=== PATIENT | male | born 1950 | race Caucasian/White ===

== ENCOUNTER 2016-11-25 06:58 | Day surgery (SDC) | payer MEDICARE, MEDICAID ==
[2016-05-21 09:50] VITALS: PULSE 68
[2016-11-21 12:17] VITALS: BMI 31.2
--- NOTE | 2016-11-23 07:16 | HP ---
REASON FOR ADMISSION: Left heart cath, possible angioplasty. BRIEF CLINICAL HISTORY: A 66-year-old male with past medical history significant for type 2 diabetes , coronary artery, status multiple PTCA, status multiple MIs. Last MA, the patient had plain balloon angioplasty in [facility] by Dr. Juan 05/19/2016 and then patient at [facility] 05/27/2016 a stent was done, recently complained of chest pain, so the patient underwent a stress test that shows positive apical inferior defect suggestive of ischemia, so the patient is sche duled for elective cardiac cath and possible angioplasty. PAST MEDICAL HISTORY: Significant for coronary artery disease, status post multiple PTCA, multiple M Is. Most recent code STEMI 05/19/2016, where an ostial circumflex PTCA was done. Diabetes, hypertensi on, hyperlipidemia. Recent cardiac workup as follows: Echo shows ejection fraction 35-40%, mild to moderate MR, mild TR, mild PI, trace aortic regurgitation. Recent stress test, stress thallium dated 10/30/2014 shows posi tive apical and inferior defect, ejection fraction 30%. SOCIAL HISTORY: Denies smoking. Denies any history of alcohol abuse. CURRENT MEDICATIONS: The patient is taking vitamin D, Tradjenta, Zocor, potassium, metoprolol succin ate 25 mg daily, insulin, glipizide 10 mg daily, furosemide 40 mg daily, fenofibrate 134, famotidine 40, enalapril, digoxin 0.125 mg, clopidogrel 75, Coreg 6.25, aspirin 81 mg daily. ALLERGIES: No known drug allergies. REVIEW OF SYSTEMS: As per HPI. PHYSICAL EXAMINATION: VITAL SIGNS: Temperature afebrile, height of the patient 5 feet 5 inches. Weight of the patient 188 pounds, body mass 31.3 kg/m2,. Temperature afebrile, heart rate 88, blood pressure 130/80. HEENT: PERRLA. Extraocular muscles intact. NECK: Supple. No carotid bruits. No thyromegaly. CHEST: Clear to auscultation. HEART: S1, S2 regular. ABDOMEN: Soft. EXTREMITIES: Clubbing and cyanosis negative. BLOOD WORKUP: Pending. IMPRESSION: Abnormal stress test, cardiomyopathy, ischemic; status post multiple stents, mild to mod erate mitral regurgitation, mild tricuspid regurgitation, mild aortic regurgitation, mild pulmonary i nsufficiency, diabetes, hypertension, hyperlipidemia, obesity, abnormal stress test. RECOMMENDATION: Cardiac catheterization. Further recommendation after cardiac catheterization. We will follow with you. Thank you, Dr. Giorgi Monzon, for providing us opportunity in taking care of the patient. We will fol low with you. Ciera Sheikh MD cc: [id number] TT: 11/23/2016 07:16:37 tn
[2016-11-25 07:21] LABS: ADD MANUAL DIFF? NO
[2016-11-25 07:25] LABS: EOS # 0.2 (0.0-0.7); EOS % 3.6 % (1.5-5.0); GRAN % 40.8 % (50.0-68.0); HEMATOCRIT 38.2 % (42.0-52.0); LYMPH # 1.9 (1.2-3.4); LYMPH % 43.2 % (22.0-35.0); MEAN CELL VOLUME 83.2 fL (80.0-105.0); MEAN CORPUSCULAR HEMOGLOBIN 27.9 pg (25.0-35.0); MEAN CORPUSCULAR HGB CONC 33.5 g/dl (31.0-37.0); MEAN PLATELET VOLUME 9.9 fl (7.0-11.0); MONO # 0.6 (0.1-0.6); MONO % 12.4 % (1.0-6.0); PLATELET COUNT 164 10^3/uL (120.0-450.0); WHITE BLOOD COUNT 4.4 10^3/ul (4.5-11.0)
[2016-11-25 07:34] LABS: INR 1.06 (0.93-1.08); PARTIAL THROMBOPLASTIN TIME 24.8 Seconds (23.7-30.8)
[2016-11-25 07:42] LABS: BLOOD UREA NITROGEN 18 mg/dL (7-21); CALCIUM 9.6 mg/dL (8.4-10.5); CARBON DIOXIDE 28 mmol/L (21-33); CHLORIDE 102 mmol/L (98-107); CHOLESTEROL 144 mg/dL (130-200); GFR AFRICAN-AMERICAN > 60; GLUCOSE,RANDOM 143 mg/dL (70-110); POTASSIUM 3.9 mmol/L (3.6-5.0); SODIUM 139 mmol/L (132-148)
[2016-11-25 07:43] VITALS: O2SAT 99
[2016-11-25] MEDS ORDERED: Lidocaine 2% Inj (20ml) ONE (08:26)
[2016-11-25] MEDS ORDERED: Midazolam 2 MG/2 ML VIAL ONE (08:26)
[2016-11-25] MEDS ORDERED: Iodixanol 320 MG/ML 200 ML BOTTLE IV ONE (08:27)
[2016-11-25] MEDS ORDERED: Nitroglycerin 50mg in D5W 250 ML IV ONE (08:27)
[2016-11-25] MEDS ORDERED: Eptifibatide 20 mg/10mL Inj IVP ONE (09:10)
[2016-11-25] MEDS ORDERED: Sodium Chloride 0.9% 1,000 ML IV SCH (10:30)
[2016-11-25 10:53] VITALS: TEMP 97.5
--- NOTE | 2016-11-25 13:41 | CARD ---
APPROVED REPORT EKG Measurement Heart [id number] <Conclusion> Sinus bradycardia with 1st degree AV block Right bundle branch block Left anterior fascicular block Trifascicular block STTW changes c/w ischemia
[2016-11-25 14:01] LABS: ADD MANUAL DIFF? NO
[2016-11-25 14:03] LABS: EOS # 0.1 (0.0-0.7); EOS % 3.8 % (1.5-5.0); GRAN # 1.45 (1.4-6.5); GRAN % 42.5 % (50.0-68.0); HEMATOCRIT 37.7 % (42.0-52.0); LYMPH # 1.5 (1.2-3.4); LYMPH % 43.4 % (22.0-35.0); MEAN CORPUSCULAR HEMOGLOBIN 27.8 pg (25.0-35.0); MEAN CORPUSCULAR HGB CONC 33.4 g/dl (31.0-37.0); MONO # 0.4 (0.1-0.6); MONO % 10.3 % (1.0-6.0); PLATELET COUNT 155 10^3/uL (120.0-450.0); RED CELL DISTRIBUTION WIDTH 13.9 % (11.5-14.5); WHITE BLOOD COUNT 3.4 10^3/ul (4.5-11.0)
[2016-11-25 14:15] LABS: BLOOD UREA NITROGEN 16 mg/dL (7-21); CALCIUM 9.6 mg/dL (8.4-10.5); CARBON DIOXIDE 28 mmol/L (21-33); CHLORIDE 100 mmol/L (98-107); GFR AFRICAN-AMERICAN > 60; GLUCOSE,RANDOM 177 mg/dL (70-110); POTASSIUM 3.8 mmol/L (3.6-5.0); SODIUM 140 mmol/L (132-148)
[2016-11-25] MEDS ORDERED: Bacitracin 500 Units/gm Oint Foilpak UD ONE (14:32)
[2016-11-25 15:57] VITALS: RESP 18
[2016-11-25 15:58] VITALS: BP 152/61; PULSE 73
--- NOTE | 2016-11-25 18:30 | CARD ---
APPROVED REPORT Procedure(s) performed: Left Heart Catheterization PTCA with Stenting of Proximal, Mid and Distal with MARIANNE PRU...261 ( Resistant to Plavix). HISTORY The patient is a 66 year-old male with a history of : diabetes mellitus with oral treatment , previous PCI (The PCI date was 05/27/2016), hypertension , dyslipidemia , Hx of Multiple PTCAs last in [facility] on 05/27/2016, c/o recuurrent chest pain and posuive stress test. INDICATION The indication(s) include : positive stress test, Apical and inferior defect. CASE TECHNIQUE The patient was brought electively to the Cardiac Catheterization Laboratory in a fasting state and was prepped and draped in a sterile manner. The left wrist was infiltrated with 2% Lidocaine subcutaneous anesthesia. A 6 Fr Glidesheath (Radial) sheath was inserted into the left radial artery without difficulty. Coronary angiography was performed using coronary diagnostic catheters. The left coronary system was accessed and visualized with a Diagnostic ,JL3.5,5Fr catheter. The right coronary system was accessed and visualized with a Diagnostic ,JR3.5,5FR catheter. The left ventricle was accessed and visualized with a Pigtal catheter. Left ventricular/Aortic Valve gradient assessed on pullback. Left ventriculogram was performed in ROSS projection. The patient tolerated the procedure well and there were no complications associated with the procedure. Vessel Analysis The patient's coronary anatomy is co-dominant. There is a 20% stenosis in the ostial segment. The left main bifurcates to the left anterior descending and circumflex. The left anterior descending artery is a medium size vessel with diffuse calcification noted throughout this vessel and without significant stenosis. There is a 40% stenosis in the mid segment. The first diagonal branch is a small size vessel with diffuse calcification noted throughout this vessel and without significant stenosis. The second diagonal branch is a small size vessel with diffuse calcification noted throughout this vessel and without significant stenosis. The third diagonal branch is a small size vessel with diffuse calcification noted throughout this vessel and without significant stenosis. The circumflex artery is a medium size vessel with diffuse calcification noted throughout this vessel and with significant stenosis. There is a 95% stenosis in the mid segment. proximal 70-80% and distal 80-90% The first obtuse marginal branch is a small size vessel with diffuse calcification noted throughout this vessel and without significant stenosis. The second obtuse marginal branch is a small size vessel with diffuse calcification noted throughout this vessel and without significant stenosis. The left posterior descending artery is a medium size vessel with diffuse calcification noted throughout this vessel and without significant stenosis. The right coronary artery is a large size vessel with diffuse calcification noted throughout this vessel and with significant stenosis. There is a 80-90% stenosis in the distal segment. proximal 40-50% and Mid 60-70% The right posterior descending artery is a medium size vessel with diffuse calcification noted throughout this vessel and without significant stenosis. Left Ventricle The left ventricle is enlarged in size with moderately decreased contractility. Ischemic cardiomyopathy. The left ventricular ejection fraction is estimated to be 35-40%. The left ventricular end diastolic pressure is 20 mmHg. There was no gradient across the aortic valve upon pullback. PCI Technique Lesion Anticoagulation was achieved with Heparin. Percutaneous coronary intervention was performed on the mid circumflex artery segment. The lesion stenosis prior to intervention was 95% with KAREN 2 flow. A 6 Fr XB 3 Guide Catheter was used to engage the ostium. BALLOON DILATION A Balloon catheter 2.5 x 15 mm Sprinter RX was inserted and inflated up to 8.00atm for 25seconds. STENT DEPLOYMENT A drug-eluting stent 2.75 x 22 mm Resolute MARIANNE was inserted and inflated up to 14.00atm for 30seconds. POST STENT DEPLOYMENT BALLOON DILATION A Balloon catheter 3.0 x 12 mm Sprinter NC was inserted and inflated up to 14.00atm for 30seconds. Final angiography reveals 0 % stenosis with KAREN 3 flow. PCI Technique Lesion 2 Percutaneous Coronary Intervention was performed on the proximal circumflex artery segment. The lesion stenosis prior to intervention was 70-80% with KAREN 2 flow. A 6 Fr XB 3 Guide Catheter was used to engage the ostium. BALLOON DILATION A Balloon catheter 2.5 x 15 mm Sprinter RX was inserted and inflated up to 12.00atm for 15seconds. STENT DEPLOYMENT A drug-eluting stent 2.75 x 26 mm Resolute MARIANNE was inserted and inflated up to 12.00atm for 15seconds. POST STENT DEPLOYMENT BALLOON DILATION A Balloon catheter 3.0 x 12 mm Sprinter NC was inserted and inflated up to 14.00atm for 15seconds. Final angiography reveals 0 % stenosis with KAREN 3 flow. PCI Technique Lesion 3 Percutaneous Coronary Intervention was performed on the distal circumflex artery segment. The lesion stenosis prior to intervention was 80-90% with KAREN 2 flow. A 6 Fr XB 3 Guide Catheter was used to engage the ostium. BALLOON DILATION A Balloon catheter 2.5 x 15 mm Sprinter RX was inserted and inflated up to susy for seconds. STENT DEPLOYMENT A drug-eluting stent 2.5 x 14 mm Resolute MARIANNE was inserted and inflated up to 15.00atm for 10seconds. Final angiography reveals 0 % stenosis with KAREN 3 flow. Conclusion Severe Two Vewssel CAD RCA/ CX Successful PTCA with MAIRANNE of Circumflex proxima, Mid and Distal LVEF-35-40%, EDP-20 PRU-261 ( Resistant to PLavix) Recommendations Cardiac Rehabilitation Referral Aggressive Medical TherapyCardiac Risk Reduction Program Weight Loss Reduction Program ASA and Effient for one year then Baby Asa alone. F/U staged PTCA in Four Weeks on 12/23/2016 at 7:[address] Jonas Monzon MD
== END 2016-11-25 17:09 | disposition home or self-care (01) ==
LOC: CATH 06:58 → 2RSO 10:36 → CATH 17:09
PROVIDERS: ATTEND Internal Medicine Cardiovascular Disease
DX: I25.10 Atherosclerotic heart disease of native coronary artery without angina pectoris (principal); I10 Essential (primary) hypertension; I25.5 Ischemic cardiomyopathy; E11.8 Type 2 diabetes mellitus with unspecified complications; I08.3 Combined rheumatic disorders of mitral, aortic and tricuspid valves; E78.5 Hyperlipidemia, unspecified; J98.4 Other disorders of lung; E66.9 Obesity, unspecified; Z68.31 Body mass index [BMI] 31.0-31.9, adult; I25.2 Old myocardial infarction; Z95.5 Presence of coronary angioplasty implant and graft; Z79.84 Long term (current) use of oral hypoglycemic drugs
CPT/HCPCS: 36415; 80048; 80061; 85025; 85175; 85576; 85610; 85730; 86850; 86900; 93005; 93458; 99152; 99153; C1725 ×3; C1769 ×2; C1874 ×3; C1887 ×2; C9600; J1327; J1644 ×2; J1940; J2250; J3010; J7040 ×2

== ENCOUNTER 2016-12-23 06:12 | Day surgery (SDC) | payer MEDICARE, MEDICAID ==
[2016-11-21 12:17] VITALS: BMI 31.2
--- NOTE | 2016-12-20 22:03 | HP ---
REASON FOR ADMISSION: Staged angioplasty of RCA, left heart catheterization. BRIEF CLINICAL HISTORY: This is a 66-year-old male with a past medical history of multiple PTCAs, co ronary artery disease, diabetes, hypertension, hyperlipidemia, on oral hypoglycemic agent, history of multiple PTCAs and MIs with last cardiac catheterization on 11/25/2016 after having abnormal stress test, apical defect, and chest pain. Cardiac catheterization revealed 2 vessels coronary artery dise ase, multiple stenoses in the circumflex and successfully the patient underwent PTCA with drug-elutin g stents in proximal, mid and distal circumflex. The patient this time is going to be admitted on for PTCA of right coronary artery. PAST MEDICAL HISTORY: Significant for diabetes, hypertension, hyperlipidemia, multiple MIs, multiple PTCAs, history of code STEMI 05/19/2016 with ostial circumflex. Had PTCA done by Dr. Juan and cheryle yun a week later the patient admitted to [facility] on 05/27/2016 and a stent was dep loyed. The patient had recently a stress test done that was positive, so patient underwent cardiac c atheterization. Stress test dated 10/30/2014 shows apical defect suggestive of ischemia, ejection fr action 35%. MOST RECENT CARDIAC WORKUP: The patient had echocardiography done that showed ejection fraction 35-4 0%, mild to moderate mitral regurgitation, mild tricuspid regurgitation, mild pulmonary insufficiency , trace aortic regurgitation; abnormal stress test dated 10/30/2014 because of chest pain. Repeat ca theterization most recently, as mentioned 11/25/2016, that revealed left ventricle ejection fraction 35-40%, EDP was in the range of 20, and cardiac catheterization revealed the left main ostial 20% gera nosis, bifurcate LAD and circumflex. LAD had 40% stenosis noted. Circumflex was a medium sized vess el, diffuse recalcification noted toward the vessel, a 95% stenosis in the midsegment, proximal 70-80 %, and distal ____% where the patient had 3 drug-eluting stents done. Right coronary artery revealed 70-80% stenosis in the distal segment, proximal 40-50, and mid 60-70%. RPDA has diffuse disease not ed. SOCIAL HISTORY: Denies smoking. Denies any history of alcohol abuse. CURRENT MEDICATIONS: The patient is taking Tradjenta, Zocor, potassium, metoprolol, insulin, glipizi de, furosemide, fenofibrate, famotidine, enalapril, digoxin. The patient was taking Plavix before, b ut on last catheterization PRU was done and found to be 261 so patient was to switch over to Effient. ALLERGIES: No known drug allergies. REVIEW OF SYSTEMS: As per HPI. PHYSICAL EXAMINATION: VITAL SIGNS: Temperature afebrile, heart rate 60, blood pressure 134/80. HEENT: PERRLA. Extraocular muscles intact. NECK: Supple. No carotid bruits. No thyromegaly. CHEST: Clear to auscultation. HEART: S1, S2 regular. ABDOMEN: Soft. EXTREMITIES: Clubbing and cyanosis negative. BLOOD WORKUP: Last blood workup in the system available is on 11/25/2016 that shows WBC 3.4, hemoglo bin 12, hematocrit 37.7, platelet count 155. Chemistry shows sodium 140, potassium 3.____, chloride 100, carbon dioxide 28, anion gap of 16, BUN 16, creatinine 1.1. IMPRESSION: History of coronary artery disease and multiple stents, multiple myocardial infarctions, ST-elevation myocardial infarction. Last ST-elevation myocardial infarction stent in 05/2016 where the patient had a plain balloon angioplasty of circumflex and the patient had a stent in [facility]. Recently, cardiac catheterization done because of abnormal stress test, 11/25/2016. Has had 3 drug-eluting stents in the circumflex. Now patient admitted for a staged percutaneous translum inal coronary angioplasty of right coronary artery. Decreased ventricular function, ejection fractio n 35%, mitral regurgitation, tricuspid regurgitation, diabetes, hypertension, hyperlipidemia. Furthe r recommendation after cardiac catheterization and stenting. Will follow with you. Thank you, Dr. Monzon, for providing us the opportunity in taking care of this patient. Will follow w ith you. Ciera Sheikh MD cc: [id number] TT: 12/20/2016 16:42:03 nicolás
[2016-12-23 06:41] LABS: ADD MANUAL DIFF? NO
[2016-12-23] MEDS ORDERED: Lidocaine 2% Inj (20ml) ONE (06:44)
[2016-12-23] MEDS ORDERED: Iohexol 350mgl/ml 50 ML ONE (06:45)
[2016-12-23] MEDS ORDERED: Iodixanol 320 MG/ML 100 ML BOTTLE IV ONE (06:45)
[2016-12-23] MEDS ORDERED: Iodixanol 320 MG/ML 200 ML BOTTLE IV ONE (06:45)
[2016-12-23] MEDS ORDERED: Phenylephrine 10 mg/ml Inj ONE (06:45)
[2016-12-23] MEDS ORDERED: Nitroglycerin 50mg in D5W 50 MG/250 ML BOTTLE IV ONE (06:45)
[2016-12-23 06:55] VITALS: RESP 18; O2SAT 97
[2016-12-23 07:08] LABS: BLOOD UREA NITROGEN 15 mg/dL (7-21); CALCIUM 9.7 mg/dL (8.4-10.5); CARBON DIOXIDE 26 mmol/L (21-33); CHLORIDE 100 mmol/L (98-107); CHOLESTEROL 163 mg/dL (130-200); GFR AFRICAN-AMERICAN > 60; GLUCOSE,RANDOM 111 mg/dL (70-110); POTASSIUM 3.9 mmol/L (3.6-5.0); SODIUM 138 mmol/L (132-148)
[2016-12-23] MEDS ORDERED: Midazolam 2 MG/2 ML VIAL ONE (07:08)
[2016-12-23 07:17] LABS: BASO # 0.01 K/mm3 (0.0-2.0); BASO % 0.2 % (0.0-3.0); EOS # 0.1 (0.0-0.7); EOS % 1.8 % (1.5-5.0); GRAN # 3.04 (1.4-6.5); GRAN % 55.7 % (50.0-68.0); HEMATOCRIT 35.7 % (42.0-52.0); LYMPH # 1.8 (1.2-3.4); LYMPH % 32.4 % (22.0-35.0); MEAN CELL VOLUME 82.1 fL (80.0-105.0); MEAN CORPUSCULAR HEMOGLOBIN 27.4 pg (25.0-35.0); MEAN CORPUSCULAR HGB CONC 33.3 g/dl (31.0-37.0); MONO # 0.5 (0.1-0.6); MONO % 9.9 % (1.0-6.0); PLATELET COUNT 182 10^3/uL (120.0-450.0); RED CELL DISTRIBUTION WIDTH 13.8 % (11.5-14.5); WHITE BLOOD COUNT 5.5 10^3/ul (4.5-11.0)
[2016-12-23] MEDS ORDERED: Eptifibatide 20 mg/10mL Inj IVP ONE (07:19)
[2016-12-23 07:28] LABS: INR 1.01 (0.93-1.08); PARTIAL THROMBOPLASTIN TIME 24.1 Seconds (23.7-30.8)
[2016-12-23] MEDS ORDERED: Sodium Chloride 0.9% 1,000 ML IV SCH (09:15)
[2016-12-23] MEDS ORDERED: Ergocalciferol 50,000 Intl Units Cap PO SCH (09:15)
[2016-12-23] MEDS ORDERED: Metoprolol Succinate 25 mg XL Tab PO SCH (09:15)
[2016-12-23] MEDS ORDERED: Digoxin 125 mcg (0.125 mg) Tab PO SCH (10:00)
[2016-12-23] MEDS ORDERED: Potassium Chloride 10 mEq ER Tab PO SCH (10:00)
[2016-12-23 11:17] VITALS: PULSE 67
[2016-12-23 12:28] LABS: ADD MANUAL DIFF? NO; EOS # 0.1 (0.0-0.7); EOS % 2.8 % (1.5-5.0); GRAN # 2.26 (1.4-6.5); GRAN % 51.9 % (50.0-68.0); HEMATOCRIT 35.2 % (42.0-52.0); LYMPH # 1.6 (1.2-3.4); LYMPH % 36.6 % (22.0-35.0); MEAN CELL VOLUME 82.4 fL (80.0-105.0); MEAN CORPUSCULAR HEMOGLOBIN 27.6 pg (25.0-35.0); MEAN CORPUSCULAR HGB CONC 33.5 g/dl (31.0-37.0); MEAN PLATELET VOLUME 9.7 fl (7.0-11.0); MONO # 0.4 (0.1-0.6); MONO % 8.7 % (1.0-6.0); PLATELET COUNT 152 10^3/uL (120.0-450.0); RED CELL DISTRIBUTION WIDTH 13.7 % (11.5-14.5); WHITE BLOOD COUNT 4.4 10^3/ul (4.5-11.0)
[2016-12-23 12:40] LABS: BLOOD UREA NITROGEN 14 mg/dL (7-21); CALCIUM 9.1 mg/dL (8.4-10.5); CARBON DIOXIDE 28 mmol/L (21-33); CHLORIDE 101 mmol/L (98-107); GFR AFRICAN-AMERICAN > 60; POTASSIUM 3.7 mmol/L (3.6-5.0); SODIUM 137 mmol/L (132-148)
[2016-12-23 12:57] LABS: GLUCOSE,RANDOM 169 mg/dL (70-110)
--- NOTE | 2016-12-23 13:43 | CARD ---
APPROVED REPORT EKG Measurement Heart [id number] <Conclusion> Normal sinus rhythm with 1st degree AVB Right bundle branch block Left anterior fascicular block Trifascicular block STTW changes c/w ischemia
[2016-12-23 13:58] VITALS: PULSE 67
[2016-12-23] MEDS ORDERED: Potassium Chloride 20 mEq ER Tab PO ONE (14:52)
[2016-12-23 14:58] VITALS: BP 125/62; TEMP 98
[2016-12-23] MEDS ORDERED: Insulin Lispro (humaLOG) MIX 75/25(10 ml) SC SCH (16:30)
--- NOTE | 2016-12-23 17:35 | CARD ---
APPROVED REPORT Procedure(s) performed: Selective Right and Left Coronary Angiography PTCA with Stenting of Proximal RCA with MARIANNE PTCA with scorring balloon of MID RCA for Instent restenosis PTCA with Balloon Angioplasty of Distal RCA. HISTORY The patient is a 66 year-old male with a history of : previous CT (> 7 days), most recent EF: 40%. (EF Method: LVG), peripheral vascular disease, diabetes mellitus with insulin treatment , previous diagnostic cath, tobacco history() : The patient is a former smoker , previous PCI (The PCI date was 11/25/2016), hypertension , dyslipidemia , Admitted for Staged PTCA of RCA. INDICATION The indication(s) include : positive stress test, For Staged PTCA of RCA. CASE TECHNIQUE The patient was brought electively to the Cardiac Catheterization Laboratory in a fasting state and was prepped and draped in a sterile manner. The left wrist was infiltrated with 2% Lidocaine subcutaneous anesthesia. A 6 Fr Glidesheath (Radial) sheath was inserted into the left radial artery without difficulty. Coronary angiography was performed using coronary diagnostic catheters. The left coronary system was accessed and visualized with a Diagnostic ,5 Fr JL 3.5 catheter. The right coronary system was accessed and visualized with a 6 Fr AR 1 Guide Catheter catheter. Closure device was deployed with a Fr TR Band (Regular) without any complications. NO LV gram obtained Vessel Analysis The patient's coronary anatomy is co-dominant. The left main coronary artery is a medium size vessel with diffuse calcification noted throughout this vessel and without significant stenosis. The left main bifurcates to the left anterior descending and circumflex. The left anterior descending artery is a medium size vessel with diffuse calcification noted throughout this vessel and without significant stenosis. The first diagonal branch is a small size vessel with diffuse calcification noted throughout this vessel and without significant stenosis. The second diagonal branch is a small size vessel with diffuse calcification noted throughout this vessel and without significant stenosis. The third diagonal branch is a small size vessel with diffuse calcification noted throughout this vessel and without significant stenosis. The circumflex artery is a medium size vessel with diffuse calcification noted throughout this vessel and without significant stenosis. Patent Previous PTCA Sites The first obtuse marginal branch is a small size vessel with diffuse calcification noted throughout this vessel and without significant stenosis. The second obtuse marginal branch is a small size vessel with diffuse calcification noted throughout this vessel and without significant stenosis. The left posterior descending artery is a medium size vessel with diffuse calcification noted throughout this vessel and without significant stenosis. The right coronary artery is a large size vessel with diffuse calcification noted throughout this vessel and with significant stenosis. proximally 70% stenosis with 60 mm drop in blood pressure and significant dampening of BP on deep engagment. There is a 80-90% stenosis in the mid segment. multiple stenoses, and Mid Instent restenosis 70-80% multiple The right posterolateral branch is a medium size vessel with diffuse calcification noted throughout this vessel and without significant stenosis. Left Ventricle LV gram not obtained. PCI Technique Lesion Anticoagulation was achieved with Heparin. Percutaneous coronary intervention was performed on the Distal right coronary artery. The lesion stenosis prior to intervention was 80-90% with KAREN 2 flow. A 6 Fr AR 1 Guide Catheter was used to engage the ostium. BALLOON DILATION A Balloon catheter 2.5 x 27 mm Sprinter NC was inserted and inflated up to 10.00atm for 60seconds. Multiple inflation for 10-12 atms for 60 secons each Final angiography reveals 0 % stenosis with KAREN 3 flow. PCI Technique Lesion 2 Percutaneous Coronary Intervention was performed on the mid right coronary artery. The lesion stenosis prior to intervention was 70-80% with KAREN 2 flow. A 6 Fr AR 1 Guide Catheter was used to engage the ostium. BALLOON DILATION A Balloon catheter 3.0 x 10 mm Scoring Balloon was inserted and inflated up to 12.00atm for 35seconds. POST STENT DEPLOYMENT BALLOON DILATION A Balloon catheter 3.5/15 was inserted and inflated up to 14atm for 20seconds. Final angiography reveals 20 % stenosis with KAREN 3 flow. PCI Technique Lesion 3 Percutaneous Coronary Intervention was performed on the proximal right coronary artery. The lesion stenosis prior to intervention was 70% with KAREN 2 flow. A 6 Fr AR 1 Guide Catheter was used to engage the ostium. BALLOON DILATION A Balloon catheter 2.5 x 27 mm Sprinter NC was inserted and inflated up to 14.00atm for 35seconds. STENT DEPLOYMENT A drug-eluting stent 3.5 x 12 mm Resolute MARIANNE was inserted and inflated up to 14.00atm for 25seconds. Final angiography reveals 0 % stenosis with KAREN 3 flow. Conclusion Patent Previous PTCA sites in Circumflex Successful PTCA (POBA) of Distal RCA. Successful PTCA with Scorring Balloon of MId RCA for Instent restenosi. Successful PTCA with MARIANNE of Proximal RCA. Recommendations Cardiac Rehabilitation Referral Aggressive Medical TherapyCardiac Risk Reduction Program Weight Loss Reduction Program Continue ASA and Effient for one year( Pt is resistant to plavix, PRU...261 on last cath on Plavix so changed to EFFIENT). CC; Dr. Jonas Monzon MD
== END 2016-12-23 15:43 | disposition home or self-care (01) ==
LOC: CATH 06:12 → 2RSO 09:11 → CATH 15:43
PROVIDERS: ATTEND Internal Medicine Cardiovascular Disease
DX: I25.10 Atherosclerotic heart disease of native coronary artery without angina pectoris (principal); T82.858A Stenosis of other vascular prosthetic devices, implants and grafts, initial encounter; E11.9 Type 2 diabetes mellitus without complications; I10 Essential (primary) hypertension; E78.5 Hyperlipidemia, unspecified; I25.2 Old myocardial infarction; I44.0 Atrioventricular block, first degree; I45.10 Unspecified right bundle-branch block; I73.9 Peripheral vascular disease, unspecified; R07.9 Chest pain, unspecified; R94.39 Abnormal result of other cardiovascular function study; Z79.4 Long term (current) use of insulin; Z87.891 Personal history of nicotine dependence; Z95.5 Presence of coronary angioplasty implant and graft; Z98.61 Coronary angioplasty status; I08.3 Combined rheumatic disorders of mitral, aortic and tricuspid valves; I09.89 Other specified rheumatic heart diseases
CPT/HCPCS: 36415; 80048; 80061; 85025; 85175; 85610; 85730; 86850; 86900; 93005; 93454; 99152; 99153; C1725 ×2; C1769 ×2; C1874 ×2; C1887 ×2; C9600; J1327; J1644 ×2; J2250; J3010; J7040 ×2; Q9967

== ENCOUNTER 2017-04-29 09:30 | Inpatient (IN) | payer MEDICARE, MEDICAID ==
[2017-04-29 10:10] LABS: BASO # 0.01 K/mm3 (0.0-2.0); BASO % 0.2 % (0.0-3.0); EOS # 0.1 (0.0-0.7); EOS % 2.7 % (1.5-5.0); GRAN # 2.41 (1.4-6.5); GRAN % 53.7 % (50.0-68.0); HEMATOCRIT 36.3 % (42.0-52.0); LYMPH # 1.4 (1.2-3.4); LYMPH % 31.4 % (22.0-35.0); MEAN CELL VOLUME 81.8 fl (80.0-105.0); MEAN CORPUSCULAR HEMOGLOBIN 26.1 pg (25.0-35.0); MEAN PLATELET VOLUME 10.9 fl (7.0-11.0); MONO # 0.5 (0.1-0.6); RED CELL DISTRIBUTION WIDTH 14.8 % (11.5-14.5); WHITE BLOOD COUNT 4.5 10^3/ul (4.5-11.0)
--- NOTE | 2017-04-29 10:12 | RAD ---
HISTORY: sob r/o chf COMPARISON: No prior. FINDINGS: LUNGS: 05/19/2016 patchy opacity at right lung base. Nonspecific. . PLEURA: Minimal blunting of left costophrenic angle may reflect small pleural effusion. CARDIOVASCULAR: Congestive change. Permanent pacemaker. Normal heart size. OSSEOUS STRUCTURES: No significant abnormalities. VISUALIZED UPPER ABDOMEN: Normal. OTHER FINDINGS: None. IMPRESSION: Congestive change. Patchy opacity at right base. Possible small left pleural effusion. Findings may reflect congestive heart failure with early pulmonary edema. Follow-up advised.
[2017-04-29 10:13] LABS: ALB/GLOB RATIO 1.4 (1.1-1.8); ALKALINE PHOSPHATASE 44 U/L (38-126); ALT/SGPT 38 U/L (7-56); AST/SGOT 31 U/L (17-59); BILIRUBIN,TOTAL 0.8 mg/dL (0.2-1.3); BLOOD UREA NITROGEN 16 mg/dL (7-21); CALCIUM 9.9 mg/dL (8.4-10.5); CARBON DIOXIDE 28 mmol/L (21-33); CHLORIDE 102 mmol/L (98-107); GFR AFRICAN-AMERICAN > 60; GLUCOSE,RANDOM 171 mg/dL (70-110); MAGNESIUM 1.8 mg/dL (1.7-2.2); POTASSIUM 4.3 mmol/L (3.6-5.0); SODIUM 141 mmol/L (132-148); TOTAL PROTEIN 7.3 g/dL (5.8-8.3)
[2017-04-29 10:14] LABS: INR 1.16 (0.93-1.08); PARTIAL THROMBOPLASTIN TIME 25.7 Seconds (23.7-30.8)
[2017-04-29 10:25] LABS: TROPONIN I 0.03 ng/mL
[2017-04-29] MEDS ORDERED: cefTRIAXone 1 gm 1 GM/100 ML BAG IVPB STA (10:27)
[2017-04-29 10:33] LABS: URINE BILIRUBIN NEGATIVE (NEGATIVE); URINE BLOOD NEGATIVE (NEGATIVE); URINE GLUCOSE (UA) NEGATIVE (NEGATIVE); URINE KETONE NEGATIVE (NEGATIVE); URINE LEUKOCYTE ESTERASE NEGATIVE Leu/uL (NEGATIVE); URINE PROTEIN NEGATIVE mg/dL (<30 mg/dL); URINE UROBILINOGEN 0.2 E.U./dL (<1 E.U./dL)
[2017-04-29 10:38] LABS: URINE APPEARANCE CLEAR (CLEAR); URINE COLOR YELLOW (YELLOW)
--- NOTE | 2017-04-29 10:39 | ED PDOC ---
Arrival/HPI - General Chief Complaint: Respiratory Distress Time Seen by Provider: 04/29/17 09:33 Historian: Patient - History of Present Illness Narrative History of Present Illness (Text): 04/29/17 09:36 A 66 year old male, whose past medical history includes CAD with multiple stents , prior STEMI and nonSTEMI, presents to the emergency department complaining of shortness of breath for 1 week. Patient reports experiencing central chest pain but is unable to describe pain. Patient denies of any other complaints. 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) - Renal Hx Renal Disorder: No - Endocrine/Metabolic Hx Diabetes Mellitus Type 2: Yes - Hematological/Oncological Hx Blood Transfusions: No - Integumentary Hx Dermatological Disorder: No Other/Comment: multiple brown skin discolorations ble - Musculoskeletal/Rheumatological Hx Musculoskeletal Disorders: No - Gastrointestinal Hx Gastrointestinal Disorders: Yes Hx Gastroesophageal Reflux: Yes - Genitourinary/Gynecological Hx Genitourinary Disorders: No - Psychiatric Hx Emotional Abuse: No Hx Physical Abuse: No Hx Substance Use: No - Surgical History Hx Coronary Stent: Yes - Anesthesia Hx Anesthesia Reactions: No Hx Malignant Hyperthermia: No - Suicidal Assessment Feels Threatened In Home Enviroment: No Family/Social History - Physician Review Nursing Documentation Reviewed: Yes Family/Social History: No Known Family HX Smoking Status: Former Smoker Hx Alcohol Use: No Hx Substance Use: No Hx Substance Use Treatment: No Allergies/Home Meds Allergies/Adverse Reactions: Allergies No Known Allergies Allergy (Verified 04/29/17 14:53) Home Medications: Home Meds Medication Instructions Recorded Confirmed Digoxin [Digitek] 125 mcg PO DAILY 09/27/15 04/29/17 Glipizide 10 mg PO BID 09/27/15 04/29/17 Enalapril Maleate [Vasotec] 10 mg PO BID 03/18/16 04/29/17 Fenofibrate [Fenoglide] 134 mg PO DAILY 03/18/16 04/29/17 Insulin Aspart Prot/Insuln Asp 0 units SC ACBD 03/18/16 12/23/16 [Novolog Mix 70-30 Vial] Aspirin [Ecotrin] 81 mg PO DAILY 05/21/16 04/29/17 Famotidine [Pepcid] 40 mg PO DAILY 05/21/16 04/29/17 Atorvastatin [Lipitor] 40 mg PO DAILY 11/25/16 04/29/17 Gabapentin [Neurontin] 300 mg PO DAILY 11/25/16 04/29/17 Metoprolol Succinate XL [Toprol XL] 25 mg PO BRK 11/25/16 04/29/17 Cholecalciferol (Vitamin D3) 50,000 unit PO Q7D 12/20/16 04/29/17 [Vitamin D3] Insulin Glargine,Hum.rec.anlog 35 unit SQ ACB 12/20/16 12/23/16 [Toujeo Solostar] Hctz 25 Mg 25 mg PO DAILY 04/29/17 04/29/17 Sitagliptin Phos/Metformin HCl 1 each PO BID 04/29/17 04/29/17 [Janumet 50-1,000 mg Tablet] Review of Systems - Physician Review All systems were reviewed & negative as marked: Yes - Review of Systems Constitutional: absent: Fevers, Night Sweats Respiratory: SOB Cardiovascular: Chest Pain (unable to describe pain) Gastrointestinal: absent: Abdominal Pain, Diarrhea, Nausea, Vomiting Physical Exam Vital Signs Reviewed: Yes Vital Signs Temp Pulse Resp BP Pulse Ox 04/29/17 15:35 55 L 18 132/55 L 99 04/29/17 14:00 67 18 99 04/29/17 12:31 89 18 128/63 97 04/29/17 10:39 141/60 04/29/17 09:42 97.6 F 72 18 150/84 98 04/29/17 09:41 20 98 Temperature: Afebrile Blood Pressure: Normal Pulse: Regular Respiratory Rate: Normal Appearance: Positive for: Well-Appearing Pain Distress: None Mental Status: Positive for: Alert and Oriented X 3 Finger Stick Blood Glucose: 182 - Systems Exam Head: Present: Atraumatic, Normocephalic Pupils: Present: PERRL Extroacular Muscles: Present: EOMI Conjunctiva: Present: Normal Mouth: Present: Moist Mucous Membranes Neck: Present: Normal Range of Motion Respiratory/Chest: Present: Other (crackle sounds bilaterally in lower carrero) Cardiovascular: Present: Regular Rate and Rhythm, Normal S1, S2. No: Murmurs Abdomen: Present: Normal Bowel Sounds. No: Tenderness, Distention, Peritoneal Signs Back: Present: Normal Inspection Upper Extremity: Present: Normal Inspection. No: Cyanosis, Edema Lower Extremity: No: Edema Neurological: Present: GCS=15, CN II-XII Intact, Speech Normal Skin: Present: Warm, Dry, Normal Color. No: Rashes Psychiatric: Present: Alert, Oriented x 3, Normal Insight, Normal Concentration Medical Decision Making ED Course and Treatment: 04/29/17 09:42 Impression: 66 year old male with shortness of breath. Physical exam shows crackle sounds bilaterally in lower carrero and no lower extremity edema. Differential Diagnosis included but are not limited to: Pneumonia vs CHF exacerbation Plan: -- EKG -- Chest X-ray -- Labs -- Urinalysis -- Aspirin -- Zithromax -- Lasix -- Rocephin -- Blood Culture -- Reassess and disposition Prior Visits: Notes and results from previous visits were reviewed. Patient was last seen in the emergency department on 05/19/2016 for chest tightness and shortness of breath. Patient was admitted. Progress Notes: EKG: Ordered, reviewed, and independently interpreted the EKG. Rate : 70 BPM Rhythm : Paced rhythm Interpretation : No ST-segment elevations or depressions, no T-wave inversions, normal intervals. Comparison : No previous EKG for comparison. 04/29/2017 10:11 Chest X-ray IMPRESSION: Congestive change. Patchy opacity at right base. Possible small left pleural effusion. Findings may reflect congestive heart failure with early pulmonary edema. Follow-up advised. Dictator : Olvin Cheek MD 04/29/17 10:[address] Tsai who admitted this patient on the last admission. Patient was happy with this provider. His provider does not come here. Patient improved with treatment but was still having symptoms so needed admission - Lab Interpretations Lab Results: 04/29/17 09:45 04/29/17 09:45 Lab Results 04/29/17 10:15: PT 12.5 H, INR 1.16 H, APTT 25.7 04/29/17 09:45: Digoxin 1.0 04/29/17 09:45: Sodium 141, Potassium 4.3, Chloride 102, Carbon Dioxide 28, Anion Gap 15, BUN 16, Creatinine 1.1, Est GFR ( Amer) > 60, Est GFR (Non- Af Amer) > 60, Random Glucose 171 H, Calcium 9.9, Magnesium 1.8, Total Bilirubin 0.8, AST 31, ALT 38, Alkaline Phosphatase 44, Lactate Dehydrogenase 447, Total Creatine Kinase 81, Troponin I 0.03 D, NT-Pro-B Natriuret Pep 2390 H , Total Protein 7.3, Albumin 4.2, Globulin 3.1, Albumin/Globulin Ratio 1.4 04/29/17 09:45: WBC 4.5, RBC 4.44, Hgb 11.6 L, Hct 36.3 L, MCV 81.8, MCH 26.1, MCHC 32.0, RDW 14.8 H, Plt Count 228, MPV 10.9, Gran % 53.7, Lymph % (Auto) 31.4 , [place] % (Auto) 12.0 H, Eos % (Auto) 2.7, Baso % (Auto) 0.2, Gran # 2.41, Lymph # 1.4, [place] # 0.5, Eos # 0.1, Baso # 0.01 04/29/17 09:42: Urine Color Yellow, Urine Appearance Clear, Urine pH 7.0, Ur Specific [place] 1.010, Urine Protein Negative, Urine Glucose (UA) Negative, Urine Ketones Negative, Urine Blood Negative, Urine Nitrate Negative, Urine Bilirubin Negative, Urine Urobilinogen 0.2, Ur Leukocyte Esterase Negative 04/29/17 09:41: POC Glucose (mg/dL) 182 H I have reviewed the lab results: Yes - RAD Interpretation Radiology Orders: 04/29/17 09:42 CHEST PORTABLE [RAD] Stat - Medication Orders Current Medication Orders: Acetaminophen (Tylenol 325mg Tab) 650 mg PO Q6H PRN PRN Reason: Fever >100.4 F Albuterol/Ipratropium (Duoneb 3 Mg/0.5 Mg (3 Ml) Ud) 3 ml IH Q2H PRN PRN Reason: Shortness of Breath Albuterol/Ipratropium (Duoneb 3 Mg/0.5 Mg (3 Ml) Ud) 3 ml IH [id number] [facility] Aspirin (Ecotrin) 81 mg PO DAILY [facility] Last Admin: 04/29/17 11:30 Dose: Atorvastatin Calcium (Lipitor) 40 mg PO DAILY [facility] Digoxin (Lanoxin) 0.125 mg PO DAILY [facility] Last Admin: 04/29/17 12:06 Dose: Famotidine (Pepcid) 40 mg PO BID [facility] Last Admin: 04/29/17 12:05 Dose: 40 mg Fenofibrate (Tricor) 145 mg PO DAILY [facility] Furosemide (Lasix) 40 mg IVP DAILY [facility] Gabapentin (Neurontin) 300 mg PO HS [facility] PRN Reason: Protocol Glipizide (Glucotrol) 10 mg PO BID [facility] Ceftriaxone Sodium (Rocephin 1 Gram Ivpb) 1 gm in 100 mls @ 100 mls/hr IVPB DAILY [facility] PRN Reason: Protocol Azithromycin (Zithromax 500mg In Ns) 500 mg in 250 mls @ 167 mls/hr IVPB DAILY [facility] PRN Reason: Protocol Insulin Human Regular (Humulin R High) 0 units SC ACHS [facility] PRN Reason: Protocol Lisinopril (Zestril) 20 mg PO DAILY [facility] Last Admin: 04/29/17 12:56 Dose: Metformin HCl (Glucophage) 1,000 mg PO BID [facility] Metoprolol Succinate (Toprol Xl) 25 mg PO BRK [facility] Last Admin: 04/29/17 12:54 Dose: Sitagliptin Phosphate (Januvia) 50 mg PO BID [facility] Discontinued Medications Aspirin (Aspirin) 325 mg PO STAT STA Stop: 04/29/17 09:42 Last Admin: 04/29/17 09:53 Dose: 325 mg Azithromycin (Zithromax) 500 mg PO STAT [facility] PRN Reason: Protocol Stop: 04/29/17 10:29 Last Admin: 04/29/17 10:42 Dose: 500 mg Furosemide (Lasix) 20 mg IVP STAT STA Stop: 04/29/17 10:29 Last Admin: 04/29/17 10:39 Dose: 20 mg Ceftriaxone Sodium (Rocephin 1 Gram Ivpb) 1 gm in 100 mls @ 200 mls/hr IVPB STAT STA PRN Reason: Protocol Stop: 04/29/17 10:56 Last Admin: 04/29/17 10:41 Dose: 200 mls/hr - Scribe Statement The provider has reviewed the documentation as recorded by the Laina Ortiz Provider Laina Attestation: All medical record entries made by the Laina were at my direction and personally dictated by me. I have reviewed the chart and agree that the record accurately reflects my personal performance of the history, physical exam, medical decision making, and the department course for this patient. I have also personally directed, reviewed, and agree with the discharge instructions and disposition. Disposition/Present on Arrival - Present on Arrival Any Indicators Present on Arrival: No History of DVT/PE: No History of Uncontrolled Diabetes: No Urinary Catheter: No History of Decub. Ulcer: No History Surgical Site Infection Following: None - Disposition Have Diagnosis and Disposition been Completed?: Yes Diagnosis: Pneumonia, Congestive heart failure Disposition: HOSPITALIZED Disposition Time: 10:43 Patient Plan: Admission Condition: FAIR
[2017-04-29] MEDS ORDERED: Albuterol-Ipratrop 3 mg / 0.5 (3 ml) UD IH PRN (11:02)
--- NOTE | 2017-04-29 12:01 | CT ---
PROCEDURE: CT Chest without contrast HISTORY: sob COMPARISON: None. TECHNIQUE: Contiguous axial images were obtained through the chest without intravenous contrast enhancement. Sagittal and coronal reconstructions were performed. Radiation dose (DLP): 472.10 mGy-cm. This CT exam was performed using one or more of the following dose reduction techniques: Automated exposure control, adjustment of the mA and/or kV according to patient size, and/or use of iterative reconstruction technique. FINDINGS: LUNGS: Small airways disease, nonspecific, in the right lower lobe. There is patchy small airways disease seen in the anterior segment right upper lobe. There are small ill-defined nodular opacities throughout both upper lobes. These may be infectious or inflammatory. There is a 1.4 cm mass with irregular contour surrounded by ground-glass opacity. This may represent a rounded pneumonia or neoplasm. MEDIASTINUM: Unremarkable thoracic aorta. No aneurysm. Normal heart size. Coronary stents are noted. Permanent pacemaker noted. No pericardial effusion. Main pulmonary artery unremarkable. No vascular congestion. Shotty subcentimeter mediastinal nodes are present. There is a mildly enlarged right peritracheal lymph node measuring 1.1 cm in short axis. There is no hilar lymphadenopathy. PLEURA: Small bilateral pleural effusion. BONES: No fracture. No destructive lesion. UPPER ABDOMEN: Cholelithiasis with thickened gallbladder wall. Nonspecific. OTHER FINDINGS: None. IMPRESSION: Small bilateral pleural effusion. 1.4 cm mass in right apex with surrounding ground-glass opacity. The possibility of a neoplastic process must be considered though this may also be a rounded pneumonia. There is bilateral upper lobe small airways disease as well as its small ill-defined nodular opacities throughout both upper lobes. Likely inflammatory or infectious. Neoplastic process considered less likely. Additional nonacute findings as above.
[2017-04-29] MEDS: Metoprolol Succinate 25 mg XL Tab PO SCH ×2 (12:06→12:54)
[2017-04-29] MEDS: Digoxin 125 mcg (0.125 mg) Tab PO SCH (12:06)
--- NOTE | 2017-04-29 12:54 | CARD ---
APPROVED REPORT EKG Measurement Heart [id number] <Conclusion> Demand pacemaker, interpretation is based on intrinsic rhythm Wide QRS rhythm with premature ventricular complexes or fusion complexes Left axis deviation Right bundle branch block Left ventricular hypertrophy with repolarization abnormality Cannot rule out Septal infarct, age undetermined Abnormal ECG
[2017-04-29] MEDS: Albuterol-Ipratrop 3 mg / 0.5 (3 ml) UD IH SCH ×2 (16:16→19:44)
[2017-04-29] MEDS: Insulin Reg-HIGH-Coverage SC SCH ×2 (17:26→22:00)
[2017-04-29 17:53] VITALS: BMI 30.6
[2017-04-29] MEDS ORDERED: Pneumococcal 23-Valent Vaccine IM ONE (17:53)
[2017-04-29] MEDS ORDERED: Non Formulary Medication (Sitagliptin Phos/Metformin Hcl [Janumet 50-1,000 Mg Tablet] 1 EA PO SCH (18:00)
[2017-04-30] MEDS: Albuterol-Ipratrop 3 mg / 0.5 (3 ml) UD IH SCH ×4 (01:34→20:50)
--- NOTE | 2017-04-30 01:37 | HP ---
HISTORY OF PRESENT ILLNESS: The patient is a 66 years old [place] male, known to me from previous admission, brought in by family because of his increasing shortness of breath going on for last 2 weeks. According to the patient's who is by the bedside that he was having shortness of breath that started 2 weeks ago. Denies any fever or chills. Increasing shortness of breath with minimal exertion, occasional chest pain. Denies any nausea or vomiting. No history of diarrhea, no rectal bleeding, no hemoptysis, no hematemesis. PAST MEDICAL HISTORY: Significant for: 1. Multiple angioplasty. 2. Kpi-ybtdnqs-ldpfyxbph diabetes. 3. Hypertension. 4. Hyperlipidemia. 5. Status post cardiac cath in November of 2016 after he had abnormal stress test. At that point, he had drug-eluted stent in proximal, mid and distal circumflex. ALLERGIES: NOT ALLERGIC TO ANY MEDICATION. SOCIAL HISTORY: He is , lives with his life. Denies smoking, drinking or alcohol use. MEDICATIONS: At home, he is on Janumet twice a day, metoprolol 25 mg daily, glipizide 10 mg twice a day, gabapentin 300 mg at bedtime, Pepcid 40 mg daily, enalapril 10 mg twice a day, digoxin 0.125 mcg daily, Lipitor 40 mg daily, aspirin 81 daily and he is on NovoLog mix. REVIEW OF SYSTEM: GENERAL: Consistent with no weakness, no dizziness, no headache, no blurry vision. CARDIOVASCULAR: Occasional chest pain, but shortness of breath. PULMONARY: Occasional cough, but no hemoptysis or hematemesis. GASTROINTESTINAL: No abdominal pain. No nausea, vomiting or diarrhea. No rectal bleeding. Does complain of bilateral leg burning and numbness secondary to diabetic neuropathy. PHYSICAL EXAMINATION GENERAL: He is awake and alert, able to communicate, looks pale. VITAL SIGNS: He is afebrile. Pulse 89, respiration 18, blood pressure 128/63. LUNGS: Bilateral fair airflow, soft crackle at bases. HEART: S1, S2 audible. ABDOMEN: Soft, obese, nontender. No rebound. No guarding. NEUROLOGIC: He is awake and alert, able to communicate. LABORATORY EXAM: WBC 4.5, hemoglobin 11.6, hematocrit 36, platelet 228. PT 12.5, INR 1.16. Chemistry: Sodium 141, potassium 4.3, chloride 102, CO2 of 28, BUN 16, creatinine 1.1, blood sugar of 171. BMP is 2390. LFTs are within normal limit. Urinalysis is negative. Dig level is 1.0. He had CT scan of the chest done that shows small bilateral pleural effusion, 1.4-cm mass in the right apex with surrounding ground-glass opacity. Neoplastic procedure has to be ruled out versus pneumonia. ASSESSMENT AND PLAN: 1. Right upper lobe pneumonia. 2. Mild congestive heart failure. 3. Coronary artery disease, status post multiple angioplasty. 4. Hypertension. 5. Jze-hmpcmqc-eekcxbdby diabetes. PLAN: We will start the patient on IV antibiotic. Cardiology and ID consult has been requested. We will continue on nebulizer treatment, monitor blood sugar and followup the patient interim. Carlos Tsai MD
--- NOTE | 2017-04-30 02:07 | CON ---
DATE: 04/29/2017 REASON FOR CONSULTATION: Cardiac evaluation, admitted with shortness of breath, possible pneumonia, history of coronary artery disease, history of STEMI, non-STEMI, history of multiple PTCAs. BRIEF CLINICAL HISTORY: This is a 66-year-old male with past medical history of diabetes, hypertension, hyperlipidemia, coronary artery disease, status post multiple STEMI and non-STEMI, history of multiple PTCAs, history of permanent pacemaker, who was admitted with complaint of shortness of breath progressively worsening over one week and reported experiencing some chest pain, unable to describe, vague, with a cough. Denies any fever or chills. PAST MEDICAL HISTORY: Significant for diabetes, hypertension, hyperlipidemia, multiple MIs, multiple PTCAs, has history of code STEMI on 05/29/2016 with ostial circumflex, had a PTCA done by Dr. Juan and then a week later, the patient was admitted to [facility] on 05/27/2015, the stent was deployed. The patient recently had a stress test that was abnormal, so patient underwent cardiac catheterization and stress test dated 10/31/2015 that suggested apical ischemia, ejection fraction 35%. Most recent cardiac workup as follows: The patient's echocardiograph showed ejection fraction 35-40%, [id number] mitral regurgitation, mild tricuspid regurgitation, mild pulmonary insufficiency, trace aortic regurgitation, abnormal stress test dated 10/30/2014 because of the chest pain. Repeat catheterization most recently as mentioned 11/25 that revealed a left ventricular ejection fraction 35-40%, EDP within the range of 20, and cardiac catheterization revealed left main ostial 20% stenosis bifurcating LAD and circumflex. LAD has a 40% stenosis, circumflex medium-sized vessel, diffuse calcification noted throughout the vessel stenosis noted and distal high-grade stenosis. Three drug eluting stents were deployed on 11/25/2014 and then the patient had staged PTCA of right coronary artery and RPDA on 12/23/2016. History of permanent pacemaker and the patient was admitted with sick sinus syndrome. SOCIAL HISTORY: Denies any history of alcohol abuse. CURRENT MEDICATIONS: The patient is taking Tradjenta, Zocor, potassium chloride, metoprolol, insulin, glipizide, furosemide, fenofibrate, famotidine, enalapril, and digoxin. The patient was taking Plavix before, but later on catheterization revealed PRU was 266 that is Plavix resistant. The patient was switched to Effient since 11/25/2016. ALLERGIES: NO KNOWN DRUG ALLERGIES. REVIEW OF SYSTEMS: As per HPI. PHYSICAL EXAMINATION: VITAL SIGNS: Temperature afebrile, heart rate 72, and blood pressure 141/60. HEENT: PERRLA. Extraocular muscles intact. NECK: Supple. No carotid bruits or thyromegaly. CHEST: Clear to auscultation. HEART: S1 and S2 regular. ABDOMEN: Soft. EXTREMITIES: Clubbing and cyanosis negative. LABORATORY DATA: Blood workup as follows: WBC 4.5, hemoglobin 11.3, hematocrit 36.3, and platelet count 228. Chemistry showed sodium 141, potassium 4.0, chloride 102, carbon dioxide 28, anion gap of 15, BUN 16, and creatinine 1.1. BNP 2390, and troponin 0.03. EKG showed V paced rhythm, underlying normal sinus. No acute ST-T wave changes noted. Chest x-ray done that showed decompensated congestive heart failure, possible right lower lobe pneumonia cannot be excluded. IMPRESSION: A 66-year-old male with a past medical history significant for coronary artery disease, status post multiple myocardia infarctions, multiple [id number] myocardial infarction, multiple ST-elevation myocardial infarctions, status post a recent cardiac catheterization on 12/23/2016. The patient had percutaneous transluminal coronary angioplasty of right coronary artery and RPDA was done with a drug eluting stent in proximal right coronary artery, mid right coronary artery, and distal right coronary artery, plain balloon angioplasty was done. Prior to this, the patient had percutaneous transluminal coronary angioplasty and catheterization done on 11/25/2016 with a percutaneous transluminal coronary angioplasty of the circumflex done. Ejection fraction at that time reported to be 35-40%. PRU was 261 related to Plavix and changed to Effient, recently admitted with shortness of breath, cough, decompensated congestive heart failure cannot rule out pneumonia, history of pacemaker. RECOMMENDATIONS: Panculture, broad-spectrum antibiotics, diuretics, monitor CPK and troponin, doubt it is myocardial infarction. We will follow. Further recommendations during hospital course. Continue DVT prophylaxis. I will get the MUGA scan to assess the LV function. We will follow with you. Thank you Dr. Aguayo for providing us the opportunity in taking care of patient, Karl Rueda. We will get lipid profile, TSH, and hemoglobin A1c. Ciera Sheikh MD
--- NOTE | 2017-04-30 03:05 | CON ---
DATE: 04/29/2017 The patient was seen in the emergency room this morning. CHIEF COMPLAINT: Shortness of breath and weakness for several days. HISTORY OF PRESENT ILLNESS: This is a 66-year-old [place] male with a history of coronary artery disease, cardiomyopathy, congestive heart failure, myocardial infarction, hypertension, history of sensitive Klebsiella urinary tract infection and hyperlipidemia, who was admitted and found to have shortness of breath and complaining of lower ankle edema. No chest pain. No abdominal pain. He has cough, nonproductive. He has low-grade fever. No chills. No dysuria. PAST MEDICAL HISTORY: Significant for coronary artery disease, cardiomyopathy, diabetes mellitus, congestive heart failure, myocardial infarction, hypertension, hyperlipidemia, sensitive Klebsiella urinary tract infection. PAST SURGICAL HISTORY: Significant for a pacemaker, coronary artery bypass graft, angioplasty with stent placement in 2011. ALLERGIES: THE PATIENT HAS NO KNOWN ALLERGIES. MEDICATIONS: At home includes the patient to be on insulin, statin, metformin, Neurontin, Vasotec, Digoxin, and vitamin D. PHYSICAL EXAMINATION: GENERAL: He was seen comfortable, mild shortness of breath. VITAL SIGNS: Temperature of 97, heart rate of 80, respiratory rate of 20, blood pressure is 130/80. HEENT: Unremarkable. NECK: Supple. LUNGS: Decreased breath sounds. HEART: Normal S1 and S2. ABDOMEN: Soft and nontender. No organomegaly. No rebound. EXTREMITIES: Examination of lower extremities have bilateral edema. LABORATORY DATA: Reveals a white count is 4.5, hemoglobin 11, and platelets of 228. Chemistries reveal the BUN of 16 and creatinine of 1.1. The BNP is 2390. Urinalysis is noted unremarkable. The patient's digoxin level is 1.0 and the patient had a CAT scan and results are reviewed. The patient also had a chest x-ray, which showed an infiltrate and EKG shows QTc of 455. ASSESSMENT AND PLAN: This is a 66-year-old [place]er man with cardiomyopathy, coronary artery disease, congestive heart failure, myocardial infarction, pacemaker, hypertension, diabetes, history of sensitive Klebsiella urinary tract infection, hyperlipidemia, now presenting with acute systolic congestive heart failure on top of chronic congestive heart failure with a right lower lobe community-acquired pneumonia. We will treat the patient with ceftriaxone and azithromycin. Pending blood culture, sputum culture, procalcitonin, clinical response. Diuresis as per cardiology and primary. I will make further recommendations upon availability of initial results. We will follow closely with you. Bashir Gresham MD
[2017-04-30] MEDS: Insulin Reg-HIGH-Coverage SC SCH ×4 (07:42→21:55)
[2017-04-30 07:51] LABS: ALB/GLOB RATIO 1.3 (1.1-1.8); ALKALINE PHOSPHATASE 41 U/L (38-126); ALT/SGPT 31 U/L (7-56); AST/SGOT 23 U/L (17-59); BILIRUBIN,TOTAL 0.6 mg/dL (0.2-1.3); BLOOD UREA NITROGEN 16 mg/dL (7-21); CALCIUM 9.6 mg/dL (8.4-10.5); CARBON DIOXIDE 28 mmol/L (21-33); CHLORIDE 104 mmol/L (98-107); CHOLESTEROL 125 mg/dL (130-200); GFR AFRICAN-AMERICAN > 60; GLUCOSE,RANDOM 106 mg/dL (70-110); MAGNESIUM 1.8 mg/dL (1.7-2.2); PHOSPHOROUS 3.9 mg/dL (2.5-4.5); POTASSIUM 4.2 mmol/L (3.6-5.0); SODIUM 141 mmol/L (132-148); TOTAL PROTEIN 6.8 g/dL (5.8-8.3)
[2017-04-30] MEDS: Metoprolol Succinate 25 mg XL Tab PO SCH (08:00)
[2017-04-30] MEDS: Digoxin 125 mcg (0.125 mg) Tab PO SCH (09:29)
[2017-04-30] MEDS: cefTRIAXone 1 gm 1 GM/100 ML BAG IVPB SCH (09:30)
--- NOTE | 2017-04-30 12:51 | RAD ---
HISTORY: F/U pneumonia and compare COMPARISON: 04/29/2017 TECHNIQUE: Chest PA and lateral FINDINGS: LUNGS: No active pulmonary disease. Improved vascular congestion PLEURA: No significant pleural effusion identified. No pneumothorax apparent. CARDIOVASCULAR: Normal. OSSEOUS STRUCTURES: No significant abnormalities. VISUALIZED UPPER ABDOMEN: Normal. OTHER FINDINGS: Single lead pacemaker IMPRESSION: No active disease.
[2017-04-30] MEDS: Azithromycin 500MG/NS 250ml 500 MG/250 ML BAG IVPB SCH (13:05)
--- NOTE | 2017-04-30 13:44 | PN ---
DATE: 04/30/2017 REASON FOR THE CONSULTATION: Followup cardiac evaluation, admitted with shortness of breath, possible pneumonia, history of coronary artery disease, multiple stents. SUBJECTIVE: The patient feels a little better than yesterday, still feels some chest pain on taking deep breath. PHYSICAL EXAMINATION: GENERAL: Lying flat in the bed, not in acute distress. VITAL SIGNS: Temperature afebrile, heart rate 53, and blood pressure 123/51. HEENT: PERRLA. Extraocular muscles intact. NECK: Supple. No carotid bruits or thyromegaly. CHEST: Clear to auscultation. HEART: S1 and S2 regular. ABDOMEN: Soft. EXTREMITIES: Clubbing and cyanosis negative. LABORATORY DATA: Blood workup as follows: WBC 4.5, hemoglobin 11.3, hematocrit 36.3, and platelet count 228. Chemistry shows sodium 141, potassium 4.2, chloride 104, carbon dioxide 28, anion gap of 13, BUN 16 and creatinine 1.2. Total protein 6.8, albumin 2.9, albumin-globin ratio 1.3. TSH 1.45. Cholesterol 125, LDL 83, and HDL 25. IMPRESSION: A 66-year-old male with past medical history significant for coronary artery disease, status post multiple myocardial infarction, multiple non-ST elevation myocardial infarction, history of multiple stents in the past, status post pacemaker, last ejection fraction 35% to 40%. Recently, the patient had drug-eluting stent, it was placed in right coronary artery on 12/23/2016, admitted with pneumonia, mild congestive heart failure, elevated BNP, clinically not in failure, congestive heart failure seemed to be acute on chronic secondary to systolic dysfunction, though BNP was elevated, but clinically does not appear in failure. RECOMMENDATIONS: Broad-spectrum antibiotic. Continue digoxin. Continue metformin. Continue aspirin. Continue Lasix. Continue Effient because last time PRU was checked while on Plavix found to be subtherapeutic. On looking the medications, the patient is not on Effient in the hospital, so we will start Effient. We will get chest x-ray today. We will get MUGA scan and further recommendations during the hospital course. We will follow with you. If remain stable, discontinue telemetry and so far no evidence of acute VA. Thank you Dr. Tsai for providing opportunity in taking care of Mr. Karl Rueda. Ciera Sheikh MD [facility] # [id number]
--- NOTE | 2017-04-30 15:27 | PN ---
DATE: SUBJECTIVE: The patient is a 66-year-old, seen and examined, came in with increasing shortness of breath, has bilateral pulmonary infiltrate, seems to be doing little better. No chest pain. PHYSICAL EXAMINATION: VITAL SIGNS: He is afebrile, pulse 75, respirations 18 and blood pressure 123/51. HEART: S1 and S2 audible. LUNGS: Bilateral soft crackle, diffuse. ABDOMEN: Soft, obese and nontender. No rebound. No guarding. NEUROLOGIC: He is awake and alert. Able to communicate. LABORATORY DATA: Sodium 141, potassium 4.2, chloride 104, CO2 28, BUN 16, creatinine 1.2, blood sugar 106. Procalcitonin is 0.05. Urinalysis is unremarkable. His blood cultures are negative. CT scan of the chest that was done yesterday shows small bilateral pleural effusion, 1.4-cm mass in the right apex with surrounding ground-glass opacity. ASSESSMENT: 1. Questionable neoplastic process with some infiltrate. 2. Coronary artery disease, status post angioplasty. 3. Status post pacemaker placement. 4. Non-insulin dependent diabetes. 5. Mild congestive heart failure. 6. Deconditioning and difficulty walking. PLAN: Currently, the patient is on IV diuretics. He is getting Rocephin and Zithromax. He is getting MUGA scan today. We will follow up. Out of bed to chair. Physical therapy evaluation and evaluation and treatment. We will reevaluate the patient. Carlos Tsai MD
--- NOTE | 2017-04-30 15:51 | CARD ---
APPROVED REPORT PROCEDURE The above named patient recieved 25.2 millicuries of Tc99m tagged red blood cells intravenously. After achieving equilibrium, gated imaging of 16/frame/cycle was performed utillizing Gamma camera interfaced with a digital computer and gated device. Gated imaging was then performed in the left anterior oblique, anterior, and the left lateral projections. Findings Left Ventricle: The quality of the study is good. The left ventricle is mildly enlarged. The right ventricle is normal in size. Wall motion study shows diffuse hypokinesis of the left ventricle. RV wall motion is normal. The right atrium is dynamic. The remainder of the study is unremarkable. Impressions Mild LV dysfunction with diffuse hypokinesis. LVEF = 41 %. Normal RV wall motion.
--- NOTE | 2017-04-30 16:59 | CP.PCM.PN ---
Subjective - Date & Time of Evaluation Date of Evaluation: 04/30/17 Time of Evaluation: 16:10 - Subjective Subjective: Comfortable in bed, not in distress, afebrile. Denies cough, no hemoptysis. Still has shortness of breath on exertion. Denies having cough despite shortness of breath. Denies fever or chills, no weight loss. Objective - Vital Signs/Intake and Output Vital Signs (last 24 hours): Temp Pulse Resp BP Pulse Ox 98.1 F 57 L 20 126/61 97 04/30/17 05:39 04/30/17 05:39 04/30/17 05:39 04/30/17 05:39 04/30/17 05:39 Intake and Output: 04/30/17 04/30/17 06:59 18:59 Intake Total 120 Output Total 200 Balance -80 - Medications Medications: Current Medications Acetaminophen (Tylenol 325mg Tab) 650 mg PO Q6H PRN PRN Reason: Fever >100.4 F Albuterol/Ipratropium (Duoneb 3 Mg/0.5 Mg (3 Ml) Ud) 3 ml IH Q2H PRN PRN Reason: Shortness of Breath Albuterol/Ipratropium (Duoneb 3 Mg/0.5 Mg (3 Ml) Ud) 3 ml IH [id number] [facility] Last Admin: 04/30/17 01:34 Dose: 3 ml Aspirin (Ecotrin) 81 mg PO DAILY [facility] Last Admin: 04/29/17 11:30 Dose: Not Given Atorvastatin Calcium (Lipitor) 40 mg PO DAILY [facility] Digoxin (Lanoxin) 0.125 mg PO DAILY [facility] Last Admin: 04/29/17 12:06 Dose: Not Given Famotidine (Pepcid) 40 mg PO BID [facility] Last Admin: 04/29/17 17:26 Dose: 40 mg Fenofibrate (Tricor) 145 mg PO DAILY [facility] Furosemide (Lasix) 40 mg IVP DAILY [facility] Gabapentin (Neurontin) 300 mg PO HS [facility] PRN Reason: Protocol Last Admin: 04/29/17 21:37 Dose: 300 mg Glipizide (Glucotrol) 10 mg PO BID [facility] Last Admin: 04/29/17 17:26 Dose: 10 mg Ceftriaxone Sodium (Rocephin 1 Gram Ivpb) 1 gm in 100 mls @ 100 mls/hr IVPB DAILY [facility] PRN Reason: Protocol Azithromycin (Zithromax 500mg In Ns) 500 mg in 250 mls @ 167 mls/hr IVPB DAILY [facility] PRN Reason: Protocol Insulin Human Regular (Humulin R High) 0 units SC ACHS [facility] PRN Reason: Protocol Last Admin: 04/29/17 22:00 Dose: Not Given Lisinopril (Zestril) 20 mg PO DAILY [facility] Last Admin: 04/29/17 12:56 Dose: Not Given Metformin HCl (Glucophage) 1,000 mg PO BID [facility] Last Admin: 04/29/17 17:26 Dose: 1,000 mg Metoprolol Succinate (Toprol Xl) 25 mg PO BRK [facility] Last Admin: 04/29/17 12:54 Dose: Not Given Sitagliptin Phosphate (Januvia) 50 mg PO BID [facility] Last Admin: 04/29/17 17:26 Dose: 50 mg - Labs Labs: PT 12.5 Seconds (9.9-11.8) H 04/29/17 10:15 INR 1.16 (0.93-1.08) H 04/29/17 10:15 APTT 25.7 Seconds (23.7-30.8) 04/29/17 10:15 - Constitutional Appears: Non-toxic, No Acute Distress - Head Exam Head Exam: NORMAL INSPECTION - ENT Exam ENT Exam: Mucous Membranes Moist - Neck Exam Neck Exam: absent: Lymphadenopathy, Meningismus - Respiratory Exam Respiratory Exam: Decreased Breath Sounds - Cardiovascular Exam Cardiovascular Exam: +S1, +S2 - GI/Abdominal Exam GI & Abdominal Exam: Soft. absent: Tenderness Assessment and Plan - Assessment and Plan (Free Text) Plan: Assessment Right lower lobe community-acquired pneumonia; patient also with right upper lobe mass with surrounding ground glass opacities R/O neoplasm, less likely TB since there is no hemoptysis, lesion is non-cavitary acute on top of chronic congestive heart failure CAD HTN DM S/P pacemaker placement dyslipidemia history of Klebsiella UTI Plan Continue Rocephin and Zithromax day 2; PCT is <0.05; awaiting results of blood cx, urine Legionella Ag, sputum cx patient does not have cough, no hemoptysis making TB less likely would recommend Pulmonary consult for the right upper lobe mass - should get tissue biopsy Cardiology taking of CHF will monitor clinically
[2017-05-01] MEDS: Albuterol-Ipratrop 3 mg / 0.5 (3 ml) UD IH SCH ×4 (02:51→20:17)
[2017-05-01 07:25] LABS: EOS # 0.2 (0.0-0.7); EOS % 4.6 % (1.5-5.0); GRAN # 2.29 (1.4-6.5); GRAN % 55.3 % (50.0-68.0); HEMATOCRIT 34.4 % (42.0-52.0); LYMPH # 1.2 (1.2-3.4); LYMPH % 29.5 % (22.0-35.0); MEAN CELL VOLUME 80.8 fl (80.0-105.0); MEAN CORPUSCULAR HEMOGLOBIN 25.6 pg (25.0-35.0); MEAN CORPUSCULAR HGB CONC 31.7 g/dl (31.0-37.0); MEAN PLATELET VOLUME 10.2 fl (7.0-11.0); MONO # 0.4 (0.1-0.6); MONO % 10.6 % (1.0-6.0); RED CELL DISTRIBUTION WIDTH 14.5 % (11.5-14.5); WHITE BLOOD COUNT 4.1 10^3/ul (4.5-11.0)
[2017-05-01 07:46] LABS: ALB/GLOB RATIO 1.3 (1.1-1.8); ALKALINE PHOSPHATASE 40 U/L (38-126); ALT/SGPT 28 U/L (7-56); AST/SGOT 20 U/L (17-59); BILIRUBIN,TOTAL 0.4 mg/dL (0.2-1.3); BLOOD UREA NITROGEN 18 mg/dL (7-21); CALCIUM 9.6 mg/dL (8.4-10.5); CARBON DIOXIDE 28 mmol/L (21-33); CHLORIDE 104 mmol/L (98-107); GFR AFRICAN-AMERICAN > 60; GLUCOSE,RANDOM 127 mg/dL (70-110); MAGNESIUM 1.8 mg/dL (1.7-2.2); PHOSPHOROUS 4.1 mg/dL (2.5-4.5); POTASSIUM 3.8 mmol/L (3.6-5.0); SODIUM 142 mmol/L (132-148); TOTAL PROTEIN 6.8 g/dL (5.8-8.3)
[2017-05-01] MEDS: Metoprolol Succinate 25 mg XL Tab PO SCH (07:46)
[2017-05-01] MEDS: Insulin Reg-HIGH-Coverage SC SCH ×4 (07:47→21:54)
[2017-05-01] MEDS: Digoxin 125 mcg (0.125 mg) Tab PO SCH (09:17)
[2017-05-01] MEDS: Azithromycin 500MG/NS 250ml 500 MG/250 ML BAG IVPB SCH (09:18)
[2017-05-01] MEDS: cefTRIAXone 1 gm 1 GM/100 ML BAG IVPB SCH (09:18)
[2017-05-01] MEDS ORDERED: Potassium Chloride 20 mEq ER Tab PO ONE ×2 (10:39→16:00)
--- NOTE | 2017-05-01 13:08 | PN ---
DATE: 05/01/2017 SUBJECTIVE: The patient is in bed, in no acute distress, nontoxic. PHYSICAL EXAMINATION VITAL SIGNS: Temperature is 98, blood pressure is 130/60, respiratory rate of 18. HEENT: Unremarkable. NECK: Supple. LUNGS: Decreased breath sounds. HEART: Normal S1 and S2. ABDOMEN: Soft. LABORATORY DATA: Reveals a white count of 4.1, hemoglobin of 10, platelets of 214. Chemistries reveal a BUN of 18, creatinine of 1.2. Urinalysis is noted. Serology is negative. Microbiology reveals the blood cultures are negative. MEDICATIONS: Review of orders reveals the patient to be on IV Zithromax and ceftriaxone. ASSESSMENT AND PLAN: He is a 66-year-old male with right lower lobe community-acquired pneumonia, right upper lobe mass with surrounding ground-glass opacity, rule out neoplasm, less likely tuberculosis, no hemoptysis, non-cavitary lesion, acute on top of chronic congestive heart failure and coronary artery disease, hypertension, diabetes, status post pacemaker placement, dyslipidemia, history of urinary tract infection with Klebsiella, day #3 of Zithromax and Rocephin. We will change the Zithromax to p.o. with negative blood cultures, negative urine Legionella antigen, negative procalcitonin. We will discontinue the Rocephin and complete a short course of p.o. Zithromax. Bashir Gresham MD
--- NOTE | 2017-05-01 13:08 | PN ---
DATE: REASON FOR CONSULTATION: Followup, cardiac evaluation, admitted with shortness of breath, possible pneumonia, history of coronary artery disease and history of multiple stent. SUBJECTIVE: Denies any chest pain, shortness of breath, or any palpitations. Feels better. No chest pain on taking a deep breath. OBJECTIVE: GENERAL: Lying flat in the bed, not in apparent distress. VITAL SIGNS: Temperature afebrile, heart rate 62, blood pressure 130/60. HEENT: PERRLA. Extraocular muscles intact. NECK: Supple. No carotid bruit. No thyromegaly. CHEST: Clear to auscultation. HEART: S1 and S2 regular. ABDOMEN: Soft. EXTREMITIES: Clubbing and cyanosis negative. LABORATORY DATA: Blood workup as follows: WBC 4.1, hemoglobin 10.9, hematocrit 34.4, platelet count 214. Chemistry shows sodium 140, potassium 3.0, chloride 104, carbon dioxide 28, anion gap of 14, BUN 18, creatinine 1.2. IMPRESSION: A 66-year-old male with past medical history of diabetes, hypertension, hyperlipidemia, sick sinus syndrome, status post permanent pacemaker, history of coronary intervention recently in November of circumflex and then on 12/23/2016 drug-eluting placed in right coronary artery, admitted with pneumonia, mild congestive heart failure, on antibiotics feels better. Yesterday, the patient underwent a MUGA scan that shows ejection fraction 41%, normal RV function. CAT scan suspicious of pneumonia. The patient being treated with IV antibiotic. RECOMMENDATIONS: Continue IV antibiotic, continue aspirin, continue Effient because the patient is resistant to Plavix. We will discontinue telemetry. No further cardiac workup is planned at this time. The patient is okay to be discharged when stable from pulmonary point of view. No further cardiac work is planned. Monitor electrolytes. Upon discharge, the patient will be seen in office. As outpatient, we will supplement potassium. Thank you Dr. Aguayo for providing opportunity and taking care of patient Marybeth. We will follow with you. Ciera Sheikh MD
--- NOTE | 2017-05-01 13:29 | PN ---
DATE: SUBJECTIVE: The patient is 66 years old, seen and examined, she currently feels a lot better. No cough. No congestion. Shortness of breath has improved. Eating and tolerating. PHYSICAL EXAMINATION: VITAL SIGNS: He is afebrile, pulse 62, respirations 20, and blood pressure 130/60. LUNGS: Bilateral fair air flow. HEART: S1 and S2, audible. ABDOMEN: Soft, nontender. No rebound. No guarding. NEUROLOGIC: He is awake, alert, able to communicate. LABORATORY DATA: WBC is 4.1, hemoglobin 10.9, hematocrit 34.4, platelet of 214. Chemistry: Sodium 142, potassium 3.8, chloride 104, carbon dioxide 28, BUN 18, creatinine 1.2. Blood sugar of 131. ASSESSMENT: 1. Right upper lung mass questionable malignancy with mild congestive heart failure. 2. Community acquired pneumonia. 3. Non-insulin dependent diabetes. 4. Status post pacemaker placement. 5. Hyperlipidemia. PLAN: The patient's procalcitonin is unremarkable. He does have strong history of smoking. I will request Dr. Olvin Li to evaluate the patient is a candidate of biopsy to rule out underlying malignancy. Discussed with the patient through research technologist and he seems agreed for that. We will discontinue telemetry and he can be transferred to TCU to complete his course of antibiotic. Continue to monitor his blood sugar. Encouraged physical therapy will see the patient in the a.m. Carlos Tsai MD
[2017-05-02] MEDS: Albuterol-Ipratrop 3 mg / 0.5 (3 ml) UD IH SCH ×4 (03:28→20:08)
[2017-05-02] MEDS: Insulin Reg-HIGH-Coverage SC SCH ×4 (08:23→22:32)
[2017-05-02] MEDS: Metoprolol Succinate 25 mg XL Tab PO SCH (08:23)
--- NOTE | 2017-05-02 09:24 | PN ---
DATE: 05/02/2017 SUBJECTIVE: The patient is in bed, in no acute distress. PHYSICAL EXAMINATION: VITAL SIGNS: Temperature is 98, blood pressure is 130/60, respiratory rate of 16. HEENT: Unremarkable. NECK: Supple. LUNGS: Decreased breath sounds. HEART: Normal S1 and S2. ABDOMEN: Soft. LABORATORY EXAMINATION: Reveals a white count of 4.1, hemoglobin of 10 and the chemistries are noted. Urinalysis is noted. Serology is negative. Microbiology, no negative. Review of orders reveals the patient is on ceftriaxone and azithromycin. ASSESSMENT AND PLAN: He is a 66-year-old male with right lower lobe community-acquired pneumonia, right upper lobe mass with surrounding ground-glass appearance and rule out neoplasm, less likely tuberculosis, no hemoptysis, non-cavitary lesion, on top of chronic congestive heart failure, coronary artery disease, hypertension, diabetes, status post pacemaker placement, dyslipidemia, history of urinary tract infection and Klebsiella, day #4 of Zithromax and Rocephin. We will discontinue the Rocephin after this morning's dose and complete with the p.o. Zithromax therapy with short course. Bashir Gresham MD
[2017-05-02] MEDS ORDERED: cefTRIAXone 1 gm 1 GM/100 ML BAG IVPB SCH (10:00)
[2017-05-02] MEDS: Digoxin 125 mcg (0.125 mg) Tab PO SCH (10:00)
--- NOTE | 2017-05-02 14:02 | PN ---
SUBJECTIVE: The patient is 66 years old, seen and examined, sitting in chair, complained of mild shortness of breath, much better than before. PHYSICAL EXAMINATION: VITAL SIGNS: He is afebrile, pulse 63, respirations 20, and blood pressure 123/68. LUNGS: Bilateral good air flow. No rhonchi or crackle. HEART: S1 and S2, audible. ABDOMEN: Soft, nontender. No rebound. No guarding. NEUROLOGIC: He is awake and alert, able to communicate, ambulatory. ASSESSMENT: 1. Right upper lung mass versus pneumonia. 2. Non-insulin dependent diabetes. 3. Hypertension. 4. Coronary artery disease. 5. Status post pacemaker placement. 6. Mild congestive heart failure, resolving. 7. Hyperlipidemia. PLAN: Currently, the patient is on Rocephin and Zithromax. Discussed with Dr. Olvin Li, who evaluated the patient's CT scan of the chest and does not feel that this need to be biopsied. We will continue his course of antibiotic and repeat CT scan of the chest after 6 weeks or so, if he is cleared up, it is clearly infectious process if not then he might need biopsy. Carlos Tsai MD
--- NOTE | 2017-05-02 16:01 | PN ---
DATE: 05/02/2017 LOCATION: The patient is in room 564, bed 2. REASON FOR CONSULTATION: Cardiac evaluation, admitted with shortness of breath, possible pneumonia, history of coronary artery disease and history of multiple stents. SUBJECTIVE: The patient is lying flat in bed without chest pain, shortness of breath, or palpitation. PHYSICAL EXAMINATION: VITAL SIGNS: Blood pressure 123/68, respiration 20, pulse 63, temperature 98. HEENT: Head is normocephalic. Eyes, pupils normal, conjunctivae slightly pale. NECK: JVP low. Carotids equal. THORAX: AP diameter normal. LUNGS: No significant rales. CARDIOVASCULAR: S1 and S2. ABDOMEN: Soft and nontender. No organomegaly. Bowel sounds are normal. EXTREMITIES: No clubbing. No cyanosis. LABORATORY DATA: WBC 4.1, hemoglobin 10.9, hematocrit 34.4, platelet 214. Random sugar 113. Sodium 142, potassium 3.8, BUN 18, creatinine 1.2. Calcium, phosphorus, and magnesium are all normal. Total protein and albumin normal. DIAGNOSIS: Coronary artery disease, November 2016 circumflex had angioplasty and stent insertion and then in 12/23/2016, the patient had a drug-eluting stent put in right coronary artery, permanent pacemaker insertion. The patient admitted with pneumonia and mild congestive heart failure, which are showing improvement. The patient's MUGA scan done on 04/30/2017 showed ejection fraction 41%. CAT scan suspicious of pulmonic infiltrate. Chest x-ray on 04/30/2017 showed improvement of congestive changes. PLAN: The patient is getting DuoNeb hand nebulizer therapy, aspirin 81 mg daily, Effient 10 mg p.o. daily, metformin 1000 mg b.i.d., glipizide 10 mg b.i.d., Januvia 50 mg b.i.d., digoxin 0.125 mg daily, furosemide 40 mg IV daily, atorvastatin 40 mg p.o. daily, Neurontin 300 mg p.o. at bedtime, Rocephin 1 g IV daily, Toprol-XL 25 mg p.o. daily, TriCor 145 mg daily, lisinopril 20 mg daily, azithromycin 250 mg p.o. daily. Clinically, CHF has improved. We will change IV Lasix to Lasix 40 mg p.o. daily. We will continue to follow closely with you. Ciera Hunt MD [facility] # [id number]
[2017-05-03] MEDS: Albuterol-Ipratrop 3 mg / 0.5 (3 ml) UD IH SCH ×3 (01:19→13:26)
[2017-05-03 07:56] VITALS: PULSE 62; RESP 18; TEMP 98.5; O2SAT 95
[2017-05-03] MEDS: Digoxin 125 mcg (0.125 mg) Tab PO SCH (11:14)
[2017-05-03] MEDS: Metoprolol Succinate 25 mg XL Tab PO SCH (11:14)
[2017-05-03 11:24] VITALS: BP 126/81; PULSE 75
--- NOTE | 2017-05-03 19:45 | PN ---
DATE: 05/03/2017 SUBJECTIVE: The patient is in bed, in no acute distress, nontoxic. PHYSICAL EXAMINATION: VITAL SIGNS: Temperature is 98, blood pressure is 120/60, respiratory rate of 16. HEENT: Unremarkable. NECK: Supple. LUNGS: Decreased breath sounds. HEART: Normal S1 and S2. ABDOMEN: Soft and nontender. LABORATORY EXAMINATION: Reveals a white count of 4.1, hemoglobin of 10, platelets of 214. BUN of 18, creatinine of 1.2, procalcitonin is 0.05. Urinalysis is noted. Urine for legionella antigen is negative. Blood cultures, no growth. Review of orders reveals the patient to be on ceftriaxone, p.o. Zithromax. Dr. Tsai's note is reviewed. ASSESSMENT AND PLAN: He is a 66-year-old male with right lower community-acquired pneumonia, right upper lobe mass, surrounding ground-glass appearance and rule out neoplasm, less likely to be tuberculosis, on top of chronic congestive heart failure, coronary artery disease, hypertension, diabetes, status post pacemaker, dyslipidemia, history of urinary tract infection with Klebsiella, day #5 of Zithromax and ceftriaxone. We will discontinue ceftriaxone and complete a short course of antibiotics. considering the patient's procalcitonin is undetectable. Bashir Gresham MD
--- NOTE | 2017-05-04 03:30 | PN ---
DATE: 05/03/2017 REASON FOR CONSULTATION: Followup cardiac evaluation, admitted with shortness of breath and possible pneumonia, history of coronary artery disease and multiple stents. SUBJECTIVE: The patient denies any chest pain, shortness of breath, or any palpitation. Feels a little cough and little chest pain on coughing. OBJECTIVE: GENERAL: Not in apparent distress, lying flat on the bed. VITAL SIGNS: Temperature is afebrile, heart rate is 62, and blood pressure is 126/81. HEENT: PERRLA. Extraocular muscles intact. NECK: Supple. No carotid bruit. No thyromegaly. CHEST: Clear to auscultation. HEART: S1 and S2 regular. ABDOMEN: Soft. EXTREMITIES: Clubbing and cyanosis negative. LABORATORY DATA: Blood workup as follows: WBC of 4.1, hemoglobin of 10.9, hematocrit of 34.4, and platelet count of 214. Chemistry shows sodium of 140, potassium of 3.8, chloride of 104, carbon dioxide of 28, and anion gap of 14 as of 05/01/2017. IMPRESSION: A 66-year-old male with a past medical history significant for coronary artery disease with multiple stents, cardiomyopathy. Recent MUGA scan done on 04/30/2017 showed an ejection fraction of 41%. Admitted with shortness of breath and found to be in mild congestive heart failure as well as pneumonia. The patient is being treated with IV antibiotics. Feels better. RECOMMENDATIONS: Continue broad-spectrum antibiotics. Continue Effient, continue aspirin, continue glipizide and atorvastatin. Previous studies are stable. Current Lasix was changed to p.o. Monitor electrolytes. Possible discharge in a day or two. Thank you Dr. Tsai for providing opportunity in taking care of the patient, Karl Rueda. We will follow with you. Ciera Sheikh MD
--- NOTE | 2017-05-04 03:55 | DS ---
HISTORY OF PRESENT ILLNESS: The patient is a 66-year-old male who is seen and examined, and seems to be comfortable. Complained of mild shortness of breath, much better than before. No nausea or vomiting. No diarrhea. No fever and no chills. No hemoptysis. PHYSICAL EXAMINATION: VITAL SIGNS: He is afebrile. Pulse 62, respirations 18, and blood pressure is 126/81. LUNGS: Bilateral fair air flow. No rhonchi or crackle. HEART: S1 and S2, audible. ABDOMEN: Soft. Nontender. No rebound. No guarding. NEUROLOGIC: He is awake and alert, communicative and ambulatory. Legionella titers are negative. ASSESSMENT: 1. Bilateral pleural effusion along with 1.4 cm mass in the right apex with surrounding ground glass opacity. 2. Non-insulin dependent diabetes. 3. Left ventricular dysfunction with ejection fraction of 41% by MUGA scan. 4. Hypertension. 5. Status post pacemaker placement. 6. Coronary artery disease, status post multiple angioplasty. PLAN: Discussed with the patient at length. Right upper lung most probably inflammatory infection. He is being discharged home on Zithromax 500 daily and Ceftin 500 twice a day for 5 more days, then we will repeat his CT scan in a month and see if all this disappears and if it persists then he might be a candidate for biopsy. He understands that and he promised to follow up with me in my office in almost one month, and we will repeat the CT scan of the chest. Carlos Tsai MD
== END 2017-05-03 14:52 | disposition home or self-care (01) | DRG 291 ==
LOC: ED 09:30 → ERH 10:43 → 2RSO 15:41 → 5RNO 05-01 14:34
PROVIDERS: ADMIT Internal Medicine; ATTEND Internal Medicine
DX: I11.0 Hypertensive heart disease with heart failure (principal); J18.9 Pneumonia, unspecified organism; I50.23 Acute on chronic systolic (congestive) heart failure; E11.40 Type 2 diabetes mellitus with diabetic neuropathy, unspecified; I42.9 Cardiomyopathy, unspecified; I08.3 Combined rheumatic disorders of mitral, aortic and tricuspid valves; C34.11 Malignant neoplasm of upper lobe, right bronchus or lung; I48.91 Unspecified atrial fibrillation; Z95.1 Presence of aortocoronary bypass graft; E78.5 Hyperlipidemia, unspecified; I25.10 Atherosclerotic heart disease of native coronary artery without angina pectoris; I25.2 Old myocardial infarction; K21.9 Gastro-esophageal reflux disease without esophagitis; Z79.82 Long term (current) use of aspirin; Z79.84 Long term (current) use of oral hypoglycemic drugs; Z79.899 Other long term (current) drug therapy; Z87.440 Personal history of urinary (tract) infections; Z95.0 Presence of cardiac pacemaker; Z95.5 Presence of coronary angioplasty implant and graft; R40.2412 Glasgow coma scale score 13-15, at arrival to emergency department; R53.81 Other malaise; R26.2 Difficulty in walking, not elsewhere classified

== ENCOUNTER 2017-07-23 14:15 | Inpatient (IN) | payer MEDICARE, MEDICAID ==
--- NOTE | 2017-07-23 14:43 | ED PDOC ---
Arrival/HPI - General Chief Complaint: Shortness Of Breath Time Seen by Provider: 07/23/17 14:23 Historian: Patient - History of Present Illness Narrative History of Present Illness (Text): 07/23/17 14:39 A 66 year old male brought into the emergency department by EMS for shortness of breath over the past few days. Patient reports his symptom worsened today developing midsternal chest pain. EMS reports patient was given Aspirin on route to emergency room. Patient denies any fever, chills, nausea, vomiting, abdominal pain or any other complaints. 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) Hx Cataracts: Yes (HAD SX) - Renal Hx Renal Disorder: No - Endocrine/Metabolic Hx Diabetes Mellitus Type 2: Yes - Hematological/Oncological Hx Blood Disorders: Yes (H/O HERPES ZOSTER) - Integumentary Hx Dermatological Disorder: Yes Other/Comment: multiple brown skin discolorations ble - Musculoskeletal/Rheumatological Hx Musculoskeletal Disorders: No - Gastrointestinal Hx Gastrointestinal Disorders: Yes Hx Gastroesophageal Reflux: Yes - Genitourinary/Gynecological Hx Genitourinary Disorders: No - Psychiatric Hx Substance Use: No - Surgical History Hx Cardiac Catheterization: Yes Hx Coronary Stent: Yes (X5) - Anesthesia Hx Anesthesia Reactions: No Hx Malignant Hyperthermia: No - Suicidal Assessment Feels Threatened In Home Enviroment: No Family/Social History - Physician Review Nursing Documentation Reviewed: Yes Family/Social History: No Known Family HX Smoking Status: Former Smoker Hx Alcohol Use: Yes (H/O QUIT) Hx Substance Use: No Hx Substance Use Treatment: No Allergies/Home Meds Allergies/Adverse Reactions: Allergies No Known Allergies Allergy (Verified 04/29/17 14:53) Home Medications: Home Meds Medication Instructions Recorded Confirmed Digoxin [Digitek] 125 mcg PO DAILY 09/27/15 07/23/17 Glipizide 10 mg PO BID 09/27/15 07/23/17 Enalapril Maleate [Vasotec] 10 mg PO BID 03/18/16 07/23/17 Fenofibrate [Fenoglide] 134 mg PO DAILY 03/18/16 07/23/17 Aspirin [Ecotrin] 81 mg PO DAILY 05/21/16 07/23/17 Famotidine [Pepcid] 40 mg PO DAILY 05/21/16 07/23/17 Atorvastatin [Lipitor] 40 mg PO DAILY 11/25/16 07/23/17 Metoprolol Succinate XL [Toprol XL] 25 mg PO BRK 11/25/16 07/23/17 Cholecalciferol (Vitamin D3) 50,000 unit PO Q7D 12/20/16 07/23/17 [Vitamin D3] Diclofenac Sodium [Diclozor] 1 each TP BID 07/23/17 07/23/17 Furosemide [Lasix] 40 mg PO DAILY 07/23/17 07/23/17 Gabapentin [Neurontin] 300 mg PO DAILY 07/23/17 07/23/17 K Liliana 10 meq PO DAILY 07/23/17 07/23/17 Prasugrel HCl 10 mg PO DAILY 07/23/17 07/23/17 Sitagliptin Phos/Metformin HCl 1 each PO BID 07/23/17 07/23/17 [Janumet 50-1,000 mg Tablet] Taujeo 35 units SC BID 07/23/17 07/23/17 Review of Systems - Physician Review All systems were reviewed & negative as marked: Yes - Review of Systems Constitutional: absent: Fevers, Night Sweats Respiratory: SOB Cardiovascular: Chest Pain Gastrointestinal: absent: Abdominal Pain, Nausea, Vomiting Physical Exam Vital Signs Reviewed: Yes Vital Signs Temp Pulse Resp BP Pulse Ox 07/23/17 16:50 77 141/76 07/23/17 16:19 70 28 H 144/62 100 07/23/17 15:36 83 28 H 110/90 100 07/23/17 15:28 77 28 H 135/90 100 07/23/17 14:24 97.9 F 119 H 24 172/115 H 85 L 07/23/17 14:16 32 H Temperature: Afebrile Blood Pressure: Hypertensive Pulse: Tachycardic Respiratory Rate: Tachypneic Appearance: Positive for: Ill-Appearing Pain Distress: Moderate Mental Status: Positive for: Alert and Oriented X 3 - Systems Exam Head: Present: Atraumatic, Normocephalic Pupils: Present: PERRL Extroacular Muscles: Present: EOMI Conjunctiva: Present: Normal Mouth: Present: Moist Mucous Membranes Neck: Present: Normal Range of Motion Respiratory/Chest: Present: Respiratory Distress, Rales (bilaterally). No: Accessory Muscle Use Cardiovascular: Present: Regular Rate and Rhythm, Normal S1, S2. No: Murmurs Abdomen: Present: Normal Bowel Sounds. No: Tenderness, Distention, Peritoneal Signs Back: Present: Normal Inspection Upper Extremity: Present: Normal Inspection, NORMAL PULSES. No: Cyanosis, Edema Lower Extremity: Present: Edema (trace edema bilaterally), NORMAL PULSES. No: CALF TENDERNESS Neurological: Present: GCS=15, CN II-XII Intact, Speech Normal Skin: Present: Warm, Normal Color, Diaphoretic. No: Rashes Psychiatric: Present: Alert, Oriented x 3, Normal Insight, Normal Concentration Medical Decision Making ED Course and Treatment: 07/23/17 14:19 EKG shows sinus tachycardia at 118 BPM with bifascicular block. Interpreted by me. 07/23/17 14:[address] Howard, states no code heart criteria at this time. Dr. Howard will come evaluate patient at bedside. 07/23/17 14:36 EKG shows sinus tachycardia at 109 BPM with RBBB, no STEMI. Interpreted by me. Report Date : 07/23/2017 15:31:35 Procedure: Chest xray Dictator : Vanita Phillips IMPRESSION: Similar left inferolateral pleural nodular with thickening. Small loculated fluid collection with contiguous pleural fluid and pleural thickening favored. Please note chest without contrast report 06/03/2017. This appearance on CT is believe it similar with the current chest x-ray. Cardiomegaly a pulmonary venous congestion -interstitial pulmonary edema -findings have increased since prior chest x-ray. Probable small right pleural effusion - Critical Care Critical Care Minutes: 60 minutes - Lab Interpretations Lab Results: 07/23/17 14:50 07/23/17 14:50 Lab Results 07/23/17 15:00: PT 15.9 H, INR 1.45 H, APTT 28.3 07/23/17 14:55: pCO2 35, pO2 213.0 H, HCO3 18.0 L, ABG pH 7.32 L, ABG Total CO2 19.1 L, ABG O2 Saturation 99.1 H, ABG O2 Content 18.0, ABG Base Excess -7.3 L, ABG Hemoglobin 13.0, ABG Carboxyhemoglobin 2.2 H, POC ABG HHb (Measured) 0.9, ABG Methemoglobin 0.9, ABG O2 Capacity 18.2, Hgb O2 Saturation 96.1, FiO2 50.0 07/23/17 14:50: Digoxin 0.6 L 07/23/17 14:50: WBC 8.6 D, RBC 5.10, Hgb 13.2 L D, Hct 42.2, MCV 82.7, MCH 25.9 , MCHC 31.3, RDW 19.5 H, Plt Count 283, MPV 10.5, Gran % 58.5, Lymph % (Auto) 30.6, [place] % (Auto) 9.1 H, Eos % (Auto) 1.7, Baso % (Auto) 0.1, Gran # 5.02, Lymph # 2.6, [place] # 0.8 H, Eos # 0.2, Baso # 0.01 07/23/17 14:50: Sodium 140, Chloride 104, Potassium 3.9, Carbon Dioxide 22, Anion Gap 18, BUN 20, Creatinine 1.3, Est GFR ( Amer) > 60, Est GFR (Non- Af Amer) 55, Random Glucose 212 H, Calcium 9.9, Total Bilirubin 1.0, AST 36, ALT 26, Alkaline Phosphatase 58, Troponin I 0.02 D, NT-Pro-B Natriuret Pep 4800 H, Total Protein 8.7 H, Albumin 4.7, Globulin 4.0, Albumin/Globulin Ratio 1.2 07/23/17 14:50: pO2 43, VBG pH 7.14 L*, VBG pCO2 68.0 H*, VBG HCO3 23.1, VBG Total CO2 25.2, VBG O2 Sat (Calc) 67.5 H, VBG Base Excess -7.1 L, VBG Potassium 5.3 H, Sodium 136.0, Chloride 102.0, Glucose 215 H, Lactate 2.3 H, FiO2 21.0, Venous Blood Potassium 5.3 H - RAD Interpretation Radiology Orders: 07/23/17 14:41 CHEST PORTABLE [RAD] Stat - Medication Orders Current Medication Orders: Acetaminophen (Tylenol 325mg Tab) 650 mg PO Q6H PRN PRN Reason: Pain, moderate (4-7) Last Admin: 07/24/17 13:45 Dose: 650 mg MAR Pain/Vitals Document 07/24/17 13:45 (Rec: 07/24/17 13:46 [id number] Presence of Pain Presence of Pain Yes Location Pain Location Body Site Back Description Constant Alleviating Factors Medication Re-Assess: MAR Pain/Vitals Document 07/24/17 14:45 (Rec: 07/24/17 15:13 [id number] Pain Reassessment Is This A Pain ReAssessment? Yes Sleep Is patient sleeping during reassessment? Yes Aspirin (Ecotrin) 81 mg PO DAILY [facility] Last Admin: 07/25/17 10:18 Dose: 81 mg Atorvastatin Calcium (Lipitor) 40 mg PO DAILY [facility] Last Admin: 07/25/17 10:16 Dose: 40 mg Digoxin (Lanoxin) 0.125 mg PO 1400 [facility] Last Admin: 07/25/17 13:38 Dose: 0.125 mg [facility] Apical Pulse Rate Document 07/25/17 13:38 (Rec: 07/25/17 13:38 [id number]) Apical Pulse Rate Apical Pulse Rate (60-90 beats/min) 97 Enoxaparin Sodium (Lovenox) 90 mg SC Q12H [facility] PRN Reason: Protocol Stop: 07/25/17 23:59 Last Admin: 07/25/17 08:20 Dose: 90 mg Subcutaneous Administrations Document 07/25/17 08:20 (Rec: 07/25/17 08:21 [id number]) Injection Site MAR Injection Site Left Abdomen Charges for Administration # of Subcutaneous Administrations 1 Enoxaparin Sodium (Lovenox) 40 mg SC DAILY [facility] PRN Reason: Protocol Furosemide (Lasix) 40 mg IV 0800,1400 [facility] Last Admin: 07/25/17 13:38 Dose: 40 mg eMAR Start Stop Document 07/25/17 13:38 (Rec: 07/25/17 13:38 [id number]) Intravenous Solution Start Date 07/25/17 Start Time 13:38 End Date 07/25/17 End time 13:38 Total Infusion Time 0 [facility] Blood Pressure Document 07/25/17 13:38 (Rec: 07/25/17 13:38 [id number]) Blood Pressure Blood Pressure (100/60-150/90) 142/65 Gabapentin (Neurontin) 300 mg PO DAILY MISSY PRN Reason: Protocol Last Admin: 07/25/17 10:16 Dose: 300 mg Behavioural Document 07/25/17 10:16 (Rec: 07/25/17 10:16 [id number]) Maintenance Maintenance Dose Yes Re-Assess: Reassess Psych Meds Document 07/25/17 11:16 (Rec: 07/25/17 11:38 [id number]) Reassess Psych Med Effective Glipizide (Glucotrol) 10 mg PO BID [facility] Last Admin: 07/25/17 18:05 Dose: 10 mg Milrinone Lactate/Dextrose (Primacor 20mg/100ml D5w) 100 mls @ 10.512 mls/hr IV .Q9H31M PRN; Protocol; 0.375 MCG/KG/MIN PRN Reason: do not titrate Last Admin: 07/25/17 15:04 Dose: 0.375 mcg/kg/min, 10.512 mls/hr eMAR Start Stop Document 07/25/17 15:04 (Rec: 07/25/17 15:05 [id number]) Intravenous Solution Start Date 07/25/17 Start Time 15:04 End Date 07/26/17 Titration Intervention Document 07/25/17 15:04 (Rec: 07/25/17 15:05 [id number]) Titration Intake Cumulative Intake (Rx) 500 Waste Amount 0 Container Volume 100 Titration Dosing Titration Dose 0.375 IV Rate 10.512 Intake/Decrease Started/Running Cumulative Dose 100 Insulin Human Lispro (Humalog Low) 0 units SC ACHS MISSY PRN Reason: Protocol Last Admin: 07/25/17 17:48 Dose: Not Given Non-Admin Reason: Blood Sugar Parameter MAR Blood Glucose Document 07/25/17 17:48 (Rec: 07/25/17 17:49 [id number]) Blood Glucose Finger Stick Blood Glucose (70-120) 86 Levalbuterol HCl (Xopenex) 1.25 mg IH [id number] MISSY Lidocaine (Lidoderm) 1 ea TD DAILY MISSY Last Admin: 07/25/17 10:18 Dose: 1 ea MAR Transdermal Patch Site Document 07/25/17 10:18 Rosaura (Rec: 07/25/17 10:18 [id number]) Transdermal Patch Site Transdermal Patch Site Left Lower Back Lisinopril (Zestril) 5 mg PO DAILY [facility] Last Admin: 07/25/17 10:18 Dose: 5 mg MAR Pulse and Blood Pressure Document 07/25/17 10:18 Rosaura (Rec: 07/25/17 10:19 [id number]) Pulse Pulse Rate (60-90) 102 Blood Pressure Blood Pressure (100/60-150/90) 137/74 Metformin HCl (Glucophage) 1,000 mg PO BID [facility] Last Admin: 07/25/17 18:05 Dose: 1,000 mg Prasugrel (Effient) 10 mg PO DAILY [facility] Last Admin: 07/25/17 10:16 Dose: 10 mg Sitagliptin Phosphate (Januvia) 50 mg PO BID [facility] Last Admin: 07/25/17 18:05 Dose: 50 mg Spironolactone (Aldactone) 25 mg PO BID [facility] Last Admin: 07/25/17 18:05 Dose: 25 mg Discontinued Medications Carvedilol (Coreg) 3.125 mg PO STAT STA Stop: 07/23/17 16:39 Last Admin: 07/23/17 16:50 Dose: 3.125 mg MAR Pulse and Blood Pressure Document 07/23/17 16:50 SRE (Rec: 07/23/17 16:51 [id number] [id number]) Pulse Pulse Rate (60-90) 77 Blood Pressure Blood Pressure (100/60-150/90) 141/76 Furosemide (Lasix) 40 mg IV ONCE ONE Stop: 07/23/17 18:01 Last Admin: 07/23/17 18:06 Dose: 40 mg eMAR Start Stop Document 07/23/17 18:06 (Rec: 07/23/17 18:06 [id number]) Intravenous Solution Start Date 07/23/17 Start Time 18:06 MAR Blood Pressure Document 07/23/17 18:06 MF (Rec: 07/23/17 18:06 [id number]) Blood Pressure Blood Pressure (100/60-150/90) 131/79 Heparin Sodium (Porcine) (Heparin) 4,000 units IV ONCE ONE PRN Reason: Protocol Stop: 07/23/17 14:39 Last Admin: 07/23/17 15:25 Dose: 4,000 units eMAR Start Stop Document 07/23/17 15:25 SRE (Rec: 07/23/17 15:26 SRE [id number]) Intravenous Solution Start Date 07/23/17 Start Time 15:20 End Date 07/23/17 End time 15:21 Total Infusion Time 1 Heparin Sodium/Sodium Chloride (Heparin 65020 Units/250ml 1/2 Normal Saline) 25 ,000 units in 250 mls @ 11.213 mls/hr IV .[id number] MISSY; 12 UNITS/KG/HR PRN Reason: Protocol Last Admin: 07/24/17 13:54 Dose: 11.98 units/kg/hr, 11.2 mls/hr eMAR Start Stop Document 07/24/17 13:54 (Rec: 07/24/17 13:55 [id number]) Intravenous Solution Start Date 07/24/17 Start Time 13:55 Titration Intervention Document 07/24/17 13:54 (Rec: 07/24/17 13:55 [id number]) Titration Intake Waste Amount 0 Container Volume 250 Titration Dosing Titration Dose 11.98 IV Rate 11.2 Intake/Decrease Started Magnesium Sulfate/Dextrose (Magnesium Sulfate 1 Gm/100 Ml D5w) 1 gm in 100 mls @ 100 mls/hr IVPB ONCE ONE Stop: 07/25/17 16:12 Last Admin: 07/25/17 16:42 Dose: 100 mls/hr eMAR Start Stop Document 07/25/17 16:42 JEFFERY (Rec: 07/25/17 16:42 JEFFERY [id number]) Intravenous Solution Start Date 07/25/17 Start Time 16:42 End Date 07/25/17 End time 17:40 Total Infusion Time 58 Insulin Human Regular (Humulin R Low) 0 units SC ACHS MISSY PRN Reason: Protocol Pneumococcal Polyvalent Vaccine (Pneumovax 23 Vaccine) 0.5 ml IM .ONCE ONE Stop: 07/23/17 20:27 Last Admin: 07/23/17 21:03 Dose: Immunization Registry Document 07/23/17 21:03 AP (Rec: 07/23/17 21:03 [id number]) Immunization Registry Consent Date 07/23/17 Potassium Chloride (K-Dur 20 Meq Er Tab) 40 meq PO ONCE ONE Stop: 07/24/17 11:12 Last Admin: 07/24/17 13:46 Dose: 40 meq - Scribe Statement The provider has reviewed the documentation as recorded by the Laina Kenney Provider Scribe Attestation: All medical record entries made by the Scribe were at my direction and personally dictated by me. I have reviewed the chart and agree that the record accurately reflects my personal performance of the history, physical exam, medical decision making, and the department course for this patient. I have also personally directed, reviewed, and agree with the discharge instructions and disposition. Disposition/Present on Arrival - Present on Arrival Any Indicators Present on Arrival: No History of DVT/PE: No History of Uncontrolled Diabetes: No Urinary Catheter: No History of Decub. Ulcer: No History Surgical Site Infection Following: None - Disposition Have Diagnosis and Disposition been Completed?: Yes Diagnosis: CHF exacerbation Disposition: HOSPITALIZED Disposition Time: 15:42 Condition: GUARDED
[2017-07-23] MEDS ORDERED: Heparin25000 units/250ml 1/2NS 25,000 UNITS/250 ML BAG IV SCH (14:45)
[2017-07-23 15:00] VITALS: BMI 34.2
[2017-07-23 15:05] LABS: BASO # 0.01 K/mm3 (0.0-2.0); BASO % 0.1 % (0.0-3.0); EOS # 0.2 (0.0-0.7); EOS % 1.7 % (1.5-5.0); GRAN # 5.02 (1.4-6.5); GRAN % 58.5 % (50.0-68.0); HEMATOCRIT 42.2 % (42.0-52.0); LYMPH # 2.6 (1.2-3.4); LYMPH % 30.6 % (22.0-35.0); MEAN CELL VOLUME 82.7 fl (80.0-105.0); MEAN CORPUSCULAR HEMOGLOBIN 25.9 pg (25.0-35.0); MEAN CORPUSCULAR HGB CONC 31.3 g/dl (31.0-37.0); MEAN PLATELET VOLUME 10.5 fl (7.0-11.0); MONO # 0.8 (0.1-0.6); MONO % 9.1 % (1.0-6.0); RED CELL DISTRIBUTION WIDTH 19.5 % (11.5-14.5); VENOUS BLOOD GAS BASE EXCESS -7.1 mmol/L (0.0-2.0); WHITE BLOOD COUNT 8.6 10^3/ul (4.5-11.0)
[2017-07-23 15:09] LABS: ARTERIAL BLOOD GAS O2 CAPACITY 18.2 mL/dl (16-24); ARTERIAL BLOOD GAS PH 7.32 (7.35-7.45); ARTERIAL BLOOD HGB O2 SAT 96.1 % (95.0-98.0); CARBOXYHEMOGLOBIN 2.2 % (0.5-1.5); HHB 0.9 % (0-5); METHEMOGLOBIN 0.9 % (0.0-3.0)
[2017-07-23 15:19] LABS: ALB/GLOB RATIO 1.2 (1.1-1.8); ALKALINE PHOSPHATASE 58 U/L (38-126); ALT/SGPT 26 U/L (7-56); AST/SGOT 36 U/L (17-59); BLOOD UREA NITROGEN 20 mg/dL (7-21); CALCIUM 9.9 mg/dL (8.4-10.5); CARBON DIOXIDE 22 mmol/L (21-33); CHLORIDE 104 mmol/L (98-107); GFR AFRICAN-AMERICAN > 60; GLUCOSE,RANDOM 212 mg/dL (70-110); POTASSIUM 3.9 mmol/L (3.6-5.0); SODIUM 140 mmol/L (132-148); TOTAL PROTEIN 8.7 g/dL (5.8-8.3); VENOUS BLOOD PH 7.14 (7.32-7.43)
[2017-07-23] MEDS: Heparin25000 units/250ml 1/2NS 25,000 UNITS/250 ML BAG IV SCH (15:24)
[2017-07-23 15:30] LABS: TROPONIN I 0.02 ng/mL
--- NOTE | 2017-07-23 15:33 | RAD ---
HISTORY: sob COMPARISON: 04/30/2017 chest x-ray and CT chest without contrast 06/03/2017 FINDINGS: LUNGS: The left inferolateral nodular pleural-based thickening pleural-based mass and/or loculated pleural fluid appearance is similar. Per prior CT findings at this left lung base at [place] units more compatible with loculated fluid Interstitial pulmonary edema and central pulmonary venous congestion - increased slightly since prior chest x-ray exam PLEURA: Probable small right pleural effusion. With or without pleural thickening. More conspicuous nodular pleural based thickening left lung base -loculated pleural fluid with contiguous pleural effusion and thickening favored. -. . No pneumothorax apparent. CARDIOVASCULAR: Cardiomegaly -similar. Single lead pacemaker expected / appropriate position. OSSEOUS STRUCTURES: Thoracic spondylosis. Bilateral shoulder arthrosis VISUALIZED UPPER ABDOMEN: Normal. OTHER FINDINGS: None. IMPRESSION: Similar left inferolateral pleural nodular with thickening. Small loculated fluid collection with contiguous pleural fluid and pleural thickening favored. Please note chest without contrast report 06/03/2017. This appearance on CT is believe it similar with the current chest x-ray. Cardiomegaly a pulmonary venous congestion -interstitial pulmonary edema -findings have increased since prior chest x-ray. Probable small right pleural effusion
[2017-07-23 15:42] LABS: INR 1.45 (0.93-1.08); PARTIAL THROMBOPLASTIN TIME 28.3 Seconds (25.1-36.5)
[2017-07-23 16:02] LABS: VENOUS BLOOD GAS BASE EXCESS -5.6 mmol/L (0.0-2.0); VENOUS BLOOD PH 7.28 (7.32-7.43)
[2017-07-23] MEDS: Milrinone 20mg/100ml D5W 100 ML IV PRN (18:05)
--- NOTE | 2017-07-23 19:39 | CARD ---
APPROVED REPORT EKG Measurement Heart [id number] [id number] <Conclusion> Sinus tachycardia Left axis deviation Right bundle branch block Septal infarct, age undetermined Possible Lateral infarct, age undetermined Abnormal ECG
--- NOTE | 2017-07-23 19:40 | CARD ---
APPROVED REPORT EKG Measurement Heart [id number] <Conclusion> Poor data quality, Sinus tach Right bundle branch block Left anterior fascicular block Bifascicular block Septal infarct, age undetermined Abnormal ECG
[2017-07-23] MEDS ORDERED: Influenza Vaccine 60 mcg/0.5 mL SYR (4YR UP) IM ONE (20:26)
[2017-07-23] MEDS ORDERED: Pneumococcal 23-Valent Vaccine IM ONE (20:26)
[2017-07-23] MEDS ORDERED: Insulin Reg-LOW-Coverage SC SCH (22:00)
--- NOTE | 2017-07-23 22:02 | HP ---
HISTORY OF PRESENT ILLNESS: The patient is a 66-year-old who came to emergency room because of increasing shortness of breath, getting tired upon minimal activity. It has been going on for the last few days, got worse today and he developed some chest discomfort, so his called ambulance and he was brought to emergency room. He was given aspirin on his way. No history of cough, congestion, fever, or chills. No history of hemoptysis. No hematemesis. PAST MEDICAL HISTORY: Significant for hypertension, non-insulin dependant diabetes, hyperlipidemia, coronary artery disease status post angioplasty, status post cardiac cath in 11/2016, after than he had abnormal stress test, status post a drug-eluted stent in proximal mid and distal circumflex. ALLERGIES: HE IS NOT ALLERGIC TO ANY MEDICATIONS. SOCIAL HISTORY: He is , lives with his . No history of smoking, drinking, or alcohol use. MEDICATIONS: He is on: 1. Diclofenac. 2. . 3. Fenofibrate. 4. Gabapentin. 5. Famotidine. 6. Lipitor. 7. Metoprolol, 8. Aspirin. 9. Lasix 40 mg daily. 10. Digoxin 125 mcg daily. 11. Enalapril. 12. Metformin. 13. Glipizide 10 mg twice a day. REVIEW OF SYSTEMS: Significant for shortness of breath and feeling tired and fatigue. PHYSICAL EXAMINATION: GENERAL: He is awake, alert, oriented, and communicative. VITAL SIGNS: He is afebrile, pulse 68, respirations 20, and blood pressure 131/79. LUNGS: Bilateral few expiratory rhonchi and soft crackles at bases. HEART: S1 and S2 audible. ABDOMEN: Soft, obese, and nontender. No rebound. No guarding. NEUROLOGICAL: He is awake, alert, oriented, and communicative. LABORATORY DATA: WBC is 8.6, hemoglobin 13, hematocrit 42, and platelet 283. Chemistries: Sodium 140, potassium 3.9, chloride 104, CO2 of 22, BUN 20, creatinine 1.3, and blood sugar 212. BNP 4800. Digoxin level is 0.6. X-ray chest show venous congestion. ASSESSMENT: 1. Congestive heart failure exacerbation. 2. Status post pacemaker placement. 3. Non-insulin dependant diabetes. 4. Hypertension. 5. Hyperlipidemia. 6. Coronary artery disease, status post angioplasty. PLAN: The patient will be started on spironolactone. He is on Coreg. We will start him on aspirin 81 daily. He is on . His GFR is more that 60. We will start him on metformin 1000 twice a day, glipizide 10 mg twice a day. He has been started on heparin. We will start him Januvia and digoxin. He is on Lasix 40 mg twice a day, gabapentin, and lisinopril. He has been started on milrinone drip by barrel burner. Echocardiogram has been ordered. We will monitor his blood sugar and follow up his CBC, CMP and electrolytes in a.m. Carlos Tsai MD
[2017-07-23] MEDS: Insulin Lispro (humaLOG) LOW Coverage SC SCH (22:10)
[2017-07-24] MEDS: Milrinone 20mg/100ml D5W 100 ML IV PRN ×3 (02:24→23:37)
--- NOTE | 2017-07-24 03:35 | CON ---
REASON FOR CONSULTATION: Shortness of breath, coronary artery disease, rule in acute coronary syndrome, code STEMI canceled. BRIEF CLINICAL HISTORY: This is a 66-year-old male with past medical history significant for multiple PTCA, history of STEMI, coronary artery disease, diabetes, hypertension, hyperlipidemia, oral hypoglycemic agent, history of multiple PTCAs and AK. Last catheterization 12/23/2016 with angioplasty of right coronary artery. We are going to do staged RCA. Prior to that, patient had a stent in the circumflex was done on 11/25/2016 in outpatient had a staged PTCA of RCA on 12/23/2016, came in with complaint of shortness of breath and some mild chest discomfort, on CPAP, now feeling better. Chest x-ray is consistent with mild CHF. PAST MEDICAL HISTORY: Significant for diabetes, hypertension, hyperlipidemia, multiple PTCA, multiple code STEMI, last code STEMI was 05/19/2016 ostial circumflex. Had a PTCA done by Dr. Juan and then plain balloon angioplasty. After that, patient at [facility], a stent was deployed. The patient recently had abnormal stress test as the patient underwent cardiac catheterization and stenting of the circumflex dated 10/30/2017, and then later the patient had staged angioplasty of right coronary artery on 12/23/2016. Ejection fraction 35%. The most recent cardiac workup as follows: The patient had a most recent cardiac catheterization on 12/23/2016, done that shows a patent stent in circumflex and the patient had successfully distal RCA. PTCA with Scoring balloon of mid RCA for in-stent restenosis, successfully PTCA with MARIANNE and proximal RCA was done. PRU was done at 261 seconds and patient found to be resistant to Plavix, so the patient was changed to Effient. Prior to that, patient had cardiac catheterization done 11/25/2016, that revealed ejection fraction of 35% to 40% EDP percentage of 20 and successful PTCA with a drug-eluting stent to circumflex was done mid to distal. Ejection fraction was 35% to 40%, PRU was 261 seconds, resistant to Plavix; so the patient had staged PTCA of circumflex on that day, 11/25/2016 and a staged PTCA of RCA 12/20/2016, and the patient was started on Effient. Patient's last stress test was prior to this stent in the circumflex that shows abnormal myocardial perfusion study. Ejection fraction 35%. LAD at the cath last done 40% stenosis noted. SOCIAL HISTORY: Denies any history of alcohol abuse. CURRENT MEDICATIONS: The patient is taking at home Tradjenta 35 units, metoprolol succinate, glipizide, gabapentin, Lasix, enalapril, digoxin, diclofenac, atorvastatin. REVIEW OF SYSTEMS: As per HPI. PHYSICAL EXAMINATION: As follows: VITAL SIGNS: Temperature afebrile, heart rate 70, blood pressure 144/60. HEENT: PERRLA. Extraocular muscles intact. NECK: Supple. No carotid bruit or thyromegaly. CHEST: Clear to auscultation. HEART: S1, S2 regular. ABDOMEN: Soft. EXTREMITIES: Clubbing and cyanosis negative. LABORATORY DATA: Blood workup as follows: WBC 8.6, hemoglobin 13.0, hematocrit 42.2, platelet count 283. Chemistry shows sodium 140, potassium 3.9, chloride 104, carbon dioxide 22, iron gap of 18, BUN 20, creatinine 1.3. BNP 4800. Albumin/globulin ratio 1.22, troponin 0.02. IMPRESSION: 1. Heart failure is consistent with congestive heart failure, fluid in right lobe or fissure consistent with pulmonary edema. EKG shows sinus tachycardia and right bundle-branch block. 2. Acute congestive heart failure and acute on chronic systolic dysfunction. 3. Cardiomyopathy, ischemic, multiple stents status post code STEMI. 4. Diabetes. 5. Hypertension. 6. Hyperlipidemia. RECOMMENDATIONS: Agree to start heparin, follow up CPK, serial troponin. Assume back diuretics, JARED inhibitor, beta-alessandro, we will add digoxin, we will add Primacor. Follow up serial CPK. If CPK remains negative, we will get a MUGA scan and optimize medical treatment and assess the need of AICD. Thank you, Dr. Tsai for the opportunity in taking care of Karl Rueda. We will follow with you. Ciera Sheikh MD
[2017-07-24 08:03] LABS: BASO # 0.01 K/mm3 (0.0-2.0); BASO % 0.2 % (0.0-3.0); EOS # 0.1 (0.0-0.7); EOS % 2.2 % (1.5-5.0); GRAN # 2.65 (1.4-6.5); GRAN % 63.9 % (50.0-68.0); HEMATOCRIT 36.4 % (42.0-52.0); LYMPH % 24.8 % (22.0-35.0); MEAN CELL VOLUME 81.8 fl (80.0-105.0); MEAN CORPUSCULAR HEMOGLOBIN 25.2 pg (25.0-35.0); MEAN CORPUSCULAR HGB CONC 30.8 g/dl (31.0-37.0); MEAN PLATELET VOLUME 10.5 fl (7.0-11.0); MONO # 0.4 (0.1-0.6); MONO % 8.9 % (1.0-6.0); RED CELL DISTRIBUTION WIDTH 19.1 % (11.5-14.5); WHITE BLOOD COUNT 4.2 10^3/ul (4.5-11.0)
[2017-07-24] MEDS: Insulin Lispro (humaLOG) LOW Coverage SC SCH ×4 (08:10→22:34)
[2017-07-24 09:15] LABS: ALB/GLOB RATIO 1.1 (1.1-1.8); ALKALINE PHOSPHATASE 38 U/L (38-126); ALT/SGPT 27 U/L (7-56); AST/SGOT 27 U/L (17-59); BILIRUBIN,TOTAL 0.9 mg/dL (0.2-1.3); BLOOD UREA NITROGEN 18 mg/dL (7-21); CALCIUM 9.5 mg/dL (8.4-10.5); CARBON DIOXIDE 22 mmol/L (21-33); CHLORIDE 107 mmol/L (98-107); CHOLESTEROL 100 mg/dL (130-200); GFR AFRICAN-AMERICAN > 60; GLUCOSE,RANDOM 114 mg/dL (70-110); MAGNESIUM 1.8 mg/dL (1.7-2.2); PHOSPHOROUS 3.9 mg/dL (2.5-4.5); POTASSIUM 3.5 mmol/L (3.6-5.0); SODIUM 142 mmol/L (132-148); TROPONIN I 0.28 ng/mL
[2017-07-24] MEDS ORDERED: Digoxin 250 mcg (0.25 mg) Tab PO SCH (10:00)
[2017-07-24] MEDS ORDERED: Potassium Chloride 20 mEq ER Tab PO ONE (11:11)
[2017-07-24] MEDS: Digoxin 125 mcg (0.125 mg) Tab PO SCH (13:45)
[2017-07-24] MEDS: Lidocaine 5% Patch TD SCH (13:46)
--- NOTE | 2017-07-24 13:48 | RAD ---
PROCEDURE: Radiographs of the Lumbar Spine. HISTORY: back pain COMPARISON: No prior. FINDINGS: BONES: Normal alignment. No listhesis. No fracture. DISC SPACES: There is a transitional L5 vertebral body which is partially sacralized. There is disc degeneration at L4-5 OTHER FINDINGS: None. IMPRESSION: There is a transitional L5 vertebral body which is partially sacralized. There is disc degeneration at L4-5
[2017-07-24] MEDS: Heparin25000 units/250ml 1/2NS 25,000 UNITS/250 ML BAG IV SCH (13:54)
--- NOTE | 2017-07-24 13:54 | RAD ---
HISTORY: back pain COMPARISON: No prior. FINDINGS: BONES: Alignment maintained. No fracture. DISC SPACES: Normal. SOFT TISSUES: Normal. OTHER FINDINGS: Anterior osteophytes are seen with ossification of the anterior longitudinal ligament IMPRESSION: No vertebral compression fractures
--- NOTE | 2017-07-24 14:42 | PN ---
DATE: REASON FOR CONSULTATION AND FOLLOWUP: Shortness of breath, coronary artery disease, rule out acute coronary artery syndrome. SUBJECTIVE: The patient denies any chest pain, shortness of breath or any palpitation. Feels a lot better. Currently on heparin and Pulmicort. PHYSICAL EXAMINATION: VITAL SIGNS: As follows: Temperature afebrile, heart rate 78, and blood pressure 120/61. HEENT: PERRLA. Extraocular muscles intact. NECK: Supple. No carotid bruit or thyromegaly. CHEST: Clear to auscultation. HEART: S1 and S2 regular. ABDOMEN: Soft. EXTREMITIES: Clubbing and cyanosis negative. LABORATORY DATA: Blood workup as follows: WBC 4.2, hemoglobin 11, hematocrit 36.4, and platelet count 185. Chemistry shows sodium 142, potassium 3.5, chloride 107, carbon dioxide 22, anion gap of 16, BUN of 18, and creatinine of 1.1. Troponin pending, first one was troponin 0.02. BNP 4800. IMPRESSION: Decompensated congestive heart failure secondary to cardiomyopathy, coronary artery disease, status post multiple stents, rule out acute coronary syndrome, rule out unstable angina, rule out zvd-VX-tgzncigzs myocardial infarction, diabetes, hypertension, hyperlipidemia, multiple stents in the past, last stent in right coronary artery on 12/23/2016. Prior to that the patient had stent in the circumflex. RECOMMENDATIONS: We will continue heparin, continue Pulmicort. Followup CPK, troponin. Troponin pending. If the troponin trends up, we will consider cardiac catheterization. If troponin is minimally elevated, we will treat medically. The patient is resistant to Plavix, on Effient, and continue Effient. Continue aspirin. Continue Plavix. Continue spironolactone. Continue Coreg. We will follow the trend of troponin, awaiting for the morning troponin and then we will add on afternoon and tomorrow depending upon the troponin. We will consider cardiac catheterization versus medical treatment. We will follow with you. Get echo to assess LV function. We will supplement potassium. The patient is already on spironolactone, and we will change to Lovenox at 6:[address] Tsai for providing us the opportunity in taking care of the patient, Marybeth Barajas. Ciera Sheikh MD
[2017-07-24 15:03] LABS: TROPONIN I 0.2 ng/mL
--- NOTE | 2017-07-24 18:16 | PN ---
DATE: SUBJECTIVE: The patient is a 66-year-old, seen and examined. He states he feels a lot better. Shortness of breath is better. No fever. No chills. No hemoptysis. No hematemesis. PHYSICAL EXAMINATION: VITAL SIGNS: He is afebrile, pulse , respirations 20, and blood pressure 120/61. LUNGS: Bilateral fair airflow. No rhonchi or crackle. HEART: S1 and S2, audible. ABDOMEN: Soft, obese, and nontender. No rebound. No guarding. BACK: Complaint of lower back pain. EXTREMITIES: No weakness or numbness in the legs. LABORATORY DATA: WBC is 4.2, hemoglobin is 11.2, hematocrit is 36.4, and platelet of 185. Chemistry: Sodium 142, potassium 3.5, chloride 107, CO2 of 22, BUN 18, creatinine 1.1, and blood sugar of 114. LFTs are within normal limits. Digoxin is 0.6. Lumbar spine x-ray, there is disk between L4-5. ASSESSMENT: 1. Congestive heart failure exacerbation, acute on chronic. 2. Asthmatic bronchitis. 3. Hypertension. 4. Coronary artery disease. 5. Wbn-jbvhwoe-nzzgagvrq diabetes. PLAN: We will get x-ray of lumbosacral and thoracic spine. We will monitor his blood sugar. Continue to diurese. Currently, he is on Primacor and heparin drip. We will follow up his CBC and CMP in a.m. Carlos Tsai MD
--- NOTE | 2017-07-24 20:22 | CARD ---
APPROVED REPORT EXAM: Two-dimensional and M-mode echocardiogram with Doppler and color Doppler. 2D DIMENSIONS Left Atrium (2D)4.4 (1.6-4.0cm)IVSd1.1 (0.7-1.1cm) LVDd5.6 (3.9-5.9cm)PWd0.9 (0.7-1.1cm) LVDs4.8 (2.5-4.0cm)FS (%) 14.5 % LVEF (%)35.0 (>50%) M-Mode DIMENSIONS Aortic Root2.90 (2.2-3.7cm)Aortic Cusp Exc.1.70 (1.5-2.0cm) Aortic Valve AoV Peak Cayqykzo572.0cm/Sincere Peak GR.6mmHg Mitral Valve MV E Rennnuqa59.1cm/sMV A Mvjjmsqp29.7cm/sE/A ratio2.1 TDI E/Lateral E'0.0E/Medial E'0.0 Tricuspid Valve TR Peak Nkexpclr138mz/sRAP XVUTZXVD24ixEsRS Peak Gr.34mmHg PGUY10jhLl LEFT VENTRICLE The Left Ventricle is borderline dilated. There is normal left ventricular wall thickness. The systolic function is moderately impaired.EF-35% There is global hypokinesis of the left ventricle. Transmitral Doppler flow pattern is Grade II-pseudonormal filling dynamics. No left ventricle thrombus noted on this study. There is no ventricular septal defect visualized. There is no left ventricular aneurysm. RIGHT VENTRICLE The right ventricle is mildly dilated. There is normal right ventricular wall thickness. Systolic function is mildly reduced. ATRIA The left atrium is mildly dilated. The right atrium size is normal. The interatrial septum is intact with no evidence for an atrial septal defect. AORTIC VALVE The aortic valve is thickened but opens well. No aortic regurgitation is present. There is no aortic valvular stenosis. There is no aortic valvular vegetation. MITRAL VALVE The mitral valve is thickened but opens well. Mitral regurgitation is mild to moderate. There is no mitral valve stenosis. There is no evidence of mitral valve prolapse. TRICUSPID VALVE The tricuspid valve leaflets are thickened , but open well. There is mild to moderate tricuspid regurgitation.RVSP-44 mmof hg. There is no tricuspid valve stenosis. There is no tricuspid valve prolapse or vegetation. PULMONIC VALVE The pulmonary valve is normal in structure. There is no pulmonic valvular regurgitation. There is no pulmonic valvular stenosis. GREAT VESSELS The aortic root is normal in size. The ascending aorta is normal in size. The pulmonary artery is normal. The IVC is normal in size and collapses >50% with inspiration. PERICARDIAL EFFUSION There is no pleural effusion. There is no pericardial effusion. <Conclusion> The Left Ventricle is borderline dilated. There is normal left ventricular wall thickness. The systolic function is moderately impaired.EF-35% Mitral regurgitation is mild to moderate. There is mild to moderate tricuspid regurgitation.RVSP-44 mmof hg. There is no pericardial effusion. The IVC is normal in size and collapses >50% with inspiration.
[2017-07-24] MEDS: Enoxaparin 100 mg Syringe SC SCH (20:43)
[2017-07-25] MEDS: Milrinone 20mg/100ml D5W 100 ML IV PRN ×2 (05:55→15:04)
[2017-07-25 07:26] LABS: ALB/GLOB RATIO 1.2 (1.1-1.8); ALKALINE PHOSPHATASE 44 U/L (38-126); ALT/SGPT 25 U/L (7-56); AST/SGOT 32 U/L (17-59); BILIRUBIN,TOTAL 0.7 mg/dL (0.2-1.3); BLOOD UREA NITROGEN 17 mg/dL (7-21); CALCIUM 9.4 mg/dL (8.4-10.5); CARBON DIOXIDE 26 mmol/L (21-33); CHLORIDE 106 mmol/L (98-107); GFR AFRICAN-AMERICAN > 60; GLUCOSE,RANDOM 62 mg/dL (70-110); MAGNESIUM 1.6 mg/dL (1.7-2.2); PHOSPHOROUS 3.6 mg/dL (2.5-4.5); POTASSIUM 3.8 mmol/L (3.6-5.0); SODIUM 141 mmol/L (132-148)
[2017-07-25 07:40] LABS: BASO # 0.01 K/mm3 (0.0-2.0); BASO % 0.3 % (0.0-3.0); EOS # 0.1 (0.0-0.7); EOS % 2.8 % (1.5-5.0); GRAN # 2.22 (1.4-6.5); GRAN % 62.4 % (50.0-68.0); HEMATOCRIT 36.8 % (42.0-52.0); LYMPH # 0.8 (1.2-3.4); LYMPH % 21.9 % (22.0-35.0); MEAN CELL VOLUME 81.2 fl (80.0-105.0); MEAN CORPUSCULAR HEMOGLOBIN 25.2 pg (25.0-35.0); MEAN PLATELET VOLUME 9.9 fl (7.0-11.0); MONO # 0.5 (0.1-0.6); MONO % 12.6 % (1.0-6.0); RED CELL DISTRIBUTION WIDTH 18.9 % (11.5-14.5); WHITE BLOOD COUNT 3.6 10^3/ul (4.5-11.0)
[2017-07-25 07:41] LABS: TROPONIN I 0.14 ng/mL
[2017-07-25] MEDS: Insulin Lispro (humaLOG) LOW Coverage SC SCH ×4 (08:01→21:21)
[2017-07-25] MEDS: Enoxaparin 100 mg Syringe SC SCH ×2 (08:20→21:23)
[2017-07-25] MEDS: Lidocaine 5% Patch TD SCH (10:18)
[2017-07-25] MEDS: Digoxin 125 mcg (0.125 mg) Tab PO SCH (13:38)
[2017-07-25] MEDS ORDERED: Magnesium Sulfate 1 gm in D5W 1 GM/100 ML BAG IVPB ONE (15:13)
--- NOTE | 2017-07-25 19:51 | PN ---
DATE: 07/25/2017 REASON FOR CONSULTATION AND FOLLOWUP: Shortness of breath, coronary artery disease, rule out acute coronary syndrome. SUBJECTIVE: The patient denies any chest pain, shortness of breath or any palpitation on IV Primacor. PHYSICAL EXAMINATION: VITAL SIGNS: As follows: Temperature afebrile, heart rate 54, and blood pressure 142/65. HEENT: PERRLA intact. NECK: Supple. No carotid bruit or thyromegaly. CHEST: Clear to auscultation. HEART: S1 and S2 regular. ABDOMEN: Soft. EXTREMITIES: Clubbing and cyanosis negative. LABORATORY DATA: WBC 6.6, hemoglobin 11.5, hematocrit 36.8, and platelet count 197. Chemistry shows sodium 141, potassium 3.8, chloride 106, carbon dioxide 26, anion gap of 13, BUN of 17, and creatinine of 1.1. Troponin 0.14. IMPRESSION: Borderline positive troponin, acute decompensated congestive heart failure, cardiomyopathy ischemic, status post multiple percutaneous transluminal coronary angioplasty, diabetes, hypertension, hyperlipidemia. Yesterday, the patient had an echocardiography done that shows ejection fraction of 35% mhkp-rz-mzhpixux mitral regurgitation, yccm-dt-eimdiesz tricuspid regurgitation. RECOMMENDATIONS: The patient is asymptomatic, borderline troponin positive. We will treat medically. Continue aspirin. Continue Effient. The patient is resistant to Plavix. We will continue Effient. Continue digoxin. Continue Lasix. We will change Lovenox to deep vein prophylaxis from tomorrow after today's dose. Continue lisinopril. Continue Primacor for next 24 hours if remains stable, possible discharge within a day or two. Discussed with the patient. Thank you Dr. Tsai for providing us the opportunity in taking care of the patient, Karl Rueda. Ciera Sheikh MD
--- NOTE | 2017-07-25 20:03 | PN ---
DATE: SUBJECTIVE: The patient is a 66-year-old, seen and examined. Sitting in chair, still complaint of shortness of breath. Denies any nausea. Leg swelling is better. Eating and tolerating. PHYSICAL EXAMINATION: VITAL SIGNS: He is afebrile, pulse 54, respirations 20, and blood pressure 142/65. LUNGS: Bilateral fair airflow. No rhonchi or crackle. HEART: S1 and S2, audible. ABDOMEN: Soft, obese, and nontender. No rebound. No guarding. NEUROLOGIC: The patient is awake, alert, oriented. Able to communicate. LABORATORY DATA: WBC 3.6, hemoglobin 11.4, hematocrit 36.8, and platelet of 197. PTT is 35. Chemistry: Sodium 141, potassium 3.8, chloride 106, CO2 of 26, BUN 17, creatinine 1.1, and blood sugar of 86. ASSESSMENT: 1. Congestive heart failure exacerbation. 2. Chronic obstructive pulmonary disease exacerbation. 3. Hypertension. 4. Coronary artery disease status post angioplasty. 5. Non-ST elevation myocardial infarction. PLAN: I will add Xopenex since he has a history of heavy smoking in the past and he is currently on milrinone drip. We will his electrolyte and blood sugar, out of bed to chair. He is currently on Lovenox and heparin has been stopped. Carlos Tsai MD
[2017-07-25] MEDS: Levalbuterol 1.25 MG/3 ML Inhal Soln UD IH SCH (20:20)
[2017-07-26] MEDS: Milrinone 20mg/100ml D5W 100 ML IV PRN ×3 (01:25→20:21)
[2017-07-26] MEDS: Levalbuterol 1.25 MG/3 ML Inhal Soln UD IH SCH ×4 (01:35→20:45)
[2017-07-26 08:04] LABS: HEMATOCRIT 37.8 % (42.0-52.0); MEAN CELL VOLUME 81.1 fl (80.0-105.0); MEAN CORPUSCULAR HEMOGLOBIN 25.1 pg (25.0-35.0); MEAN PLATELET VOLUME 9.2 fl (7.0-11.0); RED CELL DISTRIBUTION WIDTH 18.7 % (11.5-14.5); WHITE BLOOD COUNT 3.8 10^3/ul (4.5-11.0)
[2017-07-26 08:26] LABS: ALB/GLOB RATIO 1.1 (1.1-1.8); ALKALINE PHOSPHATASE 46 U/L (38-126); ALT/SGPT 23 U/L (7-56); AST/SGOT 43 U/L (17-59); BILIRUBIN,TOTAL 0.6 mg/dL (0.2-1.3); BLOOD UREA NITROGEN 16 mg/dL (7-21); CALCIUM 9.8 mg/dL (8.4-10.5); CARBON DIOXIDE 28 mmol/L (21-33); CHLORIDE 101 mmol/L (98-107); GFR AFRICAN-AMERICAN > 60; GLUCOSE,RANDOM 97 mg/dL (70-110); POTASSIUM 3.9 mmol/L (3.6-5.0); SODIUM 139 mmol/L (132-148); TOTAL PROTEIN 7.5 g/dL (5.8-8.3)
[2017-07-26] MEDS: Insulin Lispro (humaLOG) LOW Coverage SC SCH ×4 (08:36→22:25)
[2017-07-26 09:03] LABS: TROPONIN I 0.56 ng/mL
[2017-07-26] MEDS: Enoxaparin 40 mg Syringe SC SCH (09:38)
[2017-07-26] MEDS: Lidocaine 5% Patch TD SCH (09:39)
[2017-07-26] MEDS: Digoxin 125 mcg (0.125 mg) Tab PO SCH (13:26)
--- NOTE | 2017-07-26 15:23 | PN ---
DATE: REASON FOR CONSULTATION: Shortness of breath, coronary artery disease rule out coronary syndrome, congestive heart failure, and acute on chronic systolic dysfunction. SUBJECTIVE: The patient denies any chest pain,shortness of breath or any palpitation, on Primacor. PHYSICAL EXAMINATION: GENERAL: Not in apparent distress. VITAL SIGNS: As follows, temperature afebrile, heart rate 90, and blood pressure 120/70. HEENT: PERRLA. Extraocular muscles intact. NECK: Supple. No carotid bruits or thyromegaly. CHEST: Clear to auscultation. HEART: S1 and S2, regular. ABDOMEN: Soft. EXTREMITIES: Clubbing and cyanosis negative. LABORATORY DATA: Blood workup as follows: WBC 3.8, hemoglobin 11.7, hematocrit 37.8, and platelet count 184. Chemistry shows sodium 139, potassium 3.9, chloride 101, carbon dioxide 28, anion gap of 14, BUN 16, and creatinine 1.0. IMPRESSION: Possible nvl-ZN-bnfqzns myocardial infarction, coronary artery disease status post multiple stents, last coronary intervention circumflex and right coronary artery in November, and ischemic cardiomyopathy, admitted with decompensated congestive heart failure. Echocardiogram done yesterday, ejection fraction of 35%, kgcl-wp-uvmcikci mitral regurgitation and ujfm-oe-vszzkkac tricuspid regurgitation. Troponin initially 0.28 and 0.14, today is 0.56. RECOMMENDATIONS: Continue aspirin. Continue Effient. Continue Lasix. Lovenox change to DVT prophylaxis. Continue lisinopril. Continue Primacor. We will repeat troponin. If the troponin trends down, we will add the troponin this morning. If the troponin trend down, we will discharge by Friday. If the troponin trends up or stays, consider cardiac catheterization on Friday. We will follow with you. For now, leave Primacor for the next [address] Tsai for providing opportunity in taking care of the patient, Karl Rueda. In the interim, continue aspirin. Continue JARED as mentioned and continue IV Lasix. We will follow with you. We will repeat the troponin in the morning and we will add it for today sample and we will repeat in the morning as well. Discussed with the patient. History of sick sinus syndrome status post permanent pacemaker. Possible sih-VO-anrykpl myocardial infarction. Further recommendation will be made upon availability of the troponin today and tomorrow. Ciera Sheikh MD [facility] # [id number]
--- NOTE | 2017-07-26 16:02 | PN ---
DATE: SUBJECTIVE: The patient is a 66 years old, seen and examined, sitting in chair, seems to be doing better. Leg swelling has gone. Shortness of breath seems to be improving. No chest pain. PHYSICAL EXAMINATION: VITAL SIGNS: He is afebrile, pulse 99, respirations 18, blood pressure 146/57. LUNGS: Bilateral fair air flow. No rhonchi or crackle. HEART: S1, S2 audible. No murmur. ABDOMEN: Soft, nontender. No rebound, no guarding. NEUROLOGIC: Patient is awake, alert, oriented, communicative. LABORATORY DATA: WBC 3.8, hemoglobin 11.7, hematocrit 37.8, platelet of 184. Chemistry: Sodium 139, potassium 3.9, chloride 101, CO2 of 28, BUN 16, creatinine 1.0, blood sugar of 97. Troponin is 0.56. Digoxin is 0.6. ASSESSMENT: 1. Congestive heart failure exacerbation. 2. Rrk-bglqwqk-udjyiazav diabetes. 3. Tdhms-zs-qcdpwhb congestive heart failure. 4. Ischemic cardiomyopathy. 5. Coronary artery disease, status post multiple angioplasties. 6. Hypertension. 7. Hyperlipidemia. PLAN: Currently, patient is on diuretics, started him on nebulizer treatment, continue him on aspirin, Effient. He is on glipizide and metformin. Monitor his blood sugar. He is on DVT prophylaxis. He is on milrinone drip as recommended by Dr. Sheikh. We will follow up his electrolytes and CBC in a.m. Carlos Tsai MD
[2017-07-27] MEDS: Levalbuterol 1.25 MG/3 ML Inhal Soln UD IH SCH ×4 (01:30→20:52)
[2017-07-27] MEDS: Milrinone 20mg/100ml D5W 100 ML IV PRN (04:56)
[2017-07-27] MEDS: Insulin Lispro (humaLOG) LOW Coverage SC SCH ×4 (07:40→22:49)
[2017-07-27 08:15] LABS: EOS # 0.2 (0.0-0.7); EOS % 3.9 % (1.5-5.0); GRAN # 2.19 (1.4-6.5); GRAN % 50.6 % (50.0-68.0); HEMATOCRIT 38.3 % (42.0-52.0); LYMPH # 1.1 (1.2-3.4); LYMPH % 25.9 % (22.0-35.0); MEAN CELL VOLUME 81.8 fl (80.0-105.0); MEAN CORPUSCULAR HGB CONC 30.5 g/dl (31.0-37.0); MEAN PLATELET VOLUME 9.7 fl (7.0-11.0); MONO # 0.9 (0.1-0.6); MONO % 19.6 % (1.0-6.0); RED CELL DISTRIBUTION WIDTH 18.5 % (11.5-14.5); WHITE BLOOD COUNT 4.3 10^3/ul (4.5-11.0)
[2017-07-27 08:37] LABS: ALB/GLOB RATIO 1.2 (1.1-1.8); ALKALINE PHOSPHATASE 51 U/L (38-126); ALT/SGPT 35 U/L (7-56); AST/SGOT 49 U/L (17-59); BILIRUBIN,TOTAL 0.5 mg/dL (0.2-1.3); BLOOD UREA NITROGEN 16 mg/dL (7-21); CARBON DIOXIDE 27 mmol/L (21-33); CHLORIDE 102 mmol/L (98-107); GFR AFRICAN-AMERICAN > 60; GLUCOSE,RANDOM 79 mg/dL (70-110); MAGNESIUM 1.8 mg/dL (1.7-2.2); SODIUM 140 mmol/L (132-148); TOTAL PROTEIN 7.4 g/dL (5.8-8.3); TROPONIN I 0.29 ng/mL
[2017-07-27] MEDS: Lidocaine 5% Patch TD SCH (09:49)
[2017-07-27] MEDS: Enoxaparin 40 mg Syringe SC SCH (09:49)
--- NOTE | 2017-07-27 13:38 | PN ---
DATE: SUBJECTIVE: The patient is 66 years old, seen and examined, sitting in chair, seems to be comfortable, less shortness of breath, leg swelling has gone. He is able to ambulate without getting too short of breath. PHYSICAL EXAMINATION: VITAL SIGNS: He is afebrile, pulse 104, respirations 16, blood pressure 124/72. LUNGS: Bilateral occasional expiratory rhonchi. No crackle. HEART: S1 and S2 audible. ABDOMEN: Soft, obese, and nontender. No rebound. No guarding. NEUROLOGIC: The patient is awake, alert, oriented, and communicative. LABORATORY DATA: WBC is 4.3, hemoglobin 11.7, hematocrit 38, and platelets 191. Chemistries: Sodium 140, potassium 4.0, chloride 102, CO2 of 27, BUN 16, creatinine 1.0, and blood sugar of 79. LFTs are within normal limits. His troponin is 0.29. ASSESSMENT: 1. History of chronic obstructive pulmonary disease. 2. Non-ST elevation myocardial infarction. 3. History of coronary artery disease, status post multiple angioplasties. 4. Non-ischemic cardiomyopathy with ejection fraction of 35%. 5. Qft-apnznvg-cpfqgbufv diabetes. 6. Hyperlipidemia. 7. Bilateral leg edema, seems to be improving. PLAN: Currently, the patient is on spironolactone, carvedilol, aspirin. He is on Effient. He was on heparin, but that has been discontinued. Continue him on glipizide and Januvia. He is on Lasix 40 IV b.i.d. His kidney function seems to be holding, we will continue that. We will follow up this patient in a.m. Encourage ambulation. Follow up electrolytes. If he remains stable, he will be discharged. He is still on milrinone drip. Once that is discontinued, we will make discharge planning. Carlos Tsai MD
[2017-07-27] MEDS: Digoxin 125 mcg (0.125 mg) Tab PO SCH (13:50)
[2017-07-27 13:53] VITALS: PULSE 60
--- NOTE | 2017-07-27 16:14 | PN ---
DATE: REASON FOR CONSULTATION: Shortness of breath, coronary artery disease, xbz-JT-wcminvh myocardial infarction, congestive heart failure, and cdgma-mz-idzlnir systolic dysfunction. SUBJECTIVE: The patient denies any chest pain, shortness of breath or palpitation. OBJECTIVE: GENERAL: Not in apparent distress, sitting in the chair. VITAL SIGNS: As follows; temperature afebrile, heart rate 104, and blood pressure 124/72. HEENT: PERRLA. Extraocular muscles intact. NECK: Supple. No carotid bruits or thyromegaly. CHEST: Clear to auscultation. HEART: S1 and S2 regular. ABDOMEN: Soft. EXTREMITIES: Clubbing and cyanosis negative. LABORATORY DATA: Blood workup as follows. WBC 4.3, hemoglobin 11.7, hematocrit 38.3, and platelets of 191. Chemistry shows sodium 140, potassium 4, chloride 102, CO2 27, anion gap 15, BUN 16, and creatinine 1.0. Troponin 0.29. Troponin as follows: First troponin on admission was negative 0.02, then 0.28, then trended down to 0.2 and 0.14 yesterday. The patient had troponin of 0.5 and today is 0.29. IMPRESSION: Lxc-IL-iupzzua myocardial infarction though borderline elevated troponin, the troponin trending down, but yesterday went up. In view of above, going trending up and then trending down, we will do cardiac catheterization. History of coronary artery disease, history of multiple stents, history of most recent echo yesterday, ejection fraction was 35%, ffqp-vh-nozncddi mitral regurgitation, buux-kw-pwgrgiuk tricuspid regurgitation, right ventricular systolic pressure of 44. RECOMMENDATIONS: In view of up and down troponin, yesterday bumped up again and history of multiple stents, suggest cardiac catheterization. Initial plan was not to do cardiac catheterization and treat medically, but since the troponin bumped up yesterday, though the patient is asymptomatic, denies any chest pain, we will do the cardiac catheterization tomorrow. Continue for now Primacor to get the maximum benefit of heart failure. Continue aspirin. Continue Effient. The patient is resistant to Plavix because of elevated PRU on the last test. Continue Lasix. We will keep n.p.o. after 12 midnight for cardiac catheterization. Continue aspirin. Continue spironolactone. Continue digoxin. Continue enoxaparin. Continue lisinopril. We will put low dose of Coreg and keep n.p.o. after 12 midnight for cardiac catheterization, possible angioplasty in the morning. We will discontinue Lovenox after today's dose and keep n.p.o. for cardiac catheterization in the morning. Ciera Sheikh MD
[2017-07-28] MEDS: Milrinone 20mg/100ml D5W 100 ML IV PRN ×2 (00:49→21:49)
[2017-07-28] MEDS: Levalbuterol 1.25 MG/3 ML Inhal Soln UD IH SCH ×4 (01:01→21:01)
[2017-07-28] MEDS ORDERED: Lidocaine 2% Inj (20ml) ONE (06:42)
[2017-07-28] MEDS ORDERED: Phenylephrine 10 mg/ml Inj ONE (06:43)
[2017-07-28] MEDS ORDERED: Iodixanol 320 MG/ML 200 ML BOTTLE IV ONE (06:44)
[2017-07-28] MEDS ORDERED: Nitroglycerin 50mg in D5W 0 MG/0 ML BOTTLE IV ONE (06:44)
[2017-07-28] MEDS ORDERED: Iodixanol 320 MG/ML 100 ML BOTTLE IV ONE (06:44)
[2017-07-28] MEDS ORDERED: Iohexol 350mgl/ml 50 ML ONE (06:44)
[2017-07-28 07:01] LABS: EOS # 0.2 (0.0-0.7); EOS % 5.3 % (1.5-5.0); GRAN # 1.84 (1.4-6.5); GRAN % 46.1 % (50.0-68.0); HEMATOCRIT 37.6 % (42.0-52.0); LYMPH # 1.4 (1.2-3.4); LYMPH % 34.6 % (22.0-35.0); MEAN CELL VOLUME 81.2 fl (80.0-105.0); MEAN CORPUSCULAR HEMOGLOBIN 25.1 pg (25.0-35.0); MEAN CORPUSCULAR HGB CONC 30.9 g/dl (31.0-37.0); MEAN PLATELET VOLUME 9.5 fl (7.0-11.0); MONO # 0.6 (0.1-0.6); RED CELL DISTRIBUTION WIDTH 18.3 % (11.5-14.5)
[2017-07-28] MEDS ORDERED: Midazolam 2 MG/2 ML VIAL ONE (07:02)
[2017-07-28] MEDS: Insulin Lispro (humaLOG) LOW Coverage SC SCH ×4 (07:30→21:51)
[2017-07-28 07:52] LABS: BLOOD UREA NITROGEN 21 mg/dL (7-21); CALCIUM 9.9 mg/dL (8.4-10.5); CARBON DIOXIDE 26 mmol/L (21-33); CHLORIDE 99 mmol/L (98-107); GFR AFRICAN-AMERICAN > 60; GLUCOSE,RANDOM 113 mg/dL (70-110); SODIUM 134 mmol/L (132-148); TROPONIN I 0.29 ng/mL
[2017-07-28] MEDS ORDERED: Eptifibatide 20 mg/10mL Inj IVP ONE (08:04)
[2017-07-28] MEDS ORDERED: Sodium Chloride 0.9% 1,000 ML IV SCH (09:00)
[2017-07-28] MEDS: Lidocaine 5% Patch TD SCH (10:00)
[2017-07-28 13:04] LABS: BLOOD UREA NITROGEN 18 mg/dL (7-21); CALCIUM 9.7 mg/dL (8.4-10.5); CARBON DIOXIDE 27 mmol/L (21-33); CHLORIDE 100 mmol/L (98-107); GFR AFRICAN-AMERICAN > 60; GLUCOSE,RANDOM 198 mg/dL (70-110); POTASSIUM 4.4 mmol/L (3.6-5.0); SODIUM 134 mmol/L (132-148)
[2017-07-28 13:06] LABS: EOS # 0.2 (0.0-0.7); EOS % 4.5 % (1.5-5.0); GRAN # 1.67 (1.4-6.5); GRAN % 50.7 % (50.0-68.0); HEMATOCRIT 36.4 % (42.0-52.0); LYMPH # 1.1 (1.2-3.4); MEAN CELL VOLUME 81.4 fl (80.0-105.0); MEAN CORPUSCULAR HEMOGLOBIN 25.3 pg (25.0-35.0); MEAN PLATELET VOLUME 9.2 fl (7.0-11.0); MONO # 0.4 (0.1-0.6); MONO % 11.8 % (1.0-6.0); RED CELL DISTRIBUTION WIDTH 18.1 % (11.5-14.5); WHITE BLOOD COUNT 3.3 10^3/ul (4.5-11.0)
--- NOTE | 2017-07-28 13:08 | PN ---
DATE: 07/28/2017 REASON FOR CONSULTATION AND FOLLOWUP: Shortness of breath, acute coronary artery syndrome, vgl-IF-egucabg myocardial infarction, congestive heart failure, zgqla-bp-gdpcydm secondary to systolic dysfunction, status post PTCA of right coronary artery. SUBJECTIVE: The patient denies any chest pain, shortness of breath or any palpitation, status post cath and PTCA of RCA was done. PHYSICAL EXAMINATION: VITAL SIGNS: As follows; temperature afebrile, heart rate 55, and blood pressure 116/59. HEENT: PERRLA intact. NECK: Supple. No carotid bruit or thyromegaly. CHEST: Clear to auscultation. HEART: S1 and S2 regular. ABDOMEN: Soft. EXTREMITIES: Clubbing and cyanosis negative. LABORATORY DATA: Blood workup; WBC 4, hemoglobin 11.6, hematocrit 37.6, platelet count 186. Chemistry shows sodium 134, potassium 4, chloride 99, carbon dioxide 26, anion gap of 14, BUN of 21, and creatinine of 1.1. Troponin 0.29. IMPRESSION: Zyr-KO-skerrlz myocardial infarction, acute decompensated congestive heart failure, caphf-pa-ytpurwg secondary to systolic dysfunction, diabetes, hypertension, hyperlipidemia, multiple stents in the past, multiple percutaneous transluminal coronary angioplasties in the past, multiple code ST-elevation myocardial infarctions in the past, admitted with uhc-KS-pnzsvub myocardial infarction and acute decompensated congestive heart failure. The patient had repeat echocardiography done day before yesterday that shows ejection fraction moderately impaired 35%, hmli-so-xvjsrnhj mitral regurgitation, ticp-ln-dbpjbzvn tricuspid regurgitation. The patient this morning underwent cardiac catheterization that revealed left main essentially patent, patent stent in left anterior descending artery, circumflex totally occluded, multiple stents noted in right coronary artery, in-stent restenosis 80% in right coronary artery noted. Left ventriculogram shows ejection fraction 25% to 30%, apical hypokinesis as well as hypokinesis. EDP was in the range of 20 to 25. Successful percutaneous transluminal coronary angioplasty of in-stent restenosis of right coronary artery was done after using scoring balloon. Circumflex is totally occluded and multiple times done and multiple code ST-elevation myocardial infarctions here as well as [facility] [place], systolic was not attempted. PLAN: Continue aspirin, continue Plavix, continue aggressive control of cholesterol, aggressive control of diabetes, continue Coreg, continue lisinopril 5 mg. We will keep 24 hours milrinone, ambulate after 6 hours. Continue Effient as the patient is resistant to Plavix when last time it was checked that is PRU. If he remains stable, possibly discharge home tomorrow. MUGA scan in 3 months. If EF remains below 35%, consider upgrading pacemaker to defibrillator. Thank you Dr. Tsai for providing opportunity in taking care of the Karl Rueda. Ciera Sheikh MD cc: Carlos Tsai MD
[2017-07-28] MEDS: Digoxin 125 mcg (0.125 mg) Tab PO SCH (14:47)
--- NOTE | 2017-07-28 20:34 | PN ---
DATE: SUBJECTIVE: The patient is 66-year-old, seen and examined, lying in bed, seems to be comfortable. Had cardiac catheterization done and had angioplasty done. PHYSICAL EXAMINATION: GENERAL: He is awake, alert, oriented, and communicative. VITAL SIGNS: He is afebrile, pulse 60, respirations 16, and blood pressure 129/62. LUNGS: Bilateral good airflow. No rhonchi or crackle. HEART: S1 and S2, audible. ABDOMEN: Soft and nontender. No rebound. No guarding. NEUROLOGIC: The patient is awake, alert, oriented, and communicative. LABORATORY DATA: WBC 3.3, hemoglobin 11.3, hematocrit 36.4, and platelets 161. Chemistry; sodium 134, potassium 4.4, chloride 100, CO2 of 27, BUN 18, creatinine 0.9, and blood sugar of . ASSESSMENT AND PLAN: 1. Non-ST elevation myocardial infarction status post cardiac catheterization, had angioplasty done for right coronary artery. 2. Congestive heart failure, acute on chronic systolic. 3. Ksa-ndibxvg-bebawvlup diabetes. 4. Hyperlipidemia. 5. Pulmonary nodule. 6. Chronic back pain. PLAN: The patient is clinically stable. We will monitor electrolyte today and monitor blood pressure today. If the patient remains stable, he will be discharged. Carlos Tsai MD
[2017-07-28 21:54] VITALS: O2SAT 99
--- NOTE | 2017-07-29 00:19 | CARD ---
APPROVED REPORT EKG Measurement Heart [id number] <Conclusion> Sinus rhythm with 2:1 AV block Left axis deviation Right bundle branch block Minimal voltage criteria for LVH, may be normal variant Abnormal ECG
[2017-07-29] MEDS: Levalbuterol 1.25 MG/3 ML Inhal Soln UD IH SCH ×3 (03:40→13:37)
--- NOTE | 2017-07-29 05:36 | CARDCATH ---
PROCEDURE DATE: 07/28/2017 LEFT HEART CATHETERIZATION, POSSIBLE ANGIOPLASTY. PROCEDURES PERFORMED: 1. Left heart catheterization. 2. Percutaneous transluminal coronary angioplasty with a drug-eluting stent of right coronary artery, after prepared with scorring balloon for Instent Restenosis OPERATIVE DOCTOR: Ciera Sheikh MD MICROBIOLOGY LABORATORY MANAGER: Mike Wilkins, audiometric technician. SCHEDULING: Semi- Elective BRIEF CLINICAL HISTORY: This is a 66-year-old male with a past medical history of diabetes, hypertension, hyperlipidemia, aggressive coronary artery disease, multiple stent to right coronary artery, circumflex ,and LAD, multiple code STEMI, multiple non-STEMI, admitted again with non-STEMI at this time, and pulmonary edema. After being stabilized, patient brought to cardiac catheterization and because troponin is keep on increasing up and down. So, in view of above, it was decided to take him to the laboratory apparatus glass grinder. Initially decided that if the troponin is not significant, we will treat medically; but later on saw the patient's troponin continues to spilling, so decided to take to the laboratory apparatus glass grinder. PROCEDURE: The patient was taken to laboratory apparatus glass grinder, draped in a sterile standard fashion. Right groin punctured using Seldinger technique. Lots of scar tissue, so access was obtained easily, but very difficult to deploy the 6-Stateless sheath and gradually upsized and then 6-Stateless arterial sheath was placed. Then left and right Tootie catheter and pigtail catheter used for coronary angiography. FINDINGS: As follows: Left main essentially without significant disease, bifurcating LAD and circumflex LAD showed some luminal irregularities, patent stent, but no flow obstructive or stenosis noted. Circumflex was proximally occluded at the ostium, a stent noted with occluded 100%. Right coronary artery, multiple stent noted in the RCA and mid RCA has instent 80% to 90% stenosis. LV gram was done that showed ejection fraction 25%. Diffuse apical severe hypokinesis noted. Ejection fraction estimated by visual estimation 25%. End diastolic pressure was 20. Aortic pressure 120/80, LV pressure 120/20. In view of above, PTCA of RCA was contemplated. A 2500 heparin was given and two Integrilin bolus was given, and the Tootie right catheter was taken to engage the coronary and then the ostium, and then lesion crossed with the loose wire and then 3.0 x 10 Ziebach balloon was taken and dilated at the critical stenosed area. Then, a scoring balloon 3.0 x 10 was taken and 2 inflations were done at 10 atmosphere. After this, 3.5 x 12 drug-eluting stent Xience was taken and deployed at 14 atmosphere with reduction of stenosis from 80%-90% to 0. ACT postprocedure was checked and found to be 220 seconds. The puncture site was closed with Mynx. Prior to closure, final pictures were taken, 2 orthogonal view, lesion significantly decreased from 80%-90% to 0. In summary, following procedure was done: 1. Complete left heart catheterization. 2. Angioplasty of mid portion of right coronary artery with drug-eluting stent with reduction of the stenosis from 80%-90% preprocedure to 0, preprocedure KAREN-2 flow, postprocedure KAREN-3 blood flow, ejection fraction 25%. RECOMMENDATION: We will continue Primacor for next 24 hours. Continue hydration and treat aggressively for heart failure including digoxin, diuretic, JARED, Coreg, and reassess left ventricular function in 3 to 6 months. If left ventricular function remains below 35, we will upgrade pacemaker to defibrillator. Discussed with the patient, discussed with his . We will discuss with Dr. Tsai. Thank you Dr. Tsai for providing us the opportunity in taking care of the patient, Karl Rueda. Ciera Sheikh MD MTDStephanie
[2017-07-29] MEDS: Milrinone 20mg/100ml D5W 100 ML IV PRN (06:37)
[2017-07-29 06:51] LABS: BASO # 0.01 K/mm3 (0.0-2.0); BASO % 0.2 % (0.0-3.0); EOS # 0.2 (0.0-0.7); EOS % 3.2 % (1.5-5.0); GRAN # 2.85 (1.4-6.5); GRAN % 61.5 % (50.0-68.0); HEMATOCRIT 34.4 % (42.0-52.0); LYMPH # 1.1 (1.2-3.4); LYMPH % 22.6 % (22.0-35.0); MEAN CELL VOLUME 80.9 fl (80.0-105.0); MEAN CORPUSCULAR HEMOGLOBIN 25.2 pg (25.0-35.0); MEAN CORPUSCULAR HGB CONC 31.1 g/dl (31.0-37.0); MEAN PLATELET VOLUME 9.6 fl (7.0-11.0); MONO # 0.6 (0.1-0.6); MONO % 12.5 % (1.0-6.0); RED CELL DISTRIBUTION WIDTH 18.3 % (11.5-14.5); WHITE BLOOD COUNT 4.6 10^3/ul (4.5-11.0)
[2017-07-29 07:06] LABS: ALB/GLOB RATIO 1.1 (1.1-1.8); ALKALINE PHOSPHATASE 48 U/L (38-126); ALT/SGPT 30 U/L (7-56); AST/SGOT 43 U/L (17-59); BILIRUBIN,TOTAL 0.5 mg/dL (0.2-1.3); BLOOD UREA NITROGEN 21 mg/dL (7-21); CALCIUM 9.7 mg/dL (8.4-10.5); CARBON DIOXIDE 26 mmol/L (21-33); CHLORIDE 102 mmol/L (98-107); GFR AFRICAN-AMERICAN > 60; GLUCOSE,RANDOM 98 mg/dL (70-110); MAGNESIUM 1.7 mg/dL (1.7-2.2); PHOSPHOROUS 3.8 mg/dL (2.5-4.5); POTASSIUM 3.9 mmol/L (3.6-5.0); SODIUM 137 mmol/L (132-148)
[2017-07-29] MEDS: Insulin Lispro (humaLOG) LOW Coverage SC SCH ×3 (07:58→17:02)
[2017-07-29] MEDS ORDERED: Bacitracin Ointment 30 GM TUBE TOP SCH (10:00)
[2017-07-29] MEDS: Lidocaine 5% Patch TD SCH (10:36)
[2017-07-29 13:04] VITALS: RESP 19; TEMP 98.5
--- NOTE | 2017-07-29 13:18 | PN ---
DATE: REASON FOR CONSULTATION AND FOLLOWUP: Shortness of breath, acute coronary artery syndrome, brb-PC-owadsoq myocardial infarction, status post PTCA of RCA. SUBJECTIVE: The patient denies any chest pain, shortness of breath or any palpitation. Feels okay. PHYSICAL EXAMINATION: VITAL SIGNS: As follows, temperature afebrile, heart rate 59, and blood pressure 121/56. HEENT: PERRLA. Extraocular muscles intact. NECK: Supple. No carotid bruits or thyromegaly. CHEST: Clear to auscultation. HEART: S1 and S2 regular. ABDOMEN: Soft. EXTREMITIES: Clubbing and cyanosis negative. LABORATORY DATA: Blood workup as follows; WBC 4.6, hemoglobin 10.7, hematocrit 34.4, and platelet count 182. Chemistry shows sodium 137, potassium 3.9, chloride 102, carbon dioxide 26, anion gap of 13, BUN of 21, and creatinine of 1.1. IMPRESSION: Bpk-PF-geiufgh myocardial infarction, coronary artery disease status post multiple stents in the past, decreased left ventricular function, ischemic cardiomyopathy, and totally occluded circumflex. Yesterday, angioplasty of right coronary artery was done with a drug-eluting stent after cutting the scoring balloon. Echo shows 35% ejection fraction, by cath ejection fraction was 25-30%. EDP was in the range of 20-30. RECOMMENDATIONS: Continue aspirin. Continue Effient. The patient is resistant to Plavix. PRU level was elevated on last admission. Continue Coreg. Continue Lasix twice. Continue lisinopril. Reassess left ventricular function in 3-6 months. If EF remains below 35%, consider AICD. We will discontinue telemetry and okay to discharge from Cardiology point of view. Thank you Dr. Tsai for providing opportunity in taking care of the patient, Karl Rueda. We will discuss with you. Discharged on current medications. He will resume back metformin from today. Ciera Sheikh MD
[2017-07-29] MEDS: Digoxin 125 mcg (0.125 mg) Tab PO SCH (14:43)
[2017-07-29 17:17] VITALS: BP 137/59; PULSE 62
--- NOTE | 2017-07-29 17:35 | CARD ---
APPROVED REPORT EKG Measurement Heart [id number] <Conclusion> Demand pacemaker, interpretation is based on intrinsic rhythm Sinus tachycardia with 2nd degree AV block (Mobitz I) Left axis deviation Right bundle branch block Left ventricular hypertrophy with repolarization abnormality Cannot rule out Septal infarct, age undetermined Abnormal ECG
--- NOTE | 2017-07-30 02:01 | DS ---
HISTORY OF PRESENT ILLNESS: The patient is 66-year-old, who came in with chest pain. Has positive troponin. He was on heparin, underwent cardiac cath yesterday, had RCA stent placed, and doing well. PHYSICAL EXAMINATION: GENERAL: On examination today, he is awake, alert, oriented, and communicative. Complain of intermittent chest pain here and there. VITAL SIGNS: The patient is afebrile, pulse 62, respirations 19, and blood pressure 137/59. LUNGS: Bilateral good airflow. No rhonchi or crackle. HEART: S1, S2 audible. ABDOMEN: Soft, obese, and nontender. No rebound. No guarding. NEUROLOGIC: The patient is awake, alert, oriented, and communicative. LABORATORY DATA: WBC is 4.6, hemoglobin 10.7, hematocrit 34, and platelets 182. Chemistry: Sodium 137, potassium 3.9, chloride 102, CO2 of 26, BUN 21, creatinine 1.1, and blood sugar of 188. ASSESSMENT: 1. Coronary artery disease, status post right coronary artery angioplasty. 2. Chronic obstructive pulmonary disease. 3. History of active smoking in the remote past for more than 30 years. 4. Non-insulin dependant diabetes. 5. Hyperlipidemia. PLAN: The patient is being discharged home today on Pepcid 20 mg daily. He will resume all his medications and that include Janumet, metoprolol 25 daily, glipizide 10 mg twice a day, Neurontin 300 daily, Lasix 40 daily, fenofibrate 134 mg, enalapril 10 mg twice a day, digoxin 125 mcg daily, atorvastatin 40 mg daily, aspirin 81 mg daily. He will follow up in the office on Friday. Carlos Tsai MD
--- NOTE | 2017-07-30 11:11 | IP.NPCORE ---
Heart Failure Core Measure - Heart Failure Ejection Fraction: Less Than 40 % Left Ventricular Function to be assessed after discharge: Yes JARED Inhibitor Prescribed: Yes Beta-Alura Prescribed: Carvedilol Angiotensin II Receptor Laura Prescribed: Yes AnticoagulationTherapy for Atrial Fibrillation/Atrialflutter: No Contraindication/Reason for not providing: n/a Aldosterone Antagonist Prescribed: Yes Hydralazine Nitrate Prescribed: No Contraindication/Reason for not providing: bradycardia Implantable Cardioverter Defibrillator Therapy: No Contraindication/Reason for not providing: follow up recommended - Ef 35% Cardiac Resynchronization Therapy Prescribed: Yes - Follow up Will be discharged to: Home Follow Up Date (must be within 7 days from discharge): 08/05/17 Follow Up Time: 09:00
== END 2017-07-29 18:14 | disposition home or self-care (01) | DRG 246 ==
LOC: ED 14:15 → ERH 15:42 → 3RSO 17:28 → 2RSO 07-28 08:47
PROVIDERS: ADMIT Internal Medicine; ATTEND Internal Medicine
PROC: 027034Z Dilation of Coronary Artery, One Artery with Drug-eluting Intraluminal Device, Percutaneous Approach (ICD-10-PCS; principal; 2017-07-28)
PROC: 4A023N7 Measurement of Cardiac Sampling and Pressure, Left Heart, Percutaneous Approach (ICD-10-PCS; 2017-07-28)
PROC: B2151ZZ Fluoroscopy of Left Heart using Low Osmolar Contrast (ICD-10-PCS; 2017-07-28)
PROC: B2111ZZ Fluoroscopy of Multiple Coronary Arteries using Low Osmolar Contrast (ICD-10-PCS; 2017-07-28)
PROC: 3E033PZ Introduction of Platelet Inhibitor into Peripheral Vein, Percutaneous Approach (ICD-10-PCS; 2017-07-28)
DX: I21.4 Non-ST elevation (NSTEMI) myocardial infarction (principal); T82.855A Stenosis of coronary artery stent, initial encounter; I50.23 Acute on chronic systolic (congestive) heart failure; J44.1 Chronic obstructive pulmonary disease with (acute) exacerbation; I25.110 Atherosclerotic heart disease of native coronary artery with unstable angina pectoris; I08.1 Rheumatic disorders of both mitral and tricuspid valves; I49.5 Sick sinus syndrome; I11.0 Hypertensive heart disease with heart failure; E78.5 Hyperlipidemia, unspecified; E11.9 Type 2 diabetes mellitus without complications; I25.5 Ischemic cardiomyopathy; I45.10 Unspecified right bundle-branch block; R91.1 Solitary pulmonary nodule; M54.9 Dorsalgia, unspecified; Y83.1 Surgical operation with implant of artificial internal device as the cause of abnormal reaction of the patient, or of later complication, without mention of misadventure at the time of the procedure; G89.29 Other chronic pain; Z79.82 Long term (current) use of aspirin; Z95.0 Presence of cardiac pacemaker; Z79.84 Long term (current) use of oral hypoglycemic drugs

== ENCOUNTER 2017-11-21 04:51 | Inpatient (IN) | payer MEDICARE, MEDICAID ==
[2017-11-21] MEDS ORDERED: Sodium Chloride 0.9% 500 ML IV STA (05:01)
--- NOTE | 2017-11-21 05:01 | ED PDOC ---
Arrival/HPI - General Time Seen by Provider: 11/21/17 04:52 Historian: Patient - History of Present Illness Narrative History of Present Illness (Text): 11/21/17 04:57 A 67 year old male, whose past medical history includes CAD with multiple stents , prior STEMI and nonSTEMI, presents to the emergency department complaining of 2 hour duration vomiting and diarrhea. The patient notes that he has been feeling dizzy and experiencing some abdominal discomfort. The patient notes that his stools and vomitus have been dark in color for the past few hours. The patient denies fevers, chills, headache, dizziness, chest pain, shortness of breath, dyspnea on exertion, cough, nausea, back pain, neck pain, urinary/bowel changes, or any other complaint. PMD: Dr. Monzon Despatch Clerk: Dr. 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) Hx Cataracts: Yes (HAD SX) - Renal Hx Renal Disorder: No - Endocrine/Metabolic Hx Diabetes Mellitus Type 2: Yes - Hematological/Oncological Hx Blood Transfusions: No Hx Blood Transfusion Reaction: No - Integumentary Hx Dermatological Disorder: Yes Other/Comment: multiple brown skin discolorations ble - Musculoskeletal/Rheumatological Hx Musculoskeletal Disorders: No - Gastrointestinal Hx Gastrointestinal Disorders: Yes Hx Gastroesophageal Reflux: Yes - Genitourinary/Gynecological Hx Genitourinary Disorders: No - Psychiatric Hx Substance Use: No - Surgical History Hx Cardiac Catheterization: Yes Hx Coronary Stent: Yes (X5) - Anesthesia Hx Anesthesia Reactions: No Hx Malignant Hyperthermia: No - Suicidal Assessment Feels Threatened In Home Enviroment: No Family/Social History - Physician Review Nursing Documentation Reviewed: Yes Family/Social History: No Known Family HX Smoking Status: Former Smoker Hx Alcohol Use: Yes (H/O QUIT) Hx Substance Use: No Hx Substance Use Treatment: No Allergies/Home Meds Allergies/Adverse Reactions: Allergies No Known Allergies Allergy (Verified 11/21/17 04:54) Home Medications: Home Meds Medication Instructions Recorded Confirmed Digoxin [Digitek] 125 mcg PO DAILY 09/27/15 11/21/17 Glipizide 10 mg PO BID 09/27/15 11/21/17 Enalapril Maleate [Vasotec] 10 mg PO BID 03/18/16 11/21/17 Fenofibrate [Fenoglide] 134 mg PO DAILY 03/18/16 11/21/17 Aspirin [Ecotrin] 81 mg PO DAILY 05/21/16 11/21/17 Famotidine [Pepcid] 40 mg PO DAILY 05/21/16 11/21/17 Atorvastatin [Lipitor] 40 mg PO DAILY 11/25/16 11/21/17 Metoprolol Succinate XL [Toprol XL] 25 mg PO BRK 11/25/16 11/21/17 Cholecalciferol (Vitamin D3) 50,000 unit PO Q7D 12/20/16 11/21/17 [Vitamin D3] Diclofenac Sodium [Diclozor] 1 each TP BID 07/23/17 11/21/17 Furosemide [Lasix] 40 mg PO DAILY 07/23/17 11/21/17 Gabapentin [Neurontin] 300 mg PO DAILY 07/23/17 11/21/17 K Liliana 10 meq PO DAILY 07/23/17 11/21/17 Prasugrel HCl 10 mg PO DAILY 07/23/17 11/21/17 Sitagliptin Phos/Metformin HCl 1 each PO BID 07/23/17 11/21/17 [Janumet 50-1,000 mg Tablet] Taujeo 35 units SC BID 07/23/17 11/21/17 Review of Systems - Physician Review All systems were reviewed & negative as marked: Yes - Review of Systems Constitutional: absent: Fevers, Night Sweats Respiratory: absent: SOB, Cough Cardiovascular: absent: Chest Pain Gastrointestinal: Abdominal Pain, Diarrhea, Vomiting Musculoskeletal: absent: Back Pain, Neck Pain Neurological: Dizziness. absent: Headache Physical Exam Vital Signs Reviewed: Yes Vital Signs Temp Pulse Resp BP Pulse Ox 11/21/17 08:13 98.4 F 74 18 101/44 L 99 11/21/17 07:28 98 F 79 18 108/49 L 11/21/17 07:13 98.2 F 63 18 102/46 L 11/21/17 07:10 98.2 F 63 18 102/46 L 100 11/21/17 05:39 58 L 19 126/45 L 100 11/21/17 05:04 97.8 F 61 18 119/58 L 100 Temperature: Afebrile Blood Pressure: Normal Pulse: Regular Respiratory Rate: Normal Appearance: Positive for: Well-Appearing, Non-Toxic, Comfortable Pain Distress: None Mental Status: Positive for: Alert and Oriented X 3 - Systems Exam Head: Present: Atraumatic, Normocephalic Pupils: Present: PERRL Extroacular Muscles: Present: EOMI Conjunctiva: Present: Normal Mouth: Present: Moist Mucous Membranes Neck: Present: Normal Range of Motion Respiratory/Chest: Present: Clear to Auscultation, Good Air Exchange. No: Respiratory Distress, Accessory Muscle Use Cardiovascular: Present: Regular Rate and Rhythm, Normal S1, S2. No: Murmurs Abdomen: Present: Tenderness (non-focal abdominal tenderness ). No: Distention , Peritoneal Signs Rectal: Present: Other (Guaiac test- dark stool, guaiac positive.) Back: Present: Normal Inspection Upper Extremity: Present: Normal Inspection. No: Cyanosis, Edema Lower Extremity: Present: Normal Inspection. No: Edema Neurological: Present: GCS=15, CN II-XII Intact, Speech Normal Skin: Present: Warm, Dry, Normal Color. No: Rashes Psychiatric: Present: Alert, Oriented x 3, Normal Insight, Normal Concentration Medical Decision Making ED Course and Treatment: 11/21/17 04:59 Impression: A 67 year old male presents to the emergency department complaining of dark stools and vomiting for the past few hours. luly melena in er. prisca positve. suspect upper gi bleed. Plan: -- EKG -- Chest X-ray -- Urinalysis -- Labs -- Protonix and IV Fluids -- Reassess and disposition Progress Notes: EKG: Ordered, reviewed, and independently interpreted the EKG. Rate : 51 BPM Rhythm : Paced Rhythm. 11/21/17 05:48: Case discussed with Dr. Tsai, accepts patient to her service. Requests Dr. Corrales on consult. 11/21/17 06:[address] corrales. agrees with presents managment. hemoglobin 10.1. baseline mid 11's. will transfuse 1 unit. noted inr 1.5. will give 1 unit ffp 11/21/17 06:29 11/21/17 19:[address] findings. case discussed with gi. reocmmend ng tube to suction stomach contents than d/c ng tube to suction. 11/22/17 02:29 - Lab Interpretations Lab Results: 11/21/17 04:50 11/21/17 04:50 Lab Results 11/21/17 05:40: Urine Color Yellow, Urine Appearance Clear, Urine pH 5.5, Ur Specific Sharon 1.025, Urine Protein Negative, Urine Glucose (UA) Negative, Urine Ketones Trace H, Urine Blood Negative, Urine Nitrate Negative, Urine Bilirubin Negative, Urine Urobilinogen 0.2, Ur Leukocyte Esterase Negative 11/21/17 04:55: Blood Type B POSITIVE, Antibody Screen Negative, Crossmatch See Detail, BBK History Checked Patient has bt 11/21/17 04:50: Sodium 137, Potassium 4.3, Chloride 98, Carbon Dioxide 27, Anion Gap 16, BUN 56 H, Creatinine 1.6 H, Est GFR ( Amer) 52, Est GFR ( Non-Af Amer) 43, Random Glucose 207 H, Calcium 10.2, Magnesium 1.8, Total Bilirubin 0.7, AST 40, ALT 26, Alkaline Phosphatase 50, Lactate Dehydrogenase 381, Total Creatine Kinase 67, Troponin I 0.04 D, Total Protein 7.2, Albumin 3.8, Globulin 3.4, Albumin/Globulin Ratio 1.1, Lipase 182 11/21/17 04:50: PT 16.9 H, INR 1.46 H, APTT 29.2 11/21/17 04:50: WBC 7.2 D, RBC 4.47, Hgb 10.1 L, Hct 32.4 L, MCV 72.5 L D, MCH 22.6 L, MCHC 31.2, RDW 17.2 H, Plt Count 459 H, MPV 9.4, Gran % 76.3 H, Lymph % (Auto) 12.2 L, [place] % (Auto) 10.0 H, Eos % (Auto) 1.4 L, Baso % (Auto) 0.1, Gran # 5.49, Lymph # (Auto) 0.9 L, [place] # (Auto) 0.7 H, Eos # (Auto) 0.1, Baso # (Auto) 0.01 11/21/17 04:50: Digoxin 0.9 I have reviewed the lab results: Yes - RAD Interpretation Radiology Orders: 11/21/17 05:00 CHEST PORTABLE [RAD] Stat 11/21/17 05:32 ABD & PELVIS W/O PO OR IV CONT [CT] Stat - EKG Interpretation Interpreted by ED Physician: Yes Type: 12 lead EKG - Medication Orders Current Medication Orders: Digoxin (Digoxin) 0.125 mg PO 1400 MISSY Last Admin: 11/21/17 13:12 Dose: Not Given Non-Admin Reason: NPO MAR Apical Pulse Rate Document 11/21/17 13:12 BINDU (Rec: 11/21/17 13:13 BINDU [id number]) Apical Pulse Rate Apical Pulse Rate (60-90 beats/min) 81 Hydromorphone HCl (Dilaudid) 1 mg IVP Q4 PRN PRN Reason: Pain, severe (8-10) Last Admin: 11/21/17 21:57 Dose: 1 mg LAINA Pain Assessment Document 11/21/17 21:57 ID (Rec: 11/21/17 21:58 ID [facility] [place]-UNDERWRIT[facility] SERVICE REPRESENTATIVE) Pain Reassessment Is this a pain reassessment? Yes Sleep Is patient sleeping during reassessment? No Presence of Pain Presence of Pain Yes Pain Scale Used Pain Scale Used Numeric Location Left, Right or Bilateral Right Pain Location Body Site Abdomen Description Description Constant Intensity of Pain at present 10 Pain Behavior Irritability Alleviating Factors/Management Medication Techniques Alleviating Factors Medication IVP Administration Document 11/21/17 21:57 ID (Rec: 11/21/17 21:58 ID [facility]-UN[employer]WRITING SERVICE REPRESENTATIVE) Charges for Administration # of IVP Administrations 2 Re-Assess: MAR Pain Assessment Document 11/21/17 22:57 ID (Rec: 11/21/17 23:50 ID [facility] [place] [place] [address]) Pain Reassessment Is this a pain reassessment? Yes Sleep Is patient sleeping during reassessment? Yes Pantoprazole Sodium (Protonix 40mg Ivpb) 40 mg in 100 mls @ 20 mls/hr IVPB .Q5H MISSY Last Admin: 11/21/17 22:43 Dose: 20 mls/hr eMAR Start Stop Document 11/21/17 22:43 ID (Rec: 11/21/17 22:44 ID [facility] [place]-[facility] SERVICE REPRESENTATIVE) Intravenous Solution Start Date 11/21/17 Start Time 22:44 End Date 11/21/17 Dextrose/Sodium Chloride (Dextrose 5%/0.45% Ns 1000 Ml) 1,000 mls @ 75 mls/hr IV .[id number] [facility] Last Admin: 11/21/17 20:44 Dose: 75 mls/hr eMAR Start Stop Document 11/21/17 20:44 ID (Rec: 11/21/17 20:45 ID [facility] [place] SERVICE REPRESENTATIVE) Intravenous Solution Start Date 11/21/17 Start Time 20:45 End Date 11/21/17 Cefazolin Sodium (Ancef 1gm In Ns) 1 gm in 100 mls @ 100 mls/hr IVPB Q8 MISSY PRN Reason: Protocol Last Admin: 11/21/17 23:05 Dose: 100 mls/hr eMAR Start Stop Document 11/21/17 23:05 ID (Rec: 11/21/17 23:06 ID [facility] [place] SERVICE REPRESENTATIVE) Intravenous Solution Start Date 11/21/17 Start Time 22:30 End Date 11/21/17 Insulin Human Lispro (Humalog Med) 0 units SC ACHS MISSY PRN Reason: Protocol Last Admin: 11/21/17 22:43 Dose: MAR Blood Glucose Document 11/21/17 22:43 ID (Rec: 11/21/17 22:43 ID [facility] [place]-[facility] SERVICE REPRESENTATIVE) Blood Glucose Finger Stick Blood Glucose (70-120) 236 Metoprolol Succinate (Toprol Xl) 25 mg PO BRK [facility] Last Admin: 11/21/17 11:45 Dose: Not Given Non-Admin Reason: NPO Metoprolol Tartrate (Lopressor) 5 mg IV Q6H [facility] Last Admin: 11/21/17 23:51 Dose: Not Given Non-Admin Reason: BP Parameters Not Met [facility] Pulse and Blood Pressure Document 11/21/17 23:51 ID (Rec: 11/21/17 23:51 ID [facility] [place] [place] [address]) Pulse Pulse Rate (60-90) 53 Blood Pressure Blood Pressure (100/60-150/90) 95/51 Discontinued Medications Digoxin (Lanoxin) 0.125 mg PO DAILY [facility] Sodium Chloride (Sodium Chloride 0.9%) 500 mls @ 999 mls/hr IV .Q31M STA Stop: 11/21/17 05:31 Last Admin: 11/21/17 05:00 Dose: 999 mls/hr eMAR Start Stop Document 11/21/17 05:00 RD (Rec: 11/21/17 05:14 RD [id number]) Intravenous Solution Start Date 11/21/17 Start Time 05:00 End Date 11/21/17 End time 06:00 Total Infusion Time 60 Ondansetron HCl (Zofran Inj) 4 mg IVP STAT STA Stop: 11/21/17 05:56 Last Admin: 11/21/17 05:57 Dose: Pantoprazole Sodium (Protonix Inj) 40 mg IVP STAT STA Stop: 11/21/17 05:02 Last Admin: 11/21/17 05:08 Dose: 40 mg IVP Administration Document 11/21/17 05:08 RD (Rec: 11/21/17 05:15 RD [id number]) Charges for Administration # of IVP Administrations 1 Pneumococcal Polyvalent Vaccine (Pneumovax 23 Vaccine) 0.5 ml IM .ONCE ONE Stop: 11/21/17 13:08 Last Admin: 11/21/17 13:14 Dose: Immunization Registry Document 11/21/17 13:14 JZA (Rec: 11/21/17 13:14 JZA [id number]) Immunization Registry Consent Date 10/13/17 - Scribe Statement The provider has reviewed the documentation as recorded by the Onuribe Teressa Rain Provider Scribe Attestation: All medical record entries made by the Scribe were at my direction and personally dictated by me. I have reviewed the chart and agree that the record accurately reflects my personal performance of the history, physical exam, medical decision making, and the department course for this patient. I have also personally directed, reviewed, and agree with the discharge instructions and disposition. Disposition/Present on Arrival - Present on Arrival Any Indicators Present on Arrival: No History of DVT/PE: No History of Uncontrolled Diabetes: No Urinary Catheter: No History Surgical Site Infection Following: None - Disposition Have Diagnosis and Disposition been Completed?: Yes Diagnosis: GI bleed Disposition: HOSPITALIZED Disposition Time: 07:00 Patient Problems: Current Active Problems Problem Status Onset GI bleed Acute Condition: FAIR
[2017-11-21] MEDS: Pantoprazole 40mg/100mL NS 40 MG/100 ML BAG IVPB SCH ×5 (05:14→22:43)
[2017-11-21 05:19] LABS: BASO # 0.01 K/mm3 (0.0-2.0); BASO % 0.1 % (0.0-3.0); EOS # 0.1 (0.0-0.7); EOS % 1.4 % (1.5-5.0); GRAN # 5.49 (1.4-6.5); GRAN % 76.3 % (50.0-68.0); HEMOGLOBIN 10.1 g/dL (14.0-18.0); LYMPH # 0.9 (1.2-3.4); LYMPH % 12.2 % (22.0-35.0); MEAN CORPUSCULAR HEMOGLOBIN 22.6 pg (25.0-35.0); MEAN CORPUSCULAR HGB CONC 31.2 g/dl (31.0-37.0); MEAN PLATELET VOLUME 9.4 fl (7.0-11.0); MONO # 0.7 (0.1-0.6); RBC 4.47 10^6/uL (3.5-6.1); RED CELL DISTRIBUTION WIDTH 17.2 % (11.5-14.5); WHITE BLOOD COUNT 7.2 10^3/ul (4.5-11.0)
[2017-11-21 05:29] LABS: ALB/GLOB RATIO 1.1 (1.1-1.8); ALBUMIN 3.8 g/dL (3.0-4.8); CALCIUM 10.2 mg/dL (8.4-10.5)
[2017-11-21 05:36] LABS: INR 1.46 (0.93-1.08); PARTIAL THROMBOPLASTIN TIME 29.2 Seconds (25.1-36.5); PROTHROMBIN TIME 16.9 SECONDS (9.4-12.5)
[2017-11-21 05:37] LABS: MEAN CELL VOLUME 72.5 fl (80.0-105.0)
[2017-11-21 05:39] LABS: TROPONIN I 0.04 ng/mL
[2017-11-21 06:00] LABS: PH,URINE 5.5 (4.7-8.0); URINE BILIRUBIN NEGATIVE (NEGATIVE); URINE BLOOD NEGATIVE (NEGATIVE); URINE GLUCOSE (UA) NEGATIVE (NEGATIVE); URINE LEUKOCYTE ESTERASE NEGATIVE Leu/uL (NEGATIVE); URINE PROTEIN NEGATIVE mg/dL (<30 mg/dL); URINE UROBILINOGEN 0.2 E.U./dL (<1 E.U./dL)
[2017-11-21 06:05] LABS: URINE APPEARANCE CLEAR (CLEAR); URINE COLOR YELLOW (YELLOW)
--- NOTE | 2017-11-21 06:54 | CT ---
EXAM: CT Abdomen and Pelvis Without Intravenous Contrast EXAM DATE/TIME: 11/21/2017 5:32 AM CLINICAL HISTORY: 67 years old, male; Pain and signs and symptoms; Vomiting and other: Diarrhea; Abdominal pain; Generalized; Additional info: Abd pain, gi bleed TECHNIQUE: Axial computed tomography images of the abdomen and pelvis without intravenous contrast. All CT scans at this facility use one or more dose reduction techniques, viz.: automated exposure control; ma/kV adjustment per patient size (including targeted exams where dose is matched to indication; i.e. head); or iterative reconstruction technique. Coronal and sagittal reformatted images were created and reviewed. COMPARISON: [place] - PELVIS ULTRASOUND 2011-12-20 12:34 FINDINGS: Gallbladder is filled with numerous gallstones. No pericholecystic inflammation. The liver, spleen, and pancreas appear grossly normal on this non-contrast study. Trace bilateral perinephric stranding. There is an 8 mm hypoattenuating left renal lesion probable cyst. Motion through the distended urinary bladder produces indistinctness of the wall. The stomach is markedly dilated with a large amount of fluid and ingested material. Decompression with feeding tube may be helpful. There is no obstructing lesion or inflammation identified at the gastroduodenal junction. A normal appendix is identified coronal images 51 through 62 axial image 121. There are degenerative changes in the osseous structures. Disc narrowing L4-5 with vacuum phenomena. An osteophyte at the symphysis pubis abuts the urinary bladder. IMPRESSION: Massive gastric dilation without obstructing lesion or inflammation identified. Extensive cholelithiasis without evidence of cholecystitis.
--- NOTE | 2017-11-21 09:34 | RAD ---
HISTORY: abd pain/gi bleed COMPARISON: 07/23/2017 FINDINGS: LUNGS: No active pulmonary disease. PLEURA: No significant pleural effusion identified, no pneumothorax apparent. CARDIOVASCULAR: Normal. OSSEOUS STRUCTURES: No significant abnormalities. VISUALIZED UPPER ABDOMEN: Normal. OTHER FINDINGS: Single lead pacemaker IMPRESSION: No active disease.
--- NOTE | 2017-11-21 09:35 | RAD ---
PROCEDURE: Portable chest HISTORY: NG TUBE COMPARISON: TECHNIQUE: FINDINGS: The nasogastric tube is in satisfactory position. The lungs remain clear. IMPRESSION: Nasogastric tube in satisfactory position
[2017-11-21] MEDS ORDERED: Digoxin 250 mcg (0.25 mg) Tab PO SCH (11:00)
[2017-11-21] MEDS: Metoprolol Succinate 25 mg XL Tab PO SCH (11:45)
[2017-11-21] MEDS: Insulin Lispro (humaLOG) MEDIUM Coverage SC SCH ×2 (11:45→22:43)
[2017-11-21 13:06] VITALS: BMI 31.1
[2017-11-21] MEDS ORDERED: Pneumococcal 23-Valent Vaccine IM ONE (13:07)
[2017-11-21] MEDS: Digoxin 125 mcg (0.125 mg) Tab PO SCH (13:12)
--- NOTE | 2017-11-21 14:08 | CARD ---
APPROVED REPORT EKG Measurement Heart [id number] <Conclusion> Electronic ventricular pacemaker
[2017-11-21] MEDS ORDERED: Etomidate 20 mg/10ml Inj IV ONE (15:18)
[2017-11-21] MEDS ORDERED: Lidocaine 1% Inj (20ml) ONE (15:18)
[2017-11-21] MEDS ORDERED: ePHEDrine 50 mg/ml Inj ONE ×3 (15:35→18:43)
[2017-11-21] MEDS ORDERED: Succinylcholine 200 mg/10 ml Inj IV ONE (15:43)
--- NOTE | 2017-11-21 16:38 | CP.PCM.CON ---
<Sasha Simon - Last Filed: 11/21/17 16:37> History of Present Illness - History of Present Illness History of Present Illness: Seen and examined at the bedside earlier today, chart reviewed. Request for GI consult is for GI bleed. HPI: This is a 67-year-old male with a past medical history of coronary artery disease with multiple stents, most recent stent was in July 2017,came to the emergency room with complaint of vomiting and diarrhea which was dark in color for more than an hour. He is on Effient, last dose was yesterday per patient. He was also experiencing increasing shortness of breath with fatigue and developed chest discomfort he was brought to the emergency room by ambulance. He denies any current shortness of breath or chest pain. On admission he had a CT scan of abdomen and pelvis which reported multiple gallstones and massive gastric dilatation without obstructing lesion or inflammation. He currently has NG tube in place connected to low intermitten suction with dark bloody secretions. In the emergency room he was found to be guaiac positive. He does complain of upper abdominal pain. No acute distress. Past medical history: His coronary artery disease with multiple stents,recent stent was 07/2017. Hypertension, skd-evsgmee-wnpazexuv diabetes, hyperlipidemia , Past surgical history: cardiac catheterization with angioplasty Allergies: No known drug allergies Medications: Reviewed as per MAR Family history: Noncontributory this time Social history: No history of smoking, EtOH or illicit drug use ROS: Systems reviewed positive findings see HPI Past Patient History - Infectious Disease Hx of Infectious Diseases: None - Tetanus Immunizations Tetanus Immunization: Unknown - Past Social History Smoking Status: Former Smoker - CARDIAC Hx Cardiac Disorders: Yes (CARDIOMYOPATHY) Hx Hypertension: Yes - PULMONARY Hx Respiratory Disorders: Yes (SMOKED CIGARETTES 4 PPD X 37 YRS.) - NEUROLOGICAL Hx Neurological Disorder: No - HEENT Hx HEENT Problems: Yes (decreased hearing to l ear) Hx Cataracts: Yes (HAD SX) - RENAL Hx Chronic Kidney Disease: No - ENDOCRINE/METABOLIC Hx Diabetes Mellitus Type 2: Yes - HEMATOLOGICAL/ONCOLOGICAL Hx Blood Transfusions: No Hx Blood Transfusion Reaction: No - INTEGUMENTARY Hx Dermatological Problems: Yes Other/Comment: multiple brown skin discolorations ble - MUSCULOSKELETAL/RHEUMATOLOGICAL Hx Musculoskeletal Disorders: No - GASTROINTESTINAL Hx Gastrointestinal Disorders: Yes Hx Gastroesophageal Reflux: Yes - GENITOURINARY/GYNECOLOGICAL Hx Genitourinary Disorders: No - PSYCHIATRIC Hx Substance Use: No - SURGICAL HISTORY Hx Cardiac Catheterization: Yes Hx Coronary Stent: Yes (X5) - ANESTHESIA Hx Anesthesia Reactions: No Hx Malignant Hyperthermia: No Meds Allergies/Adverse Reactions: Allergies Allergy/AdvReac Type Severity Reaction Status Date / Time No Known Allergies Allergy Verified 11/21/17 04:54 - Medications Medications: Current Medications Digoxin (Digoxin) 0.125 mg PO 1400 [facility] Pantoprazole Sodium (Protonix 40mg Ivpb) 40 mg in 100 mls @ 20 mls/hr IVPB .Q5H [facility] Last Admin: 11/21/17 09:41 Dose: 20 mls/hr Insulin Human Lispro (Humalog Med) 0 units SC ACHS [facility] PRN Reason: Protocol Last Admin: 11/21/17 11:45 Dose: Not Given Metoprolol Succinate (Toprol Xl) 25 mg PO BRK [facility] Last Admin: 11/21/17 11:45 Dose: Not Given Physical Exam - Constitutional Appears: No Acute Distress - Head Exam Head Exam: NORMOCEPHALIC - Eye Exam Eye Exam: Normal appearance. absent: Scleral icterus - ENT Exam ENT Exam: Mucous Membranes Moist Additional comments: left neck NG tube with dark secretion, very small amount. - Neck Exam Neck exam: Positive for: Normal Inspection - Respiratory Exam Respiratory Exam: NORMAL BREATHING PATTERN. absent: Respiratory Distress - Cardiovascular Exam Cardiovascular Exam: +S1, +S2 - GI/Abdominal Exam GI & Abdominal Exam: Normal Bowel Sounds, Soft, Tenderness (epigastric). absent : Distended, Guarding, Rebound Additional comments: patient has noticed to have mild ecchymotic area and lower abdominal area near right groin, patient states it's from previous procedure, area is soft and nontender - Extremities Exam Extremities exam: Negative for: calf tenderness, pedal edema - Neurological Exam Neurological exam: Alert, Oriented x3 - Skin Skin Exam: Dry, Warm Results - Vital Signs Recent Vital Signs: Last Vital Signs Temp 97.5 F L 11/21/17 11:56 Pulse 67 11/21/17 11:56 Resp 16 11/21/17 11:56 BP 111/45 L 11/21/17 11:56 Pulse Ox 99 11/21/17 08:13 - Labs Result Diagrams: 11/21/17 04:50 11/21/17 04:50 Labs: Laboratory Results - last 24 hr 11/21/17 11:36 POC Glucose (mg/dL) 174 H Assessment & Plan - Assessment and Plan (Free Text) Assessment: Assessment: GI bleed rule out peptic ulcer disease, angiodysplasia Coronary artery disease status post cardiac stent, most recent July 2017 on Effient Renal insufficiency History of hypertension Instrument yhh-jlavjat-tdkibotoj diabetes Plan: Monitor H&H On protonix drip NG tube to low intermittent suction for decompression for a few hours then can clamp NGT Nothing by mouth, continue IV fluids for hydration Patient is to get one unit of packed RBC and 1 unit of FFP Currently off Effient Will plan for upper endoscopy today Thank you for this consult and for allowing us to participate in your patient's care, further recommendations based upon clinical course. Seen and discussed with Dr. Mercedes. <Katie Corrales V - Last Filed: 11/21/17 23:43> Meds - Medications Medications: Current Medications Digoxin (Digoxin) 0.125 mg PO 1400 [facility] Last Admin: 11/21/17 13:12 Dose: Not Given Hydromorphone HCl (Dilaudid) 1 mg IVP Q4 PRN PRN Reason: Pain, severe (8-10) Last Admin: 11/21/17 21:57 Dose: 1 mg Pantoprazole Sodium (Protonix 40mg Ivpb) 40 mg in 100 mls @ 20 mls/hr IVPB .Q5H [facility] Last Admin: 11/21/17 22:43 Dose: 20 mls/hr Dextrose/Sodium Chloride (Dextrose 5%/0.45% Ns 1000 Ml) 1,000 mls @ 75 mls/hr IV .[id number] [facility] Last Admin: 11/21/17 20:44 Dose: 75 mls/hr Cefazolin Sodium (Ancef 1gm In Ns) 1 gm in 100 mls @ 100 mls/hr IVPB Q8 [facility] PRN Reason: Protocol Last Admin: 11/21/17 23:05 Dose: 100 mls/hr Insulin Human Lispro (Humalog Med) 0 units SC ACHS [facility] PRN Reason: Protocol Last Admin: 11/21/17 22:43 Dose: Not Given Metoprolol Succinate (Toprol Xl) 25 mg PO BRK [facility] Last Admin: 11/21/17 11:45 Dose: Not Given Metoprolol Tartrate (Lopressor) 5 mg IV Q6H [facility] Results - Vital Signs Recent Vital Signs: Last Vital Signs Temp 97.6 F 11/21/17 20:00 Pulse 54 L 11/21/17 21:11 Resp 14 11/21/17 20:32 BP 109/37 L 11/21/17 20:26 Pulse Ox 100 11/21/17 21:00 - Labs Result Diagrams: 11/21/17 22:10 11/21/17 22:10 Labs: Laboratory Results - last 24 hr 11/21/17 11/21/17 11/21/17 11:36 22:10 22:10 WBC 23.0 H D RBC 3.00 L Hgb 7.6 L D Hct 22.9 L MCV 76.3 L D MCH 25.3 MCHC 33.2 RDW 17.4 H Plt Count 335 MPV 9.3 Gran % 86.1 H Lymph % (Auto) 6.1 L Smyth % (Auto) 7.8 H Eos % (Auto) 0.0 L Baso % (Auto) 0.0 Gran # 19.74 H Lymph # (Auto) 1.4 Smyth # (Auto) 1.8 H Eos # (Auto) 0.0 Baso # (Auto) 0.01 Sodium 139 Potassium 4.2 Chloride 110 H Carbon Dioxide 21 Anion Gap 12 BUN 69 H Creatinine 1.4 Est GFR ( Amer) > 60 Est GFR (Non-Af Amer) 50 POC Glucose (mg/dL) 174 H Random Glucose 193 H Calcium 8.3 L Attending/Attestation - Attestation I have personally seen and examined this patient.: Yes I have fully participated in the care of the patient.: Yes I have reviewed all pertinent clinical information: Yes Notes (Text): This is an addendum to GI progress report dictated by Sasha Simon APN.The patient was seen and examined earlier. Medical records, lab studies, imagings were reviewed. Last 24 hours events reviewed. Agreed with the above treatment plan as outlined in Sasha Simon APN's notes with the addition of the following 11/21/17 23:43
[2017-11-21] MEDS ORDERED: Iohexol 240 (50 ml) ONE (16:51)
[2017-11-21] MEDS ORDERED: Bupivacaine 0.5% Inj(30mL) ONE (17:30)
[2017-11-21] MEDS ORDERED: Liquid Adhesive TOP ONE (17:30)
--- NOTE | 2017-11-21 17:30 | CP.PCM.CON ---
History of Present Illness - History of Present Illness History of Present Illness: MICU Consult Note HPI Patient is 67yo male with PMHx of CAD with stents on Effient, HTN, former smoker presented earlier today with nausea vomiting and dark stools. CT A/P done which showed gastric dilatation without obstruction. NGT placed which dark bloody secretions. Patient was taken to endoscopy, where he was found to have esophageal tear, given epinehprine, intubated for airway protection, transferred to MICU. Cardiothoracic surgery Dr Emerson consulted. Patient given FFP and 1u PRBC thus far. 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) Hx Cataracts: Yes (HAD SX) - RENAL Hx Chronic Kidney Disease: No - ENDOCRINE/METABOLIC Hx Diabetes Mellitus Type 2: Yes - HEMATOLOGICAL/ONCOLOGICAL Hx Blood Transfusions: No Hx Blood Transfusion Reaction: No - INTEGUMENTARY Hx Dermatological Problems: Yes Other/Comment: multiple brown skin discolorations ble - MUSCULOSKELETAL/RHEUMATOLOGICAL Hx Musculoskeletal Disorders: No - GASTROINTESTINAL Hx Gastrointestinal Disorders: Yes Hx Gastroesophageal Reflux: Yes - GENITOURINARY/GYNECOLOGICAL Hx Genitourinary Disorders: No - PSYCHIATRIC Hx Substance Use: No - SURGICAL HISTORY Hx Cardiac Catheterization: Yes Hx Coronary Stent: Yes (X5) - ANESTHESIA Hx Anesthesia Reactions: No Hx Malignant Hyperthermia: No Meds Allergies/Adverse Reactions: Allergies Allergy/AdvReac Type Severity Reaction Status Date / Time No Known Allergies Allergy Verified 11/21/17 04:54 - Medications Medications: Current Medications Digoxin (Digoxin) 0.125 mg PO 1400 [facility] Last Admin: 11/21/17 13:12 Dose: Not Given Pantoprazole Sodium (Protonix 40mg Ivpb) 40 mg in 100 mls @ 20 mls/hr IVPB .Q5H [facility] Last Admin: 11/21/17 14:49 Dose: 20 mls/hr Dextrose/Sodium Chloride (Dextrose 5%/0.45% Ns 1000 Ml) 1,000 mls @ 75 mls/hr IV .[id number] [facility] Insulin Human Lispro (Humalog Med) 0 units SC ACHS [facility] PRN Reason: Protocol Last Admin: 11/21/17 11:45 Dose: Not Given Metoprolol Succinate (Toprol Xl) 25 mg PO BRK [facility] Last Admin: 11/21/17 11:45 Dose: Not Given Physical Exam - Constitutional Appears: Non-toxic, No Acute Distress - Eye Exam Eye Exam: Normal appearance - Respiratory Exam Respiratory Exam: Clear to Auscultation Bilateral, NORMAL BREATHING PATTERN - Cardiovascular Exam Cardiovascular Exam: REGULAR RHYTHM, +S1, +S2 - GI/Abdominal Exam GI & Abdominal Exam: Normal Bowel Sounds, Soft - Extremities Exam Extremities exam: Positive for: normal inspection - Neurological Exam Neurological exam: Alert - Skin Skin Exam: Normal Color, Warm Results - Vital Signs Recent Vital Signs: Last Vital Signs Temp 97.8 F 11/21/17 15:13 Pulse 73 11/21/17 16:18 Resp 19 11/21/17 16:18 BP 179/72 H 11/21/17 16:18 Pulse Ox 99 11/21/17 16:18 - Labs Result Diagrams: 11/21/17 04:50 11/21/17 04:50 Labs: Laboratory Results - last 24 hr 11/21/17 11:36 POC Glucose (mg/dL) 174 H Assessment & Plan - Assessment and Plan (Free Text) Assessment: 67yo male a/w esophageal tear Esophageal tear CAD with stents Resp failure Recommend: - cont with ventilatory support, low tidal vol ventilation, obtain ABG, CXR - pressley culture, BCx, UCx, Procal - Hold BP meds - Hold antiplatelet agents - would given 1u platelets - caridology consult - maintain 2 large bore PIVs - FFP - ECHO - CT surgery evaluation, mgmt as per surgery, going to OR today - GI ppx, PPI - DVT ppx, SCDs - MOnitor in MICU Critical care time 45 minutes
[2017-11-21] MEDS ORDERED: Propofol 10 mg/ml Inj (20 ML) ONE (18:00)
[2017-11-21] MEDS ORDERED: Midazolam 2 MG/2 ML VIAL ONE (18:00)
[2017-11-21] MEDS ORDERED: Rocuronium 10 mg/ml (5 ml) ONE (18:04)
--- NOTE | 2017-11-21 19:51 | PCM.SURG1 ---
Surgeon's Initial Post Op Note - Surgeon's Notes Surgeon: Dr Emerson Cash Applications Representative: Dr Bhardwaj PGY3, Dr Puentes PGY2, Dr Gilbert Type of Anesthesia: General Endo Pre-Operative Diagnosis: perforated esophagus Operative Findings: see report Post-Operative Diagnosis: as above Operation Performed: left thoracotomy. exploration of the esophagus. insertion of thoracostomy tube Specimen/Specimens Removed: none Estimated Blood Loss: EBL {In ML}: 100 Blood Products Given: N/A Drains Used: Chest Tubes Post-Op Condition: Good Date of Surgery/Procedure: 11/21/17 Time of Surgery/Procedure: 19:51
--- NOTE | 2017-11-21 20:03 | CP.PCM.CON ---
History of Present Illness - History of Present Illness History of Present Illness: Ct Surgery: Dr Emerson Pt is a 67M with PMH of htn, cad, and DM. Pt presented to the ED for persistent abdominal pain accompanied by N/V. During initial admission pt began wretching in the ED and then began to have bloody emesis. Pt had NGT placed and was decompressed but continued to bleed. Was transfused 1 unit PLT, 1 pRBC and 1 FFP and taken for upper endoscopy. During endoscopy it was noted there was a distal tear in the esophagus which was the source of bleeding so a surgery consult was placed. The tear was reportedly @ the 30cm patti on the left side, potentially full thickness. An attempt was made to send pt for esophogram but there was no radiologist available. 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) Hx Cataracts: Yes (HAD SX) - RENAL Hx Chronic Kidney Disease: No - ENDOCRINE/METABOLIC Hx Diabetes Mellitus Type 2: Yes - HEMATOLOGICAL/ONCOLOGICAL Hx Blood Transfusions: No Hx Blood Transfusion Reaction: No - INTEGUMENTARY Hx Dermatological Problems: Yes Other/Comment: multiple brown skin discolorations ble - MUSCULOSKELETAL/RHEUMATOLOGICAL Hx Musculoskeletal Disorders: No - GASTROINTESTINAL Hx Gastrointestinal Disorders: Yes Hx Gastroesophageal Reflux: Yes - GENITOURINARY/GYNECOLOGICAL Hx Genitourinary Disorders: No - PSYCHIATRIC Hx Substance Use: No - SURGICAL HISTORY Hx Cardiac Catheterization: Yes Hx Coronary Stent: Yes (X5) - ANESTHESIA Hx Anesthesia Reactions: No Hx Malignant Hyperthermia: No Meds Allergies/Adverse Reactions: Allergies Allergy/AdvReac Type Severity Reaction Status Date / Time No Known Allergies Allergy Verified 11/21/17 04:54 - Medications Medications: Current Medications Digoxin (Digoxin) 0.125 mg PO 1400 [facility] Last Admin: 11/21/17 13:12 Dose: Not Given Pantoprazole Sodium (Protonix 40mg Ivpb) 40 mg in 100 mls @ 20 mls/hr IVPB .Q5H [facility] Last Admin: 11/21/17 14:49 Dose: 20 mls/hr Dextrose/Sodium Chloride (Dextrose 5%/0.45% Ns 1000 Ml) 1,000 mls @ 75 mls/hr IV .[id number] [facility] Cefazolin Sodium (Ancef 1gm In Ns) 1 gm in 100 mls @ 100 mls/hr IVPB Q8 [facility] PRN Reason: Protocol Insulin Human Lispro (Humalog Med) 0 units SC ACHS [facility] PRN Reason: Protocol Last Admin: 11/21/17 11:45 Dose: Not Given Metoprolol Succinate (Toprol Xl) 25 mg PO BRK [facility] Last Admin: 11/21/17 11:45 Dose: Not Given Metoprolol Tartrate (Lopressor) 5 mg IV Q6H [facility] Physical Exam - Constitutional Appears: Non-toxic - Eye Exam Eye Exam: Normal appearance - ENT Exam ENT Exam: Mucous Membranes Dry - Respiratory Exam Respiratory Exam: absent: Respiratory Distress Additional comments: intubated - Cardiovascular Exam Cardiovascular Exam: Tachycardia, REGULAR RHYTHM - GI/Abdominal Exam GI & Abdominal Exam: Soft. absent: Tenderness - Extremities Exam Extremities exam: Negative for: pedal edema Results - Vital Signs Recent Vital Signs: Last Vital Signs Temp 97.7 F 11/21/17 18:57 Pulse 73 11/21/17 16:18 Resp 19 11/21/17 16:18 BP 179/72 H 11/21/17 16:18 Pulse Ox 99 11/21/17 16:18 - Labs Result Diagrams: 11/21/17 04:50 11/21/17 04:50 Labs: Laboratory Results - last 24 hr 11/21/17 11:36 POC Glucose (mg/dL) 174 H Assessment & Plan - Assessment and Plan (Free Text) Assessment: 67M with UGI bleed, questionable esophageal perforation Plan: pt taken to OR for left thoracotomy and esophageal exploration multiple adhesions in the left thorax identified no immediate esophageal perf found however there is potential for right sided perf or the perf was contained within the adhesions will tx to ICU, remain intubated, keep CT to suction will obtain repeat CT of the chest tomorrow to eval for right sided extravasation d/w Dr Denny Bhardwaj, PGY3
[2017-11-21] MEDS ORDERED: HYDROmorphone 1 mg/ml ISec IVP PRN (20:22)
[2017-11-21] MEDS: Dextrose 5%/0.45% NS 1,000 ML IV SCH (20:44)
[2017-11-21] MEDS: HYDROmorphone 0.5 mg/0.5 ml ISec IVP PRN (21:57)
[2017-11-21 22:31] LABS: BASO # 0.01 K/mm3 (0.0-2.0); GRAN # 19.74 (1.4-6.5); GRAN % 86.1 % (50.0-68.0); HEMOGLOBIN 7.6 g/dL (14.0-18.0); LYMPH # 1.4 (1.2-3.4); LYMPH % 6.1 % (22.0-35.0); MEAN CELL VOLUME 76.3 fl (80.0-105.0); MEAN CORPUSCULAR HEMOGLOBIN 25.3 pg (25.0-35.0); MEAN CORPUSCULAR HGB CONC 33.2 g/dl (31.0-37.0); MEAN PLATELET VOLUME 9.3 fl (7.0-11.0); MONO # 1.8 (0.1-0.6); MONO % 7.8 % (1.0-6.0); RED CELL DISTRIBUTION WIDTH 17.4 % (11.5-14.5)
[2017-11-21 22:44] LABS: BLOOD UREA NITROGEN 69 mg/dL (7-21); CALCIUM 8.3 mg/dL (8.4-10.5); GFR AFRICAN-AMERICAN > 60; GFR NON-AFRICAN AMERICAN 50
[2017-11-21] MEDS: ceFAZolin 1 gm in NS 1 GM/100 ML BAG IVPB SCH (23:05)
[2017-11-21] MEDS: Metoprolol 1 mg/ml Inj IV SCH (23:51)
--- NOTE | 2017-11-22 00:06 | HP ---
HISTORY OF PRESENT ILLNESS: The patient is 67 years old, stated last night, he was okay, but in the middle of night, he started to have some epigastric discomfort and started vomiting black material and felt very weak and dizzy, who came to Emergency Room for further evaluation. Denies any fever or chills. No history of fever or chills. No rectal bleeding. Complain of feeling weak and dizzy. No chest pain, no shortness of breath. PAST MEDICAL HISTORY: Significant for: 1. Coronary artery disease. 2. History of COPD. 3. Hyperlipidemia. 4. Mrx-dwdhawo-zswqiotrr diabetes. 5. Coronary artery disease, status post angioplasty. 6. Status post cardiac cath in 07/2017. 7. Status post pacemaker placement. 8. Cardiac catheterization done in 07/2017 and had angioplasty of mid portion of right coronary artery with drug-eluted stent. 9. Active smoker. ALLERGIES: HE IS NOT ALLERGIC TO ANY MEDICATIONS. SOCIAL HISTORY: He is , lives with his . diagnosed with breast cancer, getting chemotherapy. He does have history of active smoking, still smokes. Does not drink. MEDICATIONS AT HOME: He is on: 1. Diclofenac. 2. Fenofibrate. 3. Gabapentin. 4. Famotidine. 5. Lipitor. 6. Metoprolol. 7. Lasix 40 mg daily. 8. Digoxin 125 mcg daily. 9. Enalapril. 10. Metformin. 11. Glipizide. PHYSICAL EXAMINATION: GENERAL: He is awake and alert, able to communicate. VITAL SIGNS: He is afebrile, pulse 67, respirations 18, blood pressure 111/45. LUNGS: Bilateral good airflow. No rhonchi or crackles. HEART: S1, S2 audible. ABDOMEN: Has nasogastric tube that is draining tarry black gastric aspirate. Soft, nontender. No rebound, no guarding. NEUROLOGIC: He is awake, alert, oriented, communicative. LABORATORY DATA: WBC 7.2, hemoglobin 10, hematocrit 32.4, platelets 459. Chemistry: Sodium 137, potassium 4.3, chloride 98, CO2 of 27, BUN 56, creatinine 1.6, blood sugar 174, PT 16.9, INR 1.46. Urinalysis has ketones and digoxin is 0.9. CT scan of the abdomen and pelvis was done that shows massive gastric dilatation without obstructing lesion or inflammation, extensive cholelithiasis without evidence of cholecystitis. ASSESSMENT: 1. Upper gastrointestinal bleeding. 2. Active smoker. 3. Woh-tyslceu-dslgxrtec diabetes. 4. Coronary artery disease. 5. Hypertension. 6. Hyperlipidemia. PLAN: The patient is currently on Protonix drip. We will keep him n.p.o. We will give him IV fluid. We will monitor H and H. Patient is scheduled to have endoscopy done today at 01:00. We will monitor his CBC and CMP and consult sales administrator for close monitoring of cardiac status. Patient received one blood transfusion and is being given FFP now. Carlos Tsai MD
--- NOTE | 2017-11-22 02:51 | CON ---
DATE: 11/21/2017 REASON FOR CONSULTATION: Coronary artery disease, status post multiple stents, multiple PTCA; multiple STEMI, non-STEMI, status post pacemaker who was admitted with GI bleed. BRIEF CLINICAL HISTORY: This is a 67-year-old male with past medical history significant for coronary artery disease, previous STEMI and non-STEMI, came to the emergency room with complaint of 2-hour duration of vomiting and diarrhea, feels dizzy and vomiting blood as well as with dark colored stool. Patient was taken to endoscopy and found to be possibly esophageal tear and intubated now, moved to ICU, currently being intubated. PAST MEDICAL HISTORY: Significant for diabetes, hypertension, hyperlipidemia, history of multiple code STEMI, history of non-STEMI, status post pacemaker. Most recent cardiac workup as follows; the patient had the last cardiac catheterization on 07/28/2017. Left heart catheterization done at that time, percutaneous angioplasty of drug eluting stent to the right coronary artery, after prepared with scoring balloon for in-stent restenosis. Finding at that time revealed left without significant disease, bifurcating LAD and circumflex LAD showed luminal irregularities, patent stent, but no flow obstructive or stenosis noted. Circumflex was proximally occluded at the ostium and the stent noted to be occluded 100%. Right coronary artery, mid RCA 80% to 90% stenosis. LV gram showed ejection fraction 25%. EDP was in the range of 20. At that time, successful PTCA of right coronary artery with drug eluting stent with the scoring balloon done. History of pacemaker for symptomatic bradycardia. Last echo on 07/24/2017 revealed ejection fraction 35%, mild to moderate mitral regurgitation, udsc-aa-bibnrmus tricuspid regurgitation. There is no pericardial effusion. CURRENT MEDICATIONS: Patient is taking Tradjenta, PhosLo, gabapentin, furosemide, enalapril, digoxin, diclofenac, atorvastatin, aspirin, and Effient. REVIEW OF SYSTEMS: As per HPI. ALLERGIES: NO KNOWN DRUG ALLERGIES. PHYSICAL EXAMINATION: VITAL SIGNS: Temperature afebrile, heart rate 73, blood pressure 139/72. HEENT: PERRLA. Extraocular muscles intact. NECK: Supple. No carotid bruit or thyromegaly. CHEST: Clear to auscultation. HEART: S1 and S2 regular. ABDOMEN: Soft. EXTREMITIES: Clubbing and cyanosis negative. LABORATORY DATA: Blood workup as follows: WBC 7.2, hemoglobin 10.2, hematocrit 32.4, platelet count 459. Chemistry shows sodium 130, potassium 4, chloride 98, carbon dioxide 27, anion gap of 16, BUN 15, creatinine 1.6. IMPRESSION: Gastrointestinal bleed, status post endoscopy, status post esophageal tear, renal insufficiency, diabetes, hypertension, hyperlipidemia, coronary artery disease,status post multiple ST-elevation myocardial infarction, status post asv-OE-hwpfppzwp myocardial infarction, status post multiple stents. Last stent in right coronary artery in 07/2017 when the patient admitted with congestive heart failure exacerbation, was on Effient with decreased left ventricular function, baseline renal insufficiency. Last done was on 07/28/2017. Gastrointestinal bleed, diabetes, hypertension, hyperlipidemia, status post endoscopy and then patient was intubated for technical reasons and found to be esophageal tear. RECOMMENDATION: Patient was moved to the ICU. Monitored closely off Effient. We will get echo to assess LV function. Possible to OR for esophageal tear or if patient is critical. patient's high risk surgery, otherwise patient can from mediastinitis though this could be very high risk surgery. Thank you, Dr. Tsai, for providing us the opportunity in taking care of Karl Rueda, though surgery will be very high risk because of underling comorbidity. Ciera Sheikh MD cc: Carlos Tsai MD
[2017-11-22] MEDS: Pantoprazole 40mg/100mL NS 40 MG/100 ML BAG IVPB SCH ×4 (04:33→16:23)
[2017-11-22 06:56] LABS: BASO # 0.02 K/mm3 (0.0-2.0); BASO % 0.1 % (0.0-3.0); EOS % 0.1 % (1.5-5.0); GRAN # 17.51 (1.4-6.5); GRAN % 87.9 % (50.0-68.0); LYMPH # 0.6 (1.2-3.4); LYMPH % 2.8 % (22.0-35.0); MEAN CELL VOLUME 76.2 fl (80.0-105.0); MEAN CORPUSCULAR HEMOGLOBIN 24.9 pg (25.0-35.0); MEAN CORPUSCULAR HGB CONC 32.7 g/dl (31.0-37.0); MEAN PLATELET VOLUME 9.7 fl (7.0-11.0); MONO # 1.8 (0.1-0.6); MONO % 9.1 % (1.0-6.0); PLATELET COUNT 366 10^3/uL (120.0-450.0); RBC 2.77 10^6/uL (3.5-6.1); RED CELL DISTRIBUTION WIDTH 17.5 % (11.5-14.5); WHITE BLOOD COUNT 19.9 10^3/ul (4.5-11.0)
[2017-11-22] MEDS: ceFAZolin 1 gm in NS 1 GM/100 ML BAG IVPB SCH ×3 (07:02→21:56)
[2017-11-22] MEDS: Metoprolol 1 mg/ml Inj IV SCH ×5 (07:02→23:30)
[2017-11-22 07:04] LABS: HEMOGLOBIN 6.9 g/dL (14.0-18.0)
[2017-11-22 07:07] LABS: INR 1.37 (0.93-1.08); PARTIAL THROMBOPLASTIN TIME 19.9 Seconds (25.1-36.5); PROTHROMBIN TIME 15.9 SECONDS (9.4-12.5)
[2017-11-22 07:20] LABS: ALBUMIN 2.7 g/dL (3.0-4.8); ALT/SGPT 20 U/L (7-56); AST/SGOT 48 U/L (17-59); BLOOD UREA NITROGEN 70 mg/dL (7-21); CALCIUM 8.1 mg/dL (8.4-10.5); GFR AFRICAN-AMERICAN 56; GFR NON-AFRICAN AMERICAN 47; HDL CHOLESTEROL 22 mg/dL (29-60); LDL CHOLESTEROL < 30 mg/dL (0-129)
[2017-11-22] MEDS: Insulin Lispro (humaLOG) MEDIUM Coverage SC SCH ×5 (07:26→21:57)
[2017-11-22 07:47] LABS: BAND 2 % (0-2); LYMPHOCYTE 1 % (22.0-35.0); MONOCYTE 8 % (1.0-6.0); NEUTROPHIL 89 % (50.0-70.0); PLATELET ESTIMATE NORMAL (NORMAL)
[2017-11-22] MEDS: Dextrose 5%/0.45% NS 1,000 ML IV SCH ×3 (07:56→16:23)
--- NOTE | 2017-11-22 08:18 | RAD ---
HISTORY: esophageal tear COMPARISON: 11/21/2017 FINDINGS: LUNGS: No active pulmonary disease. The endotracheal tube is in satisfactory position PLEURA: No significant pleural effusion identified, no pneumothorax apparent. CARDIOVASCULAR: Mild cardiomegaly OSSEOUS STRUCTURES: No significant abnormalities. VISUALIZED UPPER ABDOMEN: Normal. OTHER FINDINGS: None. IMPRESSION: Endotracheal tube in satisfactory position
--- NOTE | 2017-11-22 09:02 | CP.PCM.PN ---
Subjective - Date & Time of Evaluation Date of Evaluation: 11/22/17 Time of Evaluation: 07:00 - Subjective Subjective: Thoracic Surgery- Dr. Emerson Patient seen and examined at bedside this AM. On PRVC, Chest tube to suction 160cc serosang fluid overnight. NGT with minimal serosang output. Overnight had One large dark melanotic BM. Hemodynamically stable. ROS unobtainable Objective - Vital Signs/Intake and Output Vital Signs (last 24 hours): Temp Pulse Resp BP Pulse Ox 97.6 F 54 L 14 114/40 L 100 11/21/17 20:00 11/22/17 08:10 11/21/17 20:32 11/22/17 08:01 11/22/17 05:20 Intake and Output: 11/22/17 11/22/17 06:59 18:59 Intake Total 1100 Output Total 780 Balance 320 - Medications Medications: Current Medications Digoxin (Digoxin) 0.125 mg PO 1400 [facility] Last Admin: 11/21/17 13:12 Dose: Not Given Hydromorphone HCl (Dilaudid) 1 mg IVP Q4 PRN PRN Reason: Pain, severe (8-10) Last Admin: 11/21/17 21:57 Dose: 1 mg Pantoprazole Sodium (Protonix 40mg Ivpb) 40 mg in 100 mls @ 20 mls/hr IVPB .Q5H [facility] Last Admin: 11/22/17 07:57 Dose: 20 mls/hr Dextrose/Sodium Chloride (Dextrose 5%/0.45% Ns 1000 Ml) 1,000 mls @ 75 mls/hr IV .[id number] [facility] Last Admin: 11/22/17 07:56 Dose: 75 mls/hr Cefazolin Sodium (Ancef 1gm In Ns) 1 gm in 100 mls @ 100 mls/hr IVPB Q8 [facility] PRN Reason: Protocol Last Admin: 11/22/17 07:02 Dose: Not Given Insulin Human Lispro (Humalog Med) 0 units SC ACHS [facility] PRN Reason: Protocol Last Admin: 11/22/17 07:56 Dose: Not Given Metoprolol Succinate (Toprol Xl) 25 mg PO BRK [facility] Last Admin: 11/21/17 11:45 Dose: Not Given Metoprolol Tartrate (Lopressor) 5 mg IV Q6H [facility] Last Admin: 11/22/17 07:26 Dose: Not Given - Labs Labs: 11/22/17 06:35 11/22/17 06:35 PT 15.9 SECONDS (9.4-12.5) H 11/22/17 06:42 INR 1.37 (0.93-1.08) H 11/22/17 06:42 APTT 19.9 Seconds (25.1-36.5) L 11/22/17 06:42 - Constitutional Appears: Non-toxic, No Acute Distress - ENT Exam ENT Exam: Mucous Membranes Moist - Respiratory Exam Respiratory Exam: absent: Accessory Muscle Use, Respiratory Distress Additional comments: Intubated on PRVC + breath sounds bilateral - Cardiovascular Exam Cardiovascular Exam: +S1, +S2. absent: Bradycardia, Tachycardia - GI/Abdominal Exam GI & Abdominal Exam: Distended, Soft. absent: Firm, Tenderness Additional comments: ecchymosis around panus - Extremities Exam Extremities Exam: Pedal Edema. absent: Calf Tenderness - Neurological Exam Neurological Exam: Awake (responds to verbal stimuli) - Skin Skin Exam: Intact, Warm Assessment and Plan - Assessment and Plan (Free Text) Assessment: 67M s/p Left thoracotomy w/ chest tube insertion POD#1 Plan: No evidence of esophageal tear during surgery continue Chest tube to suction CXR CT of chest & abdomen f/u H/H Transfuse PRN d/w Dr. Emerson Surgical attending PGY1
[2017-11-22] MEDS ORDERED: Magnesium Sulfate 1 gm in D5W 1 GM/100 ML BAG IVPB ONE (10:49)
[2017-11-22] MEDS: HYDROmorphone 0.5 mg/0.5 ml ISec IVP PRN ×2 (10:54→16:29)
[2017-11-22] MEDS: Metoprolol Succinate 25 mg XL Tab PO SCH (11:04)
[2017-11-22] MEDS ORDERED: Iohexol 240 (50 ml) ONE (11:23)
[2017-11-22] MEDS: Digoxin 125 mcg (0.125 mg) Tab PO SCH (13:02)
--- NOTE | 2017-11-22 13:12 | RAD ---
HISTORY: post op thoracotomy COMPARISON: 11/21/2017 FINDINGS: LUNGS: There is a new chest tube at the left lung base. There is no pneumothorax or pleural effusion. The remaining tubes and lines are unchanged PLEURA: No significant pleural effusion identified, no pneumothorax apparent. CARDIOVASCULAR: Mild cardiomegaly OSSEOUS STRUCTURES: No significant abnormalities. VISUALIZED UPPER ABDOMEN: Normal. OTHER FINDINGS: None. IMPRESSION: No active disease.
--- NOTE | 2017-11-22 13:58 | PN ---
DATE: 11/22/2017 NETWORK MANAGEMENT SPECIALIST NOTE LOCATION: [facility]. SUBJECTIVE: The patient is sedated on the ventilator with FIO2 of 40%. The patient has chest tube on the left that is being draining IVAC. Hemodynamically stable at this time. The patient is getting packed red blood cells. He had a large bloody bowel movement this morning. PHYSICAL EXAMINATION: VITAL SIGNS: As far as physical exam, note that his temperature is 97.7, pulse is 54, respirations are 23 and BP is 114/40, O2 saturation is 100% on 40% FIO2. HEENT: Head is atraumatic, normocephalic. Eyes reactive to light. Ear, nose and throat seemed to be within normal limits. NECK: Supple. No JVD. No thyroid enlargement. No lymph nodes. HEART: Has a regular rate and rhythm. Normal S1 and S2. LUNGS: Reveal mild rhonchi bilaterally with slight decreased breath sounds at the left base. ABDOMEN: Soft. Decreased bowel sounds this morning. GENITALIA AND RECTAL: Deferred. MUSCULOSKELETAL: No joint deformities. EXTREMITIES: Reveal trace lower extremity edema. NEUROLOGICAL: The patient is sedated on the ventilator. LABORATORY DATA: As far as his laboratories are concerned, his white count is 19.9, hemoglobin is 6.9, hematocrit 21.1 with platelets of 366,000. His PT is 15.9, INR is 1.37 and PTT is 19.9. Sodium is 139, potassium 4.4, chloride 109, CO2 of 20 with a BUN of 70, creatinine of 1.5 and a glucose of 245. As far as chest x-ray, it is pending. IMPRESSION: My impression is that this patient is status post left thoracotomy for possible esophageal tear. The patient has severe anemia with gastrointestinal bleed, has respiratory failure requiring ventilator support and has a left-sided chest tube to drainage. The patient has a history of left-sided heart failure with congestive heart failure and coronary artery disease. The patient has a history of coronary artery disease with stent, hypertension, diabetes, gastroesophageal reflux disease and chronic obstructive pulmonary disease. PLAN: As far as our plan, we will continue with ventilator support and wean as possible. We will also continue with aggressive pulmonary toilet. The patient has a left-sided chest tube to drainage. He is getting packed red blood cells and hemoglobin will be followed closely. We will continue with Ancef, his antibiotics. The patient is getting digoxin as well as Dilaudid for pain. He is on Protonix. We will continue with D5 and a half as far as IV fluids. I will continue to treat aggressively along with the other consultants and the primary care doctor. Chema Hodges MD
--- NOTE | 2017-11-22 15:15 | RAD ---
PROCEDURE: Portable chest HISTORY: TO CHECK NG TUBE POSITION COMPARISON: Earlier same day TECHNIQUE: FINDINGS: The nasogastric tube terminates at the level of the diaphragm. The tube should be advanced into the stomach. The remaining tubes and lines are unchanged IMPRESSION: Nasogastric tube terminates at the level of the GE junction and should be advanced into the stomach
[2017-11-22 17:26] LABS: HEMOGLOBIN 8.3 g/dL (14.0-18.0); MEAN CELL VOLUME 77.9 fl (80.0-105.0); MEAN CORPUSCULAR HEMOGLOBIN 25.1 pg (25.0-35.0); MEAN CORPUSCULAR HGB CONC 32.2 g/dl (31.0-37.0); MEAN PLATELET VOLUME 9.7 fl (7.0-11.0); RBC 3.31 10^6/uL (3.5-6.1); RED CELL DISTRIBUTION WIDTH 16.9 % (11.5-14.5); WHITE BLOOD COUNT 14.7 10^3/ul (4.5-11.0)
--- NOTE | 2017-11-22 20:45 | PN ---
DATE: 11/22/2017 This patient's yesterday's progress report is not in the computer; it was dictated. The addendum report dictated on 11/21/2017 was not in the system yet. SUBJECTIVE: This patient was seen earlier today, discussed with the surgical coder and ICU staff and also with Dr. Hodges, strategy execution consultant. This 67-year-old patient admitted with upper GI bleeding, history of coronary artery disease, status post PCI and drug-eluting stent placed in July, on Effient and aspirin, admitted with active GI bleeding, vomiting. Patient had NG tube placed in the ER for grossly distended stomach. Patient underwent an endoscopy yesterday, was found to have an esophageal mucosal tear, muscle layer was exposed. Active bleeding was noticed at the time of endoscopy. Patient had hemostasis achieved by injection of epinephrine. There was index of suspicion about esophageal perforation. Patient had contrast imaging studies done. Subsequently, decision was made by the thoracic surgeon for thoracotomy, had a thoracotomy done. There was no perforation noticed. Patient has a chest tube. Patient had another two episodes of large melanotic stool. Hemoglobin dropped to 6.9 this morning, had received one unit of transfusion. I did speak with the surgical coder. The plan is to do as per the surgery to have an oral contrast study via the NG tube and also with CT of the chest, abdomen, and pelvis to further evaluate. PHYSICAL EXAMINATION: VITAL SIGNS: Patient is afebrile, pulse 56 per minute, blood pressure is 119/45, patient is on vent. HEENT: Atraumatic, anicteric. Patient has NG tube and ET tube. NECK: Supple. HEART: S1, S2 heard. LUNGS: Bilateral air entry present. ABDOMEN: Soft. EXTREMITIES: No cyanosis, no clubbing. LABORATORY DATA: Hemoglobin 6.9, hematocrit 21.1, WBC 19.9, platelets 366. Chemistry showed BUN 70, creatinine 1.5, magnesium 1.6. IMPRESSION: This 67-year-old patient had status post epinephrine injection for hemostasis of the esophageal mucosal tear, had a thoracotomy. No complete esophageal tear noticed. Patient continues to have the gastroesophageal bleeding with drop in blood count. Patient was on Effient and aspirin for percutaneous coronary intervention in July. RECOMMENDATIONS: 1. We will discuss with the pest technician regarding transfusion of platelets in this patient. There is a risk of drug-eluting stent with platelet transfusion versus bleeding risk has to be weighed carefully. We will make the decision after further discussion with the pest technician. I did discuss with the strategy execution consultant also. I will also discuss with Dr. Tsai. 2. Give two more units of packed RBCs and to follow up closely hemoglobin and hematocrit. 3. Continue the IV Protonix. 4. We will repeat a chest x-ray to evaluate the NG tube position before the patient goes for a CAT scan as the previous x-ray was not clear. 5. We will discuss with the surgical team regarding the need for IV contrast as the patient has acute kidney injury setting, creatinine was 1.5. 6. Patient has leukocytosis. The patiet is on Ancef every 8 hourly. We will continue that. Thank you very much for allowing us to participate in the care of the patient. Katie Corrales MD PAM
--- NOTE | 2017-11-22 20:59 | CT ---
EXAM: CT Abdomen and Pelvis Without Intravenous Contrast CLINICAL HISTORY: 67 years old, male; Pain; Other: Esophageal perf, will administer contrast ngt; Additional info: Esophageal perf, will administer contrast ngt. Oral contrast contrast administrated through ng tube at the time of scan/( with ng tube adjustment) TECHNIQUE: Axial computed tomography images of the abdomen and pelvis without intravenous contrast. All CT scans at this facility use one or more dose reduction techniques, viz.: automated exposure control; ma/kV adjustment per patient size (including targeted exams where dose is matched to indication; i.e. head); or iterative reconstruction technique. Coronal and sagittal reformatted images were created and reviewed. COMPARISON: No relevant prior studies available. FINDINGS: ABDOMEN: Liver: No acute abnormality as visualized. Gallbladder and bile ducts: Cholelithiasis. Pancreas: No acute abnormality as visualized. Spleen: No splenomegaly. Adrenals: No acute abnormality as visualized. Kidneys and ureters: Nonspecific bilateral perinephric stranding. Punctate nonobstructing lower pole right intrarenal calculus. Subcentimeter hypoattenuating lesion left kidney, likely cyst. No hydronephrosis. Stomach and bowel: Enteric contrast visualized in the distal esophagus, stomach and small amount in the colon. Intermittent opacification limits evaluation. No evidence of bowel obstruction. No definitive focus of bowel inflammation. PELVIS: Bladder: Bladder collapsed around Gallardo catheter. Bladder wall appears slightly prominent. Air within bladder may be iatrogenic. Reproductive: No acute abnormality as visualized. ABDOMEN and PELVIS: Intraperitoneal space: No free air. No significant fluid collection. Bones/joints: Degenerative changes. Soft tissues: Small fat-containing left inguinal hernia. Vasculature: Atherosclerosis. No abdominal aortic aneurysm. Lymph nodes: No acute abnormality as visualized. IMPRESSION: Cholelithiasis. Bladder collapsed around Gallardo catheter. Bladder wall appears slightly prominent. Air within bladder may be iatrogenic. Correlate clinically to exclude cystitis. Please see additional details/findings as above. EXAM: CT Chest Without Intravenous Contrast CLINICAL HISTORY: 67 years old, male; Pain; Other: Esophageal perf, will administer contrast ngt; Additional info: Esophageal perf, will administer contrast ngt. Oral contrast contrast administrated through ng tube at the time of scan/( with ng tube adjustment) TECHNIQUE: Axial computed tomography images of the chest without intravenous contrast. All CT scans at this facility use one or more dose reduction techniques, viz.: automated exposure control; ma/kV adjustment per patient size (including targeted exams where dose is matched to indication; i.e. head); or iterative reconstruction technique. Coronal and sagittal reformatted images were created and reviewed. COMPARISON: CT - ABD PELVIS W/O PO OR IV CONT 2017-11-21 05:47 FINDINGS: Lungs/pleura: Small left pneumothorax visualized at the left lung base. Small left effusion. Minimal right pleural effusion. Consolidation at the left lung base. Heart: No cardiomegaly. No significant pericardial effusion. Bones/joints: No acute fracture. Soft tissues: Skin paola left thorax. Vasculature: Atherosclerosis. No thoracic aortic aneurysm. Lymph nodes: No acute abnormality as visualized. Irregular appearance of the esophagus at the level of the lyly. Limited evaluation in the esophagus. Chest tube enters adjacent to the spleen and extends superiorly with tip appearing to exit the lung field extending into the posterior chest wall between the posterior sixth and seventh left ribs. Endotracheal tube noted and nasogastric tube tip in the midesophagus. Left subclavian access single lead pacer hearing and cardiac stents noted. IMPRESSION: Small left pneumothorax visualized at the left lung base. Small left effusion. Minimal right pleural effusion. Consolidation at the left lung base. Irregular appearance of the esophagus at the level of the lyly. Limited evaluation in the esophagus. Chest tube enters adjacent to the spleen and extends superiorly with tip appearing to exit the lung field extending into the posterior chest wall between the posterior sixth and seventh left ribs.
--- NOTE | 2017-11-22 22:03 | CP.PCM.PN ---
Subjective - Date & Time of Evaluation Date of Evaluation: 11/22/17 Time of Evaluation: 21:56 - Subjective Subjective: Patient seen post CT chest/abd with NGT contrast. Discussed findings with Radiologist. No definite evidence of perforation. esophagus appears collapsed at tip of NGT giving strange appearance at this level; however no extravasation of contrast. There is a small left sided pneumothorax as well as the chest tube exiting the chest posteriorly into the soft tissues recommending adjustment. Patient turned to right lateral decubitus. Posterior lateral chest palpated and bulge felt. Chest tube originally at 12cm at the chest wall and retracted to 10cm at chest wall until bulge in chest wall posteriorly resolved. Chest tube to remain on suction. Monitor output. Maintain NPO. Further recs per Dr. Idania Choi PGY3 Objective - Vital Signs/Intake and Output Vital Signs (last 24 hours): Temp Pulse Resp BP Pulse Ox 98.8 F 55 L 23 114/40 L 100 11/22/17 08:00 11/22/17 16:33 11/22/17 09:05 11/22/17 08:01 11/22/17 09:05 Intake and Output: 11/22/17 11/23/17 18:59 06:59 Intake Total 1875 Output Total 815 Balance 1060 - Medications Medications: Current Medications Digoxin (Digoxin) 0.125 mg PO 1400 [facility] Last Admin: 11/22/17 13:02 Dose: Not Given Hydromorphone HCl (Dilaudid) 1 mg IVP Q4 PRN PRN Reason: Pain, severe (8-10) Last Admin: 11/22/17 16:29 Dose: 1 mg Pantoprazole Sodium (Protonix 40mg Ivpb) 40 mg in 100 mls @ 20 mls/hr IVPB .Q5H [facility] Last Admin: 11/22/17 16:23 Dose: 20 mls/hr Dextrose/Sodium Chloride (Dextrose 5%/0.45% Ns 1000 Ml) 1,000 mls @ 75 mls/hr IV .[id number] [facility] Last Admin: 11/22/17 16:23 Dose: 75 mls/hr Cefazolin Sodium (Ancef 1gm In Ns) 1 gm in 100 mls @ 100 mls/hr IVPB Q8 [facility] PRN Reason: Protocol Last Admin: 11/22/17 13:09 Dose: 100 mls/hr Insulin Human Lispro (Humalog Med) 0 units SC ACHS [facility] PRN Reason: Protocol Last Admin: 11/22/17 16:20 Dose: Not Given Metoprolol Succinate (Toprol Xl) 25 mg PO BRK [facility] Last Admin: 11/22/17 11:04 Dose: Not Given Metoprolol Tartrate (Lopressor) 5 mg IV Q6H [facility] Last Admin: 11/22/17 16:33 Dose: Not Given - Labs Labs: 11/22/17 16:30 11/22/17 06:35 PT 15.9 SECONDS (9.4-12.5) H 11/22/17 06:42 INR 1.37 (0.93-1.08) H 11/22/17 06:42 APTT 19.9 Seconds (25.1-36.5) L 11/22/17 06:42
[2017-11-23] MEDS: Pantoprazole 40mg/100mL NS 40 MG/100 ML BAG IVPB SCH ×6 (01:15→22:09)
[2017-11-23 05:53] LABS: ARTERIAL BLOOD GAS HCO3 21.5 mmol/L (21-28); ARTERIAL BLOOD GAS HEMOGLOBIN 7.2 g/dL (11.7-17.4); ARTERIAL BLOOD GAS O2 CAPACITY 10.4 mL/dl (16-24); ARTERIAL BLOOD GAS O2 CONTENT 10.3 ML/dl (15-23); ARTERIAL BLOOD GAS O2 SAT 99.1 % (95-98); ARTERIAL BLOOD GAS PCO2 31 mm/Hg (35-45); ARTERIAL BLOOD GAS PH 7.45 (7.35-7.45); ARTERIAL BLOOD GAS TCO2 22.5 mmol.L (22-28)
[2017-11-23] MEDS: Metoprolol 1 mg/ml Inj IV SCH ×4 (06:00→17:05)
[2017-11-23 06:27] LABS: BASO # 0.01 K/mm3 (0.0-2.0); BASO % 0.1 % (0.0-3.0); GRAN # 12.04 (1.4-6.5); GRAN % 79.4 % (50.0-68.0); HEMOGLOBIN 7.3 g/dL (14.0-18.0); LYMPH # 1.3 (1.2-3.4); LYMPH % 8.4 % (22.0-35.0); MEAN CELL VOLUME 77.7 fl (80.0-105.0); MEAN CORPUSCULAR HEMOGLOBIN 25.4 pg (25.0-35.0); MEAN CORPUSCULAR HGB CONC 32.7 g/dl (31.0-37.0); MEAN PLATELET VOLUME 9.3 fl (7.0-11.0); MONO # 1.8 (0.1-0.6); MONO % 12.1 % (1.0-6.0); RBC 2.87 10^6/uL (3.5-6.1); RED CELL DISTRIBUTION WIDTH 17.2 % (11.5-14.5); WHITE BLOOD COUNT 15.2 10^3/ul (4.5-11.0)
[2017-11-23 06:43] LABS: ALBUMIN 2.8 g/dL (3.0-4.8); ALT/SGPT 28 U/L (7-56); AST/SGOT 35 U/L (17-59); BLOOD UREA NITROGEN 48 mg/dL (7-21); GFR AFRICAN-AMERICAN > 60; GFR NON-AFRICAN AMERICAN > 60
[2017-11-23] MEDS: Dextrose 5%/0.45% NS 1,000 ML IV SCH ×2 (06:54→17:06)
[2017-11-23] MEDS: ceFAZolin 1 gm in NS 1 GM/100 ML BAG IVPB SCH ×3 (06:54→22:09)
--- NOTE | 2017-11-23 07:53 | CP.PCM.PN ---
Subjective - Date & Time of Evaluation Date of Evaluation: 11/23/17 Time of Evaluation: 07:49 - Subjective Subjective: CT Surgery: Dr Emerson Pt S&E. NAEO. Remains intubated but is awake and responsive. Admits to pain on the left side. Minimal output from chest tube. No air leak. CXR with no ptx. HgB down to 7.3 from 8.3 will order another unit pRBC. Objective - Vital Signs/Intake and Output Vital Signs (last 24 hours): Temp Pulse Resp BP Pulse Ox 98.6 F 54 L 18 137/52 L 100 11/23/17 07:27 11/23/17 07:30 11/22/17 19:29 11/23/17 07:01 11/23/17 07:30 Intake and Output: 11/23/17 11/23/17 06:59 18:59 Intake Total 400 Output Total 1060 Balance -660 - Medications Medications: Current Medications Digoxin (Digoxin) 0.125 mg PO 1400 [facility] Last Admin: 11/22/17 13:02 Dose: Not Given Hydromorphone HCl (Dilaudid) 1 mg IVP Q4 PRN PRN Reason: Pain, severe (8-10) Last Admin: 11/22/17 16:29 Dose: 1 mg Pantoprazole Sodium (Protonix 40mg Ivpb) 40 mg in 100 mls @ 20 mls/hr IVPB .Q5H [facility] Last Admin: 11/23/17 06:54 Dose: 20 mls/hr Dextrose/Sodium Chloride (Dextrose 5%/0.45% Ns 1000 Ml) 1,000 mls @ 75 mls/hr IV .[id number] [facility] Last Admin: 11/23/17 06:54 Dose: 75 mls/hr Cefazolin Sodium (Ancef 1gm In Ns) 1 gm in 100 mls @ 100 mls/hr IVPB Q8 [facility] PRN Reason: Protocol Last Admin: 11/23/17 06:54 Dose: 100 mls/hr Acetaminophen (Ofirmev) 1,000 mg in 100 mls @ 400 mls/hr IVPB Q6H [facility] Stop: 11/23/17 16:29 Last Admin: 11/23/17 04:46 Dose: 400 mls/hr Insulin Human Lispro (Humalog Med) 0 units SC ACHS [facility] PRN Reason: Protocol Last Admin: 11/22/17 21:57 Dose: Not Given Metoprolol Succinate (Toprol Xl) 25 mg PO BRK [facility] Last Admin: 11/22/17 11:04 Dose: Not Given Metoprolol Tartrate (Lopressor) 5 mg IV Q6H [facility] Last Admin: 11/23/17 06:00 Dose: Not Given - Labs Labs: 11/23/17 05:00 11/23/17 05:30 PT 15.9 SECONDS (9.4-12.5) H 11/22/17 06:42 INR 1.37 (0.93-1.08) H 11/22/17 06:42 APTT 19.9 Seconds (25.1-36.5) L 11/22/17 06:42 - Constitutional Appears: Non-toxic, No Acute Distress - Head Exam Head Exam: NORMAL INSPECTION - Eye Exam Eye Exam: Normal appearance - ENT Exam ENT Exam: Mucous Membranes Moist - Respiratory Exam Respiratory Exam: absent: Accessory Muscle Use, Respiratory Distress Additional comments: 60cc serosanguinous from chest tube no air leak noted dressing c/d/i - Cardiovascular Exam Cardiovascular Exam: REGULAR RHYTHM. absent: Tachycardia - GI/Abdominal Exam GI & Abdominal Exam: Soft. absent: Distended, Firm, Tenderness - Extremities Exam Extremities Exam: absent: Pedal Edema - Neurological Exam Neurological Exam: Alert, Awake - Skin Skin Exam: Dry, Intact, Normal Color, Warm Assessment and Plan - Assessment and Plan (Free Text) Assessment: 67M POD#2 s/p left thoracotomy; Allison-Pierce tear Plan: per ICU trial of CPAP today with possible extubation continue CT to wall suction transfuse 1 unit pRBC will d/w attending Lashae, PGY3
[2017-11-23] MEDS: Insulin Lispro (humaLOG) MEDIUM Coverage SC SCH ×4 (08:13→22:48)
[2017-11-23] MEDS: HYDROmorphone 0.5 mg/0.5 ml ISec IVP PRN ×3 (09:07→17:09)
[2017-11-23] MEDS: Metoprolol Succinate 25 mg XL Tab PO SCH (09:15)
[2017-11-23] MEDS: Digoxin 125 mcg (0.125 mg) Tab PO SCH (13:31)
--- NOTE | 2017-11-23 13:53 | PN ---
DATE: 11/23/2017 BELT DRESSER NOTE SUBJECTIVE: The patient is awake on the vent with FiO2 of 40%. He is getting vent weaning trial with CPAP pressure support and the patient is comfortable right now. No respiratory distress. The patient has had no bloody bowel movement. Surgery has evaluated the patient this morning. He continues to have the chest tube on the left to the drainage . PHYSICAL EXAMINATION: VITAL SIGNS: Note that his temperature is 98.6, his pulse is 54. The patient O2 saturation is 100%. His blood pressure is 137/52 and his respiratory rate is 25. HEENT: Head is atraumatic, normocephalic. Eyes reactive to light. Ear, nose and throat seemed to be within normal limits. NECK: Supple. No JVD. No thyroid enlargement or lymph nodes. HEART: Irregular rate and rhythm. Normal S1, S2. LUNGS: Reveal slight decreased breath sounds at the at the left base with occasional rhonchi bilaterally. ABDOMEN: Soft. Decreased bowel sounds. GENITALIA: Deferred. RECTAL: Deferred. MUSCULOSKELETAL: No joint deformities. EXTREMITIES: Reveal trace lower extremity edema. NEUROLOGIC: It seems to be grossly intact. DATA: As far as his laboratories are concerned, his white count is 15.2, hemoglobin is 7.3 with a hematocrit of 22.3 and platelets of 299,000. Arterial blood gas reveals a pH of 7.45, pCO2 of 31, pO2 of 184. His sodium is 148, potassium 3.9, chloride 114, CO2 is 24 with BUN of 48, creatinine of 1.2 and a glucose of 239. As far as the patient's chest x-ray, chest x-ray reveals left-sided chest tube with some infiltrative processes at the left base. This is an unofficial reading. IMPRESSION: This patient is status post left thoracotomy for possible esophageal tear. The patient has severe anemia with gastrointestinal bleed; respiratory failure, on a ventilator support and left-sided chest tube is in place with drainage. The patient has a history of left-sided heart failure with congestive heart failure and coronary artery disease and had cardiac arrhythmia. Has history of cardiac stents being placed and hypertension, diabetes, gastroesophageal reflux as well as COPD. PLAN: As far as our plan, we will continue with ventilator support and vent weaning trials. We will also continue to be aggressive with our pulmonary toilet. The patient has a left-sided chest tube to drainage and we will monitor the hemoglobin. He is on Ancef digoxin, Dilaudid, Protonix and IV fluids. The patient is being followed by Cardiology, GI as well as Surgery and we will continue to treat aggressively along with the other consultants and the primary care doctor. Chema Hodges MD
[2017-11-23 14:05] LABS: MEAN CELL VOLUME 80.7 fl (80.0-105.0); MEAN CORPUSCULAR HEMOGLOBIN 26.6 pg (25.0-35.0); MEAN PLATELET VOLUME 9.2 fl (7.0-11.0); RBC 3.68 10^6/uL (3.5-6.1); RED CELL DISTRIBUTION WIDTH 16.9 % (11.5-14.5); WHITE BLOOD COUNT 14.3 10^3/ul (4.5-11.0)
[2017-11-23 14:16] LABS: HEMOGLOBIN 9.8 g/dL (14.0-18.0)
--- NOTE | 2017-11-23 22:57 | PN ---
DATE: 11/23/2017 SUBJECTIVE: This patient was seen and evaluated earlier today, discussed with the ICU staff and also with the registered nurse surgical services. PHYSICAL EXAMINATION: GENERAL: Patient still remains intubated. VITAL SIGNS: Temperature is 97.2, pulse 69, blood pressure is 136/72, respirations 18. HEENT: Atraumatic, anicteric. NECK: Supple. HEART: S1, S2 heard. LUNGS: Bilateral air entry present. Chest tube present. ABDOMEN: Soft. EXTREMITIES: No cyanosis, no clubbing. LABORATORY DATA: This morning, hemoglobin is 7.3, WBC 15.2, platelets 299. Chemistries BUN 48, creatinine 1.2, INR 1.37. The CT scan of the abdomen and pelvis, chest done yesterday was reviewed, small left pneumothorax noticed. There is limited evaluation of the esophagus. IMPRESSION: This 67-year-old patient with coronary artery disease, status post percutaneous coronary intervention, on Effient and aspirin admitted with upper gastrointestinal bleeding. Endoscopy showed esophageal mucosal tear with an active bleeding, exposure of muscle layer, status post injection therapy with epinephrine, has hemostasis obtained. Subsequently, the patient had studies done to evaluate for esophageal perforation, had thoracotomy done, no esophageal perforation noticed. The patient has further drop in blood count and two episodes of melena. Again today, ordered 3 units of packed RBC, received already 2 at the time of evaluation. RECOMMENDATIONS: We would recommend to repeat the blood count and also give transfuse 1 unit of packed RBC. The patient did receive a unit of platelets yesterday. I did discuss with Dr. Sheikh, order desk caller yesterday. The patient is presently on Protonix drip. Other comorbidities include diabetes mellitus,_ leukocytosis, on antibiotics. We would recommend repeat endoscopy prior to extubation of the patient. The patient is presently on vent. We will continue to closely follow up his care and suggest further management based on the clinical course. Katie Corrales MD PAM
[2017-11-24] MEDS: HYDROmorphone 0.5 mg/0.5 ml ISec IVP PRN ×3 (02:06→21:29)
[2017-11-24] MEDS: Pantoprazole 40mg/100mL NS 40 MG/100 ML BAG IVPB SCH ×4 (03:36→20:15)
[2017-11-24 05:46] LABS: ARTERIAL BLOOD GAS HCO3 24.2 mmol/L (21-28); ARTERIAL BLOOD GAS HEMOGLOBIN 10.5 g/dL (11.7-17.4); ARTERIAL BLOOD GAS O2 CAPACITY 14.8 mL/dl (16-24); ARTERIAL BLOOD GAS O2 CONTENT 14.6 ML/dl (15-23); ARTERIAL BLOOD GAS O2 SAT 98.7 % (95-98); ARTERIAL BLOOD GAS PCO2 40 mm/Hg (35-45); ARTERIAL BLOOD GAS PH 7.39 (7.35-7.45); ARTERIAL BLOOD GAS TCO2 25.4 mmol.L (22-28)
[2017-11-24] MEDS: ceFAZolin 1 gm in NS 1 GM/100 ML BAG IVPB SCH ×3 (06:04→21:28)
[2017-11-24] MEDS: Metoprolol 1 mg/ml Inj IV SCH ×5 (06:09→23:30)
[2017-11-24 06:43] LABS: EOS % 0.1 % (1.5-5.0); GRAN # 10.31 (1.4-6.5); GRAN % 84.9 % (50.0-68.0); HEMOGLOBIN 10.2 g/dL (14.0-18.0); LYMPH % 7.8 % (22.0-35.0); MEAN CELL VOLUME 81.6 fl (80.0-105.0); MEAN CORPUSCULAR HGB CONC 31.9 g/dl (31.0-37.0); MEAN PLATELET VOLUME 10.1 fl (7.0-11.0); MONO # 0.9 (0.1-0.6); MONO % 7.2 % (1.0-6.0); RBC 3.92 10^6/uL (3.5-6.1); RED CELL DISTRIBUTION WIDTH 17.6 % (11.5-14.5); WHITE BLOOD COUNT 12.1 10^3/ul (4.5-11.0)
[2017-11-24] MEDS: Dextrose 5%/0.45% NS 1,000 ML IV SCH (07:30)
[2017-11-24 07:34] LABS: ALT/SGPT 27 U/L (7-56); AST/SGOT 30 U/L (17-59); BLOOD UREA NITROGEN 36 mg/dL (7-21); CALCIUM 9.3 mg/dL (8.4-10.5); GFR AFRICAN-AMERICAN > 60; GFR NON-AFRICAN AMERICAN > 60
[2017-11-24] MEDS: Insulin Lispro (humaLOG) MEDIUM Coverage SC SCH ×4 (08:00→22:22)
--- NOTE | 2017-11-24 08:49 | CP.PCM.PN ---
Subjective - Date & Time of Evaluation Date of Evaluation: 11/24/17 Time of Evaluation: 08:46 - Subjective Subjective: Surgery Patient seen and examined. Pt is intubated. Follows verbal commands. Chest tube dressing changed. Objective - Vital Signs/Intake and Output Vital Signs (last 24 hours): Temp Pulse Resp BP Pulse Ox 98.4 F 71 18 154/87 H 100 11/24/17 04:00 11/24/17 06:09 11/23/17 16:28 11/24/17 06:09 11/23/17 20:40 Intake and Output: 11/24/17 11/24/17 06:59 18:59 Intake Total 1340 Output Total 550 Balance 790 - Medications Medications: Current Medications Digoxin (Digoxin) 0.125 mg PO 1400 [facility] Last Admin: 11/23/17 13:31 Dose: Not Given Hydromorphone HCl (Dilaudid) 1 mg IVP Q4 PRN PRN Reason: Pain, severe (8-10) Last Admin: 11/24/17 02:06 Dose: 1 mg Pantoprazole Sodium (Protonix 40mg Ivpb) 40 mg in 100 mls @ 20 mls/hr IVPB .Q5H [facility] Last Admin: 11/24/17 03:36 Dose: 20 mls/hr Dextrose/Sodium Chloride (Dextrose 5%/0.45% Ns 1000 Ml) 1,000 mls @ 75 mls/hr IV .[id number] [facility] Last Admin: 11/23/17 17:06 Dose: 75 mls/hr Cefazolin Sodium (Ancef 1gm In Ns) 1 gm in 100 mls @ 100 mls/hr IVPB Q8 MISSY PRN Reason: Protocol Last Admin: 11/24/17 06:04 Dose: 100 mls/hr Insulin Human Lispro (Humalog Med) 0 units SC ACHS MISSY PRN Reason: Protocol Last Admin: 11/23/17 22:48 Dose: Not Given Metoprolol Succinate (Toprol Xl) 25 mg PO BRK [facility] Last Admin: 11/23/17 09:15 Dose: Not Given Metoprolol Tartrate (Lopressor) 5 mg IV Q6H [facility] Last Admin: 11/24/17 06:09 Dose: 5 mg - Labs Labs: 11/24/17 05:20 11/24/17 05:20 PT 15.9 SECONDS (9.4-12.5) H 11/22/17 06:42 INR 1.37 (0.93-1.08) H 11/22/17 06:42 APTT 19.9 Seconds (25.1-36.5) L 11/22/17 06:42 - Constitutional Appears: Non-toxic - Head Exam Head Exam: ATRAUMATIC, NORMAL INSPECTION, NORMOCEPHALIC - Eye Exam Eye Exam: EOMI, Normal appearance, PERRL Pupil Exam: NORMAL ACCOMODATION, PERRL - ENT Exam ENT Exam: Mucous Membranes Moist, Normal Exam - Neck Exam Neck Exam: Full ROM, Normal Inspection. absent: Lymphadenopathy - Respiratory Exam Respiratory Exam: Clear to Ausculation Bilateral. absent: NORMAL BREATHING PATTERN Additional comments: Intubated. CHest tube in place on L side. No leak. 100cc ss /24hrs - Cardiovascular Exam Cardiovascular Exam: REGULAR RHYTHM, +S1, +S2. absent: Murmur - GI/Abdominal Exam GI & Abdominal Exam: Soft, Normal Bowel Sounds. absent: Distended, Tenderness - Extremities Exam Extremities Exam: Full ROM, Normal Capillary Refill, Normal Inspection. absent : Joint Swelling, Pedal Edema - Back Exam Back Exam: NORMAL INSPECTION - Neurological Exam Neurological Exam: Alert, Awake, CN II-XII Intact, Oriented x3 - Psychiatric Exam Psychiatric exam: Normal Affect, Normal Mood - Skin Skin Exam: Dry, Intact, Normal Color, Warm Assessment and Plan - Assessment and Plan (Free Text) Assessment: 67M POD#3 s/p left thoracotomy; Allison-Pierce tear Plan: possible extubation continue CT to wall suction GI on board. PPI will d/w attending
--- NOTE | 2017-11-24 09:21 | RAD ---
HISTORY: comparison COMPARISON: 11/23/2017 FINDINGS: LUNGS: No active pulmonary disease. Left chest tube unchanged. No pneumothorax. Endotracheal tube unchanged PLEURA: No significant pleural effusion identified, no pneumothorax apparent. CARDIOVASCULAR: Mild cardiomegaly. OSSEOUS STRUCTURES: No significant abnormalities. VISUALIZED UPPER ABDOMEN: Normal. OTHER FINDINGS: None. IMPRESSION: No active disease.
--- NOTE | 2017-11-24 09:33 | OP ---
PROCEDURE DATE: 11/21/2017 PREOPERATIVE DIAGNOSIS: Esophageal perforation. PROCEDURE: Left thoracotomy, exploration of the esophagus. INDICATIONS FOR SURGERY: This is a 67-year-old who came in with a history of vomiting profusely, started to vomit blood. Had an emergency upper endoscopy and it was noted that he had [id number] perforation, appeared to be into the left side the chest. The GI doctor initially felt that he was bleeding. He was hypotensive. He had a history of cardiac disease. We were called emergently. We attempted to do a CT scan to determine location, but that was not available. We tried a hand-held injection also, but that was unclear at that point. He had a chest x-ray which showed no major effusions, although he did have some air below the diaphragm. So, based on these findings and the urgency of potential perforated esophagus, based on the GI finding and his history, we opted to take him to the operating room emergently. This was after consent from the and brother. FINDINGS IN THE SURGERY: He had marked adhesions throughout the left chest. After taking down the lung, we were able to identify the esophagus at the GE junction. It appeared to be of normal caliber, normal in color. No hematoma. No free air. No blood in the entire left chest. We dissected up to about the 30 cm patti, which was the area where they thought they saw some perforations. At that point, the esophagus appeared normal. Also we felt the NG tube in the esophagus, and at that point, our exploration was complete. We felt that there was no [id number] perforation going into the left side. DESCRIPTION OF PROCEDURE: After general double lumen endotracheal anesthesia, left side up, all pressure points were cushioned, left posterolateral thoracotomy, we took down the adhesions of the left lung from the diaphragm up to the apex that freed the lung up to the aorta. We were able to identify the esophagus at the GE junction. Placed a [place] around it and used that as elevation to dissect superiorly. Again, as I mentioned in the findings, we did not find the perforation. There was no hematoma, no spillage, and no bleeding. At that point, we completed our exploration. Chest tube was placed. The ribs were approximated with heavy PDS. The wound was closed in 3 layers. Patient tolerated the procedure well and was sent to the ICU stable. We are going to do a CT esophagogram in the morning just to see if there was any . Juancho Emerson MD PAM
--- NOTE | 2017-11-24 09:37 | PN ---
DATE: 11/22/2017 REASON FOR CONSULTATION AND FOLLOWUP: Coronary artery disease, status post multiple stents, status post PTCA, status post multiple non-STEMI, status post pacemaker admitted with GI bleed, perforation of esophagus, status post exploration for perforated esophagus. SUBJECTIVE: The patient remains on vent, sedated, appears to have responded to verbal stimuli, not in apparent distress, on vent, getting blood and Protonix IV. PHYSICAL EXAMINATION VITAL SIGNS: Temperature afebrile, heart rate 52, blood pressure 114/40. HEENT: PERRLA, intact. NECK: Supple. No carotid bruit or thyromegaly. CHEST: Clear to auscultation. HEART: S1 and S2 regular. ABDOMEN: Soft. EXTREMITIES: Clubbing and cyanosis negative. LABORATORY DATA: WBC 19.9, RBC 2.7, hemoglobin 6.9, hematocrit 21.1, platelet count 366. Chemistry shows sodium 139, potassium 4.4, chloride 109, carbon dioxide 20, anion gap of 14, BUN 17, creatinine 1.5. IMPRESSION: Status post gastrointestinal bleed, status post perforation of the esophagus, status post exploration, left thoracotomy, history of coronary artery disease, history of multiple stents, history of pacemaker, last stent the patient was in July 2017, anemia, ongoing gastrointestinal bleed. RECOMMENDATIONS: Effient on hold. Monitor H and H. Monitor postop vent. Try to wean off the vent as tolerated, started on IV Lopressor with holding parameters. We will follow with you. Overall, the patient's long-term prognosis is guarded. Thank you Dr. Tsai for providing us the opportunity in taking care of the patient, Karl Rueda. Ciera Sheikh MD
--- NOTE | 2017-11-24 10:09 | PN ---
DATE: 11/23/2017 REASON FOR THE CONSULTATION: Coronary artery disease status post multiple stents, multiple PTCA, admitted with vomiting bright red blood and vomiting esophageal tear status post intubated, status post thoracotomy on vent. The patient is awake and alert, but is still being intubated. PHYSICAL EXAMINATION: As follows: VITAL SIGNS: Temperature afebrile, heart rate 72, blood pressure 129/55. HEENT: PERRLA. Extraocular muscles intact. NECK: Supple. No carotid bruit or thyromegaly. CHEST: Clear to auscultation. HEART: S1 and S2 regular. ABDOMEN: Soft. EXTREMITIES: Clubbing and cyanosis negative. LABORATORY DATA: Blood workup as follows: WBC 15.2, hemoglobin hematocrit 22.3, platelet count 299. Chemistry shows sodium 148, potassium 3.8, chloride 114, carbon dioxide 24, anion gap of 14, BUN 48, creatinine 1.2, total protein 5.6, albumin 2.8, albumin/globulin ratio 1.0. IMPRESSION: Status post gastrointestinal bleed, status post esophageal tear, syndrome status post intubated, status post thoracotomy, but did not require esophageal repair, intubated coronary artery status post multiple stents, multiple ruq-VM-aatcoeomya infarction. RECOMMENDATION: Continue GI followup. The patient remained intubated, electively and is going to be probably endoscoped tomorrow to see the progression of healing of the esophageal tear. Interim, continue metoprolol IV every 6 hours, hold for holding parameters, continue digoxin 0.125 go back in to significant arrhythmia. Digoxin level 0.9. We will repeat the digoxin level tomorrow, also we will hold metoprolol as p.o. meds is held. Continue IV Lopressor and digoxin. We will get the digoxin level tomorrow explained to the patient. The patient is intubated, but awake and alert and understand and communicate with sign languages. Overall, the patient's condition is critical. Prognosis fair. I believe that he will pull through this. We will get the digoxin level in the morning as well. Thank you Dr. Tsai, for providing me the opportunity in taking care of the patient, Karl Rueda. Ciera Sheikh MD
--- NOTE | 2017-11-24 10:09 | PN ---
DATE: 11/22/2017 SUBJECTIVE: Patient is 67 years old, who came in with coffee-ground vomiting yesterday, underwent endoscopy by Dr. Corrales, was found to have esophageal tear. Patient had profuse bleeding. Surgical team was involved. Patient was intubated and was admitted in ICU. Yesterday's events are also noted and patient underwent chest tube insertion. PHYSICAL EXAMINATION: GENERAL: On examination today, he seems to be sedated on ventilator. VITAL SIGNS: He is afebrile, pulse 55, respirations 18, FiO2 of 40, blood pressure 119/45. LUNGS: Bilateral fair airflow. No rhonchi or crackles. HEART: S1, S2 audible. ABDOMEN: Soft, bowel sounds are sluggish. NEUROLOGIC: He is sedated. EXTREMITIES: Bilateral legs, no edema. LABORATORY DATA: WBC 14.7, hemoglobin 8.3, hematocrit 25.8, platelets 258; PT 15.9, INR 1.37. Chemistry: Sodium 139, potassium 4.4, chloride 109, CO2 of 20, BUN 70, creatinine 1.5, blood sugar of 247, digoxin 0.9. ASSESSMENT: 1. Upper gastrointestinal bleed secondary to esophageal ulcer that was spurting blood. 2. Respiratory failure. 3. Anemia, status post blood transfusion. 4. History of coronary artery disease. 5. Non-insulin dependent diabetes. 6. Renal insufficiency. 7. Status post angioplasty and had right coronary artery stent placed. PLAN: He is off of anticoagulants. Blood sugar is being monitored. H and H and electrolytes are being monitored. Currently, he is on Ancef, IV fluids. He is being given digoxin through nasogastric tube. Blood sugar is being monitored. We will reevaluate patient in a.m. Carlos Tsai MD
--- NOTE | 2017-11-24 11:08 | CP.PCM.PN ---
Subjective - Date & Time of Evaluation Date of Evaluation: 11/24/17 Time of Evaluation: 05:45 - Subjective Subjective: Patient seen and examined at bedside in no acute distress. Patient remains to be intubated and as a result review of systems is limited however is able to follow commands, and request with use of his hands. Objective - Vital Signs/Intake and Output Vital Signs (last 24 hours): Temp Pulse Resp BP Pulse Ox 98.4 F 71 18 154/87 H 100 11/24/17 04:00 11/24/17 10:00 11/23/17 16:28 11/24/17 06:09 11/23/17 20:40 Intake and Output: 11/24/17 11/24/17 06:59 18:59 Intake Total 1340 Output Total 550 Balance 790 - Medications Medications: Current Medications Digoxin (Digoxin) 0.125 mg PO 1400 [facility] Last Admin: 11/23/17 13:31 Dose: Not Given Hydromorphone HCl (Dilaudid) 1 mg IVP Q4 PRN PRN Reason: Pain, severe (8-10) Last Admin: 11/24/17 02:06 Dose: 1 mg Pantoprazole Sodium (Protonix 40mg Ivpb) 40 mg in 100 mls @ 20 mls/hr IVPB .Q5H [facility] Last Admin: 11/24/17 09:19 Dose: 20 mls/hr Dextrose/Sodium Chloride (Dextrose 5%/0.45% Ns 1000 Ml) 1,000 mls @ 75 mls/hr IV .[id number] [facility] Last Admin: 11/24/17 07:30 Dose: 75 mls/hr Cefazolin Sodium (Ancef 1gm In Ns) 1 gm in 100 mls @ 100 mls/hr IVPB Q8 MISSY PRN Reason: Protocol Last Admin: 11/24/17 06:04 Dose: 100 mls/hr Insulin Human Lispro (Humalog Med) 0 units SC ACHS MISSY PRN Reason: Protocol Last Admin: 11/24/17 08:00 Dose: Not Given Metoprolol Succinate (Toprol Xl) 25 mg PO BRK [facility]ISSY Last Admin: 11/23/17 09:15 Dose: Not Given Metoprolol Tartrate (Lopressor) 5 mg IV Q6H [facility] Last Admin: 11/24/17 06:09 Dose: 5 mg - Labs Labs: 11/24/17 05:20 11/24/17 05:20 PT 15.9 SECONDS (9.4-12.5) H 11/22/17 06:42 INR 1.37 (0.93-1.08) H 11/22/17 06:42 APTT 19.9 Seconds (25.1-36.5) L 11/22/17 06:42 - Constitutional Appears: Non-toxic, No Acute Distress - Head Exam Head Exam: ATRAUMATIC, NORMAL INSPECTION, NORMOCEPHALIC - Eye Exam Eye Exam: EOMI, Normal appearance - ENT Exam ENT Exam: Mucous Membranes Dry Additional comments: Patient is intubated. - Respiratory Exam Respiratory Exam: Rhonchi. absent: Rales, Wheezes, Stridor - Cardiovascular Exam Cardiovascular Exam: REGULAR RHYTHM, +S1, +S2 - GI/Abdominal Exam GI & Abdominal Exam: Soft, Hypoactive Bowel Sounds. absent: Mass - Extremities Exam Extremities Exam: Normal Inspection. absent: Pedal Edema - Neurological Exam Neurological Exam: Alert, Awake, Oriented x3 - Psychiatric Exam Psychiatric exam: Normal Mood - Skin Skin Exam: Intact, Normal Color, Warm Assessment and Plan - Assessment and Plan (Free Text) Assessment: 67 M h/o CAD with multiple stents on prasugrel and aspirin, STEMI, NSTEMI, COPD , NIDDM, hyperlipidemia presenting with complaints of 2 hour duration vomiting and diarrhea that had been dark in color. Patients hemoglobin was 10, baseline 11. GI recommended transfusion of [address] abdomen was done which revealed massive gastric dilation without obstruction. GI then recommended NG tube to suction stomach contents. Patient had undergone prior studies to evaluate for esophageal perforation, thoracotomy was performed which revealed no perforation. Endoscopy however showed esophageal mucosal tear with an active bleed which was treated with epinephrine; hemostasis was obtained. Despite intervention by GI, patient's H&H continues to remain unstable. Patient will undergo another endoscopy for evaluation of possible re-bleed of tear prior to extubation. Plan: Neurologic -Alert, awake, and oriented x 3. Patient is not currently sedated despite intubation due to patient's compliance. Cardiovascular -Continue lopressor 5 mg IV q4h for control of hypertension -Continue to hold off on prasugrel and aspirin and monitor closely -Awaiting official echocardiogram read -Continue with digoxin Respiratory -Patient is currently on vent with FiO2 40%, PEEP 5, PS 5 -Chest tube in place; currently has bloody drainage. Surgery consulted and on board -Repeat CXR reveals no significant pleural effusion, nor pneumothorax with no change in left chest tube or endotracheal tube Renal/Fluids -Currently on Dextrose 5%/1/2 NS @ 7m mls/hr -Urine Input 5126 and [id number] Gastrointestinal/Nutrition Endocrine Hematologic Infectious Disease -Continue with Ancef 1gm q8h Skin & Musculoskeletal Central lines
--- NOTE | 2017-11-24 11:17 | CP.CCUPN ---
<Remy Resendez - Last Filed: 11/24/17 15:01> CCU Subjective - Physician Review Events Since Last Encounter (Free Text): 11/24/17 11:19 Patient received 3 units of PRBCs. Hemoglobin improved to 10.2 from 7.3. Subjective (Free Text): 11/24/17 11:18 Patient seen and examined at bedside in no acute distress. Patient remains to be intubated and as a result review of systems is limited however is able to follow commands, and request with use of his hands. Critical Care Time Spent (in minutes): 40 CCU Objective - Vital Signs / Intake & Output Vital Signs (Last 4 hours): Vital Signs Pulse 11/24/17 10:00 71 Intake and Output (Last 8hrs): Intake & Output 11/23/17 11/24/17 11/24/17 22:59 06:59 14:59 Intake Total 2536 1340 Output Total 1000 550 Balance 1536 790 Intake: IV 1225 900 LEFT ARM 1225 900 Blood Product 1211 Apheresis Rbc Cp2d As3 Lr 281 2nd Unit [id number] Other 100 440 Apheresis Rbc Cp2d As3 Lr 100 2nd Unit [id number] Output: Chest Tube Drainage 50 Left Mid-Axillary Chest 50 Urine 950 550 Urethral (Gallardo) 950 550 Other: Voiding Method Indwelling Catheter # Bowel Movements 1 1 - Physical Exam Head: Positive for: Atraumatic, Normocephalic Pupils: Positive for: PERRL Extroacular Muscles: Positive for: EOMI Conjunctiva: Positive for: Normal Mouth: Positive for: Moist Mucous Membranes Neck: Positive for: Normal Range of Motion Respiratory/Chest: Positive for: Clear to Auscultation, Good Air Exchange. Negative for: Respiratory Distress, Accessory Muscle Use Cardiovascular: Positive for: Regular Rate and Rhythm, Normal S1, S2. Negative for: Murmurs Abdomen: Positive for: Tenderness (non-focal abdominal tenderness ). Negative for: Distention, Peritoneal Signs Rectal: Positive for: Other (Guaiac test- dark stool, guaiac positive.) Back: Positive for: Normal Inspection Upper Extremity: Positive for: Normal Inspection. Negative for: Cyanosis, Edema Lower Extremity: Positive for: Normal Inspection. Negative for: Edema Neurological: Positive for: GCS=15, CN II-XII Intact, Speech Normal Skin: Positive for: Warm, Dry, Normal Color. Negative for: Rashes Psychiatric: Positive for: Alert, Oriented x 3, Normal Insight, Normal Concentration - Medications Active Medications: Active Medications Generic Name Dose Route Start Last Admin Trade Name Freq PRN Reason Stop Dose Admin Digoxin 0.125 mg 11/21/17 14:00 11/23/17 13:31 Digoxin PO Not Given 1400 MISSY Hydromorphone HCl 1 mg 11/21/17 20:30 11/24/17 02:06 Dilaudid IVP 1 mg Q4 PRN Administration Pain, severe (8-10) Pantoprazole Sodium 40 mg in 100 mls @ 20 mls/hr 11/21/17 05:15 11/24/17 09: 19 Protonix 40mg Ivpb IVPB 20 mls/hr .Q5H MISSY Administration Dextrose/Sodium Chloride 1,000 mls @ 75 mls/hr 11/21/17 12:45 11/24/17 07:30 Dextrose 5%/0.45% Ns 1000 Ml IV 75 mls/hr .[id number] MISSY Administration Cefazolin Sodium 1 gm in 100 mls @ 100 mls/hr 11/21/17 22:00 11/24/17 06:04 Ancef 1gm In Ns IVPB 100 mls/hr Q8 MISSY Administration Protocol Insulin Human Lispro 0 units 11/21/17 11:30 11/24/17 08:00 Humalog Med SC Not Given A[facility]S [facility] Protocol Metoprolol Succinate 25 mg 11/21/17 11:00 11/23/17 09:15 Toprol Xl PO Not Given BRK [facility] Metoprolol Tartrate 5 mg 11/21/17 17:30 11/24/17 06:09 Lopressor IV 5 mg Q6H MISSY Administration - Patient Studies Lab Studies: Microbiology Studies 11/21/17 19:00 MRSA Culture (Admit) - Final Naris MRSA NOT DETECTED Lab Studies 11/24/17 11/24/17 11/24/17 Range/Units 05:28 05:20 05:20 WBC (4.5-11.0) 10^3/ul RBC (3.5-6.1) 10^6/uL Hgb (14.0-18.0) g/dL Hct (42.0-52.0) % MCV (80.0-105.0) fl MCH (25.0-35.0) pg MCHC (31.0-37.0) g/dl RDW (11.5-14.5) % Plt Count (120.0-450.0) 10^3/uL MPV (7.0-11.0) fl Gran % (50.0-68.0) % Lymph % (Auto) (22.0-35.0) % Dickinson % (Auto) (1.0-6.0) % Eos % (Auto) (1.5-5.0) % Baso % (Auto) (0.0-3.0) % Gran # (1.4-6.5) Lymph # (Auto) (1.2-3.4) Dickinson # (Auto) (0.1-0.6) Eos # (Auto) (0.0-0.7) Baso # (Auto) (0.0-2.0) K/mm3 pCO2 40 (35-45) mm/Hg pO2 194.0 H (80-100) mm/Hg HCO3 24.2 (21-28) mmol/L ABG pH 7.39 (7.35-7.45) ABG Total CO2 25.4 (22-28) mmol.L ABG O2 Saturation 98.7 H (95-98) % ABG O2 Content 14.6 L (15-23) ML/dl ABG Base Excess -0.7 (-2.0-3.0) mmol/L ABG Hemoglobin 10.5 L (11.7-17.4) g/dL ABG Carboxyhemoglobin 1.4 (0.5-1.5) % POC ABG HHb (Measured) 1.3 (0-5) % ABG Methemoglobin 1.0 (0.0-3.0) % ABG O2 Capacity 14.8 L (16-24) mL/dl Hgb O2 Saturation 96.2 (95.0-98.0) % FiO2 40.0 % Sodium 149 H (132-148) mmol/L Potassium 4.1 (3.6-5.0) mmol/L Chloride 116 H (98-107) mmol/L Carbon Dioxide 25 (21-33) mmol/L Anion Gap 12 (10-20) BUN 36 H (7-21) mg/dL Creatinine 1.0 (0.8-1.5) mg/dl Est GFR ( Amer) > 60 Est GFR (Non-Af Amer) > 60 POC Glucose (mg/dL) (65-110) mg/dL Random Glucose 245 H (70-110) mg/dL Calcium 9.3 (8.4-10.5) mg/dL Phosphorus 2.0 L (2.5-4.5) mg/dL Magnesium 2.5 H (1.7-2.2) mg/dL Total Bilirubin 0.7 (0.2-1.3) mg/dL AST 30 (17-59) U/L ALT 27 (7-56) U/L Alkaline Phosphatase 45 (38-126) U/L Total Protein 6.1 (5.8-8.3) g/dL Albumin 3.0 (3.0-4.8) g/dL Globulin 3.1 gm/dL Albumin/Globulin Ratio 1.0 L (1.1-1.8) Digoxin < 0.4 L (0.8-2.0) ng/mL 11/24/17 11/23/17 11/23/17 Range/Units 05:20 21:51 16:12 WBC 12.1 H (4.5-11.0) 10^3/ul RBC 3.92 (3.5-6.1) 10^6/uL Hgb 10.2 L (14.0-18.0) g/dL Hct 32.0 L (42.0-52.0) % MCV 81.6 (80.0-105.0) fl MCH 26.0 (25.0-35.0) pg MCHC 31.9 (31.0-37.0) g/dl RDW 17.6 H (11.5-14.5) % Plt Count 238 (120.0-450.0) 10^3/uL MPV 10.1 (7.0-11.0) fl Gran % 84.9 H (50.0-68.0) % Lymph % (Auto) 7.8 L (22.0-35.0) % Dickinson % (Auto) 7.2 H (1.0-6.0) % Eos % (Auto) 0.1 L (1.5-5.0) % Baso % (Auto) 0.0 (0.0-3.0) % Gran # 10.31 H (1.4-6.5) Lymph # (Auto) 1.0 L (1.2-3.4) Dickinson # (Auto) 0.9 H (0.1-0.6) Eos # (Auto) 0.0 (0.0-0.7) Baso # (Auto) 0.00 (0.0-2.0) K/mm3 pCO2 (35-45) mm/Hg pO2 (80-100) mm/Hg HCO3 (21-28) mmol/L ABG pH (7.35-7.45) ABG Total CO2 (22-28) mmol.L ABG O2 Saturation (95-98) % ABG O2 Content (15-23) ML/dl ABG Base Excess (-2.0-3.0) mmol/L ABG Hemoglobin (11.7-17.4) g/dL ABG Carboxyhemoglobin (0.5-1.5) % POC ABG HHb (Measured) (0-5) % ABG Methemoglobin (0.0-3.0) % ABG O2 Capacity (16-24) mL/dl Hgb O2 Saturation (95.0-98.0) % FiO2 % Sodium (132-148) mmol/L Potassium (3.6-5.0) mmol/L Chloride (98-107) mmol/L Carbon Dioxide (21-33) mmol/L Anion Gap (10-20) BUN (7-21) mg/dL Creatinine (0.8-1.5) mg/dl Est GFR ( Amer) Est GFR (Non-Af Amer) POC Glucose (mg/dL) 214 H 203 H (65-110) mg/dL Random Glucose (70-110) mg/dL Calcium (8.4-10.5) mg/dL Phosphorus (2.5-4.5) mg/dL Magnesium (1.7-2.2) mg/dL Total Bilirubin (0.2-1.3) mg/dL AST (17-59) U/L ALT (7-56) U/L Alkaline Phosphatase (38-126) U/L Total Protein (5.8-8.3) g/dL Albumin (3.0-4.8) g/dL Globulin gm/dL Albumin/Globulin Ratio (1.1-1.8) Digoxin (0.8-2.0) ng/mL 11/23/17 11/23/17 Range/Units 14:00 10:55 WBC 14.3 H (4.5-11.0) 10^3/ul RBC 3.68 (3.5-6.1) 10^6/uL Hgb 9.8 L D (14.0-18.0) g/dL Hct 29.7 L (42.0-52.0) % MCV 80.7 D (80.0-105.0) fl MCH 26.6 (25.0-35.0) pg MCHC 33.0 (31.0-37.0) g/dl RDW 16.9 H (11.5-14.5) % Plt Count 232 (120.0-450.0) 10^3/uL MPV 9.2 (7.0-11.0) fl Gran % (50.0-68.0) % Lymph % (Auto) (22.0-35.0) % Dickinson % (Auto) (1.0-6.0) % Eos % (Auto) (1.5-5.0) % Baso % (Auto) (0.0-3.0) % Gran # (1.4-6.5) Lymph # (Auto) (1.2-3.4) Dickinson # (Auto) (0.1-0.6) Eos # (Auto) (0.0-0.7) Baso # (Auto) (0.0-2.0) K/mm3 pCO2 (35-45) mm/Hg pO2 (80-100) mm/Hg HCO3 (21-28) mmol/L ABG pH (7.35-7.45) ABG Total CO2 (22-28) mmol.L ABG O2 Saturation (95-98) % ABG O2 Content (15-23) ML/dl ABG Base Excess (-2.0-3.0) mmol/L ABG Hemoglobin (11.7-17.4) g/dL ABG Carboxyhemoglobin (0.5-1.5) % POC ABG HHb (Measured) (0-5) % ABG Methemoglobin (0.0-3.0) % ABG O2 Capacity (16-24) mL/dl Hgb O2 Saturation (95.0-98.0) % FiO2 % Sodium (132-148) mmol/L Potassium (3.6-5.0) mmol/L Chloride (98-107) mmol/L Carbon Dioxide (21-33) mmol/L Anion Gap (10-20) BUN (7-21) mg/dL Creatinine (0.8-1.5) mg/dl Est GFR ( Amer) Est GFR (Non-Af Amer) POC Glucose (mg/dL) 225 H (65-110) mg/dL Random Glucose (70-110) mg/dL Calcium (8.4-10.5) mg/dL Phosphorus (2.5-4.5) mg/dL Magnesium (1.7-2.2) mg/dL Total Bilirubin (0.2-1.3) mg/dL AST (17-59) U/L ALT (7-56) U/L Alkaline Phosphatase (38-126) U/L Total Protein (5.8-8.3) g/dL Albumin (3.0-4.8) g/dL Globulin gm/dL Albumin/Globulin Ratio (1.1-1.8) Digoxin (0.8-2.0) ng/mL Laboratory Results - last 24 hr 11/23/17 11/23/17 11/23/17 10:55 14:00 16:12 WBC 14.3 H RBC 3.68 Hgb 9.8 L D Hct 29.7 L MCV 80.7 D MCH 26.6 MCHC 33.0 RDW 16.9 H Plt Count 232 MPV 9.2 Gran % Lymph % (Auto) Dickinson % (Auto) Eos % (Auto) Baso % (Auto) Gran # Lymph # (Auto) Dickinson # (Auto) Eos # (Auto) Baso # (Auto) pCO2 pO2 HCO3 ABG pH ABG Total CO2 ABG O2 Saturation ABG O2 Content ABG Base Excess ABG Hemoglobin ABG Carboxyhemoglobin POC ABG HHb (Measured) ABG Methemoglobin ABG O2 Capacity Hgb O2 Saturation FiO2 Sodium Potassium Chloride Carbon Dioxide Anion Gap BUN Creatinine Est GFR ( Amer) Est GFR (Non-Af Amer) POC Glucose (mg/dL) 225 H 203 H Random Glucose Calcium Phosphorus Magnesium Total Bilirubin AST ALT Alkaline Phosphatase Total Protein Albumin Globulin Albumin/Globulin Ratio Digoxin 11/23/17 11/24/17 11/24/17 21:51 05:20 05:20 WBC 12.1 H RBC 3.92 Hgb 10.2 L Hct 32.0 L MCV 81.6 MCH 26.0 MCHC 31.9 RDW 17.6 H Plt Count 238 MPV 10.1 Gran % 84.9 H Lymph % (Auto) 7.8 L Dickinson % (Auto) 7.2 H Eos % (Auto) 0.1 L Baso % (Auto) 0.0 Gran # 10.31 H Lymph # (Auto) 1.0 L Dickinson # (Auto) 0.9 H Eos # (Auto) 0.0 Baso # (Auto) 0.00 pCO2 pO2 HCO3 ABG pH ABG Total CO2 ABG O2 Saturation ABG O2 Content ABG Base Excess ABG Hemoglobin ABG Carboxyhemoglobin POC ABG HHb (Measured) ABG Methemoglobin ABG O2 Capacity Hgb O2 Saturation FiO2 Sodium 149 H Potassium 4.1 Chloride 116 H Carbon Dioxide 25 Anion Gap 12 BUN 36 H Creatinine 1.0 Est GFR ( Amer) > 60 Est GFR (Non-Af Amer) > 60 POC Glucose (mg/dL) 214 H Random Glucose 245 H Calcium 9.3 Phosphorus 2.0 L Magnesium 2.5 H Total Bilirubin 0.7 AST 30 ALT 27 Alkaline Phosphatase 45 Total Protein 6.1 Albumin 3.0 Globulin 3.1 Albumin/Globulin Ratio 1.0 L Digoxin 11/24/17 11/24/17 05:20 05:28 WBC RBC Hgb Hct MCV MCH MCHC RDW Plt Count MPV Gran % Lymph % (Auto) Dickinson % (Auto) Eos % (Auto) Baso % (Auto) Gran # Lymph # (Auto) Dickinson # (Auto) Eos # (Auto) Baso # (Auto) pCO2 40 pO2 194.0 H HCO3 24.2 ABG pH 7.39 ABG Total CO2 25.4 ABG O2 Saturation 98.7 H ABG O2 Content 14.6 L ABG Base Excess -0.7 ABG Hemoglobin 10.5 L ABG Carboxyhemoglobin 1.4 POC ABG HHb (Measured) 1.3 ABG Methemoglobin 1.0 ABG O2 Capacity 14.8 L Hgb O2 Saturation 96.2 FiO2 40.0 Sodium Potassium Chloride Carbon Dioxide Anion Gap BUN Creatinine Est GFR ( Amer) Est GFR (Non-Af Amer) POC Glucose (mg/dL) Random Glucose Calcium Phosphorus Magnesium Total Bilirubin AST ALT Alkaline Phosphatase Total Protein Albumin Globulin Albumin/Globulin Ratio Digoxin < 0.4 L Fingerstick Blood Sugar Results: 214 Review of Systems - Review of Systems Systems not reviewed;Unavailable: Intubated Critical Care Progress Note - Nutrition Nutrition: Nutrition Category Date Time Status NPO Diet [DIET] Diets 11/21/17 Breakfast Ordered Assessment/Plan - Assessment and Plan (Free Text) Assessment: 67 M h/o CAD with multiple stents on prasugrel and aspirin, STEMI, NSTEMI, COPD , NIDDM, hyperlipidemia presenting with complaints of 2 hour duration vomiting and diarrhea that had been dark in color. Patients hemoglobin was 10, baseline 11. GI recommended transfusion of [address] abdomen was done which revealed massive gastric dilation without obstruction. GI then recommended NG tube to suction stomach contents. Patient had undergone prior studies to evaluate for esophageal perforation, thoracotomy was performed which revealed no perforation. Endoscopy however showed esophageal mucosal tear with an active bleed which was treated with epinephrine; hemostasis was obtained. Despite intervention by GI, patient's H&H continues to remain unstable. Patient will undergo another endoscopy for evaluation of possible re-bleed of tear prior to extubation. Plan: Neurologic -Alert, awake, and oriented x 3. Patient is not currently sedated despite intubation due to patient's compliance. -Dilaudid for pain control Cardiovascular -Continue lopressor 5 mg IV q4h for control of hypertension -Continue to hold off on prasugrel and aspirin due to GI bleed and continue to monitor closely -Awaiting official echocardiogram read -Continue with digoxin Respiratory -Patient is currently on vent with FiO2 40%, PEEP 5, PS 5 -Chest tube in place; currently has bloody drainage. Surgery consulted and on board -Repeat CXR reveals no significant pleural effusion, nor pneumothorax with no change in left chest tube or endotracheal tube -Extubation pending repeat endoscopy Renal/Fluids -Currently on Dextrose 5%/1/2 NS @ 7m mls/hr -Urine Input 5126 and output 2610 Gastrointestinal/Nutrition -Continue with NPO -Endoscopy will be performed 11/25/17 -Continue to monitor BMs. Patient has 1 dark BM this a.m. Endocrine -Glucose 214, Sodium 149, Potassium 4.1, Chloride 116, bicarbonate 25, Calcium 9.3, Phosphorous 2.0, Magnesium 2.5, AST 30, ALT 27, Alk Phos 45, TSH 2.33 -ISS-med -Maintain euglycemia Hematologic -H&H 10.2 & 32 s/p transfusion of 3 PRBCs from initial 7.3 & 22.3 -Platelet count 238 -WBC 12.1 -Due to continuous downtrend in patient's H&H, patient will have a repeat endoscopy done to make sure there isn't still a bleed present Infectious Disease -Leukocytosis continues to downtrend now 12.1 from 23 -Continue with Ancef 1gm q8h day #4 Central lines <Michelet Meadows - Last Filed: 11/24/17 15:38> CCU Objective - Vital Signs / Intake & Output Vital Signs (Last 4 hours): Vital Signs Pulse BP 11/24/17 14:00 70 11/24/17 11:52 72 151/54 H Intake and Output (Last 8hrs): Intake & Output 11/24/17 11/24/17 11/24/17 06:59 14:59 22:59 Intake Total 1340 Output Total 550 Balance 790 Weight 170 lb 3.2 oz Intake: IV 900 LEFT ARM 900 Other 440 Output: Urine 550 Urethral (Gallardo) 550 Other: # Bowel Movements 1 - Medications Active Medications: Active Medications Generic Name Dose Route Start Last Admin Trade Name Freq PRN Reason Stop Dose Admin Digoxin 0.125 mg 11/21/17 14:00 11/24/17 14:37 Digoxin PO Not Given 1400 MISSY Hydromorphone HCl 1 mg 11/21/17 20:30 11/24/17 14:54 Dilaudid IVP 1 mg Q4 PRN Administration Pain, severe (8-10) Pantoprazole Sodium 40 mg in 100 mls @ 20 mls/hr 11/21/17 05:15 11/24/17 14: 38 Protonix 40mg Ivpb IVPB 20 mls/hr .Q5H MISSY Administration Dextrose/Sodium Chloride 1,000 mls @ 75 mls/hr 11/21/17 12:45 11/24/17 07:30 Dextrose 5%/0.45% Ns 1000 Ml IV 75 mls/hr .[id number] MISSY Administration Cefazolin Sodium 1 gm in 100 mls @ 100 mls/hr 11/21/17 22:00 11/24/17 14:37 Ancef 1gm In Ns IVPB 100 mls/hr Q8 [facility] Administration Protocol Insulin Human Lispro 0 units 11/21/17 11:30 11/24/17 11:40 Humalog Med SC Not Given A[facility]S [facility] Protocol Metoprolol Succinate 25 mg 11/21/17 11:00 11/23/17 09:15 Toprol Xl PO Not Given [facility] Metoprolol Tartrate 5 mg 11/21/17 17:30 11/24/17 11:52 Lopressor IV 5 mg Q6H MISSY Administration - Patient Studies Lab Studies: Microbiology Studies 11/21/17 19:00 MRSA Culture (Admit) - Final Naris MRSA NOT DETECTED Lab Studies 11/24/17 11/24/17 11/24/17 Range/Units 05:28 05:20 05:20 WBC (4.5-11.0) 10^3/ul RBC (3.5-6.1) 10^6/uL Hgb (14.0-18.0) g/dL Hct (42.0-52.0) % MCV (80.0-105.0) fl MCH (25.0-35.0) pg MCHC (31.0-37.0) g/dl RDW (11.5-14.5) % Plt Count (120.0-450.0) 10^3/uL MPV (7.0-11.0) fl Gran % (50.0-68.0) % Lymph % (Auto) (22.0-35.0) % Dickinson % (Auto) (1.0-6.0) % Eos % (Auto) (1.5-5.0) % Baso % (Auto) (0.0-3.0) % Gran # (1.4-6.5) Lymph # (Auto) (1.2-3.4) Dickinson # (Auto) (0.1-0.6) Eos # (Auto) (0.0-0.7) Baso # (Auto) (0.0-2.0) K/mm3 pCO2 40 (35-45) mm/Hg pO2 194.0 H (80-100) mm/Hg HCO3 24.2 (21-28) mmol/L ABG pH 7.39 (7.35-7.45) ABG Total CO2 25.4 (22-28) mmol.L ABG O2 Saturation 98.7 H (95-98) % ABG O2 Content 14.6 L (15-23) ML/dl ABG Base Excess -0.7 (-2.0-3.0) mmol/L ABG Hemoglobin 10.5 L (11.7-17.4) g/dL ABG Carboxyhemoglobin 1.4 (0.5-1.5) % POC ABG HHb (Measured) 1.3 (0-5) % ABG Methemoglobin 1.0 (0.0-3.0) % ABG O2 Capacity 14.8 L (16-24) mL/dl Hgb O2 Saturation 96.2 (95.0-98.0) % FiO2 40.0 % Sodium 149 H (132-148) mmol/L Potassium 4.1 (3.6-5.0) mmol/L Chloride 116 H (98-107) mmol/L Carbon Dioxide 25 (21-33) mmol/L Anion Gap 12 (10-20) BUN 36 H (7-21) mg/dL Creatinine 1.0 (0.8-1.5) mg/dl Est GFR ( Amer) > 60 Est GFR (Non-Af Amer) > 60 POC Glucose (mg/dL) (65-110) mg/dL Random Glucose 245 H (70-110) mg/dL Calcium 9.3 (8.4-10.5) mg/dL Phosphorus 2.0 L (2.5-4.5) mg/dL Magnesium 2.5 H (1.7-2.2) mg/dL Total Bilirubin 0.7 (0.2-1.3) mg/dL AST 30 (17-59) U/L ALT 27 (7-56) U/L Alkaline Phosphatase 45 (38-126) U/L Total Protein 6.1 (5.8-8.3) g/dL Albumin 3.0 (3.0-4.8) g/dL Globulin 3.1 gm/dL Albumin/Globulin Ratio 1.0 L (1.1-1.8) Digoxin < 0.4 L (0.8-2.0) ng/mL 11/24/17 11/23/17 11/23/17 Range/Units 05:20 21:51 16:12 WBC 12.1 H (4.5-11.0) 10^3/ul RBC 3.92 (3.5-6.1) 10^6/uL Hgb 10.2 L (14.0-18.0) g/dL Hct 32.0 L (42.0-52.0) % MCV 81.6 (80.0-105.0) fl MCH 26.0 (25.0-35.0) pg MCHC 31.9 (31.0-37.0) g/dl RDW 17.6 H (11.5-14.5) % Plt Count 238 (120.0-450.0) 10^3/uL MPV 10.1 (7.0-11.0) fl Gran % 84.9 H (50.0-68.0) % Lymph % (Auto) 7.8 L (22.0-35.0) % Dickinson % (Auto) 7.2 H (1.0-6.0) % Eos % (Auto) 0.1 L (1.5-5.0) % Baso % (Auto) 0.0 (0.0-3.0) % Gran # 10.31 H (1.4-6.5) Lymph # (Auto) 1.0 L (1.2-3.4) Dickinson # (Auto) 0.9 H (0.1-0.6) Eos # (Auto) 0.0 (0.0-0.7) Baso # (Auto) 0.00 (0.0-2.0) K/mm3 pCO2 (35-45) mm/Hg pO2 (80-100) mm/Hg HCO3 (21-28) mmol/L ABG pH (7.35-7.45) ABG Total CO2 (22-28) mmol.L ABG O2 Saturation (95-98) % ABG O2 Content (15-23) ML/dl ABG Base Excess (-2.0-3.0) mmol/L ABG Hemoglobin (11.7-17.4) g/dL ABG Carboxyhemoglobin (0.5-1.5) % POC ABG HHb (Measured) (0-5) % ABG Methemoglobin (0.0-3.0) % ABG O2 Capacity (16-24) mL/dl Hgb O2 Saturation (95.0-98.0) % FiO2 % Sodium (132-148) mmol/L Potassium (3.6-5.0) mmol/L Chloride (98-107) mmol/L Carbon Dioxide (21-33) mmol/L Anion Gap (10-20) BUN (7-21) mg/dL Creatinine (0.8-1.5) mg/dl Est GFR ( Amer) Est GFR (Non-Af Amer) POC Glucose (mg/dL) 214 H 203 H (65-110) mg/dL Random Glucose (70-110) mg/dL Calcium (8.4-10.5) mg/dL Phosphorus (2.5-4.5) mg/dL Magnesium (1.7-2.2) mg/dL Total Bilirubin (0.2-1.3) mg/dL AST (17-59) U/L ALT (7-56) U/L Alkaline Phosphatase (38-126) U/L Total Protein (5.8-8.3) g/dL Albumin (3.0-4.8) g/dL Globulin gm/dL Albumin/Globulin Ratio (1.1-1.8) Digoxin (0.8-2.0) ng/mL 11/23/17 Range/Units 10:55 WBC (4.5-11.0) 10^3/ul RBC (3.5-6.1) 10^6/uL Hgb (14.0-18.0) g/dL Hct (42.0-52.0) % MCV (80.0-105.0) fl MCH (25.0-35.0) pg MCHC (31.0-37.0) g/dl RDW (11.5-14.5) % Plt Count (120.0-450.0) 10^3/uL MPV (7.0-11.0) fl Gran % (50.0-68.0) % Lymph % (Auto) (22.0-35.0) % Dickinson % (Auto) (1.0-6.0) % Eos % (Auto) (1.5-5.0) % Baso % (Auto) (0.0-3.0) % Gran # (1.4-6.5) Lymph # (Auto) (1.2-3.4) Dickinson # (Auto) (0.1-0.6) Eos # (Auto) (0.0-0.7) Baso # (Auto) (0.0-2.0) K/mm3 pCO2 (35-45) mm/Hg pO2 (80-100) mm/Hg HCO3 (21-28) mmol/L ABG pH (7.35-7.45) ABG Total CO2 (22-28) mmol.L ABG O2 Saturation (95-98) % ABG O2 Content (15-23) ML/dl ABG Base Excess (-2.0-3.0) mmol/L ABG Hemoglobin (11.7-17.4) g/dL ABG Carboxyhemoglobin (0.5-1.5) % POC ABG HHb (Measured) (0-5) % ABG Methemoglobin (0.0-3.0) % ABG O2 Capacity (16-24) mL/dl Hgb O2 Saturation (95.0-98.0) % FiO2 % Sodium (132-148) mmol/L Potassium (3.6-5.0) mmol/L Chloride (98-107) mmol/L Carbon Dioxide (21-33) mmol/L Anion Gap (10-20) BUN (7-21) mg/dL Creatinine (0.8-1.5) mg/dl Est GFR ( Amer) Est GFR (Non-Af Amer) POC Glucose (mg/dL) 225 H (65-110) mg/dL Random Glucose (70-110) mg/dL Calcium (8.4-10.5) mg/dL Phosphorus (2.5-4.5) mg/dL Magnesium (1.7-2.2) mg/dL Total Bilirubin (0.2-1.3) mg/dL AST (17-59) U/L ALT (7-56) U/L Alkaline Phosphatase (38-126) U/L Total Protein (5.8-8.3) g/dL Albumin (3.0-4.8) g/dL Globulin gm/dL Albumin/Globulin Ratio (1.1-1.8) Digoxin (0.8-2.0) ng/mL Laboratory Results - last 24 hr 11/23/17 11/23/17 11/23/17 10:55 16:12 21:51 WBC RBC Hgb Hct MCV MCH MCHC RDW Plt Count MPV Gran % Lymph % (Auto) Dickinson % (Auto) Eos % (Auto) Baso % (Auto) Gran # Lymph # (Auto) Dickinson # (Auto) Eos # (Auto) Baso # (Auto) pCO2 pO2 HCO3 ABG pH ABG Total CO2 ABG O2 Saturation ABG O2 Content ABG Base Excess ABG Hemoglobin ABG Carboxyhemoglobin POC ABG HHb (Measured) ABG Methemoglobin ABG O2 Capacity Hgb O2 Saturation FiO2 Sodium Potassium Chloride Carbon Dioxide Anion Gap BUN Creatinine Est GFR ( Amer) Est GFR (Non-Af Amer) POC Glucose (mg/dL) 225 H 203 H 214 H Random Glucose Calcium Phosphorus Magnesium Total Bilirubin AST ALT Alkaline Phosphatase Total Protein Albumin Globulin Albumin/Globulin Ratio Digoxin 11/24/17 11/24/17 11/24/17 05:20 05:20 05:20 WBC 12.1 H RBC 3.92 Hgb 10.2 L Hct 32.0 L MCV 81.6 MCH 26.0 MCHC 31.9 RDW 17.6 H Plt Count 238 MPV 10.1 Gran % 84.9 H Lymph % (Auto) 7.8 L Dickinson % (Auto) 7.2 H Eos % (Auto) 0.1 L Baso % (Auto) 0.0 Gran # 10.31 H Lymph # (Auto) 1.0 L Dickinson # (Auto) 0.9 H Eos # (Auto) 0.0 Baso # (Auto) 0.00 pCO2 pO2 HCO3 ABG pH ABG Total CO2 ABG O2 Saturation ABG O2 Content ABG Base Excess ABG Hemoglobin ABG Carboxyhemoglobin POC ABG HHb (Measured) ABG Methemoglobin ABG O2 Capacity Hgb O2 Saturation FiO2 Sodium 149 H Potassium 4.1 Chloride 116 H Carbon Dioxide 25 Anion Gap 12 BUN 36 H Creatinine 1.0 Est GFR ( Amer) > 60 Est GFR (Non-Af Amer) > 60 POC Glucose (mg/dL) Random Glucose 245 H Calcium 9.3 Phosphorus 2.0 L Magnesium 2.5 H Total Bilirubin 0.7 AST 30 ALT 27 Alkaline Phosphatase 45 Total Protein 6.1 Albumin 3.0 Globulin 3.1 Albumin/Globulin Ratio 1.0 L Digoxin < 0.4 L 11/24/17 05:28 WBC RBC Hgb Hct MCV MCH MCHC RDW Plt Count MPV Gran % Lymph % (Auto) Dickinson % (Auto) Eos % (Auto) Baso % (Auto) Gran # Lymph # (Auto) Dickinson # (Auto) Eos # (Auto) Baso # (Auto) pCO2 40 pO2 194.0 H HCO3 24.2 ABG pH 7.39 ABG Total CO2 25.4 ABG O2 Saturation 98.7 H ABG O2 Content 14.6 L ABG Base Excess -0.7 ABG Hemoglobin 10.5 L ABG Carboxyhemoglobin 1.4 POC ABG HHb (Measured) 1.3 ABG Methemoglobin 1.0 ABG O2 Capacity 14.8 L Hgb O2 Saturation 96.2 FiO2 40.0 Sodium Potassium Chloride Carbon Dioxide Anion Gap BUN Creatinine Est GFR ( Amer) Est GFR (Non-Af Amer) POC Glucose (mg/dL) Random Glucose Calcium Phosphorus Magnesium Total Bilirubin AST ALT Alkaline Phosphatase Total Protein Albumin Globulin Albumin/Globulin Ratio Digoxin Critical Care Progress Note - Nutrition Nutrition: Nutrition Category Date Time Status NPO Diet [DIET] Diets 11/21/17 Breakfast Ordered Attending/Attestation - Attestation I have personally seen and examined this patient.: Yes I have fully participated in the care of the patient.: Yes I have reviewed all pertinent clinical information: Yes Notes (Text): 11/24/17 15:[address] Meadows's note
--- NOTE | 2017-11-24 13:29 | PN ---
DATE: SUBJECTIVE: The patient is 67 years old, remain intubated. Has chest tube in, draining hemorrhagic fluids. He seems to be awake and alert, open eyes on verbal command. PHYSICAL EXAMINATION: VITAL SIGNS: He is afebrile, pulse 72, respirations 18, blood pressure 151/64. LUNGS: Bilateral fair airflow, decreased at bases. HEART: S1 and S2 audible. ABDOMEN: Soft. Nontender. No rebound. No guarding. NEUROLOGIC: He is awake and alert. He has endotracheal tube in. LABORATORY EXAM: WBC is 12.1, hemoglobin 10.4, hematocrit 32, platelet Of 238. Chemistry: Sodium 149, potassium 4.1, chloride 116, CO2 of 25, BUN 36, creatinine 1.0, blood sugar 245. ASSESSMENT: 1. Status post gastrointestinal bleed, status post endoscopy and was found to have esophageal mucosal tear, reaching up to the depth of muscle. Status post sclerotherapy and hemostasis was secured. 2. Status post thoracotomy and chest tube insertion. 3. Anemia, status post multiple blood transfusions. 4. Coronary artery disease, status post angioplasty. 5. Hypertension. 6. Mwn-bpdzsbd-halwijjak diabetes. PLAN: Currently, the patient is intubated. He is on vent support. Plan is to do endoscopy in the a.m. by Dr. Corrales. We will continue him on Protonix drip. We will monitor his CBC and CMP in the a.m. Carlos Tsai MD
--- NOTE | 2017-11-24 13:48 | RAD ---
HISTORY: chest tube on waterseal , post 4hrs. COMPARISON: Earlier same day FINDINGS: LUNGS: Left-sided chest tube remains in place. No evidence of pneumothorax PLEURA: No significant pleural effusion identified, no pneumothorax apparent. CARDIOVASCULAR: Normal. OSSEOUS STRUCTURES: No significant abnormalities. VISUALIZED UPPER ABDOMEN: Normal. OTHER FINDINGS: None. IMPRESSION: No evidence of pneumothorax
--- NOTE | 2017-11-24 13:59 | PN ---
DATE: SUBJECTIVE: The patient is seen and examined at bedside. He is comfortable. He is not on any sedation. He is intubated; however, tolerates pressure support very well. He is on 5/5 with FiO2 of 40%. On that setting, his respiratory rate is 20 and he is pulling about 340 to 380 tidal volume. His rapid shallow breathing index is 50. On that setting, his vital signs are as follows: heart rate 69, oxygen saturation 100%, blood pressure 148/57. End-tidal CO2 on the monitor is 37 and oxygen saturation 100%. OBJECTIVE ENT: Head and neck atraumatic. LUNGS: Clear auscultation bilaterally. HEART: Regular rhythm and rate. S1, S2 normal. ABDOMEN: Soft, nontender, nondistended. MUSCULOSKELETAL: No C/C/E. NEUROLOGICAL: The patient moves all extremities spontaneously. SKIN: Moist. PSYCHIATRIC: The patient is alert, awake and nonverbally communicating. He has a chest tube in the left chest with small amount of serosanguineous pleural effusion with tidal variations. LABORATORY DATA: WBC 12.1, hemoglobin 10.2, platelet count 238. Sodium 149, potassium 4.1, chloride 160, carbon dioxide 25, BUN 36, creatinine 1 down from 1.2, glucose 245, AST 30, ALT 27. ABG today, 7.39/40/194 on 40% FiO2 (we will be going down on his FiO2 further.) MEDICATIONS: Cefazolin, D5 half-normal saline at 75 mL/hour, digoxin, Dilaudid p.r.n., Regular insulin sliding scale medium protocol, metoprolol 5 mg IV every 6 hours and 25 mg p.o. with breakfast, Protonix drip. ASSESSMENT AND PLAN: This is a 67-year-old gentleman who initially presented with upper GI bleed with subsequent concern for complete esophageal tear due to vomiting/retching/belching. Nevertheless, exploratory thoracotomy did not reveal any esophageo-pleural fistula. Chest tube was left and procedure completed. At present time, we are waiting for second-look endoscopy to confirm normal healing process and absence of bleeding anymore. Chest tube appears to be in pleural space. The patient is comfortable, hemodynamically and respiratory flores, relatively stable. Once endoscopy done by GI, attempt at extubation will be made. Meanwhile, we will continue to target euvolemia, euglycemia, normothermia and oxygen saturation more than 90%. We will continue with Protonix drip. We will continue with DVT and GI prophylaxis. Michelet Meadows MD PAM
[2017-11-24] MEDS: Digoxin 125 mcg (0.125 mg) Tab PO SCH (14:37)
--- NOTE | 2017-11-24 16:14 | PN ---
DATE: REASON FOR THE CONSULTATION AND FOLLOWUP: Cardiac evaluation and followup, history of coronary artery disease, multiple stents, history of pacemaker, admitted with esophageal tear, status post intubated, status post left thoracotomy, on vent. SUBJECTIVE: The patient is on vent, but awake and alert. Responds with verbal stimuli. Denies any chest pain. OBJECTIVE: GENERAL: Not in apparent distress, being intubated, wanted to get off the vent. I explained the patient that the patient needs vent until ulcer heals, probably next 24 hours. VITAL SIGNS: Temperature afebrile, heart rate 72, blood pressure 150/54. HEENT: PERRLA. Extraocular muscles intact. NECK: Supple. No carotid bruit. No thyromegaly. CHEST: Clear to auscultation. HEART: S1 and S2, regular. ABDOMEN: Soft. EXTREMITIES: Clubbing and cyanosis negative. Chest tube in the place. LABORATORY DATA: Blood workup as follows: WBC 12.8, hemoglobin 10.8, hematocrit 32, platelet count 238. Chemistry shows sodium 149, potassium 4.1, chloride 116, carbon dioxide 25, anion gap of 12. BUN 36, creatinine 1. IMPRESSION: Status post esophageal perforation, status post intubated, status post thoracotomy, medical treatment possibly, history of coronary artery disease, history of ypn-PC-rbqfipqgi myocardial infarction, history of ST-elevation myocardial infarction in the past, history of sick sinus syndrome, status post permanent pacemaker. RECOMMENDATION: Discussed with GI. The patient will remain on the vent until the ulcer heals, probably next 24 to 48 hours, possible re-endoscope today. Continue IV beta-alessandro. Monitor closely H and H. If it goes below, consider transfusion. We will follow with you. We will repeat the blood workup in the morning. Thank you, Dr. Tsai for providing us the opportunity in taking care of the patient, Karl Rueda. Ciera Sheikh MD
--- NOTE | 2017-11-24 17:58 | CARD ---
APPROVED REPORT EXAM: Two-dimensional and M-mode echocardiogram with Doppler and color Doppler. INDICATION LV Function: 2D DIMENSIONS Left Atrium (2D)4.6 (1.6-4.0cm)IVSd0.9 (0.7-1.1cm) Aortic Root (2D)2.9 (2.0-3.7cm)LVDd5.6 (3.9-5.9cm) PWd0.9 (0.7-1.1cm)LVDs4.6 (2.5-4.0cm) FS (%) 17.8 %LVEF (%)36.7 (>50%) M-Mode DIMENSIONS Aortic Cusp Exc.1.90 (1.5-2.0cm) Mitral Valve MV E Fufxvtdk05.4cm/sMV A Tuiyemsc45.5cm/sE/A ratio3.0 TDI Lateral E' Peak V6.92cm/sMedial E' Peak V10.50cm/sE/Lateral E'11.3 E/Medial E'7.5 Pulmonary Valve PV Peak Zzadmbpg884.0cm/sPV Peak Grad.8mmHg Tricuspid Valve TR Peak Rqptzwzx933mn/sRAP [id number] Peak Gr.36mmHg [id number] LEFT VENTRICLE The Left Ventricle is borderline dilated. There is mild concentric left ventricular hypertrophy. The systolic function is mildly to moderately impaired.EF-40-45% There is mild hypokinesis in the apical anterior wall. Transmitral Doppler flow pattern is Grade III-reversible restrictive diastolic dysfunction. No left ventricle thrombus noted on this study. There is no ventricular septal defect visualized. There is no left ventricular aneurysm. There is no mass noted in the left ventricle. RIGHT VENTRICLE The right ventricle is borderline dilated. There is normal right ventricular wall thickness. The right ventricular systolic function is normal. There is a pacemaker lead in the right ventricle. ATRIA The left atrium is mild to moderately dilated. The right atrium is mild to moderately There is a catheter/pacemaker lead seen in the right atrium. dilated. The interatrial septum is intact with no evidence for an atrial septal defect. AORTIC VALVE The aortic valve is thickened but opens well. No aortic regurgitation is present. There is no aortic valvular stenosis. There is no aortic valvular vegetation. MITRAL VALVE The mitral valve is thickened but opens well. Mitral regurgitation is mild. There is no mitral valve stenosis. There is no evidence of mitral valve prolapse. TRICUSPID VALVE The tricuspid valve leaflets are thickened , but open well. There is mild to moderate tricuspid regurgitation.RVSP-41 mmof hg. There is no tricuspid valve stenosis. There is no tricuspid valve prolapse or vegetation. PULMONIC VALVE The pulmonic valve is mildly thickened. There is trace pulmonic valvular regurgitation. There is no pulmonic valvular stenosis. GREAT VESSELS The aortic root is normal in size. The ascending aorta is normal in size. The pulmonary artery is normal. The IVC is normal in size and collapses >50% with inspiration. PERICARDIAL EFFUSION There is no pleural effusion. There is a trace pericardial effusion. <Conclusion> The Left Ventricle is borderline dilated. There is mild concentric left ventricular hypertrophy. The systolic function is mildly to moderately impaired.EF-40-45% The right ventricle is borderline dilated. The right ventricular systolic function is normal. There is a pacemaker lead in the right ventricle. Mitral regurgitation is mild. There is mild to moderate tricuspid regurgitation.RVSP-41 mmof hg. There is a trace pericardial effusion. No vegetation or thrombus noted.
--- NOTE | 2017-11-24 19:52 | RAD ---
HISTORY: chest tube COMPARISON: 11/22/2017 FINDINGS: LUNGS: Infiltrate and small effusion at the left lung base. Left-sided chest tube in place. Endotracheal tube in satisfactory position PLEURA: No significant pleural effusion identified, no pneumothorax apparent. CARDIOVASCULAR: Normal. OSSEOUS STRUCTURES: No significant abnormalities. VISUALIZED UPPER ABDOMEN: Normal. OTHER FINDINGS: None. IMPRESSION: Minimal infiltrate and small effusion at the left lung base. Left-sided chest tube in place
[2017-11-25] MEDS: Pantoprazole 40mg/100mL NS 40 MG/100 ML BAG IVPB SCH ×3 (01:53→10:01)
--- NOTE | 2017-11-25 03:40 | PN ---
DATE: 11/24/2017 SUBJECTIVE: This patient was seen and evaluated earlier today, discussed with the scientific software developer and also with Dr. Tsai. The patient remains on vent. Hemoglobin is stable. PHYSICAL EXAMINATION: VITAL SIGNS: Temperature is 98.4, blood pressure is 154/87, pulse 71. HEENT: Atraumatic, anicteric. NECK: Supple. HEART: S1, S2 heard. LUNGS: Bilateral air entry present. Chest tube present on the left side. ABDOMEN: Soft. EXTREMITIES: No cyanosis, no clubbing. LABORATORY DATA: Hemoglobin remains stable at 10.2, hematocrit 32, WBC 12.1, platelets 238. Chemistry shows BUN 36, creatinine 1. IMPRESSION: This 67-year-old patient admitted with massive gastrointestinal bleeding, had an endoscopy showed esophageal mucosal tear, extending from 30 to 35 cm level with active bleeding, status post injection, cryotherapy. Patient's hemoglobin remains stable. Now patient received totally 6 units transfusion and 1 unit of platelets. Patient has a history of percutaneous coronary intervention and stent placement in July. RECOMMENDATIONS: 1. Follow up of the hemoglobin, hematocrit. 2. Continue with high-dose PPI. 3. We will consider repeating the endoscopy in a.m. to evaluate the esophageal ulceration and also rule out any gastric or duodenal lesions. The endoscopy done earlier was limited due to large amount of blood in the stomach. Patient did come with gastric distension before. His other comorbidities include diabetes mellitus. Patient has leukocytosis, has been on IV antibiotics. Patient is status post thoracotomy since he has a chest tube present. Continue to closely follow up his care and suggest further management based on the clinical course. Thank you very much for allowing us to participate in the care of the patient. Katie Corrales MD
[2017-11-25 05:48] LABS: ARTERIAL BLOOD GAS HEMOGLOBIN 10.3 g/dL (11.7-17.4); ARTERIAL BLOOD GAS O2 CAPACITY 14.5 mL/dl (16-24); ARTERIAL BLOOD GAS O2 CONTENT 14.3 ML/dl (15-23); ARTERIAL BLOOD GAS O2 SAT 98.9 % (95-98); ARTERIAL BLOOD GAS PCO2 38 mm/Hg (35-45); ARTERIAL BLOOD GAS PH 7.39 (7.35-7.45); ARTERIAL BLOOD GAS TCO2 24.2 mmol.L (22-28)
[2017-11-25] MEDS: Metoprolol 1 mg/ml Inj IV SCH ×4 (06:20→22:59)
[2017-11-25 06:56] LABS: BASO # 0.01 K/mm3 (0.0-2.0); BASO % 0.1 % (0.0-3.0); GRAN # 10.45 (1.4-6.5); GRAN % 81.8 % (50.0-68.0); HEMOGLOBIN 10.7 g/dL (14.0-18.0); LYMPH # 1.1 (1.2-3.4); LYMPH % 8.3 % (22.0-35.0); MEAN CELL VOLUME 83.4 fl (80.0-105.0); MEAN CORPUSCULAR HEMOGLOBIN 26.2 pg (25.0-35.0); MEAN CORPUSCULAR HGB CONC 31.4 g/dl (31.0-37.0); MONO # 1.3 (0.1-0.6); MONO % 9.8 % (1.0-6.0); RBC 4.09 10^6/uL (3.5-6.1); RED CELL DISTRIBUTION WIDTH 18.4 % (11.5-14.5); WHITE BLOOD COUNT 12.8 10^3/ul (4.5-11.0)
--- NOTE | 2017-11-25 07:29 | CP.PCM.PN ---
Subjective - Date & Time of Evaluation Date of Evaluation: 11/25/17 Time of Evaluation: 07:24 - Subjective Subjective: CT Surgery: Dr Emerson Pt S&E. Remains intubated, no sedation. Nods appropriately. Pain on left side. Plan is for repeat EGD today w/ GI. No air leak. 120cc/24hours. Objective - Vital Signs/Intake and Output Vital Signs (last 24 hours): Temp Pulse Resp BP Pulse Ox 97.9 F 50 L 18 143/55 L 100 11/25/17 04:00 11/25/17 06:26 11/23/17 16:28 11/25/17 06:26 11/25/17 06:26 Intake and Output: 11/25/17 11/25/17 06:59 18:59 Intake Total 1200 Output Total 50 Balance 1150 - Medications Medications: Current Medications Digoxin (Digoxin) 0.125 mg PO 1400 [facility] Last Admin: 11/24/17 14:37 Dose: Not Given Hydromorphone HCl (Dilaudid) 1 mg IVP Q4 PRN PRN Reason: Pain, severe (8-10) Last Admin: 11/24/17 21:29 Dose: 1 mg Pantoprazole Sodium (Protonix 40mg Ivpb) 40 mg in 100 mls @ 20 mls/hr IVPB .Q5H [facility] Last Admin: 11/25/17 06:42 Dose: 20 mls/hr Dextrose/Sodium Chloride (Dextrose 5%/0.45% Ns 1000 Ml) 1,000 mls @ 75 mls/hr IV .[id number] [facility] Last Admin: 11/24/17 07:30 Dose: 75 mls/hr Insulin Human Lispro (Humalog Med) 0 units SC ACHS [facility] PRN Reason: Protocol Last Admin: 11/24/17 22:22 Dose: Not Given Metoprolol Succinate (Toprol Xl) 25 mg PO BRK [facility] Last Admin: 11/23/17 09:15 Dose: Not Given Metoprolol Tartrate (Lopressor) 5 mg IV Q6H [facility] Last Admin: 11/25/17 06:20 Dose: 5 mg - Labs Labs: 11/25/17 05:50 11/24/17 05:20 PT 15.9 SECONDS (9.4-12.5) H 11/22/17 06:42 INR 1.37 (0.93-1.08) H 11/22/17 06:42 APTT 19.9 Seconds (25.1-36.5) L 11/22/17 06:42 - Constitutional Appears: Non-toxic, No Acute Distress - Eye Exam Eye Exam: Normal appearance - ENT Exam ENT Exam: Mucous Membranes Moist - Respiratory Exam Respiratory Exam: absent: Accessory Muscle Use, Respiratory Distress - Cardiovascular Exam Cardiovascular Exam: REGULAR RHYTHM. absent: Tachycardia Additional comments: ct dressing c/d/i - GI/Abdominal Exam GI & Abdominal Exam: Soft. absent: Distended, Firm, Tenderness - Neurological Exam Neurological Exam: Alert, Awake - Psychiatric Exam Psychiatric exam: Normal Affect - Skin Skin Exam: Normal Color Assessment and Plan - Assessment and Plan (Free Text) Assessment: 67M with libia-byrd tear Plan: repeat EGD today if no stigmata of repeat bleeding, pt clear for extubation from CT surgery will cont to follow d/w Dr Idania Bhardwaj, PGY3
[2017-11-25 07:34] LABS: ALB/GLOB RATIO 0.9 (1.1-1.8); ALBUMIN 2.9 g/dL (3.0-4.8); ALT/SGPT 25 U/L (7-56); AST/SGOT 33 U/L (17-59); BLOOD UREA NITROGEN 35 mg/dL (7-21); CALCIUM 9.4 mg/dL (8.4-10.5); GFR AFRICAN-AMERICAN > 60; GFR NON-AFRICAN AMERICAN > 60
[2017-11-25] MEDS: Insulin Lispro (humaLOG) MEDIUM Coverage SC SCH ×4 (07:43→23:06)
--- NOTE | 2017-11-25 08:13 | CON ---
DATE: 11/21/2017 This is an addendum to the consultation report dictated by SASHA Becker. HISTORY OF PRESENT ILLNESS: This is a 67-year-old patient with past medical history of coronary artery disease, status post PCI, had a stent placement on 07/28/2017, on Effient and aspirin, was brought to the emergency room with episodes of vomiting coffee-ground material. The patient's hemoglobin was 10.1. The patient's INR was found to be 1.46 and PTT was 16.9. The patient had a CT scan of the abdomen and pelvis done, was found to have massively distended stomach. NG tube was placed for decompression in the ER. The patient felt better post, had a coffee-ground vomit, aspirate NG tube. The patient remained hemodynamically stable at that time and the patient was brought to the emergency room for endoscopy and evaluation. PHYSICAL EXAMINATION: HEART: S1 and S2 heard. LUNGS: Bilateral air entry present. ABDOMEN: Soft. LABORATORY DATA: Hemoglobin 10.1, hematocrit 32.4, WBC 7.2, platelets 459. Chemistry: BUN 16, creatinine 1.6. LFTs otherwise normal. IMPRESSION: Gastrointestinal bleeding, episodes of vomiting, grossly distended stomach, rule out Allison-Pierce tear. reviewed, discussed with patient and informed consent was obtained. The patient was brought to the endoscopy unit, had an EGD done, was found to have a linear tear noticed in the mid to distal esophageal area with active bleeding noticed. Stomach appears to be distended with some clotted blood. No bleeding noticed in the stomach area. The patient was injected with epinephrine. The patient's active bleeding stopped. Gentle washing, has adherent clot at that time, . Intensive care and surgical consult were called and thoracic surgical consult was also called. Discussed with primary physician. The patient will be transferred to the ICU. Thank you very much for allowing us to participate in the care of the patient. Katie Corrales MD
[2017-11-25] MEDS ORDERED: Propofol 10 mg/ml Inj (20 ML) ONE (08:36)
--- NOTE | 2017-11-25 09:29 | PQF RESP ---
This form is a permanent part of the medical record Clarification of your documentation is requested to better reflect the severity of illness and intensity of treatment of your patient. Indicators present Documentation of "respiratory failure requiring vent support " needs further clarification of acuity & type of respiratory failure to best reflect severity of illness & intensity of treatment. Thank- you [] Use of Home Oxygen [] Respiratory rate > 28 or <8/min (Labored respirations) [] PCO2 > 50 mm Hg or (Hypercapnia) (somnolence) [] PaO2 < 60 mm Hg or Hypoxemia (confusion) [] ABG blood gas pH < 7.35 [] SpO2 < 90% sat on Room Air [] Cyanosis [] Unable to Speak in Full Sentences [] Use of Accessory Muscles / Tripoding [] Wheezing [] Other: [] Location in the medical record that reflects the above clinical findings: [] Pul Progress notes Treatment Provided: [] Intubation & vent PHYSICIAN'S RESPONSE Based on your medical judgment of the clinical indicators outlined above, are you treating this patient for a known or suspected: [] Acute Respiratory Failure (hypoxia or hypercapnia) [] Chronic Respiratory Failure (hypoxia or hypercapnia) [] Acute on Chronic Respiratory Failure (hypoxia or hypercapnia) [] Hypoxemia please specify ACUTE, CHRONIC or ACUTE on CHRONIC [] Other []_ [] If unable to determine, please check the box, sign and date. Present On Admission (POA) Indicator: [] Present at the time of admission [] Not present at the time of admission [] Clinically Undetermined In responding to this query, please exercise your independent professional judgment. The fact that a question is asked does not imply that any particular answer is desired or expected. Thank you for your clarification on this documentation. If you have any questions please call:[ ][phone] * Thank you, [ ] Gita Camacho RN CDS foreign exchange position clerk Chronic Respiratory Failure Description: Respiratory failure is a syndrome in which the respiratory system fails in one or both of its gas exchange functions: oxygenation and carbon dioxide elimination. In theory, respiratory failure is defined as a Pa02 value of <60 mm/Hg or a PaC02 of >50 mm/Hg. However, these values may be affected by renal compensation. Respiratory failure may be acute or chronic. While acute respiratory failure is characterized by life-threatening derangement in arterial blood gases and acid-base balance, the manifestations of chronic respiratory failure are less dramatic and may not be as readily apparent. Classifications: Respiratory failure may be classified as hypoxemic (usually characterized by Pa02 of <60 mm/Hg) or hypercapnic (usually characterized by PaC02 >50 mm/Hg) and either may be acute or chronic. Chronic hypercapnic respiratory failure develops over time and allows for renal compensation and an increase in bicarbonate concentration; therefore the pH is usually only slightly decreased. The distinction between acute and chronic hypoxemic respiratory failure cannot readily be made on the basis of ABGs; the clinical markers of chronic hypoxemia, such as polythycemia or cor pulmonale suggest a long standing disorder (chronic hypoxemic respiratory failure). Clinical Indicators: dyspnea at rest or "chronic" dyspnea, concomitant conditions such as polycythemia or cor pulmonale, requirement for continuous oxygen support, forced expiratory volume in one second (FEV1) of 49 or less, pursed lip breathing, "barrel" chest, hyperinflation by CXR, muscle wasting, malnutrition/obesity, poor exercise capacity, peripheral edema, description as a "blue bloater" (usually associated with chronic, obstructive bronchitis) or "pink puffer" (usually associated with emphysema) Risks: Chronic Hypoxemic Respiratory Failure - COPD, pulmonary fibrosis, asthma , pulmonary arterial hypertension, granulomatous lung diseases, congenital heart disease, bronchiectasis, kyphoscoliosis, obesity; Chronic Hypercapnic Respiratory Failure - COPD, severe asthma, myasthenia gravis, polyneuropathy, polio, head and cervical spine injuries, obesity hypoventilation syndrome. Treatment: supplemental oxygen, bronchodilators, corticosteroids, adequate nutrition, lung transplant References: Am. J. Respir. Crit. Care Med. "Global Strategy for the Diagnosis, Management and Prevention of COPD: GOLD Exectuive Summary," Marco Lopez Anzueto - 2007; Proceedings of the [place] [employer] "Mechanisms and Measurements of Dyspnea in COPD," Jamee - 2006; WebMD; Respiratory Failure, Andrei Conley MD - 02/2006; Armando's Principles of Internal Medicine, 17th edition. Acute Respiratory Failure Acute Respiratory Failure indicators include: ~Respirations >28 ~Air hunger ~Use of accessory muscles of respiration ~Inability to speak in full sentences Cyanosis ~Pulse ox <90% RA or <95% on O2 pH <7.35 or >7.45 ~pO2 < 60 mm Hg (or 10mm below COPD patient's baseline) ~pCO2 >50mm Hg (or 10mm above COPD patient's baseline) "Respiratory failure may be assigned as a principal diagnosis when it is the condition established after study to be chiefly responsible for occasioning admission to the hospital. The fact that the respiratory failure was managed without intubation and mechanical ventilation does not preclude its use." [facility], 3rd Qtr., 1988, p. 7 MTDD
--- NOTE | 2017-11-25 09:41 | RAD ---
HISTORY: chest tube COMPARISON: 11/24/2017. FINDINGS: The endotracheal tube terminates 3 cm proximal to the lyly. There is a left chest tube. LUNGS: The right lung is clear. There is airspace disease in the left lower lobe. PLEURA: Small left pleural effusion, no pneumothorax apparent. CARDIOVASCULAR: There is persistent mild cardiomegaly. Stable position of left-sided unipolar permanent pacing device. OSSEOUS STRUCTURES: No significant abnormalities. VISUALIZED UPPER ABDOMEN: Normal. OTHER FINDINGS: None. IMPRESSION: Endotracheal tube terminates 3 cm proximal to the lyly. Left chest tube remains in place. Small left pleural effusion. Left lower lobe airspace disease.
--- NOTE | 2017-11-25 09:44 | CP.CCUPN ---
<Remy Resendez - Last Filed: 11/25/17 11:57> CCU Subjective - Physician Review Subjective (Free Text): 11/24/17 11:18 Patient seen and examined at bedside in no acute distress.Patient has been extubated and has an appetite. Patient states he has a slight cough. Patient is able to communicate. Denies fevers, chills, nausea, vomiting, diarrhea, shortness of breath, abdominal pain, chest pain. CCU Objective - Vital Signs / Intake & Output Vital Signs (Last 4 hours): Vital Signs Temp Pulse Resp BP Pulse Ox 11/25/17 08:22 66 156/61 H 100 11/25/17 08:07 100 11/25/17 08:00 98.2 F 66 22 156/61 H 100 11/25/17 07:00 67 158/57 H 100 11/25/17 06:26 50 L 143/55 L 100 11/25/17 06:20 62 143/55 L 11/25/17 06:00 50 L 125/47 L 100 11/25/17 05:00 53 L 139/50 L 100 Intake and Output (Last 8hrs): Intake & Output 11/24/17 11/25/17 11/25/17 22:59 06:59 14:59 Intake Total 1580 1200 Output Total 670 50 Balance 910 1150 Weight 79.016 kg Intake: IV 1140 1200 LEFT ARM 1140 1200 Other 440 Output: Chest Tube Drainage 70 50 Left Mid-Axillary Chest 70 50 Urine 600 Urethral (Gallardo) 600 Other: # Bowel Movements 0 2 - Physical Exam Head: Positive for: Atraumatic, Normocephalic. Negative for: Tenderness Pupils: Positive for: PERRL. Negative for: Non-Reactive Extroacular Muscles: Positive for: EOMI Conjunctiva: Positive for: Normal Mouth: Positive for: Moist Mucous Membranes Neck: Positive for: Normal Range of Motion Respiratory/Chest: Positive for: Good Air Exchange, Rhonchi. Negative for: Clear to Auscultation, Respiratory Distress, Accessory Muscle Use, Wheezes, Decreased Breath Sounds, Rales Cardiovascular: Positive for: Regular Rate and Rhythm, Normal S1, S2. Negative for: Murmurs Abdomen: Positive for: Normal Bowel Sounds. Negative for: Tenderness, Distention, Peritoneal Signs Back: Positive for: Normal Inspection Upper Extremity: Positive for: Normal Inspection. Negative for: Cyanosis, Edema Lower Extremity: Positive for: Normal Inspection. Negative for: Edema Neurological: Positive for: GCS=15, Speech Normal (does not have his dentures in place) Skin: Positive for: Warm, Dry, Normal Color. Negative for: Rashes, Diaphoretic Psychiatric: Positive for: Alert, Oriented x 3, Normal Insight, Normal Concentration - Medications Active Medications: Active Medications Generic Name Dose Route Start Last Admin Trade Name Freq PRN Reason Stop Dose Admin Aspirin 81 mg 11/25/17 10:00 Ecotrin PO DAILY [facility] Digoxin 0.125 mg 11/21/17 14:00 11/24/17 14:37 Digoxin PO Not Given 1400 [facility] Hydromorphone HCl 1 mg 11/21/17 20:30 11/24/17 21:29 Dilaudid IVP 1 mg Q4 PRN Administration Pain, severe (8-10) Pantoprazole Sodium 40 mg in 100 mls @ 20 mls/hr 11/21/17 05:15 11/25/17 06: 42 Protonix 40mg Ivpb IVPB 20 mls/hr .Q5H MISSY Administration Lactated Ringer's 1,000 ml/ IV 1,000 mls @ 150 mls/hr 11/25/17 08:25 08:42 SUPPLIES IV 11/25/17 15:04 150 mls/hr ONCE ONE Administration Insulin Human Lispro 0 units 11/21/17 11:30 11/25/17 07:43 Humalog Med SC Not Given ACHS [facility] Protocol Metoprolol Succinate 25 mg 11/21/17 11:00 11/23/17 09:15 Toprol Xl PO Not Given BRK [facility] Metoprolol Tartrate 5 mg 11/21/17 17:30 11/25/17 06:20 Lopressor IV 5 mg Q6H MISSY Administration Pantoprazole Sodium 40 mg 11/25/17 10:00 Protonix Inj IVP Q12 MISSY - Patient Studies Lab Studies: Lab Studies 11/25/17 11/25/17 11/25/17 Range/Units 07:32 05:50 05:50 WBC 12.8 H (4.5-11.0) 10^3/ul RBC 4.09 (3.5-6.1) 10^6/uL Hgb 10.7 L (14.0-18.0) g/dL Hct 34.1 L (42.0-52.0) % MCV 83.4 (80.0-105.0) fl MCH 26.2 (25.0-35.0) pg MCHC 31.4 (31.0-37.0) g/dl RDW 18.4 H (11.5-14.5) % Plt Count 222 (120.0-450.0) 10^3/uL MPV 10.0 (7.0-11.0) fl Gran % 81.8 H (50.0-68.0) % Lymph % (Auto) 8.3 L (22.0-35.0) % [place] % (Auto) 9.8 H (1.0-6.0) % Eos % (Auto) 0.0 L (1.5-5.0) % Baso % (Auto) 0.1 (0.0-3.0) % Gran # 10.45 H (1.4-6.5) Lymph # (Auto) 1.1 L (1.2-3.4) [place] # (Auto) 1.3 H (0.1-0.6) Eos # (Auto) 0.0 (0.0-0.7) Baso # (Auto) 0.01 (0.0-2.0) K/mm3 pCO2 (35-45) mm/Hg pO2 (80-100) mm/Hg HCO3 (21-28) mmol/L ABG pH (7.35-7.45) ABG Total CO2 (22-28) mmol.L ABG O2 Saturation (95-98) % ABG O2 Content (15-23) ML/dl ABG Base Excess (-2.0-3.0) mmol/L ABG Hemoglobin (11.7-17.4) g/dL ABG Carboxyhemoglobin (0.5-1.5) % POC ABG HHb (Measured) (0-5) % ABG Methemoglobin (0.0-3.0) % ABG O2 Capacity (16-24) mL/dl Hgb O2 Saturation (95.0-98.0) % FiO2 % Sodium 150 H (132-148) mmol/L Potassium 4.3 (3.6-5.0) mmol/L Chloride 117 H (98-107) mmol/L Carbon Dioxide 23 (21-33) mmol/L Anion Gap 14 (10-20) BUN 35 H (7-21) mg/dL Creatinine 0.9 (0.8-1.5) mg/dl Est GFR ( Amer) > 60 Est GFR (Non-Af Amer) > 60 POC Glucose (mg/dL) 234 H (65-110) mg/dL Random Glucose 243 H (70-110) mg/dL Calcium 9.4 (8.4-10.5) mg/dL Phosphorus 2.2 L (2.5-4.5) mg/dL Magnesium 2.6 H (1.7-2.2) mg/dL Total Bilirubin 0.6 (0.2-1.3) mg/dL AST 33 (17-59) U/L ALT 25 (7-56) U/L Alkaline Phosphatase 46 (38-126) U/L Total Protein 6.1 (5.8-8.3) g/dL Albumin 2.9 L (3.0-4.8) g/dL Globulin 3.2 gm/dL Albumin/Globulin Ratio 0.9 L (1.1-1.8) 11/25/17 11/24/17 11/24/17 Range/Units 05:40 21:57 16:29 WBC (4.5-11.0) 10^3/ul RBC (3.5-6.1) 10^6/uL Hgb (14.0-18.0) g/dL Hct (42.0-52.0) % MCV (80.0-105.0) fl MCH (25.0-35.0) pg MCHC (31.0-37.0) g/dl RDW (11.5-14.5) % Plt Count (120.0-450.0) 10^3/uL MPV (7.0-11.0) fl Gran % (50.0-68.0) % Lymph % (Auto) (22.0-35.0) % [place] % (Auto) (1.0-6.0) % Eos % (Auto) (1.5-5.0) % Baso % (Auto) (0.0-3.0) % Gran # (1.4-6.5) Lymph # (Auto) (1.2-3.4) [place] # (Auto) (0.1-0.6) Eos # (Auto) (0.0-0.7) Baso # (Auto) (0.0-2.0) K/mm3 pCO2 38 (35-45) mm/Hg pO2 127.0 H (80-100) mm/Hg HCO3 23.0 (21-28) mmol/L ABG pH 7.39 (7.35-7.45) ABG Total CO2 24.2 (22-28) mmol.L ABG O2 Saturation 98.9 H (95-98) % ABG O2 Content 14.3 L (15-23) ML/dl ABG Base Excess -1.7 (-2.0-3.0) mmol/L ABG Hemoglobin 10.3 L (11.7-17.4) g/dL ABG Carboxyhemoglobin 1.6 H (0.5-1.5) % POC ABG HHb (Measured) 1.1 (0-5) % ABG Methemoglobin 0.5 (0.0-3.0) % ABG O2 Capacity 14.5 L (16-24) mL/dl Hgb O2 Saturation 96.8 (95.0-98.0) % FiO2 40.0 % Sodium (132-148) mmol/L Potassium (3.6-5.0) mmol/L Chloride (98-107) mmol/L Carbon Dioxide (21-33) mmol/L Anion Gap (10-20) BUN (7-21) mg/dL Creatinine (0.8-1.5) mg/dl Est GFR ( Amer) Est GFR (Non-Af Amer) POC Glucose (mg/dL) 214 H 242 H (65-110) mg/dL Random Glucose (70-110) mg/dL Calcium (8.4-10.5) mg/dL Phosphorus (2.5-4.5) mg/dL Magnesium (1.7-2.2) mg/dL Total Bilirubin (0.2-1.3) mg/dL AST (17-59) U/L ALT (7-56) U/L Alkaline Phosphatase (38-126) U/L Total Protein (5.8-8.3) g/dL Albumin (3.0-4.8) g/dL Globulin gm/dL Albumin/Globulin Ratio (1.1-1.8) 11/24/17 11/24/17 Range/Units 11:15 07:57 WBC (4.5-11.0) 10^3/ul RBC (3.5-6.1) 10^6/uL Hgb (14.0-18.0) g/dL Hct (42.0-52.0) % MCV (80.0-105.0) fl MCH (25.0-35.0) pg MCHC (31.0-37.0) g/dl RDW (11.5-14.5) % Plt Count (120.0-450.0) 10^3/uL MPV (7.0-11.0) fl Gran % (50.0-68.0) % Lymph % (Auto) (22.0-35.0) % [place] % (Auto) (1.0-6.0) % Eos % (Auto) (1.5-5.0) % Baso % (Auto) (0.0-3.0) % Gran # (1.4-6.5) Lymph # (Auto) (1.2-3.4) [place] # (Auto) (0.1-0.6) Eos # (Auto) (0.0-0.7) Baso # (Auto) (0.0-2.0) K/mm3 pCO2 (35-45) mm/Hg pO2 (80-100) mm/Hg HCO3 (21-28) mmol/L ABG pH (7.35-7.45) ABG Total CO2 (22-28) mmol.L ABG O2 Saturation (95-98) % ABG O2 Content (15-23) ML/dl ABG Base Excess (-2.0-3.0) mmol/L ABG Hemoglobin (11.7-17.4) g/dL ABG Carboxyhemoglobin (0.5-1.5) % POC ABG HHb (Measured) (0-5) % ABG Methemoglobin (0.0-3.0) % ABG O2 Capacity (16-24) mL/dl Hgb O2 Saturation (95.0-98.0) % FiO2 % Sodium (132-148) mmol/L Potassium (3.6-5.0) mmol/L Chloride (98-107) mmol/L Carbon Dioxide (21-33) mmol/L Anion Gap (10-20) BUN (7-21) mg/dL Creatinine (0.8-1.5) mg/dl Est GFR ( Amer) Est GFR (Non-Af Amer) POC Glucose (mg/dL) 252 H 239 H (65-110) mg/dL Random Glucose (70-110) mg/dL Calcium (8.4-10.5) mg/dL Phosphorus (2.5-4.5) mg/dL Magnesium (1.7-2.2) mg/dL Total Bilirubin (0.2-1.3) mg/dL AST (17-59) U/L ALT (7-56) U/L Alkaline Phosphatase (38-126) U/L Total Protein (5.8-8.3) g/dL Albumin (3.0-4.8) g/dL Globulin gm/dL Albumin/Globulin Ratio (1.1-1.8) Laboratory Results - last 24 hr 11/24/17 11/24/17 11/24/17 07:57 11:15 16:29 WBC RBC Hgb Hct MCV MCH MCHC RDW Plt Count MPV Gran % Lymph % (Auto) [place] % (Auto) Eos % (Auto) Baso % (Auto) Gran # Lymph # (Auto) [place] # (Auto) Eos # (Auto) Baso # (Auto) pCO2 pO2 HCO3 ABG pH ABG Total CO2 ABG O2 Saturation ABG O2 Content ABG Base Excess ABG Hemoglobin ABG Carboxyhemoglobin POC ABG HHb (Measured) ABG Methemoglobin ABG O2 Capacity Hgb O2 Saturation FiO2 Sodium Potassium Chloride Carbon Dioxide Anion Gap BUN Creatinine Est GFR ( Amer) Est GFR (Non-Af Amer) POC Glucose (mg/dL) 239 H 252 H 242 H Random Glucose Calcium Phosphorus Magnesium Total Bilirubin AST ALT Alkaline Phosphatase Total Protein Albumin Globulin Albumin/Globulin Ratio 11/24/17 11/25/17 11/25/17 21:57 05:40 05:50 WBC 12.8 H RBC 4.09 Hgb 10.7 L Hct 34.1 L MCV 83.4 MCH 26.2 MCHC 31.4 RDW 18.4 H Plt Count 222 MPV 10.0 Gran % 81.8 H Lymph % (Auto) 8.3 L [place] % (Auto) 9.8 H Eos % (Auto) 0.0 L Baso % (Auto) 0.1 Gran # 10.45 H Lymph # (Auto) 1.1 L [place] # (Auto) 1.3 H Eos # (Auto) 0.0 Baso # (Auto) 0.01 pCO2 38 pO2 127.0 H HCO3 23.0 ABG pH 7.39 ABG Total CO2 24.2 ABG O2 Saturation 98.9 H ABG O2 Content 14.3 L ABG Base Excess -1.7 ABG Hemoglobin 10.3 L ABG Carboxyhemoglobin 1.6 H POC ABG HHb (Measured) 1.1 ABG Methemoglobin 0.5 ABG O2 Capacity 14.5 L Hgb O2 Saturation 96.8 FiO2 40.0 Sodium Potassium Chloride Carbon Dioxide Anion Gap BUN Creatinine Est GFR ( Amer) Est GFR (Non-Af Amer) POC Glucose (mg/dL) 214 H Random Glucose Calcium Phosphorus Magnesium Total Bilirubin AST ALT Alkaline Phosphatase Total Protein Albumin Globulin Albumin/Globulin Ratio 11/25/17 11/25/17 05:50 07:32 WBC RBC Hgb Hct MCV MCH MCHC RDW Plt Count MPV Gran % Lymph % (Auto) [place] % (Auto) Eos % (Auto) Baso % (Auto) Gran # Lymph # (Auto) [place] # (Auto) Eos # (Auto) Baso # (Auto) pCO2 pO2 HCO3 ABG pH ABG Total CO2 ABG O2 Saturation ABG O2 Content ABG Base Excess ABG Hemoglobin ABG Carboxyhemoglobin POC ABG HHb (Measured) ABG Methemoglobin ABG O2 Capacity Hgb O2 Saturation FiO2 Sodium 150 H Potassium 4.3 Chloride 117 H Carbon Dioxide 23 Anion Gap 14 BUN 35 H Creatinine 0.9 Est GFR ( Amer) > 60 Est GFR (Non-Af Amer) > 60 POC Glucose (mg/dL) 234 H Random Glucose 243 H Calcium 9.4 Phosphorus 2.2 L Magnesium 2.6 H Total Bilirubin 0.6 AST 33 ALT 25 Alkaline Phosphatase 46 Total Protein 6.1 Albumin 2.9 L Globulin 3.2 Albumin/Globulin Ratio 0.9 L Fingerstick Blood Sugar Results: 234 Review of Systems - Constitutional Constitutional: absent: Fever, Chills - EENT Eyes: UNREMARKABLE Ears: UNREMARKABLE - Cardiovascular Cardiovascular: UNREMARKABLE. absent: Chest Pain, Dyspnea - Respiratory Respiratory: Cough, Chest Congestion - Gastrointestinal Gastrointestinal: UNREMARKABLE. absent: Diarrhea, Nausea, Vomiting - Genitourinary Genitourinary: UNREMARKABLE - Musculoskeletal Musculoskeletal: UNREMARKABLE - Integumentary Integumentary: UNREMARKABLE - Neurological Neurological: UNREMARKABLE. absent: Confusion, Dizziness, Numbness - Psychiatric Psychiatric: UNREMARKABLE. absent: Change in Appetite - Endocrine Endocrine: UNREMARKABLE. absent: Fatigue Critical Care Progress Note - Nutrition Nutrition: Nutrition Category Date Time Status Dysphagia/Modified Consistency Diet [DIET] Diets 11/26/17 Breakfast Ordered Liquid Diet [DIET] Diets 11/25/17 Breakfast Ordered Assessment/Plan - Assessment and Plan (Free Text) Assessment: 67 M h/o CAD with multiple stents on prasugrel and aspirin, STEMI, NSTEMI, COPD , NIDDM, hyperlipidemia presenting with complaints of 2 hour duration vomiting and diarrhea that had been dark in color. Patients hemoglobin was 10, baseline 11. GI recommended transfusion of [address] abdomen was done which revealed massive gastric dilation without obstruction. GI then recommended NG tube to suction stomach contents. Patient had undergone prior studies to evaluate for esophageal perforation, thoracotomy was performed which revealed no perforation. Endoscopy however showed esophageal mucosal tear with an active bleed which was treated with epinephrine; hemostasis was obtained. Despite intervention by GI, patient's H&H continues to remain unstable. Patient will undergo another endoscopy for evaluation of possible re-bleed of tear prior to extubation. Plan: Neurologic -Alert, awake, and oriented x 3. Patient is not currently sedated despite intubation due to patient's compliance. -Dilaudid for pain control Cardiovascular -Continue lopressor 5 mg IV q6h for control of hypertension -Toprol XL 25 mg PO on hold -Continue to hold off on prasugrel due to GI bleed and continue to monitor closely. -Resume aspirin due to recent stent placement -Echocardiogram reveals mild concentric left ventricular hypertrophy, EF 40-45% , trace pericardial effusion, no vegetation or thrombus noted. -Continue with digoxin Respiratory -Patient extubated, placed on NC -Chest tube in place; currently has bloody drainage; will be removed today -Repeat CXR revealed no significant pleural effusion, nor pneumothorax with no change in left chest tube or endotracheal tube Renal/Fluids -Clear liquid diet today, pureed diet tomorrow -Urine Input 2780 and output 720 Gastrointestinal/Nutrition -Clear liquid diet -Endoscopy performed reveals ulceration, gastritis, duodenitis Endocrine -ISS-med -Maintain euglycemia Hematologic -H&H 10.7 & 34.1 -Platelet count 222 -WBC 12.8 -EGD reveals no re-bleed of esophageal tear <Michelet Rascon - Last Filed: 11/25/17 15:42> CCU Objective - Vital Signs / Intake & Output Vital Signs (Last 4 hours): Vital Signs Temp Pulse Resp BP Pulse Ox 11/25/17 14:00 52 L 11 L 132/52 L 100 11/25/17 13:00 50 L 22 135/55 L 100 11/25/17 12:00 97.5 F L 71 18 147/64 100 11/25/17 11:46 53 L Intake and Output (Last 8hrs): Intake & Output 11/25/17 11/25/17 11/25/17 06:59 14:59 22:59 Intake Total 1200 Output Total 50 Balance 1150 Weight 174 lb 3.2 oz Intake: IV 1200 LEFT ARM 1200 Output: Chest Tube Drainage 50 Left Mid-Axillary Chest 50 Other: # Bowel Movements 2 - Medications Active Medications: Active Medications Generic Name Dose Route Start Last Admin Trade Name Freq PRN Reason Stop Dose Admin Aspirin 81 mg 11/25/17 10:00 11/25/17 12:22 Ecotrin PO 81 mg DAILY [facility] Administration Digoxin 0.125 mg 11/21/17 14:00 11/25/17 14:03 Digoxin PO Not Given 1400 [facility] Insulin Human Lispro 0 units 11/21/17 11:30 11/25/17 12:22 Humalog Med SC 3 units ACHS [facility] Administration Protocol Metoprolol Succinate 25 mg 11/21/17 11:00 11/23/17 09:15 Toprol Xl PO Not Given BRK [facility] Metoprolol Tartrate 5 mg 11/21/17 17:30 11/25/17 11:46 Lopressor IV Not Given Q6H [facility] Oxycodone/Acetaminophen 1 tab 11/25/17 15:18 Percocet 5/325 Mg Tab PO 11/28/17 15:19 Q6H PRN Pain, severe (8-10) Pantoprazole Sodium 40 mg 11/25/17 10:00 11/25/17 10:04 Protonix Inj IVP 40 mg Q12 MISSY Administration - Patient Studies Lab Studies: Lab Studies 11/25/17 11/25/17 11/25/17 Range/Units 11:16 07:32 05:50 WBC (4.5-11.0) 10^3/ul RBC (3.5-6.1) 10^6/uL Hgb (14.0-18.0) g/dL Hct (42.0-52.0) % MCV (80.0-105.0) fl MCH (25.0-35.0) pg MCHC (31.0-37.0) g/dl RDW (11.5-14.5) % Plt Count (120.0-450.0) 10^3/uL MPV (7.0-11.0) fl Gran % (50.0-68.0) % Lymph % (Auto) (22.0-35.0) % [place] % (Auto) (1.0-6.0) % Eos % (Auto) (1.5-5.0) % Baso % (Auto) (0.0-3.0) % Gran # (1.4-6.5) Lymph # (Auto) (1.2-3.4) [place] # (Auto) (0.1-0.6) Eos # (Auto) (0.0-0.7) Baso # (Auto) (0.0-2.0) K/mm3 pCO2 (35-45) mm/Hg pO2 (80-100) mm/Hg HCO3 (21-28) mmol/L ABG pH (7.35-7.45) ABG Total CO2 (22-28) mmol.L ABG O2 Saturation (95-98) % ABG O2 Content (15-23) ML/dl ABG Base Excess (-2.0-3.0) mmol/L ABG Hemoglobin (11.7-17.4) g/dL ABG Carboxyhemoglobin (0.5-1.5) % POC ABG HHb (Measured) (0-5) % ABG Methemoglobin (0.0-3.0) % ABG O2 Capacity (16-24) mL/dl Hgb O2 Saturation (95.0-98.0) % FiO2 % Sodium 150 H (132-148) mmol/L Potassium 4.3 (3.6-5.0) mmol/L Chloride 117 H (98-107) mmol/L Carbon Dioxide 23 (21-33) mmol/L Anion Gap 14 (10-20) BUN 35 H (7-21) mg/dL Creatinine 0.9 (0.8-1.5) mg/dl Est GFR ( Amer) > 60 Est GFR (Non-Af Amer) > 60 POC Glucose (mg/dL) 211 H 234 H (65-110) mg/dL Random Glucose 243 H (70-110) mg/dL Calcium 9.4 (8.4-10.5) mg/dL Phosphorus 2.2 L (2.5-4.5) mg/dL Magnesium 2.6 H (1.7-2.2) mg/dL Total Bilirubin 0.6 (0.2-1.3) mg/dL AST 33 (17-59) U/L ALT 25 (7-56) U/L Alkaline Phosphatase 46 (38-126) U/L Total Protein 6.1 (5.8-8.3) g/dL Albumin 2.9 L (3.0-4.8) g/dL Globulin 3.2 gm/dL Albumin/Globulin Ratio 0.9 L (1.1-1.8) 11/25/17 11/25/17 11/24/17 Range/Units 05:50 05:40 21:57 WBC 12.8 H (4.5-11.0) 10^3/ul RBC 4.09 (3.5-6.1) 10^6/uL Hgb 10.7 L (14.0-18.0) g/dL Hct 34.1 L (42.0-52.0) % MCV 83.4 (80.0-105.0) fl MCH 26.2 (25.0-35.0) pg MCHC 31.4 (31.0-37.0) g/dl RDW 18.4 H (11.5-14.5) % Plt Count 222 (120.0-450.0) 10^3/uL MPV 10.0 (7.0-11.0) fl Gran % 81.8 H (50.0-68.0) % Lymph % (Auto) 8.3 L (22.0-35.0) % [place] % (Auto) 9.8 H (1.0-6.0) % Eos % (Auto) 0.0 L (1.5-5.0) % Baso % (Auto) 0.1 (0.0-3.0) % Gran # 10.45 H (1.4-6.5) Lymph # (Auto) 1.1 L (1.2-3.4) [place] # (Auto) 1.3 H (0.1-0.6) Eos # (Auto) 0.0 (0.0-0.7) Baso # (Auto) 0.01 (0.0-2.0) K/mm3 pCO2 38 (35-45) mm/Hg pO2 127.0 H (80-100) mm/Hg HCO3 23.0 (21-28) mmol/L ABG pH 7.39 (7.35-7.45) ABG Total CO2 24.2 (22-28) mmol.L ABG O2 Saturation 98.9 H (95-98) % ABG O2 Content 14.3 L (15-23) ML/dl ABG Base Excess -1.7 (-2.0-3.0) mmol/L ABG Hemoglobin 10.3 L (11.7-17.4) g/dL ABG Carboxyhemoglobin 1.6 H (0.5-1.5) % POC ABG HHb (Measured) 1.1 (0-5) % ABG Methemoglobin 0.5 (0.0-3.0) % ABG O2 Capacity 14.5 L (16-24) mL/dl Hgb O2 Saturation 96.8 (95.0-98.0) % FiO2 40.0 % Sodium (132-148) mmol/L Potassium (3.6-5.0) mmol/L Chloride (98-107) mmol/L Carbon Dioxide (21-33) mmol/L Anion Gap (10-20) BUN (7-21) mg/dL Creatinine (0.8-1.5) mg/dl Est GFR ( Amer) Est GFR (Non-Af Amer) POC Glucose (mg/dL) 214 H (65-110) mg/dL Random Glucose (70-110) mg/dL Calcium (8.4-10.5) mg/dL Phosphorus (2.5-4.5) mg/dL Magnesium (1.7-2.2) mg/dL Total Bilirubin (0.2-1.3) mg/dL AST (17-59) U/L ALT (7-56) U/L Alkaline Phosphatase (38-126) U/L Total Protein (5.8-8.3) g/dL Albumin (3.0-4.8) g/dL Globulin gm/dL Albumin/Globulin Ratio (1.1-1.8) 11/24/17 11/24/17 11/24/17 Range/Units 16:29 11:15 07:57 WBC (4.5-11.0) 10^3/ul RBC (3.5-6.1) 10^6/uL Hgb (14.0-18.0) g/dL Hct (42.0-52.0) % MCV (80.0-105.0) fl MCH (25.0-35.0) pg MCHC (31.0-37.0) g/dl RDW (11.5-14.5) % Plt Count (120.0-450.0) 10^3/uL MPV (7.0-11.0) fl Gran % (50.0-68.0) % Lymph % (Auto) (22.0-35.0) % [place] % (Auto) (1.0-6.0) % Eos % (Auto) (1.5-5.0) % Baso % (Auto) (0.0-3.0) % Gran # (1.4-6.5) Lymph # (Auto) (1.2-3.4) [place] # (Auto) (0.1-0.6) Eos # (Auto) (0.0-0.7) Baso # (Auto) (0.0-2.0) K/mm3 pCO2 (35-45) mm/Hg pO2 (80-100) mm/Hg HCO3 (21-28) mmol/L ABG pH (7.35-7.45) ABG Total CO2 (22-28) mmol.L ABG O2 Saturation (95-98) % ABG O2 Content (15-23) ML/dl ABG Base Excess (-2.0-3.0) mmol/L ABG Hemoglobin (11.7-17.4) g/dL ABG Carboxyhemoglobin (0.5-1.5) % POC ABG HHb (Measured) (0-5) % ABG Methemoglobin (0.0-3.0) % ABG O2 Capacity (16-24) mL/dl Hgb O2 Saturation (95.0-98.0) % FiO2 % Sodium (132-148) mmol/L Potassium (3.6-5.0) mmol/L Chloride (98-107) mmol/L Carbon Dioxide (21-33) mmol/L Anion Gap (10-20) BUN (7-21) mg/dL Creatinine (0.8-1.5) mg/dl Est GFR ( Amer) Est GFR (Non-Af Amer) POC Glucose (mg/dL) 242 H 252 H 239 H (65-110) mg/dL Random Glucose (70-110) mg/dL Calcium (8.4-10.5) mg/dL Phosphorus (2.5-4.5) mg/dL Magnesium (1.7-2.2) mg/dL Total Bilirubin (0.2-1.3) mg/dL AST (17-59) U/L ALT (7-56) U/L Alkaline Phosphatase (38-126) U/L Total Protein (5.8-8.3) g/dL Albumin (3.0-4.8) g/dL Globulin gm/dL Albumin/Globulin Ratio (1.1-1.8) Laboratory Results - last 24 hr 11/24/17 11/24/17 11/24/17 07:57 11:15 16:29 WBC RBC Hgb Hct MCV MCH MCHC RDW Plt Count MPV Gran % Lymph % (Auto) [place] % (Auto) Eos % (Auto) Baso % (Auto) Gran # Lymph # (Auto) [place] # (Auto) Eos # (Auto) Baso # (Auto) pCO2 pO2 HCO3 ABG pH ABG Total CO2 ABG O2 Saturation ABG O2 Content ABG Base Excess ABG Hemoglobin ABG Carboxyhemoglobin POC ABG HHb (Measured) ABG Methemoglobin ABG O2 Capacity Hgb O2 Saturation FiO2 Sodium Potassium Chloride Carbon Dioxide Anion Gap BUN Creatinine Est GFR ( Amer) Est GFR (Non-Af Amer) POC Glucose (mg/dL) 239 H 252 H 242 H Random Glucose Calcium Phosphorus Magnesium Total Bilirubin AST ALT Alkaline Phosphatase Total Protein Albumin Globulin Albumin/Globulin Ratio 11/24/17 11/25/17 11/25/17 21:57 05:40 05:50 WBC 12.8 H RBC 4.09 Hgb 10.7 L Hct 34.1 L MCV 83.4 MCH 26.2 MCHC 31.4 RDW 18.4 H Plt Count 222 MPV 10.0 Gran % 81.8 H Lymph % (Auto) 8.3 L [place] % (Auto) 9.8 H Eos % (Auto) 0.0 L Baso % (Auto) 0.1 Gran # 10.45 H Lymph # (Auto) 1.1 L [place] # (Auto) 1.3 H Eos # (Auto) 0.0 Baso # (Auto) 0.01 pCO2 38 pO2 127.0 H HCO3 23.0 ABG pH 7.39 ABG Total CO2 24.2 ABG O2 Saturation 98.9 H ABG O2 Content 14.3 L ABG Base Excess -1.7 ABG Hemoglobin 10.3 L ABG Carboxyhemoglobin 1.6 H POC ABG HHb (Measured) 1.1 ABG Methemoglobin 0.5 ABG O2 Capacity 14.5 L Hgb O2 Saturation 96.8 FiO2 40.0 Sodium Potassium Chloride Carbon Dioxide Anion Gap BUN Creatinine Est GFR ( Amer) Est GFR (Non-Af Amer) POC Glucose (mg/dL) 214 H Random Glucose Calcium Phosphorus Magnesium Total Bilirubin AST ALT Alkaline Phosphatase Total Protein Albumin Globulin Albumin/Globulin Ratio 11/25/17 11/25/17 11/25/17 05:50 07:32 11:16 WBC RBC Hgb Hct MCV MCH MCHC RDW Plt Count MPV Gran % Lymph % (Auto) [place] % (Auto) Eos % (Auto) Baso % (Auto) Gran # Lymph # (Auto) [place] # (Auto) Eos # (Auto) Baso # (Auto) pCO2 pO2 HCO3 ABG pH ABG Total CO2 ABG O2 Saturation ABG O2 Content ABG Base Excess ABG Hemoglobin ABG Carboxyhemoglobin POC ABG HHb (Measured) ABG Methemoglobin ABG O2 Capacity Hgb O2 Saturation FiO2 Sodium 150 H Potassium 4.3 Chloride 117 H Carbon Dioxide 23 Anion Gap 14 BUN 35 H Creatinine 0.9 Est GFR ( Amer) > 60 Est GFR (Non-Af Amer) > 60 POC Glucose (mg/dL) 234 H 211 H Random Glucose 243 H Calcium 9.4 Phosphorus 2.2 L Magnesium 2.6 H Total Bilirubin 0.6 AST 33 ALT 25 Alkaline Phosphatase 46 Total Protein 6.1 Albumin 2.9 L Globulin 3.2 Albumin/Globulin Ratio 0.9 L Critical Care Progress Note - Nutrition Nutrition: Nutrition Category Date Time Status Dysphagia/Modified Consistency Diet [DIET] Diets 11/26/17 Breakfast Ordered Liquid Diet [DIET] Diets 11/25/17 Breakfast Ordered Attending/Attestation - Attestation I have personally seen and examined this patient.: Yes I have fully participated in the care of the patient.: Yes I have reviewed all pertinent clinical information: Yes Notes (Text): 11/25/17 15:[address] [email or web address] note
[2017-11-25] MEDS ORDERED: Albuterol-Ipratrop 3 mg / 0.5 (3 ml) UD IH ONE (12:30)
--- NOTE | 2017-11-25 13:13 | PN ---
DATE: 11/25/2017 SUBJECTIVE: The patient is seen and examined at bedside. He is comfortable, fully alert, awake, cooperating with commands. He is on PST 5/5 with FiO2 of 40% and was on that setting throughout the entire night. He is going to have EGD at bedside today. If no unexpected or extenuating findings are made, the patient will be extubated once sedation wears off. Night was uneventful. PHYSICAL EXAMINATION VITAL SIGNS: Temperature 98.2, heart rate 65, blood pressure 156/61, respiratory rate 22. Rapid shallow breathing index 40, and oxygen saturation 100%. ENT: Head and neck atraumatic. LUNGS: Clear to auscultation bilaterally. HEART: Regular rate and rhythm. S1, S2 normal. ABDOMEN: Soft, nontender, nondistended. MUSCULOSKELETAL: No C/C/E. NEUROLOGIC: The patient moves all extremities spontaneously. SKIN: Moist. PSYCHIATRIC: The patient is alert, awake and nonverbally communicating. LABORATORY DATA: Sodium 150 (D5 half-normal saline stopped, lactated Ringer started), potassium 4.3, chloride 117, carbon dioxide 23, BUN 35, creatinine 0.9, glucose 234, AST 33, ALT 25, total bilirubin 0.6, albumin 2.9. WBC 12.8, hemoglobin 10.7 (up from 10.2 without any blood transfusion), platelet count 222. Urine is negative for nitrites and leukocyte esterase. MEDICATIONS: Digoxin, Dilaudid p.r.n., and regular insulin sliding scale medium protocol, lactated Ringer, metoprolol 5 mg IV every 6 hours and Protonix drip. ASSESSMENT AND PLAN: This is a 67-year-old gentleman recovering from incomplete tear of the esophagus status post exploratory thoracatomy to rule out complete esophageal tear, which was ruled out. At present time, the patient will be undergoing second look esophagogastroduodenoscopy and hopefully extubated shortly afterward once sedation wears off. We switched the patient from D5 half-normal saline to lactated Ringer in light of hyperchloremia and hypernatremia as well as slightly elevated blood glucose. The patient indicated that he is hungry. After extubation, he will undergo swallow evaluation with hopefully initiation of oral nutrition and hydration if passed. We will continue with beta-blockers, Protonix drip until instructed otherwise by GI service. We will continue with DVT, GI prophylaxis. Addendum: patient is successfully extubated to MD, passed swallow eval and enjoyed his lunch. chest tube was removed shortly therafter by surgical service ccm time 40 min Michelet Meadows MD PAM
[2017-11-25] MEDS: Digoxin 125 mcg (0.125 mg) Tab PO SCH (14:03)
--- NOTE | 2017-11-25 15:03 | PN ---
DATE: REASON FOR CONSULTATION AND FOLLOWUP: Cardiac evaluation and followup, history of coronary artery disease, multiple stents, history of pacemaker, admitted with esophageal tear, status post intubated and status post left thoracotomy, on vent. SUBJECTIVE: The patient is awake and alert. Denies any chest pain. Communicating, although is intubated. OBJECTIVE: GENERAL: Not in apparent distress, wanted to get extubated. Explained the patient that we electively leaving him intubated until the esophageal tear heals. VITAL SIGNS: Temperature afebrile, heart rate 66, blood pressure 156/61. HEENT: PERRLA. Extraocular muscles intact. NECK: Supple. No carotid bruit or thyromegaly. CHEST: Clear to auscultation. HEART: S1 and S2, regular. ABDOMEN: Soft. EXTREMITIES: Clubbing and cyanosis negative. LABORATORY DATA: Blood workup as follows: WBC 12.8, hemoglobin 10.3, hematocrit 34.1, and platelet count 222. Chemistry shows sodium 150, potassium 4.3, chloride 117, carbon dioxide 23, anion gap of 14. BUN 35, creatinine 0.9. Total protein 6.1, albumin 2.9, albumin-globulin ratio 0.8. IMPRESSION: Protein-calorie malnutrition at present on admission, esophageal tear, gastrointestinal bleed, coronary artery disease, status post intubated, sick sinus syndrome, status post pacemaker. RECOMMENDATIONS: Continue IV hydralazine, continue digoxin. Patient was started on Ringer lactate . We will continue IV fluid for hypernatremia. Wean off the vent when cleared from GI. We will follow with you. Thank you, Dr. Tsai for providing us the opportunity in taking care of the patient, Karl Rueda. Ciera Sheikh MD
[2017-11-25] MEDS ORDERED: Oxycodone/Acetaminophen 5/325 mg Tab PO PRN (15:18)
--- NOTE | 2017-11-25 18:19 | RAD ---
HISTORY: s/p chest tube removal COMPARISON: November 25, 2017. Time of the most recent examination: 06:34. FINDINGS: LUNGS: Improved aeration of the left lung. PLEURA: Status post removal of chest tube in the left pleural space. There may be a tiny basilar pneumothorax. The finding is marked on the study for review. This is not felt to be clinically consequential. Trace subcutaneous emphysema. CARDIOVASCULAR: No radiographic findings to suggest acute or significant cardiovascular disease. Position/ configuration of pacemaker device: Satisfactory. OSSEOUS STRUCTURES: No significant abnormalities. VISUALIZED UPPER ABDOMEN: Normal. OTHER FINDINGS: Removal of support apparatus since the prior study: Endotracheal tube. IMPRESSION: Possible tiny basilar pneumothorax status post left chest tube removal.
--- NOTE | 2017-11-25 21:41 | PN ---
DATE: SUBJECTIVE: Patient is 67-year-old, seen and examined. He was extubated this morning. No nausea or vomiting. Enjoying his ice chips. PHYSICAL EXAMINATION: VITAL SIGNS: He is afebrile. Pulse 52, respirations 23, blood pressure 142/80. LUNGS: Bilateral fair airflow, decreased at left base. HEART: S1 and S2 audible. ABDOMEN: Soft. Nontender. No rebound. No guarding. NEUROLOGIC: Patient is awake and alert, oriented, able to communicate. EXTREMITIES: Bilateral legs, no edema. LABORATORY DATA: WBC 12.8, hemoglobin 10.7, hematocrit 34, platelets 222. Chemistries, sodium 150, potassium 4.3, chloride 117, CO2 of 23, BUN 35, creatinine 0.9, blood sugar of 311. ASSESSMENT: 1. Status post upper gastrointestinal bleed, status post repeat endoscopy this morning. Repeat endoscopy showed few superficial ulcers with no stigmata of bleeding; however, esophageal ulcer was not bleeding. 2. X-ray chest done today shows tiny basilar pneumothorax and left chest tube was also removed. 3. Coronary artery disease, status post angioplasty. 4. Hypertension. 5. Hyperlipidemia. 6. Non-insulin dependant diabetes. 7. Anemia. PLAN: Currently, patient is extubated. He is tolerating liquid diet. Continue digoxin, nebulizer treatment. We will advance diet after swallowing evaluation. We will follow CBC and CMP in a.m. Carlos Tsai MD
[2017-11-26] MEDS: Metoprolol 1 mg/ml Inj IV SCH (05:25)
[2017-11-26 06:53] LABS: BASO # 0.01 K/mm3 (0.0-2.0); BASO % 0.1 % (0.0-3.0); EOS # 0.1 (0.0-0.7); EOS % 0.4 % (1.5-5.0); GRAN # 8.94 (1.4-6.5); GRAN % 78.7 % (50.0-68.0); HEMOGLOBIN 11.3 g/dL (14.0-18.0); LYMPH # 1.2 (1.2-3.4); LYMPH % 10.8 % (22.0-35.0); MEAN CELL VOLUME 84.1 fl (80.0-105.0); MEAN CORPUSCULAR HEMOGLOBIN 26.1 pg (25.0-35.0); MEAN PLATELET VOLUME 10.5 fl (7.0-11.0); MONO # 1.1 (0.1-0.6); RBC 4.33 10^6/uL (3.5-6.1); RED CELL DISTRIBUTION WIDTH 18.5 % (11.5-14.5); WHITE BLOOD COUNT 11.4 10^3/ul (4.5-11.0)
[2017-11-26 07:30] LABS: ALBUMIN 3.1 g/dL (3.0-4.8); ALT/SGPT 29 U/L (7-56); AST/SGOT 28 U/L (17-59); BLOOD UREA NITROGEN 30 mg/dL (7-21); CALCIUM 9.8 mg/dL (8.4-10.5); GFR AFRICAN-AMERICAN > 60; GFR NON-AFRICAN AMERICAN > 60
[2017-11-26] MEDS: Insulin Lispro (humaLOG) MEDIUM Coverage SC SCH ×4 (08:41→22:00)
--- NOTE | 2017-11-26 11:26 | CP.PCM.PN ---
Subjective - Date & Time of Evaluation Date of Evaluation: 11/26/17 Time of Evaluation: 11:23 - Subjective Subjective: CT Surgery: Dr Emerson Pt S&E. OOB in chair. Extubated yesterday and CT removed. Saturating well. Tolerating a CLD with no nausea/vomiting. No bloody or maroon colored stools. Plan to step-down to med-surg. Objective - Vital Signs/Intake and Output Vital Signs (last 24 hours): Temp Pulse Resp BP Pulse Ox 97.7 F 50 L 14 148/61 100 11/26/17 04:00 11/26/17 10:00 11/26/17 10:00 11/26/17 10:00 11/26/17 10:00 Intake and Output: 11/26/17 11/26/17 06:59 18:59 Intake Total 460 Output Total 601 Balance -141 - Medications Medications: Current Medications Aspirin (Ecotrin) 81 mg PO DAILY [facility] Last Admin: 11/26/17 09:35 Dose: 81 mg Digoxin (Digoxin) 0.125 mg PO 1400 [facility] Last Admin: 11/25/17 14:03 Dose: Not Given Insulin Human Lispro (Humalog Med) 0 units SC ACHS [facility] PRN Reason: Protocol Last Admin: 11/26/17 08:41 Dose: 1 units Metoprolol Succinate (Toprol Xl) 25 mg PO BRK [facility] Last Admin: 11/23/17 09:15 Dose: Not Given Metoprolol Tartrate (Lopressor) 25 mg PO BID [facility] Last Admin: 11/26/17 09:35 Dose: 25 mg Oxycodone/Acetaminophen (Percocet 5/325 Mg Tab) 1 tab PO Q6H PRN PRN Reason: Pain, severe (8-10) Stop: 11/28/17 15:19 Pantoprazole Sodium (Protonix Inj) 40 mg IVP Q12 [facility] Last Admin: 11/26/17 09:37 Dose: 40 mg - Labs Labs: 11/26/17 05:00 11/26/17 05:00 PT 15.9 SECONDS (9.4-12.5) H 11/22/17 06:42 INR 1.37 (0.93-1.08) H 11/22/17 06:42 APTT 19.9 Seconds (25.1-36.5) L 11/22/17 06:42 - Constitutional Appears: Non-toxic, No Acute Distress - ENT Exam ENT Exam: Mucous Membranes Moist - Respiratory Exam Respiratory Exam: absent: Accessory Muscle Use, Respiratory Distress - Cardiovascular Exam Cardiovascular Exam: REGULAR RHYTHM. absent: Tachycardia Additional comments: dressing c/d/i - GI/Abdominal Exam GI & Abdominal Exam: Soft. absent: Distended, Firm, Tenderness - Extremities Exam Extremities Exam: absent: Pedal Edema - Neurological Exam Neurological Exam: Alert, Awake, Oriented x3 - Psychiatric Exam Psychiatric exam: Normal Affect, Normal Mood - Skin Skin Exam: Normal Color, Warm Assessment and Plan - Assessment and Plan (Free Text) Assessment: 67M POD#5 s/p left thoracotomy w/ esophageal exploration Plan: CT removed yesterday ? small basilar ptx pt asymptomatic, saturating well clear for transfer from ICU clear to adv diet as tolerated from our standpoint no further surgical intervention planned f/u in office in 1 week for staple removal d/w Dr Idania Bhardwaj, PGY3
--- NOTE | 2017-11-26 15:54 | PN ---
DATE: 11/26/2017 SUBJECTIVE: The patient is 67 years old, seen and examined, lying in bed, seems to be comfortable. No more episode of hemoptysis or coffee-ground vomiting. Tolerating clear liquids. No nausea, vomiting. No diarrhea. PHYSICAL EXAMINATION: VITAL SIGNS: He is afebrile, pulse 50, respirations 14, blood pressure 148/61. LUNGS: Bilateral good airflow. No rhonchi or crackle. HEART: S1 and S2 audible. ABDOMEN: Soft. Nontender. No rebound. No guarding. NEUROLOGIC: The patient is awake, alert, oriented, communicative. LABORATORY EXAM: WBC 11.4, hemoglobin 11.3, hematocrit 36.4, platelet of 203. Chemistry: Sodium 149, potassium 4.2, chloride 115, CO2 of 24, BUN 30, creatinine 0.8, blood sugar of 203. ASSESSMENT: 1. Status post upper gastrointestinal bleed. 2. Status post esophageal tear. 3. Status post pneumothorax and has chest tube removed yesterday. 4. Coronary artery disease, status post angioplasty. 5. Hypertension. 6. Hyperlipidemia. 7. [id number]-teezfclid diabetes. PLAN: The patient is clinically stable. He can be transferred to telemetry. We can slowly advance his diet. We will monitor his H and H. Monitor his electrolytes. Start physical therapy. Follow up this patient in the a.m. Carlos Tsai MD
--- NOTE | 2017-11-26 15:56 | PN ---
DATE: 11/26/2017 REASON FOR CONSULTATION AND FOLLOWUP: Cardiac evaluation and followup, history of coronary artery disease, history of multiple stents, history of pacemaker, admitted with esophageal tear, status post intubated and now successfully extubated and started p.o. PHYSICAL EXAMINATION: VITAL SIGNS: Temperature afebrile, heart rate , blood pressure 124/45. HEENT: PERRLA. Extraocular muscles intact. NECK: Supple. No carotid bruit or thyromegaly. CHEST: Clear to auscultation. HEART: S1 and S2, regular. ABDOMEN: Soft. EXTREMITIES: Clubbing and cyanosis negative. LABORATORY DATA: Blood workup as follows: WBC , hemoglobin , hematocrit 36.4, and platelet count 203. Chemistry shows sodium 149, potassium 4.2, chloride 115, carbon dioxide 24, anion gap of 13, BUN 30, creatinine 0.8. IMPRESSION: Status post gastrointestinal bleed; status post esophageal tear, status post respiratory failure, intubated to protect and heal the esophageal tear; protein-calorie malnutrition, which was not present on admission, now has improved; anemia status post red blood cell transfusion, hemoglobin and hematocrit are stable; history of coronary artery disease, history of multiple stents; history of non-ST elevation myocardial infarction and ST elevation myocardial infarction in the past; history of permanent pacemaker. RECOMMENDATION: We will start p.o. Lopressor. Continue digoxin. Discontinue IV metoprolol and start p.o. metoprolol. Monitor H and H. We will discuss with front office manager the timing to restart Plavix until the ulcer heals. Need input from Gastroenterology. We will discuss with Dr. Corrales. We will start low dose of beta alessandro as blood pressure is tolerated. Okay to transfer to telemetry. We will follow. Thank you, Dr. Tsai, for providing us the opportunity in taking care of the patient, Karl Rueda. Ciera Sheikh MD
--- NOTE | 2017-11-26 15:57 | CP.PCM.PN ---
<Sasha Simon - Last Filed: 11/26/17 15:53> Subjective - Date & Time of Evaluation Date of Evaluation: 11/26/17 Time of Evaluation: 09:50 - Subjective Subjective: Seen and examined at the bedside earlier today, chart was reviewed. is at the bedside, no acute overnight events reported. Patient out of bed in chair eating pure thickened liquid breakfasts. Patient denies nausea, vomiting, or abdominal pain. Patient was reported to have a large dark loose p.m. last night. No reports of bright red blood. Status post repeat endoscopy yesterday found to have superficial gastric ulcer, crater esophageal ulcer no bleeding noted. Patient is on aspirin. CHest tube removed. Objective - Vital Signs/Intake and Output Vital Signs (last 24 hours): Temp Pulse Resp BP Pulse Ox 97.7 F 50 L 14 148/61 100 11/26/17 04:00 11/26/17 10:00 11/26/17 10:00 11/26/17 10:00 11/26/17 10:00 Intake and Output: 11/26/17 11/26/17 06:59 18:59 Intake Total 460 Output Total 601 Balance -141 - Medications Medications: Current Medications Aspirin (Ecotrin) 81 mg PO DAILY [facility] Last Admin: 11/26/17 09:35 Dose: 81 mg Digoxin (Digoxin) 0.125 mg PO 1400 [facility] Last Admin: 11/25/17 14:03 Dose: Not Given Insulin Human Lispro (Humalog Med) 0 units SC ACHS [facility] PRN Reason: Protocol Last Admin: 11/26/17 08:41 Dose: 1 units Metoprolol Succinate (Toprol Xl) 25 mg PO BRK [facility] Last Admin: 11/23/17 09:15 Dose: Not Given Metoprolol Tartrate (Lopressor) 25 mg PO BID [facility] Last Admin: 11/26/17 09:35 Dose: 25 mg Oxycodone/Acetaminophen (Percocet 5/325 Mg Tab) 1 tab PO Q6H PRN PRN Reason: Pain, severe (8-10) Stop: 11/28/17 15:19 Pantoprazole Sodium (Protonix Inj) 40 mg IVP Q12 [facility] Last Admin: 11/26/17 09:37 Dose: 40 mg - Labs Labs: 11/26/17 05:00 11/26/17 05:00 PT 15.9 SECONDS (9.4-12.5) H 11/22/17 06:42 INR 1.37 (0.93-1.08) H 11/22/17 06:42 APTT 19.9 Seconds (25.1-36.5) L 11/22/17 06:42 Assessment and Plan - Assessment and Plan (Free Text) Assessment: ASSESSMENT: S/P massive/acute GI bleed, initial endoscopy showed esophageal mucosal tear from 30-35 cm with active bleeding, status post sclerotherapy Repeat endoscopy on 11/25/2017 revealed gastric ulcer, cratered esophageal ulcers no bleeding Status post thoracotomy, chest tube removed History of PTCA with stent, July 2017 Renal insufficiency Plan: on Protonix 40 twice a day On aspirin Monitor H&H On pure/thick liquid diet Discussed with patient and at bedside patient will need repeat endoscopy in 8 weeks to assess healing of ulcer Seen and discussed with Dr. Mercedes. <Katie Corrales V - Last Filed: 11/26/17 21:25> Objective - Vital Signs/Intake and Output Vital Signs (last 24 hours): Temp Pulse Resp BP Pulse Ox 97.9 F 52 L 21 146/58 L 100 11/26/17 12:00 11/26/17 17:45 11/26/17 17:00 11/26/17 17:45 11/26/17 13:01 Intake and Output: 11/26/17 11/27/17 18:59 06:59 Intake Total 700 Output Total 350 Balance 350 - Medications Medications: Current Medications Aspirin (Ecotrin) 81 mg PO DAILY [facility] Last Admin: 11/26/17 09:35 Dose: 81 mg Digoxin (Digoxin) 0.125 mg PO 1400 [facility] Last Admin: 11/26/17 17:45 Dose: 0.125 mg Insulin Human Lispro (Humalog Med) 0 units SC ACHS [facility] PRN Reason: Protocol Last Admin: 11/26/17 16:30 Dose: Not Given Metoprolol Succinate (Toprol Xl) 25 mg PO BRK [facility] Last Admin: 11/23/17 09:15 Dose: Not Given Metoprolol Tartrate (Lopressor) 25 mg PO BID [facility] Last Admin: 11/26/17 17:45 Dose: 25 mg Oxycodone/Acetaminophen (Percocet 5/325 Mg Tab) 1 tab PO Q6H PRN PRN Reason: Pain, severe (8-10) Stop: 11/28/17 15:19 Pantoprazole Sodium (Protonix Inj) 40 mg IVP Q12 [facility] Last Admin: 11/26/17 09:37 Dose: 40 mg - Labs Labs: 11/26/17 05:00 11/26/17 05:00 PT 15.9 SECONDS (9.4-12.5) H 11/22/17 06:42 INR 1.37 (0.93-1.08) H 11/22/17 06:42 APTT 19.9 Seconds (25.1-36.5) L 11/22/17 06:42 Attending/Attestation - Attestation I have personally seen and examined this patient.: Yes I have fully participated in the care of the patient.: Yes I have reviewed all pertinent clinical information, including history, physical exam and plan: Yes Notes (Text): This is an addendum to GI progress report dictated by Sasha Simon APN.The patient was seen and examined earlier. Medical records, lab studies, imagings were reviewed. Last 24 hours events reviewed. Agreed with the above treatment plan as outlined in Sasha Simon APN's notes the with the addition of the following Hemoglobin stable On aspirin status post PCI in July 2017 On examination abdomen soft no tenderness On high-dose PPI We will discuss as the stent was only 4 months 11/26/17 21:22
[2017-11-26] MEDS: Digoxin 125 mcg (0.125 mg) Tab PO SCH (17:45)
[2017-11-27 07:05] LABS: BASO # 0.01 K/mm3 (0.0-2.0); BASO % 0.1 % (0.0-3.0); EOS # 0.3 (0.0-0.7); EOS % 2.7 % (1.5-5.0); GRAN # 8.24 (1.4-6.5); GRAN % 76.4 % (50.0-68.0); HEMOGLOBIN 10.3 g/dL (14.0-18.0); LYMPH # 1.1 (1.2-3.4); LYMPH % 10.6 % (22.0-35.0); MEAN CELL VOLUME 83.7 fl (80.0-105.0); MEAN CORPUSCULAR HEMOGLOBIN 26.2 pg (25.0-35.0); MEAN CORPUSCULAR HGB CONC 31.3 g/dl (31.0-37.0); MEAN PLATELET VOLUME 10.6 fl (7.0-11.0); MONO # 1.1 (0.1-0.6); MONO % 10.2 % (1.0-6.0); RBC 3.93 10^6/uL (3.5-6.1); RED CELL DISTRIBUTION WIDTH 18.2 % (11.5-14.5); WHITE BLOOD COUNT 10.8 10^3/ul (4.5-11.0)
[2017-11-27 07:15] LABS: BLOOD UREA NITROGEN 27 mg/dL (7-21); GFR AFRICAN-AMERICAN > 60; GFR NON-AFRICAN AMERICAN > 60
[2017-11-27] MEDS: Insulin Lispro (humaLOG) MEDIUM Coverage SC SCH ×4 (07:30→22:39)
[2017-11-27] MEDS: Digoxin 125 mcg (0.125 mg) Tab PO SCH (14:40)
[2017-11-27 17:20] VITALS: RESP 18
--- NOTE | 2017-11-27 17:49 | CP.PCM.PN ---
<Sasha Simon - Last Filed: 11/27/17 17:47> Subjective - Date & Time of Evaluation Date of Evaluation: 11/27/17 Time of Evaluation: 09:35 - Subjective Subjective: Seen and examined at the bedside earlier today, chart review. Patient continues to tolerate oral intake, at bedside, discuss to continue taking soft food for about 4-6 weeks and to chew it well. He will need repeat endoscopy in a few weeks time to follow up healing of ulcers. Patient reported having a bowel movement this morning, no reports of bright red blood. No acute overnight events reported. Objective - Vital Signs/Intake and Output Vital Signs (last 24 hours): Temp Pulse Resp BP Pulse Ox 97.6 F 50 L 18 149/62 100 11/27/17 15:00 11/27/17 17:20 11/27/17 15:00 11/27/17 17:20 11/27/17 15:00 Intake and Output: 11/27/17 11/27/17 06:59 18:59 Output Total 500 Balance -500 - Medications Medications: Current Medications Aspirin (Ecotrin) 81 mg PO DAILY [facility] Last Admin: 11/27/17 10:34 Dose: 81 mg Digoxin (Digoxin) 0.125 mg PO 1400 [facility] Last Admin: 11/27/17 14:40 Dose: 0.125 mg Insulin Human Lispro (Humalog Med) 0 units SC ACHS [facility] PRN Reason: Protocol Last Admin: 11/27/17 17:19 Dose: 1 units Metoprolol Succinate (Toprol Xl) 25 mg PO BRK [facility] Last Admin: 11/23/17 09:15 Dose: Not Given Metoprolol Tartrate (Lopressor) 25 mg PO BID [facility] Last Admin: 11/27/17 17:20 Dose: Not Given Oxycodone/Acetaminophen (Percocet 5/325 Mg Tab) 1 tab PO Q6H PRN PRN Reason: Pain, severe (8-10) Stop: 11/28/17 15:19 Pantoprazole Sodium (Protonix Inj) 40 mg IVP Q12 [facility] Last Admin: 11/27/17 10:34 Dose: 40 mg - Labs Labs: 11/27/17 05:50 11/27/17 05:50 PT 15.9 SECONDS (9.4-12.5) H 11/22/17 06:42 INR 1.37 (0.93-1.08) H 11/22/17 06:42 APTT 19.9 Seconds (25.1-36.5) L 11/22/17 06:42 - Constitutional Appears: No Acute Distress - Head Exam Head Exam: NORMOCEPHALIC - Eye Exam Eye Exam: Normal appearance. absent: Scleral icterus - ENT Exam ENT Exam: Mucous Membranes Moist - Respiratory Exam Respiratory Exam: NORMAL BREATHING PATTERN. absent: Respiratory Distress - Cardiovascular Exam Cardiovascular Exam: +S1, +S2 - GI/Abdominal Exam GI & Abdominal Exam: Soft, Normal Bowel Sounds. absent: Guarding, Tenderness, Rebound - Extremities Exam Extremities Exam: absent: Calf Tenderness, Pedal Edema - Neurological Exam Neurological Exam: Alert, Awake, Oriented x3 - Skin Skin Exam: Dry, Warm Assessment and Plan - Assessment and Plan (Free Text) Assessment: ASSESSMENT: S/P massive/acute GI bleed, initial endoscopy showed esophageal mucosal tear from 30-35 cm with active bleeding, status post sclerotherapy Repeat endoscopy on 11/25/2017 revealed gastric ulcer, cratered esophageal ulcers no bleeding Status post thoracotomy, chest tube removed History of PTCA with stent, July 2017 Renal insufficiency Plan: on Protonix 40 twice a day On aspirin Monitor H&H On pure/thick liquid diet for 4-6 weeks, spoke to at bedside Discussed with patient and at bedside patient will need repeat endoscopy in 8 weeks to assess healing of ulcer From GI point of view patient can restart back on Plavix, hemoglobin has been stable. Seen and discussed with Dr. Mercedes. <Katie Corrales V - Last Filed: 11/27/17 23:49> Objective - Vital Signs/Intake and Output Vital Signs (last 24 hours): Temp Pulse Resp BP Pulse Ox 97.6 F 50 L 18 149/62 100 11/27/17 15:00 11/27/17 17:20 11/27/17 15:00 11/27/17 17:20 11/27/17 15:00 - Medications Medications: Current Medications Aspirin (Ecotrin) 81 mg PO DAILY [facility] Last Admin: 11/27/17 10:34 Dose: 81 mg Digoxin (Digoxin) 0.125 mg PO 1400 [facility] Last Admin: 11/27/17 14:40 Dose: 0.125 mg Insulin Human Lispro (Humalog Med) 0 units SC ACHS [facility] PRN Reason: Protocol Last Admin: 11/27/17 22:39 Dose: Not Given Metoprolol Succinate (Toprol Xl) 25 mg PO BRK [facility] Last Admin: 11/23/17 09:15 Dose: Not Given Metoprolol Tartrate (Lopressor) 25 mg PO BID [facility] Last Admin: 11/27/17 17:20 Dose: Not Given Oxycodone/Acetaminophen (Percocet 5/325 Mg Tab) 1 tab PO Q6H PRN PRN Reason: Pain, severe (8-10) Stop: 11/28/17 15:19 Last Admin: 11/27/17 22:05 Dose: 1 tab Pantoprazole Sodium (Protonix Inj) 40 mg IVP Q12 [facility] Last Admin: 11/27/17 22:06 Dose: 40 mg Polyethylene Glycol (Miralax) 17 gm PO BID [facility] Last Admin: 11/27/17 18:10 Dose: 17 gm - Labs Labs: 11/27/17 05:50 11/27/17 05:50 PT 15.9 SECONDS (9.4-12.5) H 11/22/17 06:42 INR 1.37 (0.93-1.08) H 11/22/17 06:42 APTT 19.9 Seconds (25.1-36.5) L 11/22/17 06:42 Attending/Attestation - Attestation I have personally seen and examined this patient.: Yes I have fully participated in the care of the patient.: Yes I have reviewed all pertinent clinical information, including history, physical exam and plan: Yes Notes (Text): This is an addendum to GI progress report dictated by Sasha Simon APN.The patient was seen and examined earlier. Medical records, lab studies, imagings were reviewed. Last 24 hours events reviewed. Agreed with the above treatment plan as outlined in Sasha Simon APN's notes the with the addition of the following
--- NOTE | 2017-11-27 18:05 | PN ---
DATE: REASON FOR CONSULTATION AND FOLLOWUP: Cardiac evaluation and fall, history of coronary artery disease, history of multiple stents, history of pacemaker, history of esophageal tear, status post intubated, now successfully extubated. Denies any chest pain, shortness of breath, any palpitation. PHYSICAL EXAMINATION VITAL SIGNS: Temperature afebrile, heart rate 52, blood pressure 118/48. HEENT: PERRLA. Extraocular muscles intact. NECK: Supple. No carotid bruit or thyromegaly. CHEST: Clear to auscultation. HEART: S1 and S2, regular. ABDOMEN: Soft. EXTREMITIES: Clubbing and cyanosis negative. LABORATORY DATA: Blood workup as follows: WBC 10.3, hemoglobin 10.3, hematocrit 32.9, platelet count 184. Chemistry shows sodium 143, potassium 4.6, chloride 113, carbon dioxide 27, anion gap of 10, BUN 27, creatinine 0.7. IMPRESSION: Status post gastrointestinal bleed, status post esophageal tear, status post intubated, now successfully extubated, status post thoracotomy,history of coronary artery disease, status post permanent pacemaker, history of multiple stents, history of protein-calorie malnutrition, history of ino-KI-joxujhuzy myocardial infarction, history of ST-elevation myocardial infarction in the past. RECOMMENDATIONS: Start p.o. Lopressor, continue baby aspirin started, reconsider restarting Plavix once he is cleared from the GI. We will follow with you. Thank you, Dr. Tsai, for providing us the opportunity in taking care of the patient, Karl Rueda. Okay to transfer to Telemetry from Cardiology point of view. Ciera Sheikh MD
[2017-11-27] MEDS: POLYETHYLENE GLYCOL 3350 17 GM/Dose PACKET PO SCH (18:10)
--- NOTE | 2017-11-27 19:56 | PN ---
DATE: SUBJECTIVE: The patient is 67 years old, seen and examined, sitting in chair, seems to be comfortable, eating and tolerating. Complaining of constipation. PHYSICAL EXAMINATION: VITAL SIGNS: He is afebrile, pulse 58, respirations 18, blood pressure 149/62. LUNGS: Bilateral good airflow. No rhonchi or crackle. HEART: S1 and S2 audible. ABDOMEN: Soft. Nontender. No rebound. No guarding. NEUROLOGIC: The patient is awake, alert, oriented, able to communicate. LABORATORY EXAM: WBC 10.8, hemoglobin 10.3, hematocrit 32.9, platelets of 184. Chemistry: Sodium 146, potassium 4.6, chloride 113, CO2 of 27. BUN 27, creatinine 0.7. Blood sugar of 165. ASSESSMENT: 1. Status post upper gastrointestinal bleed secondary to partial esophageal tear extending to mucosa. 2. Status post pneumothorax. 3. Coronary artery disease, status post angioplasty. 4. Status post pacemaker placement. 5. Hypertension. 6. Prh-aysqtqd-sperptutg diabetes. 7. Constipation. 8. Anemia. PLAN: We will transfer the patient to [facility]. He is hemodynamically stable. We will continue him on soft diet. Continue him on Protonix. We will start him on MiraLax. Continue him on digoxin, aspirin 81 daily, and metoprolol 25 twice a day. We will follow. Carlos Tsai MD
[2017-11-28] MEDS: Insulin Lispro (humaLOG) MEDIUM Coverage SC SCH ×3 (08:50→16:52)
[2017-11-28] MEDS: POLYETHYLENE GLYCOL 3350 17 GM/Dose PACKET PO SCH (09:17)
--- NOTE | 2017-11-28 11:24 | CP.PCM.PN ---
Subjective - Date & Time of Evaluation Date of Evaluation: 11/28/17 Time of Evaluation: 08:40 - Subjective Subjective: Seen and examined at the bedside earlier today, chart was reviewed. Patient had a bed to chair tolerating pure diet. Denies nausea, vomiting, or abdominal pain. No reports of overt GI bleed. Patient complains of no bowel movement for 2 days. Objective - Vital Signs/Intake and Output Vital Signs (last 24 hours): Temp Pulse Resp BP Pulse Ox 98 F 56 L 18 126/60 97 11/28/17 07:54 11/28/17 07:54 11/28/17 07:54 11/28/17 09:16 11/28/17 07:54 Intake and Output: 11/28/17 11/28/17 06:59 18:59 Intake Total 180 Balance 180 - Medications Medications: Current Medications Aspirin (Ecotrin) 81 mg PO DAILY [facility] Last Admin: 11/28/17 09:16 Dose: 81 mg Digoxin (Digoxin) 0.125 mg PO 1400 [facility] Last Admin: 11/27/17 14:40 Dose: 0.125 mg Insulin Human Lispro (Humalog Med) 0 units SC ACHS [facility] PRN Reason: Protocol Last Admin: 11/28/17 08:50 Dose: Not Given Metoprolol Succinate (Toprol Xl) 25 mg PO BRK [facility] Last Admin: 11/23/17 09:15 Dose: Not Given Metoprolol Tartrate (Lopressor) 25 mg PO BID [facility] Last Admin: 11/28/17 09:16 Dose: 25 mg Oxycodone/Acetaminophen (Percocet 5/325 Mg Tab) 1 tab PO Q6H PRN PRN Reason: Pain, severe (8-10) Stop: 11/28/17 15:19 Last Admin: 11/27/17 22:05 Dose: 1 tab Pantoprazole Sodium (Protonix Inj) 40 mg IVP Q12 [facility] Last Admin: 11/28/17 09:17 Dose: 40 mg Polyethylene Glycol (Miralax) 17 gm PO BID [facility] Last Admin: 11/28/17 09:17 Dose: 17 gm - Labs Labs: 11/27/17 05:50 11/27/17 05:50 PT 15.9 SECONDS (9.4-12.5) H 11/22/17 06:42 INR 1.37 (0.93-1.08) H 11/22/17 06:42 APTT 19.9 Seconds (25.1-36.5) L 11/22/17 06:42 - Constitutional Appears: No Acute Distress - Head Exam Head Exam: NORMOCEPHALIC - Eye Exam Eye Exam: Normal appearance. absent: Scleral icterus - ENT Exam ENT Exam: Mucous Membranes Moist - Neck Exam Neck Exam: Normal Inspection - Respiratory Exam Respiratory Exam: NORMAL BREATHING PATTERN. absent: Respiratory Distress Additional comments: left side of chest tube site dressing in place and dry, sutures dry and intact, no erythema noted. - Cardiovascular Exam Cardiovascular Exam: +S1, +S2 - GI/Abdominal Exam GI & Abdominal Exam: Soft, Normal Bowel Sounds. absent: Guarding, Tenderness, Organomegaly, Rebound - Extremities Exam Extremities Exam: absent: Calf Tenderness, Pedal Edema - Neurological Exam Neurological Exam: Alert, Awake, Oriented x3 - Skin Skin Exam: Dry, Warm Assessment and Plan - Assessment and Plan (Free Text) Assessment: ASSESSMENT: S/P massive/acute GI bleed, initial endoscopy showed esophageal mucosal tear from 30-35 cm with active bleeding, status post sclerotherapy Repeat endoscopy on 11/25/2017 revealed gastric ulcer, cratered esophageal ulcers no bleeding Status post thoracotomy, chest tube removed History of PTCA with stent, July 2017 Renal insufficiency Plan: on Protonix 40 twice a day On aspirin On Mirallax BID Monitor H&H On pure/thick liquid diet for 4-6 weeks, re-enforced to patient once again will need repeat endoscopy in 8 weeks to assess healing of ulcer From GI point of view patient can restart back on Plavix, hemoglobin has been stable. Seen and discussed with Dr. Mercedes.
[2017-11-28] MEDS: Digoxin 125 mcg (0.125 mg) Tab PO SCH (13:30)
[2017-11-28 13:36] VITALS: PULSE 62
--- NOTE | 2017-11-28 15:02 | PN ---
DATE: 11/28/2017 LOCATION: The patient in room 569, bed 1. REASON FOR CONSULTATION AND FOLLOWUP: Coronary artery disease, history of multiple stents, history of pacemaker, history of esophageal tear, status post intubation, now successfully extubated. The patient denies any shortness of breath or palpitation. Denies any anginal symptoms. PHYSICAL EXAMINATION: VITAL SIGNS: Blood pressure 129/62, respirations 18, pulse 56, temperature 98. HEENT: Head is normocephalic. Eyes: Pupils normal. Conjunctivae slightly pale. NECK: JVP low. Carotids equal. THORAX: AP diameter normal. LUNGS: No significant rales. CARDIOVASCULAR: S1 and S2. ABDOMEN: Soft, nontender. No organomegaly. EXTREMITIES: No clubbing. No cyanosis. LABORATORY DATA: Labs shows WBC 10.8, hemoglobin 10.3, hematocrit 32.9, platelet 184, random sugar 254. On 11/25/2017, sodium 150, potassium 4.3, BUN 35, creatinine 0.9, magnesium 2.6, phosphorus 2.2. AST, ALT normal. Total protein 6.1, albumin 2.9. On 11/27/2017, sodium 146, potassium 4.6, BUN 27, creatinine 0.7, calcium 10, phosphorus 2.9, magnesium 2.2. DIAGNOSES: Status post gastrointestinal bleeding, status post esophageal tear, status post intubation, now successfully extubated, status post thoracotomy, history of coronary artery disease, multiple stents insertions, status port permanent pacemaker incision, protein-calorie malnutrition, history of [id number] myocardial infarction, history of ST-elevation myocardial infarction in the past. PLAN: The patient is on digoxin 0.125 daily, DuoNeb hand nebulizer therapy, aspirin 81 mg daily, Januvia 100 mg daily, furosemide 40 daily, metoprolol 25 b.i.d., Neurontin 300 g daily, Plavix 75 daily, potassium 20 daily, Protonix 40 IV every 12 hours, lisinopril 10 mg daily. We will continue present therapy. We will follow. Ciera Hunt MD
[2017-11-28 16:45] VITALS: BP 144/65; PULSE 49; TEMP 97.9; O2SAT 99
[2017-11-29] MEDS ORDERED: Potassium Chloride 20 mEq/15 ml LIQ UD PO SCH (10:00)
--- NOTE | 2017-12-01 10:03 | PQF MALNUT ---
This form is a permanent part of the medical record Dr. Sheikh, Documentation of protein-calorie malnutrition requires severity was it mild, moderate, OR severe? Also, is malnutrition present on admission or not? Please provide clarification. Clarification of your documentation is requested to better reflect the severity of illness and intensity of treatment of your patient. Indicators present [] Cachexia (due to severe malnutrition) [] Albumin < 2.8 [] Decreased Pre-albumin [] Dietary Consult [] Provider documentation reflects BMI of: []_ [] Low serum proteins [] Documented weight loss [] Inability to consume adequate caloric intake [] Anorexic [] Other: [] Location in the medical record that reflects the above clinical findings: [] Treatment Provided: [] PHYSICIAN'S RESPONSE Based on your medical judgment of the clinical indicators outlined above, are you treating this patient for a known or suspected: Type of Malnutrition Severity [] Mild [x] Moderate [] Severe [] Protein calorie [] Mild [x] Moderate [] severe [] Other, please indicate: []_ [] If Unable to Determine, please check the box, sign and date. Present On Admission (POA) Indicator: [] Present at the time of admission [x] Not present at the time of admission [] Clinically Undetermined In responding to this query, please exercise your independent professional judgment. The fact that a question is asked does not imply that any particular answer is desired or expected. Thank you for your clarification on this documentation. If you have any questions please call:[ ] * Thank you, [ ][place] supervisor customer complaint service Malnutrition Malnutrition results from an imbalance between the body's intake of nutrients and the body's use of nutrients to fuel energy expenditure. Malnutrition may be described as mild, moderate or severe. There are variations in clinical indicators, lab values and risk factors with each type and degree. When reviewing the nutritional status of the client, the entire clinical picture should be assessed and taken into consideration rather than a focus on a single laboratory value. Mild Malnutrition: patient's weight is noted at 85-95% of normal body weight; BMI 18-18.9; serum albumin 3.0-3.4; total lymphocyte count [id number]. Moderate Malnutrition: patient's weight is noted at 75-85% of normal body weight ; BMI 16-17.9; serum albumin 2.4-3.0; total lymphocyte count 800-1500. Severe Malnutrition: patient's weight is noted at <75% of normal body weight, BMI <16, serum albumin <2.4, total lymphocyte count <800, abnormally low VLDL/ LDL levels, creatinine <0.6, BUN <8, cholesterol <160. Other clinical indicators include: loss of subq fat, muscle wasting of the extremities, skin lesions, decubitus ulcers, hair loss, lethargy, constipation, decreased pulse/ respiratory rates, relative hypotension, hepatomegaly d/t fat infiltration, poor wound healing.~~~~~~ Risk: poor intake d/t food avoidance or NPO status for >7 days, protracted nutritional losses from malabsorption states, hypermetabolic state such as sepsis, prolonged fever, extensive trauma or beltre, alcohol/drug abuse, advanced age, CKD, trouble chewing or swallowing, some medications, depression/ social isolation, special diets such as low protein Treatment: dietary consultation, protein-calorie dietary supplementation, daily weights, PEG tube, psychiatric consultation, appetite stimulants (Megace). [employer] Principles of Internal Medicine, 17th edition, chapters 9, 72 and 234. The [employer] Nutritional Support Core Curriculum, 2007 MTDD
--- NOTE | 2017-12-01 11:18 | PN ---
DATE: 11/28/2017 SUBJECTIVE: The patient is a 67 years old, seen and examined, doing better, sitting in chair, eating and tolerating. PHYSICAL EXAMINATION: VITAL SIGNS: The patient is afebrile, pulse 56, respirations 18, blood pressure 126/60. LUNGS: Bilateral good airflow. No rhonchi or crackle. HEART: S1 and S2 audible. ABDOMEN: Soft, nontender, no rebound, no guarding. NEUROLOGICAL: The patient is awake, alert, oriented, communicative. EXTREMITIES: Bilateral leg, +2 edema. LABORATORY DATA: Blood sugar is 253. ASSESSMENT AND PLAN: 1. Status post gastrointestinal bleed. 2. Status post partial esophageal submucosal tear. 3. Anemia status post multiple blood transfusion. 4. Coronary artery disease. 5. Hypertension. 6. Hyperlipidemia. PLAN: The patient is currently on digoxin. He is getting nebulizer treatment. He is on aspirin. Blood sugar is being monitored. I will continue MiraLax for now until he started having bowel movement, then will decrease it to once a day. He has been discharged on aspirin and Plavix as per Cardiology recommendation. Requested for TCU evaluation. If accepted, can be transferred TCU. Carlos Tsai MD
[2017-12-02] MEDS ORDERED: FENOFIBRATE 134 MG PO SCH (10:00)
== END 2017-11-28 16:54 | DRG 356 ==
LOC: ED 04:51 → ERH 06:27 → 2RNO 09:15 → ICU 16:19 → 5RNO 11-27 15:10
PROVIDERS: ADMIT Internal Medicine; ATTEND Internal Medicine
PROC: 3E0G8GC Introduction of Other Therapeutic Substance into Upper GI, Via Natural or Artificial Opening Endoscopic (ICD-10-PCS; 2017-11-21)
PROC: 0DJ08ZZ Inspection of Upper Intestinal Tract, Via Natural or Artificial Opening Endoscopic (ICD-10-PCS; 2017-11-21)
PROC: 0W9B00Z Drainage of Left Pleural Cavity with Drainage Device, Open Approach (ICD-10-PCS; 2017-11-21)
PROC: 5A1945Z Respiratory Ventilation, 24-96 Consecutive Hours (ICD-10-PCS; 2017-11-21)
PROC: 0BH17EZ Insertion of Endotracheal Airway into Trachea, Via Natural or Artificial Opening (ICD-10-PCS; 2017-11-21)
PROC: 30233K1 Transfusion of Nonautologous Frozen Plasma into Peripheral Vein, Percutaneous Approach (ICD-10-PCS; 2017-11-21)
PROC: 30233N1 Transfusion of Nonautologous Red Blood Cells into Peripheral Vein, Percutaneous Approach (ICD-10-PCS; 2017-11-21)
PROC: 0DJ00ZZ Inspection of Upper Intestinal Tract, Open Approach (ICD-10-PCS; principal; 2017-11-21 17:00)
PROC: 6A550Z2 Pheresis of Platelets, Single (ICD-10-PCS; 2017-11-22)
PROC: 0DJ08ZZ Inspection of Upper Intestinal Tract, Via Natural or Artificial Opening Endoscopic (ICD-10-PCS; 2017-11-25)
PROC: 0WP8X0Z Removal of Drainage Device from Chest Wall, External Approach (ICD-10-PCS; 2017-11-25)
DX: K22.6 Gastro-esophageal laceration-hemorrhage syndrome (principal); J96.90 Respiratory failure, unspecified, unspecified whether with hypoxia or hypercapnia; I42.9 Cardiomyopathy, unspecified; I50.1 Left ventricular failure, unspecified; E87.0 Hyperosmolality and hypernatremia; J93.9 Pneumothorax, unspecified; E44.0 Moderate protein-calorie malnutrition; K22.11 Ulcer of esophagus with bleeding; K29.50 Unspecified chronic gastritis without bleeding; E11.65 Type 2 diabetes mellitus with hyperglycemia; K25.9 Gastric ulcer, unspecified as acute or chronic, without hemorrhage or perforation; K29.80 Duodenitis without bleeding; D50.0 Iron deficiency anemia secondary to blood loss (chronic); I11.0 Hypertensive heart disease with heart failure; I25.10 Atherosclerotic heart disease of native coronary artery without angina pectoris; K21.9 Gastro-esophageal reflux disease without esophagitis; E78.5 Hyperlipidemia, unspecified; F17.200 Nicotine dependence, unspecified, uncomplicated; I08.1 Rheumatic disorders of both mitral and tricuspid valves; J44.9 Chronic obstructive pulmonary disease, unspecified; E87.8 Other disorders of electrolyte and fluid balance, not elsewhere classified; N28.9 Disorder of kidney and ureter, unspecified; K59.00 Constipation, unspecified; I49.5 Sick sinus syndrome; Z79.82 Long term (current) use of aspirin; I25.2 Old myocardial infarction; Z79.84 Long term (current) use of oral hypoglycemic drugs; Z68.29 Body mass index [BMI] 29.0-29.9, adult; Z95.0 Presence of cardiac pacemaker; Z95.5 Presence of coronary angioplasty implant and graft

== ENCOUNTER 2017-11-28 16:54 | Inpatient (IN) | payer OTHER, MEDICAID ==
[2017-11-28] MEDS ORDERED: Oxycodone/Acetaminophen 5/325 mg Tab PO PRN (17:45)
[2017-11-28] MEDS: POLYETHYLENE GLYCOL 3350 17 GM/Dose PACKET PO SCH (18:32)
[2017-11-28 20:24] VITALS: BMI 28.9
[2017-11-28] MEDS: Insulin Lispro (humaLOG) MEDIUM Coverage SC SCH (22:57)
[2017-11-29] MEDS: Insulin Lispro (humaLOG) MEDIUM Coverage SC SCH ×4 (06:55→21:43)
[2017-11-29] MEDS: Potassium Chloride 20 mEq ER Tab PO SCH (08:18)
[2017-11-29] MEDS: Furosemide 40 mg/5 mL Oral Soln UD PO SCH (10:29)
[2017-11-29] MEDS: POLYETHYLENE GLYCOL 3350 17 GM/Dose PACKET PO SCH ×2 (10:31→17:01)
[2017-11-29] MEDS: Digoxin 125 mcg (0.125 mg) Tab PO SCH (14:33)
--- NOTE | 2017-11-30 02:15 | HP ---
DATE OF EXAM: HISTORY OF PRESENT ILLNESS: The patient is a 67-year-old, known to me from office practice, initially came in 11/21 with hematemesis and he dropped hemoglobin, was taken to endoscopy suite, was found to have partial tear of esophagus and muscular exposure. So hemostasis was secured. There was question about esophageal perforation. Surgical team was involved and patient has thoracotomy done followed by chest tube insertion. Patient was intubated for airway protection and transferred to ICU. He was on Protonix drip. His bleeding stopped. His chest tube was removed and he was extubated. Since then he has no episode of upper GI bleed or black stools. He seems to be weak, tired and difficulty walking so he was transferred to TCU for rehabilitation. PAST MEDICAL HISTORY: He has significant past medical history of; 1. Coronary artery disease, status post angioplasty. 2. Hypertension. 3. Non-insulin dependent diabetes. 4. Hyperlipidemia. 5. History of COPD. 6. History of pacemaker placement. ALLERGIES: HE IS NOT ALLERGIC TO ANY MEDICATION. MEDICATIONS: At home, he is on diclofenac, fenofibrate, gabapentin, famotidine, Lipitor, metoprolol, Lasix, digoxin, enalapril, metformin and glipizide. SOCIAL HISTORY: He lives with his . Denies smoking, drinking or alcohol use. PHYSICAL EXAMINATION: GENERAL: He is awake, alert and communicative. VITAL SIGNS: He is afebrile, pulse 73, respirations 18, blood pressure 104/42. LUNGS: Bilateral good airflow. No rhonchi or crackles. HEART: S1, S2 audible. ABDOMEN: Soft, nontender. No rebound, no guarding. NEUROLOGIC: Patient is awake, alert, oriented and communicative. EXTREMITIES: Bilateral leg +2 edema. LABORATORY EXAM: Blood sugar is 192. ASSESSMENT: 1. Status post upper gastrointestinal bleed secondary to esophageal tear. 2. Pulmonary artery disease. 3. Hypertension. 4. Bilateral leg edema. 5. Non-insulin dependent diabetes. 6. Anemia, status post multiple transfusions. PLAN: Currently, patient is on digoxin, has been restarted on aspirin and Plavix. Continue on Januvia. He is on beta-alessandro. Continue him on MiraLax, gabapentin and . He is on Protonix. We will start him on glipizide. Monitor his blood sugar. Carlos Tsai MD [facility] # [id number]
[2017-11-30] MEDS: Pantoprazole 40 mg EC Tab PO SCH (05:44)
[2017-11-30] MEDS: Insulin Lispro (humaLOG) MEDIUM Coverage SC SCH ×4 (06:34→22:11)
[2017-11-30 06:44] LABS: BASO # 0.01 K/mm3 (0.0-2.0); BASO % 0.1 % (0.0-3.0); EOS # 0.3 (0.0-0.7); EOS % 2.9 % (1.5-5.0); GRAN # 7.07 (1.4-6.5); GRAN % 79.5 % (50.0-68.0); HEMOGLOBIN 10.7 g/dL (14.0-18.0); LYMPH # 0.9 (1.2-3.4); LYMPH % 10.5 % (22.0-35.0); MEAN CELL VOLUME 80.6 fl (80.0-105.0); MEAN CORPUSCULAR HGB CONC 32.2 g/dl (31.0-37.0); MEAN PLATELET VOLUME 10.3 fl (7.0-11.0); MONO # 0.6 (0.1-0.6); RBC 4.12 10^6/uL (3.5-6.1); WHITE BLOOD COUNT 8.9 10^3/ul (4.5-11.0)
[2017-11-30 07:23] LABS: ALB/GLOB RATIO 1.1 (1.1-1.8); ALBUMIN 3.1 g/dL (3.0-4.8); ALT/SGPT 40 U/L (7-56); AST/SGOT 37 U/L (17-59); BLOOD UREA NITROGEN 13 mg/dL (7-21); CALCIUM 9.3 mg/dL (8.4-10.5); GFR AFRICAN-AMERICAN > 60; GFR NON-AFRICAN AMERICAN > 60
[2017-11-30] MEDS: Potassium Chloride 20 mEq ER Tab PO SCH (08:00)
[2017-11-30] MEDS: POLYETHYLENE GLYCOL 3350 17 GM/Dose PACKET PO SCH ×2 (10:02→17:04)
[2017-11-30] MEDS: Furosemide 40 mg/5 mL Oral Soln UD PO SCH (10:02)
[2017-11-30] MEDS: Digoxin 125 mcg (0.125 mg) Tab PO SCH (14:39)
--- NOTE | 2017-11-30 19:47 | PN ---
DATE: SUBJECTIVE: Patient is 67 years old, seen and examined, sitting in chair, seems to be comfortable. No more black stool. No vomiting. Eating and tolerating. PHYSICAL EXAMINATION: VITAL SIGNS: He is afebrile. Pulse 76, respiration 18, blood pressure 129/63. LUNGS: Bilateral good airflow. No rhonchi or crackle. HEART: S1 and S2 audible. ABDOMEN: Soft, nontender. No rebound. No guarding. NEUROLOGICAL: He is awake, alert, oriented, able to communicate. LABORATORY DATA: WBC is 8.9, hemoglobin 10.7, hematocrit 33.2, platelet 214. Chemistry: Sodium 139, potassium 4.1, chloride 104, CO2 of 27, BUN 13, creatinine 0.8, blood sugar of 128. ASSESSMENT: 1. Status post upper gastrointestinal bleed secondary to esophageal tear. 2. Hypertension. 3. Hyperlipidemia. 4. Coronary artery disease. 5. History of chronic obstructive pulmonary disease. 6. Bilateral leg edema. PLAN: We will continue the patient on current medication. Encourage ambulation. We will check his CBC and CMP intermittently. Carlos Tsai MD
[2017-12-01] MEDS: Pantoprazole 40 mg EC Tab PO SCH (06:03)
[2017-12-01] MEDS: Insulin Lispro (humaLOG) MEDIUM Coverage SC SCH ×4 (06:32→22:29)
[2017-12-01] MEDS: Potassium Chloride 20 mEq ER Tab PO SCH (08:00)
[2017-12-01] MEDS: POLYETHYLENE GLYCOL 3350 17 GM/Dose PACKET PO SCH ×2 (09:37→17:26)
[2017-12-01] MEDS: Furosemide 40 mg/5 mL Oral Soln UD PO SCH (09:44)
--- NOTE | 2017-12-01 13:50 | CP.PCM.PN ---
Subjective - Date & Time of Evaluation Date of Evaluation: 12/01/17 Time of Evaluation: 10:45 - Subjective Subjective: GI Progress note. Dr. Corrales Pt seen and examined at bedside. Does report some difficulty swallowing solid food. No problems with liquids. No N/V/D. No abd pain. No new complaints. Objective - Vital Signs/Intake and Output Vital Signs (last 24 hours): Temp Pulse Resp BP Pulse Ox 98.1 F 74 16 126/67 95 12/01/17 06:00 12/01/17 09:37 12/01/17 06:00 12/01/17 09:44 12/01/17 06:00 Intake and Output: 12/01/17 12/01/17 06:59 18:59 Intake Total 420 Balance 420 - Medications Medications: Current Medications Aspirin (Ecotrin) 81 mg PO 0800 [facility] Last Admin: 12/01/17 08:01 Dose: 81 mg Clonidine HCl (Catapres) 0.1 mg PO Q6 PRN PRN Reason: FOR SBP >150-TEL Last Admin: 11/28/17 18:31 Dose: 0.1 mg Clopidogrel Bisulfate (Plavix) 75 mg PO DAILY [facility] Last Admin: 12/01/17 09:37 Dose: 75 mg Digoxin (Digoxin) 0.125 mg PO 1400 [facility] Last Admin: 11/30/17 14:39 Dose: 0.125 mg Furosemide (Lasix) 40 mg PO DAILY [facility] Last Admin: 12/01/17 09:44 Dose: 40 mg Gabapentin (Neurontin) 300 mg PO DAILY [facility] PRN Reason: Protocol Last Admin: 12/01/17 09:37 Dose: 300 mg Glipizide (Glucotrol) 10 mg PO 0700,1700 [facility] Last Admin: 12/01/17 06:03 Dose: 10 mg Insulin Human Lispro (Humalog Med) 0 units SC ACHS [facility] PRN Reason: Protocol Last Admin: 12/01/17 12:58 Dose: 1 units Lisinopril (Zestril) 20 mg PO DAILY [facility] Last Admin: 12/01/17 09:37 Dose: 20 mg Metoprolol Tartrate (Lopressor) 25 mg PO 0800,1800 [facility] Last Admin: 12/01/17 08:01 Dose: 25 mg Oxycodone/Acetaminophen (Percocet 5/325 Mg Tab) 1 tab PO Q6H PRN PRN Reason: Pain, moderate (4-7) Stop: 12/01/17 17:46 Pantoprazole Sodium (Protonix Ec Tab) 40 mg PO 0600 [facility] PRN Reason: Protocol Last Admin: 12/01/17 06:03 Dose: 40 mg Polyethylene Glycol (Miralax) 17 gm PO BID [facility] Last Admin: 12/01/17 09:37 Dose: Not Given Potassium Chloride (K-Dur 20 Meq Er Tab) 20 meq PO 0800 [facility] Last Admin: 12/01/17 08:00 Dose: 20 meq Sitagliptin Phosphate (Januvia) 100 mg PO DAILY [facility] Last Admin: 12/01/17 09:37 Dose: 100 mg - Labs Labs: 11/30/17 06:00 11/30/17 06:00 - Constitutional Appears: Well, No Acute Distress - Head Exam Head Exam: ATRAUMATIC, NORMAL INSPECTION, NORMOCEPHALIC - Eye Exam Eye Exam: EOMI, Normal appearance - ENT Exam ENT Exam: Mucous Membranes Moist - Respiratory Exam Respiratory Exam: NORMAL BREATHING PATTERN. absent: Accessory Muscle Use - Cardiovascular Exam Cardiovascular Exam: absent: JVD - GI/Abdominal Exam GI & Abdominal Exam: Soft. absent: Distended, Firm, Guarding, Rigid, Tenderness - Neurological Exam Neurological Exam: Alert, Awake, Oriented x3 - Skin Skin Exam: Dry, Intact, Normal Color, Warm Assessment and Plan - Assessment and Plan (Free Text) Assessment: 67yo M with massive GI bleeding, Resolved. - Esophageal mucosal tear w active bleeding, s/p sclerotherapy. S/p thoracotomy with no evidence of complete esophageal disruption. - Hx of PTCA w stent Plan: - Continue Pureed diet for at least 6 weeks - May continue antiplatelet therapy from GI standpoint - Monitor H/H and signs of overt GI bleeding - continue PPI and bowel regimen Further recs as per Dr. Antoni Clarke PGY1
[2017-12-01] MEDS: Digoxin 125 mcg (0.125 mg) Tab PO SCH (14:27)
--- NOTE | 2017-12-01 20:44 | CON ---
DATE: 12/01/2017 SERVICE: Cardiology. REASON FOR CONSULTATION AND FOLLOWUP: Continued care in Transitional Care Unit, history of coronary artery disease, pacemaker, admitted with esophageal tear. BRIEF CLINICAL HISTORY: This is a 67-year-old male with past medical history of coronary artery disease, status post multiple stents, multiple STEMI, non-STEMI, history of sick sinus syndrome, status post permanent pacemaker, came with GI bleed, upper and lower, underwent EGD, found to be esophageal tear, status post thoracotomy, but no repair was done. The patient was kept in ICU, then telemetry, now the patient is transferred to Transitional Care with continued care. Aspirin started, later last day is cleared by GI to start Plavix as well. The patient denies any chest pain, shortness of breath, any palpitation. PAST MEDICAL HISTORY: Significant for coronary artery, status post multiple stents, STEMI, non-STEMI, history of pacemaker. PREVIOUS CARDIAC WORKUP: The patient had last catheterization and stenting in 07/2017, history of last echocardiography done on 11/22/2017, ejection fraction 40% to 45%, borderline dilated, right ventricular function is normal. Pacemaker lead in RV, mild mitral regurgitation, [id number] tricuspid regurgitation, trace pericardial effusion dated 11/24/2017. REVIEW OF SYSTEMS: As per HPI. PHYSICAL EXAMINATION: VITAL SIGNS: As follows: Temperature afebrile, heart rate __03:17___, blood pressure 144/65. HEENT: PERRLA. Extraocular muscles intact. NECK: Supple. No carotid bruit or thyromegaly. CHEST: Clear to auscultation. HEART: S1 and S2 regular. ABDOMEN: Soft. EXTREMITIES: Clubbing and cyanosis negative. LABORATORY DATA: Blood workup as follows: WBC __03:43___, hemoglobin __03:44___, hematocrit 32.9, platelet count 184. Chemistry shows sodium 140, potassium __03:51___, chloride __03:50___, carbon dioxide __03:54___, anion gap of 10, BUN __03:55___, creatinine 0.7. IMPRESSION: Gastrointestinal bleed, esophageal tear, treated conservatively, diabetes, hypertension, hyperlipidemia, coronary artery disease, status post multiple stents. RECOMMENDATION: Once it is cleared by the GI to go back on aspirin and Plavix, we will continue low-dose beta-alessandro as ordered and once it is cleared by the GI, we will start the aspirin. Once we are cleared, we will restart Plavix. We will follow with you. Thank you, Dr. Tsai, for providing us the opportunity in taking care of the patient, Karl Rueda. We will repeat the lab in the morning. Ciera Sheikh MD
[2017-12-02] MEDS: Pantoprazole 40 mg EC Tab PO SCH (05:20)
[2017-12-02] MEDS: Insulin Lispro (humaLOG) MEDIUM Coverage SC SCH ×4 (06:30→21:43)
[2017-12-02 06:58] LABS: BASO # 0.01 K/mm3 (0.0-2.0); BASO % 0.1 % (0.0-3.0); EOS # 0.3 (0.0-0.7); EOS % 3.2 % (1.5-5.0); GRAN # 6.9 (1.4-6.5); GRAN % 75.9 % (50.0-68.0); LYMPH # 1.2 (1.2-3.4); LYMPH % 13.2 % (22.0-35.0); MEAN CELL VOLUME 81.1 fl (80.0-105.0); MEAN CORPUSCULAR HEMOGLOBIN 25.6 pg (25.0-35.0); MEAN CORPUSCULAR HGB CONC 31.6 g/dl (31.0-37.0); MEAN PLATELET VOLUME 10.1 fl (7.0-11.0); MONO # 0.7 (0.1-0.6); MONO % 7.6 % (1.0-6.0); RBC 4.29 10^6/uL (3.5-6.1); RED CELL DISTRIBUTION WIDTH 18.1 % (11.5-14.5); WHITE BLOOD COUNT 9.1 10^3/ul (4.5-11.0)
[2017-12-02 07:36] LABS: BLOOD UREA NITROGEN 14 mg/dL (7-21); CALCIUM 8.9 mg/dL (8.4-10.5); GFR AFRICAN-AMERICAN > 60; GFR NON-AFRICAN AMERICAN > 60
[2017-12-02] MEDS: Potassium Chloride 20 mEq ER Tab PO SCH (07:58)
--- NOTE | 2017-12-02 08:55 | PN ---
DATE: 12/01/2017 SUBJECTIVE: The patient is 67 years old, seen and examined, complained of some retrosternal discomfort. No nausea or vomiting. No diarrhea. Eating and tolerating. PHYSICAL EXAMINATION: VITAL SIGNS: He is afebrile, pulse 86, respirations 18, blood pressure 124/56. LUNGS: Bilateral fair airflow. No rhonchi or crackle. HEART: S1 and S2 audible. ABDOMEN: Soft and nontender. No rebound, no guarding. NEUROLOGIC: He is awake, alert, oriented, communicative. LABORATORY DATA: Blood sugar is 194. His previous H and H on 11/30/2017, 10.7 and 33.2, platelets of 214. ASSESSMENT: 1. Status post upper gastrointestinal bleed. 2. Esophageal tear. 3. Status post thoracotomy and chest tube insertion. 4. Hypertension. 5. Coronary artery disease. 6. Insulin-dependent diabetes. 7. Bilateral leg edema. PLAN: We will continue the patient on current medications. Monitor blood sugar. Encourage ambulation. I spoke to the patient's nurse stocking and we will follow up the patient in a.m. Carlos Tsai MD
[2017-12-02] MEDS: Furosemide 40 mg/5 mL Oral Soln UD PO SCH (10:17)
[2017-12-02] MEDS: POLYETHYLENE GLYCOL 3350 17 GM/Dose PACKET PO SCH ×2 (10:18→17:05)
--- NOTE | 2017-12-02 13:02 | PN ---
DATE: REASON FOR CONSULTATION AND FOLLOWUP: Continued care in Transitional Care Unit, history of coronary artery disease, pacemaker, admitted with esophageal tear. SUBJECTIVE: The patient denies any chest pain, shortness of breath or any palpitation. OBJECTIVE: GENERAL: Not in apparent distress, was on Effient before, which was held and now Plavix is started, is tolerating. VITAL SIGNS: Temperature afebrile, heart rate 60, blood pressure 125/60. HEENT: PERRLA, intact. NECK: Supple. No carotid bruit or thyromegaly. CHEST: Clear to auscultation. HEART: S1 and S2, regular. ABDOMEN: Soft. EXTREMITIES: Clubbing and cyanosis negative. LABORATORY DATA: Blood workup as follows: WBC 9.9, hemoglobin 11, hematocrit 34.8, platelet count 254. Chemistry shows sodium 134, potassium 4.2, chloride 102, carbon dioxide 28, anion gap of 11, BUN 14, creatinine 0.7. The patient had PRU level done on 07/29/2017, the patient was found to be resistant to the Plavix. So, the patient was discharged with Effient on 07/29/2017. Recently, the patient had GI bleed and esophageal tear. So, everything was held and restarted aspirin, Plavix. Since the patient started, will resume back Effient. The patient was questioning Effient, so we will resume back on Effient from tomorrow, if the patient can tolerate. So, we will discontinue Plavix after 2 days and start Effient while the patient is in the TCU and monitor closely. Continue clonidine, continue digoxin, continue aspirin, continue glipizide, continue Lasix p.o., continue metoprolol and after 2 days' dose, we will discontinue Plavix and resume back on Effient. Discussed with the patient. As mentioned, the patient was resistant to Plavix, elevated level of PRU in last admission. Thank you Dr. Tsai, for providing us the opportunity in taking care of the patient, Karl Rueda. Ciera Sheikh MD
[2017-12-02] MEDS: Digoxin 125 mcg (0.125 mg) Tab PO SCH (13:46)
--- NOTE | 2017-12-02 17:59 | PN ---
DATE: SUBJECTIVE: The patient is 67 years old, seen and examined, sitting in chair, seems to be comfortable. Complaint of discomfort and surgical site in the left chest area. PHYSICAL EXAMINATION: VITAL SIGNS: The patient is afebrile, pulse 60, respirations 18, blood pressure 125/60. LUNGS: Bilateral good airflow. No rhonchi or crackle. HEART: S1 and S2 audible. ABDOMEN: Soft. Nontender. No rebound. No guarding. NEUROLOGICAL: The patient is awake, alert, oriented, communicative. LABORATORY EXAM: WBC 9.1, hemoglobin 11, hematocrit 34.8, platelet 254. Chemistry: Sodium 137, potassium 4.2, chloride 102, CO2 28, BUN 14, creatinine 0.7, blood sugar is 165. ASSESSMENT: 1. Status post gastrointestinal bleed. 2. History of coronary artery disease, status post angioplasty. 3. History of thoracotomy and wound in the left chest seems to be healing. 4. History of esophageal mucosal tear, status post sclerotherapy. 5. [id number]-[id number] diabetes. 6. Bilateral leg edema. PLAN: The patient is on aspirin 81 daily. He is on Effient. We will continue him on clonidine as needed. He was given Januvia and Lasix. I will discuss with the patient's nurse. We will recommend him for ROMANA stocking and keep the legs elevated. Carlos Tsai MD
[2017-12-03] MEDS: Pantoprazole 40 mg EC Tab PO SCH (06:11)
[2017-12-03] MEDS: Potassium Chloride 20 mEq ER Tab PO SCH (08:26)
[2017-12-03] MEDS: Insulin Lispro (humaLOG) MEDIUM Coverage SC SCH ×4 (10:04→21:56)
[2017-12-03] MEDS: Furosemide 40 mg/5 mL Oral Soln UD PO SCH (10:05)
[2017-12-03] MEDS: POLYETHYLENE GLYCOL 3350 17 GM/Dose PACKET PO SCH ×2 (10:05→17:56)
[2017-12-03] MEDS: Digoxin 125 mcg (0.125 mg) Tab PO SCH (14:54)
[2017-12-03 17:54] VITALS: RESP 18
--- NOTE | 2017-12-03 19:24 | PN ---
DATE: REASON FOR CONSULTATION AND FOLLOWUP: Continuity of care in transitional care unit, history of coronary artery disease, history of pacemaker, admitted with esophageal tear. SUBJECTIVE: The patient denies any chest pain, shortness of breath, or any palpitation. Feels a lot better. OBJECTIVE: GENERAL: Not in apparent distress. VITAL SIGNS: Temperature afebrile, heart rate 53, blood pressure 125/61. HEENT: PERRLA. Extraocular muscles intact. NECK: Supple. No carotid bruit or thyromegaly. CHEST: Clear to auscultation. HEART: S1 and S2, regular. ABDOMEN: Soft. EXTREMITIES: Clubbing and cyanosis negative. LABORATORY DATA: Blood workup as follows: WBC 9.2, hemoglobin 11, hematocrit 34.8, platelet count 254. Chemistry shows sodium 139, potassium 4.2, chloride 102, carbon dioxide 28, anion gap of 11. BUN 14, creatinine 0.7. IMPRESSION: Status post esophageal tear, status post being treated conservatively. The patient had a PRU test done, was found to be resistant to the Plavix. So the patient was discharged last time on Effient on 07/29/2017. Recently, the patient admitted with GI bleed and esophageal tear, both aspirin and Effient were held. I think the patient is started back on aspirin and then Plavix. The patient will be put back on Effient. Two daysthe patient tolerated aspirin and Plavix, no issue, so we will restart Effient from today. Continue digoxin. Continue aspirin. Continue beta-alessandro. We will follow with you. Monitor H and H. Thank you Dr. Tsai, for providing us the opportunity in taking care of the patient, Karl Rueda. Ciera Sheikh MD
--- NOTE | 2017-12-03 23:19 | PN ---
DATE: SUBJECTIVE: The patient is 67 years old, seen and examined, sitting in chair, seems to be comfortable. No nausea, vomiting. No diarrhea. PHYSICAL EXAMINATION: VITAL SIGNS: The patient is afebrile, pulse 73, respirations 18, blood pressure 127/65. LUNGS: Bilateral good airflow. No rhonchi or crackle. HEART: S1 and S2 audible. ABDOMEN: Soft. Nontender. No rebound. No guarding. NEUROLOGICAL: The patient is awake, alert, oriented, communicative, ambulatory. LABORATORY EXAM: WBC 9.1, hemoglobin 11, hematocrit 34.8, platelet of 254. Chemistry: Blood sugar is 199. ASSESSMENT: 1. Status post upper gastrointestinal bleed. 2. Status post endoscopic sclerotherapy. 3. Coronary artery disease, status post angioplasty. 4. History of thoracotomy. 5. Skq-manckjd-okzaqzmrj diabetes. 6. Bilateral leg edema. 7. Status post pacemaker placement. PLAN: Currently, the patient is on digoxin, aspirin, Effient, glipizide and he is on Januvia and potassium chloride. He is on Lasix. He sill has bilateral leg swelling, I will increase his Lasix to 40 every 12. I will encourage ambulation. Discharge plan CBC for a.m. Carlos Tsai MD
[2017-12-04] MEDS: Pantoprazole 40 mg EC Tab PO SCH (06:28)
[2017-12-04] MEDS: Insulin Lispro (humaLOG) MEDIUM Coverage SC SCH ×4 (06:30→21:47)
[2017-12-04] MEDS: Potassium Chloride 20 mEq ER Tab PO SCH (08:30)
--- NOTE | 2017-12-04 09:58 | CP.PCM.PN ---
Subjective - Date & Time of Evaluation Date of Evaluation: 12/04/17 Time of Evaluation: 07:00 - Subjective Subjective: Seen and examined by me and Dr. Sheikh Reason for consult and follow up: Continuity of care in TCU, history of coronary artery disease, history of permanent pacemaker, admitted for esophageal mucosal tear with active bleeding status post sclerotherapy. Resolved GI bleeding. Subjective: denies chest pain, denies shortness of breath, feels okay Objective - Vital Signs/Intake and Output Vital Signs (last 24 hours): Temp Pulse Resp BP Pulse Ox 98 F 65 18 136/67 99 12/04/17 06:00 12/04/17 08:30 12/04/17 06:00 12/04/17 08:30 12/04/17 06:00 Intake and Output: 12/04/17 12/04/17 06:59 18:59 Intake Total 840 Balance 840 - Medications Medications: Current Medications Aspirin (Ecotrin) 81 mg PO 0800 [facility] Last Admin: 12/04/17 08:29 Dose: 81 mg Clonidine HCl (Catapres) 0.1 mg PO Q6 PRN PRN Reason: FOR SBP >150-TEL Last Admin: 11/28/17 18:31 Dose: 0.1 mg Digoxin (Digoxin) 0.125 mg PO 1400 [facility] Last Admin: 12/03/17 14:54 Dose: 0.125 mg Furosemide (Lasix) 40 mg PO DAILY [facility] Last Admin: 12/03/17 10:05 Dose: 40 mg Gabapentin (Neurontin) 300 mg PO DAILY [facility] PRN Reason: Protocol Last Admin: 12/03/17 10:05 Dose: 300 mg Glipizide (Glucotrol) 10 mg PO 0700,1700 [facility] Last Admin: 12/04/17 08:29 Dose: 10 mg Insulin Human Lispro (Humalog Med) 0 units SC ACHS [facility] PRN Reason: Protocol Last Admin: 12/04/17 06:30 Dose: Not Given Lisinopril (Zestril) 20 mg PO DAILY [facility] Last Admin: 12/03/17 10:06 Dose: 20 mg Metoprolol Tartrate (Lopressor) 25 mg PO 0800,1800 [facility] Last Admin: 12/04/17 08:30 Dose: 25 mg Pantoprazole Sodium (Protonix Ec Tab) 40 mg PO 0600 [facility] PRN Reason: Protocol Last Admin: 12/04/17 06:28 Dose: 40 mg Polyethylene Glycol (Miralax) 17 gm PO BID [facility] Last Admin: 12/03/17 17:56 Dose: 17 gm Potassium Chloride (K-Dur 20 Meq Er Tab) 20 meq PO 0800 [facility] Last Admin: 12/04/17 08:30 Dose: 20 meq Prasugrel (Effient) 10 mg PO DAILY [facility] Last Admin: 12/03/17 10:05 Dose: 10 mg Sitagliptin Phosphate (Januvia) 100 mg PO DAILY [facility] Last Admin: 12/03/17 10:05 Dose: 100 mg - Labs Labs: 12/02/17 06:30 12/02/17 06:30 - Constitutional Appears: No Acute Distress - Head Exam Head Exam: NORMAL INSPECTION - Eye Exam Eye Exam: Normal appearance Pupil Exam: NORMAL ACCOMODATION - ENT Exam ENT Exam: Mucous Membranes Moist, Normal Exam - Respiratory Exam Respiratory Exam: Clear to Ausculation Bilateral, NORMAL BREATHING PATTERN - Cardiovascular Exam Cardiovascular Exam: +S1, +S2 - GI/Abdominal Exam GI & Abdominal Exam: Soft, Normal Bowel Sounds - Extremities Exam Extremities Exam: Normal Capillary Refill - Neurological Exam Neurological Exam: Alert, Awake, Oriented x3 - Psychiatric Exam Psychiatric exam: Normal Affect, Normal Mood - Skin Skin Exam: Dry, Intact, Normal Color, Warm Assessment and Plan - Assessment and Plan (Free Text) Assessment: IMPRESSION: Continuity of care in TCU, history of coronary artery disease, history of permanent pacemaker, admitted for esophageal mucosal tear with active bleeding status post sclerotherapy. Resolved GI bleeding. Plan: Tolerating physical therapy Cardiac status stable, Stable heart rate and blood pressure On ASA 81 mg daily, Catapres 0.1 mg q 6 hrs PRN, digoxin 0.125 mg daily, Lasix 40 mg daily, Zestril 20 mg daily, Lopressor 25 mg BID Started Effient 10 mg daily yesterday Continue current medications Watch out for GI bleeding Monitor hemoglobin and hematocrit Continue current treatment Will follow up Plan and treatment discussed with Dr. Sheikh
[2017-12-04] MEDS: POLYETHYLENE GLYCOL 3350 17 GM/Dose PACKET PO SCH ×2 (09:59→17:35)
[2017-12-04] MEDS: Furosemide 40 mg/5 mL Oral Soln UD PO SCH (10:50)
[2017-12-04] MEDS ORDERED: Oxycodone/Acetaminophen 5/325 mg Tab PO PRN (12:55)
[2017-12-04] MEDS: Digoxin 125 mcg (0.125 mg) Tab PO SCH (15:35)
--- NOTE | 2017-12-04 15:43 | CP.PCM.PN ---
Subjective - Date & Time of Evaluation Date of Evaluation: 12/04/17 Time of Evaluation: 15:41 - Subjective Subjective: Surgery progress note Patient seen and examined at bedside. Per nursing, no acute issue overnight. Patient reports some discomfort. Patient denies any chest pain, fevers, chills, nausea, vomiting, changes in vision, headache, or any other complaints. Objective - Vital Signs/Intake and Output Vital Signs (last 24 hours): Temp Pulse Resp BP Pulse Ox 98 F 80 18 132/60 100 12/04/17 13:07 12/04/17 13:07 12/04/17 13:07 12/04/17 13:07 12/04/17 13:07 Intake and Output: 12/04/17 12/04/17 06:59 18:59 Intake Total 840 Balance 840 - Medications Medications: Current Medications Aspirin (Ecotrin) 81 mg PO 0800 [facility] Last Admin: 12/04/17 08:29 Dose: 81 mg Clonidine HCl (Catapres) 0.1 mg PO Q6 PRN PRN Reason: FOR SBP >150-TEL Last Admin: 11/28/17 18:31 Dose: 0.1 mg Digoxin (Digoxin) 0.125 mg PO 1400 [facility] Last Admin: 12/04/17 15:35 Dose: 0.125 mg Furosemide (Lasix) 40 mg PO DAILY [facility] Last Admin: 12/04/17 10:50 Dose: 40 mg Gabapentin (Neurontin) 300 mg PO DAILY [facility] PRN Reason: Protocol Last Admin: 12/04/17 10:51 Dose: 300 mg Glipizide (Glucotrol) 10 mg PO 0700,1700 [facility] Last Admin: 12/04/17 08:29 Dose: 10 mg Insulin Human Lispro (Humalog Med) 0 units SC ACHS [facility] PRN Reason: Protocol Last Admin: 12/04/17 11:35 Dose: 1 units Lisinopril (Zestril) 20 mg PO DAILY [facility] Last Admin: 12/04/17 10:51 Dose: 20 mg Metoprolol Tartrate (Lopressor) 25 mg PO 0800,1800 [facility] Last Admin: 12/04/17 08:30 Dose: 25 mg Oxycodone/Acetaminophen (Percocet 5/325 Mg Tab) 1 tab PO Q6H PRN PRN Reason: Pain, severe (8-10) Stop: 12/07/17 12:56 Pantoprazole Sodium (Protonix Ec Tab) 40 mg PO 0600 [facility] PRN Reason: Protocol Last Admin: 12/04/17 06:28 Dose: 40 mg Polyethylene Glycol (Miralax) 17 gm PO BID [facility] Last Admin: 12/04/17 09:59 Dose: Not Given Potassium Chloride (K-Dur 20 Meq Er Tab) 20 meq PO 0800 [facility] Last Admin: 12/04/17 08:30 Dose: 20 meq Prasugrel (Effient) 10 mg PO DAILY [facility] Last Admin: 12/04/17 10:50 Dose: 10 mg Sitagliptin Phosphate (Januvia) 100 mg PO DAILY [facility] Last Admin: 12/04/17 10:50 Dose: 100 mg - Labs Labs: 12/02/17 06:30 12/02/17 06:30 - Head Exam Head Exam: ATRAUMATIC, NORMAL INSPECTION, NORMOCEPHALIC - Eye Exam Eye Exam: EOMI, Normal appearance, PERRL Pupil Exam: NORMAL ACCOMODATION - ENT Exam ENT Exam: Mucous Membranes Moist, Normal Oropharynx - Respiratory Exam Respiratory Exam: Clear to Ausculation Bilateral, NORMAL BREATHING PATTERN - Cardiovascular Exam Cardiovascular Exam: REGULAR RHYTHM - GI/Abdominal Exam GI & Abdominal Exam: Soft, Normal Bowel Sounds - Neurological Exam Neurological Exam: Alert, Awake - Psychiatric Exam Psychiatric exam: Normal Affect, Normal Mood Assessment and Plan - Assessment and Plan (Free Text) Assessment: 67 year old male status post left-thoracotomy. Plan: -Percocet for pain management. -Wound care -Further rec's per medical team. Will discuss with Dr. Emerson
--- NOTE | 2017-12-04 20:18 | PN ---
DATE: SUBJECTIVE: The patient is 67 years old, seen and examined, sitting in chair, seems to be comfortable. Still has bilateral leg swelling. PHYSICAL EXAMINATION: VITAL SIGNS: The patient is afebrile, pulse 47, respirations 18, blood pressure 104/50. LUNGS: Bilateral good airflow. No rhonchi or crackle. HEART: S1 and S2 audible. ABDOMEN: Soft, nontender. No rebound. No guarding. NEUROLOGICAL: The patient is awake, alert, oriented, communicative. LABORATORY DATA: WBC is 9.1, hemoglobin 11, hematocrit 34, platelet 254. Chemistry: Blood sugar is 170. ASSESSMENT: 1. Status post gastrointestinal bleed. 2. Partial esophageal tear. 3. Hypertension. 4. Cmd-ajksmir-ssevigcvd diabetes. 5. Coronary artery disease, status post angioplasty. 6. History of thoracotomy. 7. Anemia. PLAN: Discussed with surgical team. Patient would have paola in the left chest removed. We will continue patient on current medication. Monitor blood sugar. Continue him on diuretic, ROMANA stocking, and we will follow up . Carlos Tsai MD
[2017-12-05] MEDS: Pantoprazole 40 mg EC Tab PO SCH (05:44)
[2017-12-05] MEDS: Insulin Lispro (humaLOG) MEDIUM Coverage SC SCH ×4 (06:38→21:38)
--- NOTE | 2017-12-05 06:57 | CP.PCM.PN ---
Subjective - Date & Time of Evaluation Date of Evaluation: 12/05/17 Time of Evaluation: 06:45 - Subjective Subjective: Seen and examined by me and Dr. Sheikh Reason for consult and follow up: Continuity of care in TCU, history of coronary artery disease, history of permanent pacemaker, admitted for esophageal mucosal tear with active bleeding status post sclerotherapy, post thoracotomy, Resolved GI bleeding. Subjective: feels okay, slept off and on, denies chest pain and shortness of breath Objective - Vital Signs/Intake and Output Vital Signs (last 24 hours): Temp Pulse Resp BP Pulse Ox 98.4 F 47 L 18 104/50 L 97 12/04/17 17:02 12/04/17 17:35 12/04/17 17:02 12/04/17 17:35 12/04/17 17:02 Intake and Output: 12/04/17 12/05/17 18:59 06:59 Intake Total 840 Balance 840 - Medications Medications: Current Medications Aspirin (Ecotrin) 81 mg PO 0800 [facility] Last Admin: 12/04/17 08:29 Dose: 81 mg Clonidine HCl (Catapres) 0.1 mg PO Q6 PRN PRN Reason: FOR SBP >150-TEL MD Last Admin: 11/28/17 18:31 Dose: 0.1 mg Digoxin (Digoxin) 0.125 mg PO 1400 [facility] Last Admin: 12/04/17 15:35 Dose: 0.125 mg Furosemide (Lasix) 40 mg PO DAILY [facility] Last Admin: 12/04/17 10:50 Dose: 40 mg Gabapentin (Neurontin) 300 mg PO DAILY [facility] PRN Reason: Protocol Last Admin: 12/04/17 10:51 Dose: 300 mg Glipizide (Glucotrol) 10 mg PO 0700,1700 [facility] Last Admin: 12/04/17 17:51 Dose: 10 mg Insulin Human Lispro (Humalog Med) 0 units SC ACHS [facility] PRN Reason: Protocol Last Admin: 12/05/17 06:38 Dose: Not Given Lisinopril (Zestril) 20 mg PO DAILY [facility] Last Admin: 12/04/17 10:51 Dose: 20 mg Metoprolol Tartrate (Lopressor) 25 mg PO 0800,1800 [facility] Last Admin: 12/04/17 17:35 Dose: Not Given Oxycodone/Acetaminophen (Percocet 5/325 Mg Tab) 1 tab PO Q6H PRN PRN Reason: Pain, severe (8-10) Stop: 12/07/17 12:56 Last Admin: 12/04/17 19:51 Dose: 1 tab Pantoprazole Sodium (Protonix Ec Tab) 40 mg PO 0600 [facility] PRN Reason: Protocol Last Admin: 12/05/17 05:44 Dose: 40 mg Polyethylene Glycol (Miralax) 17 gm PO BID [facility] Last Admin: 12/04/17 17:35 Dose: Not Given Potassium Chloride (K-Dur 20 Meq Er Tab) 20 meq PO 0800 [facility] Last Admin: 12/04/17 08:30 Dose: 20 meq Prasugrel (Effient) 10 mg PO DAILY [facility] Last Admin: 12/04/17 10:50 Dose: 10 mg Sitagliptin Phosphate (Januvia) 100 mg PO DAILY [facility] Last Admin: 12/04/17 10:50 Dose: 100 mg - Labs Labs: 12/02/17 06:30 12/02/17 06:30 - Constitutional Appears: No Acute Distress - Head Exam Head Exam: NORMAL INSPECTION - Eye Exam Eye Exam: Normal appearance - ENT Exam ENT Exam: Mucous Membranes Moist, Normal Exam - Respiratory Exam Respiratory Exam: Clear to Ausculation Bilateral, NORMAL BREATHING PATTERN - Cardiovascular Exam Cardiovascular Exam: REGULAR RHYTHM, +S1, +S2 - GI/Abdominal Exam GI & Abdominal Exam: Soft, Normal Bowel Sounds - Extremities Exam Extremities Exam: Full ROM, Normal Capillary Refill - Neurological Exam Neurological Exam: Alert, Awake, Oriented x3 - Psychiatric Exam Psychiatric exam: Normal Affect, Normal Mood - Skin Skin Exam: Intact, Normal Color, Warm Assessment and Plan - Assessment and Plan (Free Text) Assessment: IMPRESSION: Continuity of care in TCU, history of coronary artery disease, history of permanent pacemaker, admitted for esophageal mucosal tear with active bleeding status post sclerotherapy/ post thoracotomy, Resolved GI bleeding. Plan: Physical therapy in progress Cardiac status stable, Stable heart rate and blood pressure On ASA 81 mg daily, Catapres 0.1 mg q 6 hrs PRN, digoxin 0.125 mg daily, Lasix 40 mg daily, Zestril 20 mg daily, Lopressor 25 mg BID, Effient 10 mg daily Tolerating physical therapy Cardiac status stable, Stable heart rate and blood pressure Continue current medications Watch out for GI bleeding,stable hemoglobin and hematocrit Continue current treatment Will follow up Plan and treatment discussed with Dr. Sheikh
[2017-12-05] MEDS: Potassium Chloride 20 mEq ER Tab PO SCH (07:53)
[2017-12-05] MEDS: POLYETHYLENE GLYCOL 3350 17 GM/Dose PACKET PO SCH ×2 (09:49→18:03)
[2017-12-05] MEDS: Furosemide 40 mg/5 mL Oral Soln UD PO SCH (09:49)
[2017-12-05] MEDS ORDERED: TraMADol/Apap 37.5/325 mg Tab PO PRN (12:36)
[2017-12-05] MEDS: Digoxin 125 mcg (0.125 mg) Tab PO SCH (13:42)
[2017-12-05] MEDS: TraMADol/Apap 37.5/325 mg Tab PO SCH ×2 (13:59→20:00)
--- NOTE | 2017-12-05 14:02 | PN ---
DATE: SUBJECTIVE: The patient is a 67-year-old, seen and examined, sitting in chair, still complaining of left-sided chest pain, still has paola in after thoracotomy. No rectal bleeding. No black stools. PHYSICAL EXAMINATION: VITAL SIGNS: He is afebrile, pulse 88, respirations 18, blood pressure 135/76. LUNGS: Bilateral good airflow. No rhonchi or crackle. HEART: S1 and S2 audible. ABDOMEN: Soft, nontender. No rebound. No guarding. He has paola in the left mid chest area, status post thoracotomy. ASSESSMENT: 1. Upper gastrointestinal bleed secondary to partial esophageal tear, status post exploratory thoracotomy to rule out esophageal perforation. 2. Non-insulin dependent diabetes. 3. Hypertension. 4. Hyperlipidemia. 5. Coronary artery disease, status post angioplasty. PLAN: I will start the patient on Ultracet and I will keep Percocet as-needed basis and I will follow up this patient in a.m. Carlos Tsai MD
[2017-12-05 16:49] VITALS: TEMP 97.9; O2SAT 100
[2017-12-06] MEDS: TraMADol/Apap 37.5/325 mg Tab PO SCH ×3 (00:05→12:32)
[2017-12-06] MEDS: Pantoprazole 40 mg EC Tab PO SCH (05:50)
[2017-12-06] MEDS: Insulin Lispro (humaLOG) MEDIUM Coverage SC SCH ×2 (06:36→12:37)
[2017-12-06 07:29] LABS: BASO # 0.01 K/mm3 (0.0-2.0); BASO % 0.1 % (0.0-3.0); EOS # 0.3 (0.0-0.7); EOS % 3.8 % (1.5-5.0); GRAN # 5.21 (1.4-6.5); GRAN % 73.5 % (50.0-68.0); HEMOGLOBIN 9.7 g/dL (14.0-18.0); LYMPH % 13.9 % (22.0-35.0); MEAN CELL VOLUME 81.2 fl (80.0-105.0); MEAN CORPUSCULAR HEMOGLOBIN 25.7 pg (25.0-35.0); MEAN CORPUSCULAR HGB CONC 31.6 g/dl (31.0-37.0); MEAN PLATELET VOLUME 9.1 fl (7.0-11.0); MONO # 0.6 (0.1-0.6); MONO % 8.7 % (1.0-6.0); RBC 3.78 10^6/uL (3.5-6.1); RED CELL DISTRIBUTION WIDTH 17.8 % (11.5-14.5); WHITE BLOOD COUNT 7.1 10^3/ul (4.5-11.0)
[2017-12-06 07:50] LABS: ALB/GLOB RATIO 1.1 (1.1-1.8); ALBUMIN 3.4 g/dL (3.0-4.8); ALT/SGPT 53 U/L (7-56); AST/SGOT 47 U/L (17-59); BLOOD UREA NITROGEN 12 mg/dL (7-21); CALCIUM 9.3 mg/dL (8.4-10.5); GFR AFRICAN-AMERICAN > 60; GFR NON-AFRICAN AMERICAN > 60
[2017-12-06] MEDS: Potassium Chloride 20 mEq ER Tab PO SCH (08:18)
[2017-12-06 08:21] VITALS: PULSE 70
[2017-12-06] MEDS: POLYETHYLENE GLYCOL 3350 17 GM/Dose PACKET PO SCH (10:08)
[2017-12-06] MEDS: Furosemide 40 mg/5 mL Oral Soln UD PO SCH (10:08)
[2017-12-06 10:11] VITALS: BP 130/70
[2017-12-06] MEDS: Digoxin 125 mcg (0.125 mg) Tab PO SCH ×2 (12:33→14:08)
[2017-12-06 14:10] VITALS: PULSE 76
--- NOTE | 2017-12-07 13:21 | DS ---
HISTORY OF PRESENT ILLNESS: The patient is a 67-year-old, seen and examined, who was initially admitted with upper GI bleeding. He had undergone endoscopy, was found to have partial esophageal tear, had thoracotomy done to see if there was no mediastinal fluid leak secondary to perforation and pneumothorax. He had chest tube placed and did well. Needed physical therapy, so was sent to TCU. The patient's stay in TCU was unremarkable, has been ambulating. PHYSICAL EXAMINATION: VITAL SIGNS: The patient is afebrile, pulse 70, respirations 18, blood pressure 130/70. LUNGS: Bilateral good airflow. HEART: S1 and S2 audible. ABDOMEN: Soft, nontender. No rebound, no guarding. NEUROLOGIC: The patient is awake, alert, oriented, able to communicate, ambulatory. His left thoracotomy wound seems to be healthy except anterolateral aspect has 2 to 3 paola kept. LABORATORY DATA: WBC 7.1, hemoglobin 9.7, hematocrit 30.7, platelet of 265. Chemistry: Sodium 139, potassium 4, chloride 104, CO2 of 25, BUN 12, creatinine 0.8, blood sugar of 86. ASSESSMENT: 1. Status post upper gastrointestinal bleed. 2. Hypertension. 3. Coronary artery disease. 4. Hyperlipidemia. PLAN: The patient is being discharged home on Ultracet as needed. He will resume his medication including Januvia, metoprolol, lisinopril, glipizide, gabapentin, Lasix, fenofibrate, aspirin, and Plavix. He is advised to follow up in the office in following week, so he can remove his rest of the paola. Carlos Tsai MD
== END 2017-12-06 14:58 | disposition home or self-care (01) | DRG 392 ==
LOC: TRCU 16:54
PROVIDERS: ADMIT Internal Medicine; ATTEND Internal Medicine
PROC: F07Z9FZ Gait Training/Functional Ambulation Treatment using Assistive, Adaptive, Supportive or Protective Equipment (ICD-10-PCS; principal; 2017-11-29)
PROC: F07M6ZZ Therapeutic Exercise Treatment of Musculoskeletal System - Whole Body (ICD-10-PCS; 2017-11-29)
PROC: F08Z1ZZ Dressing Techniques Treatment (ICD-10-PCS; 2017-11-29)
PROC: F08Z2ZZ Grooming/Personal Hygiene Treatment (ICD-10-PCS; 2017-11-29)
DX: K22.8 Other specified diseases of esophagus (principal); D64.9 Anemia, unspecified; E11.9 Type 2 diabetes mellitus without complications; E78.5 Hyperlipidemia, unspecified; I08.1 Rheumatic disorders of both mitral and tricuspid valves; I10 Essential (primary) hypertension; I25.10 Atherosclerotic heart disease of native coronary artery without angina pectoris; I25.2 Old myocardial infarction; I28.9 Disease of pulmonary vessels, unspecified; J44.9 Chronic obstructive pulmonary disease, unspecified; R13.10 Dysphagia, unspecified; Z79.4 Long term (current) use of insulin; Z95.0 Presence of cardiac pacemaker; Z95.5 Presence of coronary angioplasty implant and graft

== ENCOUNTER 2018-01-07 17:18 | Emergency (ER) | payer MEDICARE, MEDICAID ==
[2018-01-07 17:18] VITALS: PULSE 62
[2018-01-07 18:09] VITALS: BMI 26.6
[2018-01-07 18:14] VITALS: RESP 16; TEMP 98.4
[2018-01-07] MEDS ORDERED: Sodium Chloride 0.9% 1,000 ML IV STA (18:29)
[2018-01-07 19:31] LABS: BASO # 0.01 K/mm3 (0.0-2.0); BASO % 0.2 % (0.0-3.0); EOS # 0.1 (0.0-0.7); EOS % 1.9 % (1.5-5.0); GRAN # 4.32 (1.4-6.5); HEMOGLOBIN 11.3 g/dL (14.0-18.0); LYMPH # 1.3 (1.2-3.4); LYMPH % 20.7 % (22.0-35.0); MEAN CORPUSCULAR HEMOGLOBIN 23.2 pg (25.0-35.0); MEAN CORPUSCULAR HGB CONC 30.5 g/dl (31.0-37.0); MONO # 0.7 (0.1-0.6); MONO % 10.2 % (1.0-6.0); RBC 4.87 10^6/uL (3.5-6.1); RED CELL DISTRIBUTION WIDTH 17.3 % (11.5-14.5); WHITE BLOOD COUNT 6.4 10^3/ul (4.5-11.0)
[2018-01-07 19:32] LABS: PH,URINE 7.5 (4.7-8.0); URINE BILIRUBIN NEGATIVE (NEGATIVE); URINE BLOOD NEGATIVE (NEGATIVE); URINE GLUCOSE (UA) NEGATIVE (NEGATIVE); URINE LEUKOCYTE ESTERASE NEGATIVE Leu/uL (NEGATIVE); URINE PROTEIN 100 mg/dL (<30 mg/dL)
[2018-01-07 19:33] LABS: URINE APPEARANCE CLEAR (CLEAR); URINE COLOR YELLOW (YELLOW)
[2018-01-07 19:42] LABS: URINE BACTERIA NEG (NEG); URINE EPITHELIAL CELLS 0 - 2 /hpf (0-5); URINE RBC 0 - 2 /hpf (0-2); URINE WBC NEGATIVE /hpf (0-6)
[2018-01-07 19:46] LABS: ALB/GLOB RATIO 1.1 (1.1-1.8); ALBUMIN 4.4 g/dL (3.0-4.8); ALT/SGPT 18 U/L (7-56); AMYLASE 76 U/L (35-125); AST/SGOT 31 U/L (17-59); BLOOD UREA NITROGEN 18 mg/dL (7-21); CALCIUM 9.7 mg/dL (8.4-10.5); GFR AFRICAN-AMERICAN > 60; GFR NON-AFRICAN AMERICAN > 60; LIPASE 159 U/L (23-300)
[2018-01-07 19:56] LABS: TROPONIN I < 0.01 ng/mL
[2018-01-07] MEDS ORDERED: Iohexol 350 MG/100 ML VIAL ONE (20:03)
--- NOTE | 2018-01-07 21:30 | ED PDOC ---
Arrival/HPI - General Chief Complaint: Abdominal Pain Time Seen by Provider: 01/07/18 18:03 Historian: Patient - History of Present Illness Narrative History of Present Illness (Text): 01/07/18 21:29 A 67 year old male, whose past medical history includes CAD with multiple stents , and gastric ulcers, presents to the emergency department complaining of epigastric abdominal pain for the past two weeks. Patient denies any nausea, vomiting, diarrhea, fever or any other complaints at this time. Time/Duration: Other (2 weeks) Symptom Onset: Sudden Symptom Course: Unchanged Activities at Onset: Rest Context: Home Past Medical History - Provider Review Nursing Documentation Reviewed: Yes - Infectious Disease Hx of Infectious Diseases: None - Tetanus Immunization Tetanus Immunization: Unknown - Cardiac Hx Cardiac Disorders: Yes (s/p stents) Hx Angina: Yes Hx Hypertension: Yes Hx Pacemaker: Yes - Pulmonary Hx Respiratory Disorders: Yes Hx Asthma: No Hx Bronchitis: No Hx Chronic Obstructive Pulmonary Disease (COPD): Yes Hx Emphysema: No Hx Respiratory Aspiration: No Hx Respiratory Tract Infection: No Hx Sleep Apnea: No Hx Tuberculosis: No - Neurological Hx Alzheimer's Disease: No HX Cerebrovascular Accident: No Hx Dementia: No Hx Dizziness: No Hx Meningitis: No Hx Migraine: No Hx Parkinson's Disease: No Hx Seizures: No Hx Transient Ischemic Attacks (TIA): No - HEENT Hx Blind: No Hx Deafness: No Hx Difficulty Chewing: No Hx Epistaxis: No Hx Glaucoma: No Hx Macular Degeneration: No - Renal Hx Dialysis: No Hx Kidney Stones: No Hx Neurogenic Bladder: No Hx Pyelonephritis: No Hx Renal Cancer: No Hx Renal Failure: No Other/Comment: Renal Insuficiency - Endocrine/Metabolic Hx Endocrine Disorders: No Hx Adrenal Cancer: No Hx Diabetes Insipidus: No Hx Diabetes Mellitus Type 1: No Hx Diabetes Mellitus Type 2: Yes Hx Hyperthyroidism: No Hx Hypothyroidism: No Hx Systemic Lupus Erythematosus: No - Hematological/Oncological Hx AIDS: No Hx Cancer: No Hx Chemotherapy: No Hx Cirrhosis: No Hx Hemophilia: No Hx Hepatitis A: No Hx Hepatitis B: No Hx Hepatitis C: No Hx Shingles: No Hx Sickle Cell Disease: No Hx Unexplained Bleeding: No - Integumentary Hx Basal Cell Carcinoma: No Hx Eczema: No Hx Melanoma: No Hx Psoriasis: No Hx Squamous Cell Carcinoma: No - Musculoskeletal/Rheumatological Hx Arthritis: No Hx Back Pain: No Hx Degenerative Joint Disease: No Hx Falls: Yes Hx Fractures: No Hx Gout: No Hx Herniated Disk: No Hx Myasthenia Gravis: No Hx Osteoarthritis: No Hx Osteomyelitis: No Hx Osteoporosis: No Hx Rhabdomyolysis: No Hx Spinal Stenosis: No Hx Unsteady Gait: No Other/Comment: FALLS - Gastrointestinal Hx Esophageal Varices: Yes Other/Comment: GI Bleed - Genitourinary/Gynecological Hx Reproductive Disorders: No - Psychiatric Hx Psychophysiologic Disorder: No Hx Emotional Abuse: No Hx Physical Abuse: No Hx Substance Use: No - Surgical History Hx Angioplasty: Yes Hx Cardiac Catheterization: Yes Hx Coronary Stent: Yes (X5) Other/Comment: pacemaker 2013 - Anesthesia Hx Anesthesia Reactions: No Hx Malignant Hyperthermia: No - Suicidal Assessment Feels Threatened In Home Enviroment: No Family/Social History - Physician Review Nursing Documentation Reviewed: Yes Family/Social History: No Known Family HX Smoking Status: Never Smoked Hx Alcohol Use: Yes (H/O QUIT) Hx Substance Use: No Hx Substance Use Treatment: No Allergies/Home Meds Allergies/Adverse Reactions: Allergies No Known Allergies Allergy (Verified 11/21/17 04:54) Home Medications: Home Meds Medication Instructions Recorded Confirmed Fenofibrate [Fenoglide] 134 mg PO DAILY 03/18/16 01/07/18 Atorvastatin [Lipitor] 40 mg PO DAILY 11/25/16 01/07/18 Cholecalciferol (Vitamin D3) 50,000 unit PO Q7D 12/20/16 01/07/18 [Vitamin D3] Review of Systems - Physician Review All systems were reviewed & negative as marked: Yes - Review of Systems Constitutional: absent: Fevers Gastrointestinal: Abdominal Pain (epigastric). absent: Diarrhea, Nausea, Vomiting Physical Exam Vital Signs Reviewed: Yes Vital Signs Temp Pulse Resp BP Pulse Ox 01/07/18 18:09 98.4 F 50 L 16 140/68 100 Temperature: Afebrile Blood Pressure: Normal Pulse: Bradycardic Respiratory Rate: Normal Appearance: Positive for: Well-Appearing, Non-Toxic, Comfortable Pain Distress: None Mental Status: Positive for: Alert and Oriented X 3 - Systems Exam Head: Present: Atraumatic, Normocephalic Pupils: Present: PERRL Extroacular Muscles: Present: EOMI Conjunctiva: Present: Normal Mouth: Present: Moist Mucous Membranes Neck: Present: Normal Range of Motion Respiratory/Chest: Present: Clear to Auscultation, Good Air Exchange. No: Respiratory Distress, Accessory Muscle Use Cardiovascular: Present: Regular Rate and Rhythm, Normal S1, S2. No: Murmurs Abdomen: Present: Tenderness (epigastric). No: Distention, Peritoneal Signs Back: Present: Normal Inspection Upper Extremity: Present: Normal Inspection. No: Cyanosis, Edema Lower Extremity: Present: Normal Inspection. No: Edema Neurological: Present: GCS=15, CN II-XII Intact, Speech Normal Skin: Present: Warm, Dry, Normal Color. No: Rashes Psychiatric: Present: Alert, Oriented x 3, Normal Insight, Normal Concentration Medical Decision Making ED Course and Treatment: 01/07/18 21:28 Impression: A 67 year old male with epigastric abdominal pain. Plan: -- CT abd/pelvis -- EKG -- Chest X-ray -- labs -- Urinalysis -- Flexeril, Pepcid, Zofran and IV fluids -- Reassess and disposition Prior Visits: Notes and results from previous visits were reviewed. Patient was last seen in the emergency department on 11/21/17 for evaluation of vomiting and diarrhea. Progress Notes: EKG: Ordered, reviewed, and independently interpreted the EKG. Rate : 53 BPM Rhythm : ventricularly paced Interpretation : normal intervals 01/07/18 22:50 CT Abdomen and Pelvis Findings: Lung bases: Minimal peripheral consolidation within LEFT lower lobe. Few calcified granulomas. Pleural space: Trace RIGHT pleural effusion. Small LEFT pleural effusion. Heart: Mild cardiomegaly. Coronary artery calcifications. ABDOMEN: Liver: Fatty infiltration. Small calcification. Gallbladder and bile ducts: Calcified gallstones. Possible mild gallbladder wall thickening. No significant ductal dilation. Pancreas: No ductal dilation. No mass. Spleen: No splenomegaly. Adrenals: No mass. Kidneys and ureters: Probable 1.0 cm LEFT renal cyst. Too small to characterize lesion within RIGHT kidney. No hydronephrosis. Stomach and bowel: No definite mural thickening. No obstruction. PELVIS: Appendix: Normal caliber. No inflammation. Bladder: Unremarkable. Reproductive: Unremarkable as visualized. ABDOMEN and PELVIS: Intraperitoneal space: No significant fluid collection. No free air. Bones/joints: Degenerative changes of spine. No acute fracture. Soft tissues: Minimal gynecomastia. Mild diffuse stranding within subcutaneous tissues. Tiny LEFT inguinal hernia containing fat. Vasculature: Moderate atherosclerotic disease. No aneurysm. Lymph nodes: Borderline enlarged short axis lymph node within bereket hepatis. Tubes, lines and devices: Pacemaker lead. IMPRESSION: 1. Cholelithiasis with possible gallbladder wall thickening. Suggest ultrasound. 2. Left pleural effusion with compressive atelectasis. 3. Incidental/non-acute findings are described above. - Lab Interpretations Lab Results: 01/07/18 18:47 01/07/18 18:47 Lab Results 01/07/18 18:49: Urine Color Yellow, Urine Appearance Clear, Urine pH 7.5, Ur Specific [place] 1.010, Urine Protein 100 H, Urine Glucose (UA) Negative, Urine Ketones Negative, Urine Blood Negative, Urine Nitrate Negative, Urine Bilirubin Negative, Urine Urobilinogen 1.0 H, Ur Leukocyte Esterase Negative, Urine RBC 0 - 2, Urine WBC Negative, Ur Epithelial Cells 0 - 2, Urine Bacteria Neg 01/07/18 18:47: Sodium 143, Potassium 4.6, Chloride 103, Carbon Dioxide 27, Anion Gap 18, BUN 18, Creatinine 0.9, Est GFR ( Amer) > 60, Est GFR (Non- Af Amer) > 60, Random Glucose 110, Calcium 9.7, Magnesium 2.0, Total Bilirubin 0.8, AST 31, ALT 18, Alkaline Phosphatase 78, Lactate Dehydrogenase 485, Total Creatine Kinase 46, Troponin I < 0.01 D, Total Protein 8.3, Albumin 4.4, Globulin 3.9, Albumin/Globulin Ratio 1.1, Amylase 76, Lipase 159 01/07/18 18:47: WBC 6.4, RBC 4.87, Hgb 11.3 L, Hct 37.0 L, MCV 76.0 L D, MCH 23.2 L, MCHC 30.5 L, RDW 17.3 H, Plt Count 250, MPV 10.0, Gran % 67.0, Lymph % ( Auto) 20.7 L, [place] % (Auto) 10.2 H, Eos % (Auto) 1.9, Baso % (Auto) 0.2, Gran # 4.32, Lymph # (Auto) 1.3, [place] # (Auto) 0.7 H, Eos # (Auto) 0.1, Baso # (Auto) 0.01 I have reviewed the lab results: Yes - RAD Interpretation Radiology Orders: 01/07/18 18:29 CHEST PORTABLE [RAD] Stat 01/07/18 18:30 ABD & PELVIS IV CONTRAST ONLY [CT] Stat [employer] Advisor: Radiologist - EKG Interpretation Interpreted by ED Physician: Yes Type: 12 lead EKG - Medication Orders Current Medication Orders: Sodium Chloride (Sodium Chloride 0.9%) 1,000 mls @ 100 mls/hr IV .Q10H STA Stop: 01/08/18 04:28 Last Admin: 01/07/18 18:58 Dose: 100 mls/hr eMAR Start Stop Document 01/07/18 18:58 MS (Rec: 01/07/18 18:58 MS [id number]) Intravenous Solution Start Date 01/07/18 Start Time 18:58 Discontinued Medications Cyclobenzaprine HCl (Flexeril) 10 mg PO STAT STA Stop: 01/07/18 19:00 Last Admin: 01/07/18 19:34 Dose: 10 mg Famotidine (Pepcid) 20 mg IVP STAT STA Stop: 01/07/18 18:30 Last Admin: 01/07/18 18:58 Dose: 20 mg IVP Administration Document 01/07/18 18:58 MS (Rec: 01/07/18 18:58 MS [id number]) Charges for Administration # of IVP Administrations 1 Ondansetron HCl (Zofran Inj) 4 mg IVP STAT STA Stop: 01/07/18 18:30 Last Admin: 01/07/18 18:58 Dose: 4 mg IVP Administration Document 01/07/18 18:58 MS (Rec: 01/07/18 18:58 MS [id number]) Charges for Administration # of IVP Administrations 1 - Scribe Statement The provider has reviewed the documentation as recorded by the Laina Solorzano Provider Scribe Attestation: All medical record entries made by the Scribkamran were at my direction and personally dictated by me. I have reviewed the chart and agree that the record accurately reflects my personal performance of the history, physical exam, medical decision making, and the department course for this patient. I have also personally directed, reviewed, and agree with the discharge instructions and disposition. Disposition/Present on Arrival - Present on Arrival Any Indicators Present on Arrival: No History of DVT/PE: No History of Uncontrolled Diabetes: No Urinary Catheter: No History of Decub. Ulcer: No History Surgical Site Infection Following: None - Disposition Have Diagnosis and Disposition been Completed?: Yes Diagnosis: Gallstones Disposition: HOME/ ROUTINE Disposition Time: 22:40 Patient Problems: Current Active Problems Problem Status Onset Gallstones Acute Condition: IMPROVED Discharge Instructions (ExitCare): Gallstones (DC) Additional Instructions: Thank you for letting us take care of you today. The emergency medical care you received today was directed at your acute symptoms. If you were prescribed any medication, please fill it and take as directed. It may take several days for your symptoms to resolve. Return to the Emergency Department if your symptoms worsen, do not improve, or if you have any other problems. Please contact your doctor or call one of the physicians/clinics you have been referred to that are listed on the Patient Visit Information form that is included in your discharge packet. Bring any paperwork you were given at discharge with you along with any medications you are taking to your follow up visit. Our treatment cannot replace ongoing medical care by a primary care provider (PCP) outside of the emergency department. Thank you for allowing the [facility] team to be part of your care today. You may need an ultrasound of your gallbladder. You may be referred to a surgeon. Follow up with your primary doctor in 1-2 days for re-evaluation and further management. Return to the emergency room if you are not able to eat due to abdominal pain. Referrals: Sasha Hill MD [Primary Care Provider] - Follow up with primary Forms: [employer] (Greenlandic)
--- NOTE | 2018-01-07 22:45 | CT ---
EXAM: CT Abdomen and Pelvis With Intravenous Contrast CLINICAL HISTORY: 67 years old, male; Pain; Abdominal pain; Epigastric; Additional info: Lower abdominal tenderness TECHNIQUE: Axial computed tomography images of the abdomen and pelvis with intravenous contrast. All CT scans at this facility use one or more dose reduction techniques, viz.: automated exposure control; ma/kV adjustment per patient size (including targeted exams where dose is matched to indication; i.e. head); or iterative reconstruction technique. Coronal and sagittal reformatted images were created and reviewed. CONTRAST: 94 mL of omnipaque 350 administered intravenously. COMPARISON: CT - CHEST,ABDOMEN,PELVIS W/O CONT 2017-11-22 19:09 FINDINGS: Lung bases: Minimal peripheral consolidation within LEFT lower lobe. Few calcified granulomas. Pleural space: Trace RIGHT pleural effusion. Small LEFT pleural effusion. Heart: Mild cardiomegaly. Coronary artery calcifications. ABDOMEN: Liver: Fatty infiltration. Small calcification. Gallbladder and bile ducts: Calcified gallstones. Possible mild gallbladder wall thickening. No significant ductal dilation. Pancreas: No ductal dilation. No mass. Spleen: No splenomegaly. Adrenals: No mass. Kidneys and ureters: Probable 1.0 cm LEFT renal cyst. Too small to characterize lesion within RIGHT kidney. No hydronephrosis. Stomach and bowel: No definite mural thickening. No obstruction. PELVIS: Appendix: Normal caliber. No inflammation. Bladder: Unremarkable. Reproductive: Unremarkable as visualized. ABDOMEN and PELVIS: Intraperitoneal space: No significant fluid collection. No free air. Bones/joints: Degenerative changes of spine. No acute fracture. Soft tissues: Minimal gynecomastia. Mild diffuse stranding within subcutaneous tissues. Tiny LEFT inguinal hernia containing fat. Vasculature: Moderate atherosclerotic disease. No aneurysm. Lymph nodes: Borderline enlarged short axis lymph node within bereket hepatis. Tubes, lines and devices: Pacemaker lead. IMPRESSION: 1. Cholelithiasis with possible gallbladder wall thickening. Suggest ultrasound. 2. Left pleural effusion with compressive atelectasis. 3. Incidental/non-acute findings are described above.
[2018-01-08] VITALS: BP 139/66; PULSE 57; O2SAT 100
--- NOTE | 2018-01-08 08:35 | RAD ---
HISTORY: r/o infiltrate COMPARISON: 11/25/2017 FINDINGS: LUNGS: There is a minimal infiltrate at the left lung base PLEURA: No significant pleural effusion identified, no pneumothorax apparent. CARDIOVASCULAR: Moderate cardiomegaly OSSEOUS STRUCTURES: No significant abnormalities. VISUALIZED UPPER ABDOMEN: Normal. OTHER FINDINGS: Single lead pacemaker IMPRESSION: Minimal infiltrate at the left lung base obscuring the diaphragm
--- NOTE | 2018-01-08 09:13 | CARD ---
APPROVED REPORT EKG Measurement Heart [id number] <Conclusion> Electronic ventricular pacemaker
== END 2018-01-07 23:00 | disposition home or self-care (01) ==
LOC: ED 17:18
DX: K80.80 Other cholelithiasis without obstruction (principal); I25.10 Atherosclerotic heart disease of native coronary artery without angina pectoris; I10 Essential (primary) hypertension; E11.9 Type 2 diabetes mellitus without complications; Z95.0 Presence of cardiac pacemaker; Z95.5 Presence of coronary angioplasty implant and graft
CPT/HCPCS: 71045; 74177; 80053; 81001; 82150; 82550; 83615; 83690; 83735; 84484; 85025; 87086; 93005; 96374; 96375; 99283; J2405; J7040; Q9967

== ENCOUNTER 2018-01-29 10:14 | Inpatient (IN) | payer MEDICARE, MEDICAID ==
[2018-01-29 10:15] VITALS: BMI 26.6
--- NOTE | 2018-01-29 12:18 | ED PDOC ---
Arrival/HPI - General Chief Complaint: Abdominal Pain Time Seen by Provider: 01/29/18 11:57 Historian: Patient - History of Present Illness Narrative History of Present Illness (Text): 01/29/18 12:13 67 year old male, with past medical history of CAD with multiple stents, thoracotomy, prior STEMI and nonSTEMI, presents to the Emergency department complaining of generalized epigastric pain radiating to lower back bilaterally since yesterday. Patient rates the pain 9/10 in severity and requests medical attention. Patient denies any recent diet changes or changes in appetite. Patient denies any fever, chills, nausea, vomiting, diarrhea, chest pain, shortness of breath, urinary output changes, changes in bowel movement or any other complaints. Patient presents to the Emergency department for medical evaluation. PMD: Dr. Tsai Time/Duration: 24 hours Symptom Onset: Gradual Symptom Course: Unchanged Quality: Aching Activities at Onset: Light Context: Home Past Medical History - Provider Review Nursing Documentation Reviewed: Yes - Infectious Disease Hx of Infectious Diseases: None - Tetanus Immunization Tetanus Immunization: Unknown - Cardiac Hx Cardiac Disorders: Yes (s/p stents) Hx Angina: Yes Hx Hypertension: Yes Hx Pacemaker: Yes - Pulmonary Hx Respiratory Disorders: Yes Hx Asthma: No Hx Bronchitis: No Hx Chronic Obstructive Pulmonary Disease (COPD): Yes Hx Emphysema: No Hx Respiratory Aspiration: No Hx Respiratory Tract Infection: No Hx Sleep Apnea: No Hx Tuberculosis: No - Neurological Hx Alzheimer's Disease: No HX Cerebrovascular Accident: No Hx Dementia: No Hx Dizziness: No Hx Meningitis: No Hx Migraine: No Hx Parkinson's Disease: No Hx Seizures: No Hx Transient Ischemic Attacks (TIA): No - HEENT Hx Blind: No Hx Deafness: No Hx Difficulty Chewing: No Hx Epistaxis: No Hx Glaucoma: No Hx Macular Degeneration: No - Renal Hx Dialysis: No Hx Kidney Stones: No Hx Neurogenic Bladder: No Hx Pyelonephritis: No Hx Renal Cancer: No Hx Renal Failure: No Other/Comment: Renal Insuficiency - Endocrine/Metabolic Hx Endocrine Disorders: No Hx Adrenal Cancer: No Hx Diabetes Insipidus: No Hx Diabetes Mellitus Type 1: No Hx Diabetes Mellitus Type 2: Yes Hx Hyperthyroidism: No Hx Hypothyroidism: No Hx Systemic Lupus Erythematosus: No - Hematological/Oncological Hx AIDS: No Hx Cancer: No Hx Chemotherapy: No Hx Cirrhosis: No Hx Hemophilia: No Hx Hepatitis A: No Hx Hepatitis B: No Hx Hepatitis C: No Hx Shingles: No Hx Sickle Cell Disease: No Hx Unexplained Bleeding: No - Integumentary Hx Basal Cell Carcinoma: No Hx Eczema: No Hx Melanoma: No Hx Psoriasis: No Hx Squamous Cell Carcinoma: No - Musculoskeletal/Rheumatological Hx Arthritis: No Hx Back Pain: No Hx Degenerative Joint Disease: No Hx Falls: Yes Hx Fractures: No Hx Gout: No Hx Herniated Disk: No Hx Myasthenia Gravis: No Hx Osteoarthritis: No Hx Osteomyelitis: No Hx Osteoporosis: No Hx Rhabdomyolysis: No Hx Spinal Stenosis: No Hx Unsteady Gait: No Other/Comment: FALLS - Gastrointestinal Hx Esophageal Varices: Yes Other/Comment: GI Bleed - Genitourinary/Gynecological Hx Reproductive Disorders: No - Psychiatric Hx Psychophysiologic Disorder: No Hx Emotional Abuse: No Hx Physical Abuse: No Hx Substance Use: No - Surgical History Hx Angioplasty: Yes Hx Cardiac Catheterization: Yes Hx Coronary Stent: Yes (X5) Other/Comment: pacemaker 2013 - Anesthesia Hx Anesthesia Reactions: No Hx Malignant Hyperthermia: No - Suicidal Assessment Feels Threatened In Home Enviroment: No Family/Social History - Physician Review Nursing Documentation Reviewed: Yes Family/Social History: No Known Family HX Smoking Status: Never Smoked Hx Alcohol Use: Yes (H/O QUIT) Hx Substance Use: No Hx Substance Use Treatment: No Allergies/Home Meds Allergies/Adverse Reactions: Allergies No Known Allergies Allergy (Verified 01/29/18 11:54) Home Medications: Home Meds Medication Instructions Recorded Confirmed Fenofibrate [Fenoglide] 134 mg PO DAILY 03/18/16 01/07/18 Atorvastatin [Lipitor] 40 mg PO DAILY 11/25/16 01/07/18 Cholecalciferol (Vitamin D3) 50,000 unit PO Q7D 12/20/16 01/07/18 [Vitamin D3] Review of Systems - Physician Review All systems were reviewed & negative as marked: Yes - Review of Systems Constitutional: Normal. absent: Fevers Eyes: Normal ENT: Normal Respiratory: Normal. absent: SOB Cardiovascular: Normal. absent: Chest Pain Gastrointestinal: Abdominal Pain. absent: Stool Changes, Diarrhea, Nausea, Vomiting, Appetite Changes Genitourinary Male: Normal. absent: Urinary Output Changes Musculoskeletal: Back Pain Skin: Normal Neurological: Normal Endocrine: Normal Hemo/Lymphatic: Normal Psychiatric: Normal Physical Exam Vital Signs Reviewed: Yes Vital Signs Temp Pulse Resp BP Pulse Ox 01/29/18 17:55 54 L 18 142/71 99 01/29/18 11:55 98.4 F 54 L 17 127/68 98 Temperature: Afebrile Blood Pressure: Normal Pulse: Bradycardic Respiratory Rate: Normal Appearance: Positive for: Well-Appearing, Non-Toxic, Comfortable Pain Distress: None Mental Status: Positive for: Alert and Oriented X 3 - Systems Exam Head: Present: Atraumatic, Normocephalic Pupils: Present: PERRL Extroacular Muscles: Present: EOMI Conjunctiva: Present: Normal Neck: Present: Normal Range of Motion Respiratory/Chest: Present: Clear to Auscultation, Good Air Exchange. No: Respiratory Distress, Accessory Muscle Use Cardiovascular: Present: Regular Rate and Rhythm, Normal S1, S2. No: Murmurs Abdomen: No: Tenderness, Distention, Peritoneal Signs Back: Present: Normal Inspection Upper Extremity: Present: Normal Inspection. No: Cyanosis, Edema Lower Extremity: Present: Normal Inspection. No: Edema Neurological: Present: GCS=15, CN II-XII Intact, Speech Normal Skin: Present: Warm, Dry, Normal Color, Other (Surgical scar from thoracotomy). No: Rashes Psychiatric: Present: Alert, Oriented x 3, Normal Insight, Normal Concentration Medical Decision Making ED Course and Treatment: 01/29/18 12:28 Impression: 67 year old male presents to the Emergency department for epigastric discomfort radiating to his back bilaterally. Plan: -- Reassess and disposition Prior Visits: Notes and results from previous visits were reviewed. Progress Notes: - Lab Interpretations Lab Results: 01/29/18 12:29 01/29/18 12:29 Lab Results 01/29/18 14:40: Blood Type Cancelled, Antibody Screen Cancelled, BBK History Checked Cancelled 01/29/18 12:29: Sodium 139, Potassium 5.1 H, Chloride 101, Carbon Dioxide 27, Anion Gap 16, BUN 17, Creatinine 1.0, Est GFR ( Amer) > 60, Est GFR (Non- Af Amer) > 60, Random Glucose 126 H, Calcium 9.4, Total Bilirubin 0.6, AST 38, ALT 22, Alkaline Phosphatase 72, Lactate Dehydrogenase 418, Total Creatine Kinase 62, Troponin I 0.02 D, Total Protein 7.5, Albumin 4.0, Globulin 3.6, Albumin/Globulin Ratio 1.1, Lipase 125 01/29/18 12:29: PT 17.8 H, INR 1.55 H 01/29/18 12:29: WBC 5.6, RBC 4.74, Hgb 10.1 L, Hct 33.8 L, MCV 71.3 L D, MCH 21.3 L, MCHC 29.9 L, RDW 17.8 H, Plt Count 224, MPV 9.8, Gran % 62.3, Lymph % ( Auto) 19.0 L, [place] % (Auto) 16.3 H, Eos % (Auto) 2.2, Baso % (Auto) 0.2, Gran # 3.48, Lymph # (Auto) 1.1 L, [place] # (Auto) 0.9 H, Eos # (Auto) 0.1, Baso # (Auto ) 0.01 - RAD Interpretation Radiology Orders: 01/29/18 12:29 ABD PELVIS PO & IV CONTRAST [CT] Stat CHEST TWO VIEWS (PA/LAT) [RAD] Stat - Medication Orders Current Medication Orders: Acetaminophen (Tylenol 325mg Tab) 650 mg PO Q6H PRN PRN Reason: Fever >100.4 F Digoxin (Digoxin) 0.125 mg PO 1400 MISSY Gabapentin (Neurontin) 300 mg PO DAILY [facility] PRN Reason: Protocol Sodium Chloride (Sodium Chloride 0.45%) 1,000 mls @ 75 mls/hr IV .[id number] MIS[facility] Metronidazole (Flagyl) 250 mg in 50 mls @ 100 mls/hr IV Q8 [facility] PRN Reason: Protocol Stop: 02/03/18 22:01 Ceftriaxone Sodium (Rocephin 1 Gram Ivpb) 1 gm in 100 mls @ 100 mls/hr IVPB DAILY [facility] PRN Reason: Protocol Insulin Human Regular (Humulin R Med) 0 units SC ACHS [facility] PRN Reason: Protocol Metoprolol Tartrate (Lopressor) 25 mg PO BID [facility] Ondansetron HCl (Zofran Inj) 4 mg IVP Q6H PRN PRN Reason: Nausea/Vomiting Pantoprazole Sodium (Protonix Inj) 40 mg IVP DAILY [facility] Discontinued Medications Al Hydrox/Mg Hydrox/Simethicone (Maalox Plus 30 Ml) 30 ml PO STAT STA Stop: 01/29/18 12:30 Last Admin: 01/29/18 13:25 Dose: 30 ml Belladonna/Phenobarbital ( Elixir) 5 ml PO STAT STA Stop: 01/29/18 12:30 Famotidine (Pepcid) 20 mg IVP STAT STA Stop: 01/29/18 12:30 Last Admin: 01/29/18 13:26 Dose: 20 mg IVP Administration Document 01/29/18 13:26 OCS (Rec: 01/29/18 13:26 OCS [id number]) Charges for Administration # of IVP Administrations 1 Sodium Chloride (Sodium Chloride 0.9%) 1,000 mls @ 999 mls/hr IV .Q1H1M STA Stop: 01/29/18 13:29 Last Admin: 01/29/18 13:27 Dose: 999 mls/hr eMAR Start Stop Document 01/29/18 13:27 OCS (Rec: 01/29/18 13:27 OCS [id number]) Intravenous Solution Start Date 01/29/18 Start Time 13:27 End Date 01/29/18 End time 14:27 Total Infusion Time 60 Lidocaine HCl (Lidocaine 2% Viscous) 15 ml MM STAT STA Stop: 01/29/18 12:30 Last Admin: 01/29/18 13:26 Dose: 15 ml Pantoprazole Sodium (Protonix Inj) 80 mg IVP STAT STA Stop: 01/29/18 12:30 Last Admin: 01/29/18 13:26 Dose: 80 mg IVP Administration Document 01/29/18 13:26 OCS (Rec: 01/29/18 13:26 [id number] Charges for Administration # of IVP Administrations 1 - Scribe Statement The provider has reviewed the documentation as recorded by the Scribe Balwinder Whittaker. All medical record entries made by the Scribe were at my direction and personally dictated by me. I have reviewed the chart and agree that the record accurately reflects my personal performance of the history, physical exam, medical decision making, and the department course for this patient. I have also personally directed, reviewed, and agree with the discharge instructions and disposition. Disposition/Present on Arrival - Present on Arrival Any Indicators Present on Arrival: No History of DVT/PE: No History of Uncontrolled Diabetes: No Urinary Catheter: No History of Decub. Ulcer: No History Surgical Site Infection Following: None - Disposition Have Diagnosis and Disposition been Completed?: Yes Diagnosis: Colitis, Gallstone Disposition: HOSPITALIZED Disposition Time: 18:16 Patient Plan: Admission Condition: FAIR Forms: [employer] (Setswana)
[2018-01-29] MEDS ORDERED: Alum-Mag Hydrox-Simethicone Susp (30 mL) PO STA (12:29)
[2018-01-29] MEDS ORDERED: Sodium Chloride 0.9% 1,000 ML IV STA (12:29)
[2018-01-29] MEDS ORDERED: Atrop/Hyosc/Scopal/PB Elixir (120 ml) PO STA (12:29)
[2018-01-29] MEDS ORDERED: Iohexol 240 (50 ml) ONE (12:38)
[2018-01-29 14:14] LABS: BASO # 0.01 K/mm3 (0.0-2.0); BASO % 0.2 % (0.0-3.0); EOS # 0.1 (0.0-0.7); EOS % 2.2 % (1.5-5.0); GRAN # 3.48 (1.4-6.5); GRAN % 62.3 % (50.0-68.0); HEMOGLOBIN 10.1 g/dL (14.0-18.0); LYMPH # 1.1 (1.2-3.4); MEAN CELL VOLUME 71.3 fl (80.0-105.0); MEAN CORPUSCULAR HEMOGLOBIN 21.3 pg (25.0-35.0); MEAN CORPUSCULAR HGB CONC 29.9 g/dl (31.0-37.0); MEAN PLATELET VOLUME 9.8 fl (7.0-11.0); MONO # 0.9 (0.1-0.6); MONO % 16.3 % (1.0-6.0); RBC 4.74 10^6/uL (3.5-6.1); RED CELL DISTRIBUTION WIDTH 17.8 % (11.5-14.5); WHITE BLOOD COUNT 5.6 10^3/ul (4.5-11.0)
[2018-01-29 14:24] LABS: ALB/GLOB RATIO 1.1 (1.1-1.8); ALT/SGPT 22 U/L (7-56); AST/SGOT 38 U/L (17-59); BLOOD UREA NITROGEN 17 mg/dL (7-21); CALCIUM 9.4 mg/dL (8.4-10.5); GFR AFRICAN-AMERICAN > 60; GFR NON-AFRICAN AMERICAN > 60; LIPASE 125 U/L (23-300)
[2018-01-29 14:33] LABS: TROPONIN I 0.02 ng/mL
[2018-01-29] MEDS ORDERED: Iohexol 350 MG/100 ML VIAL ONE (14:35)
[2018-01-29 14:37] LABS: INR 1.55 (0.93-1.08); PROTHROMBIN TIME 17.8 SECONDS (9.4-12.5)
--- NOTE | 2018-01-29 17:06 | RAD ---
HISTORY: Epigastric Pain COMPARISON: 10/10/2017 TECHNIQUE: Chest PA and lateral FINDINGS: LUNGS: Prior opacity left lung base shows interval improvement/clearance paddle of clearing infiltrate and/or atelectasis. Mall residual left pleural effusion and/or residual left inferolateral pleural thickening here remains PLEURA: As above. No pneumothorax CARDIOVASCULAR: Cardiomegaly-as before Single lead pacemaker device as before OSSEOUS STRUCTURES: Bilateral shoulder arthrosis and unchanged VISUALIZED UPPER ABDOMEN: Normal. OTHER FINDINGS: None. IMPRESSION: Interval improvement/ clearance of the loop prior left basal infiltrate and/or atelectasis. Minimal tenting of the left costophrenic angle now similar-appearing
--- NOTE | 2018-01-29 17:48 | CT ---
PROCEDURE: CT Abdomen and Pelvis with contrast HISTORY: Epigastric Abdominal Pain COMPARISON: None. TECHNIQUE: Contrast dose: Omnipaque 350, 100 cc Radiation dose: Total exam DLP = 605.35 mGy-cm. This CT exam was performed using one or more of the following dose reduction techniques: Automated exposure control, adjustment of the mA and/or kV according to patient size, and/or use of iterative reconstruction technique. FINDINGS: LOWER THORAX: Stable tiny subpleural nodule measures 5 mm in the right lower lobe in image 13 series 5. Trace bilateral pleural effusions are evident. Cardiomegaly reiterated. AICD pacemaker wires reiterated at the right heart. LIVER: Fatty liver reiterated. No interval definite hepatic mass or intrahepatic biliary dilatation appreciable. GALLBLADDER AND BILE DUCTS: Cholelithiasis reiterated in the gallbladder. No definite acute findings related grossly. PANCREAS: Unremarkable. No gross lesion or ductal dilatation. SPLEEN: Unremarkable. ADRENALS: Unremarkable. No mass. KIDNEYS AND URETERS: Left renal cyst unchanged. A small lucency is reiterated at the midpole right kidney laterally, too small to characterize. No obstructive uropathy bilaterally. VASCULATURE: Stable non aneurysmal atherosclerotic abdominal aorta. BOWEL: Descending colon is collapsed limiting its evaluation however mural thickening appears prominent at the proximal to mid segment as well as the proximal hepatic flexure in a pattern suspicious for segmental colitis. Consider infectious or inflammatory causes with ischemia not excluded. Neoplasm is not felt to be the cause as no similar thickening was demonstrated previously on 01/07/2018. APPENDIX: Normal appendix. PERITONEUM: Mild abdominal and pelvic ascites is appreciated including the perihepatic and perisplenic spaces. Etiology of ascites is unclear. While right-sided segmental colitis it may be the etiology, the ascites pattern appears more widespread though mild. Extra abdominal fatty reaction is increased and may reflect anasarca. Likely correlate further. LYMPH NODES: Unremarkable. No enlarged lymph nodes. BLADDER: Unremarkable. REPRODUCTIVE: Unremarkable. BONES: Advanced multilevel lumbar spondylosis is reiterated as well as with vacuum disc changes advanced into a large Schmorl's node into inferior margins L4 vertebral body. OTHER FINDINGS: None. IMPRESSION: 1. Findings suggest segmental colitis affecting the majority of the ascending colon and segment of the hepatic flexure. No abscess or free air however mild abdominal ascites appreciated, potentially attic context to this solitary finding. Clinically correlate further. Anasarca is not excluded. 2. Cholelithiasis. 3. Stable left renal cyst. Small lucency right kidney unchanged in appearance but remains too small to characterize. 4. Trace bilateral pleural effusions evident.
[2018-01-29] MEDS ORDERED: metroNIDAZOLE IV 500 mg/100 ml 500 MG/100 ML BAG IVPB STA (18:26)
[2018-01-29] MEDS ORDERED: levoFLOXacin 750 mg in D5W 750 MG/150 ML BAG IVPB STA (18:26)
[2018-01-29] MEDS: Sodium Chloride 0.45% 1,000 ML IV SCH (19:45)
--- NOTE | 2018-01-29 21:49 | CP.PCM.CON ---
<BessieSanjiv - Last Filed: 01/29/18 21:49> Past Patient History - Infectious Disease Hx of Infectious Diseases: None - Tetanus Immunizations Tetanus Immunization: Unknown - Past Social History Smoking Status: Never Smoked - CARDIAC Hx Cardiac Disorders: Yes (s/p stents) Hx Angina: Yes Hx Hypertension: Yes Hx Pacemaker: Yes - PULMONARY Hx Respiratory Disorders: Yes Hx Asthma: No Hx Bronchitis: No Hx Chronic Obstructive Pulmonary Disease (COPD): Yes Hx Emphysema: No Hx Respiratory Aspiration: No Hx Respiratory Tract Infection: No Hx Sleep Apnea: No Hx Tuberculosis: No - NEUROLOGICAL Hx Alzheimer's Disease: No HX Cerebrovascular Accident: No Hx Dementia: No Hx Dizziness: No Hx Meningitis: No Hx Migraine: No Hx Parkinson's Disease: No Hx Seizures: No Hx Transient Ischemic Attacks (TIA): No - HEENT Hx Blind: No Hx Deafness: No Hx Difficulty Chewing: No Hx Epistaxis: No Hx Glaucoma: No Hx Macular Degeneration: No - RENAL Hx Dialysis: No Hx Kidney Stones: No Hx Neurogenic Bladder: No Hx Pyelonephritis: No Hx Renal (Kidney) Cancer: No Hx Renal Failure: No Other/Comment: Renal Insuficiency - ENDOCRINE/METABOLIC Hx Endocrine Disorders: No Hx Adrenal Cancer: No Hx Diabetes Insipidus: No Hx Diabetes Mellitus Type 1: No Hx Diabetes Mellitus Type 2: Yes Hx Hyperthyroidism: No Hx Hypothyroidism: No Hx Systemic Lupus Erythematosus: No - HEMATOLOGICAL/ONCOLOGICAL Hx AIDS: No Hx Cancer: No Hx Chemotherapy: No Hx Cirrhosis: No Hx Hemophilia: No Hx Hepatitis A: No Hx Hepatitis B: No Hx Hepatitis C: No Hx Shingles: No Hx Sickle Cell Disease: No Hx Unexplained Bleeding: No - INTEGUMENTARY Hx Basil Cell: No Hx Eczema: No Hx Melanoma: No Hx Psoriasis: No Hx Squamous Cell: No - MUSCULOSKELETAL/RHEUMATOLOGICAL Hx Arthritis: No Hx Back Pain: No Hx Degenerative Joint Disease: No Hx Falls: Yes Hx Fractures: No Hx Gout: No Hx Herniated Disk: No Hx Myasthenia Gravis: No Hx Osteoarthritis: No Hx Osteomyelitis: No Hx Osteoporosis: No Hx Rhabdomyolysis: No Hx Spinal Stenosis: No Hx Unsteady Gait: No Other/Comment: FALLS - GASTROINTESTINAL Hx Esophageal Varices: Yes Other/Comment: GI Bleed - GENITOURINARY/GYNECOLOGICAL Hx Reproductive Disorders: No - PSYCHIATRIC Hx Psychophysiologic Disorder: No Hx Emotional Abuse: No Hx Physical Abuse: No Hx Substance Use: No - SURGICAL HISTORY Hx Angioplasty: Yes Hx Cardiac Catheterization: Yes Hx Coronary Stent: Yes (X5) Other/Comment: pacemaker 2013 - ANESTHESIA Hx Anesthesia Reactions: No Hx Malignant Hyperthermia: No Meds Allergies/Adverse Reactions: Allergies Allergy/AdvReac Type Severity Reaction Status Date / Time No Known Allergies Allergy Verified 01/29/18 11:54 - Medications Medications: Current Medications Acetaminophen (Tylenol 325mg Tab) 650 mg PO Q6H PRN PRN Reason: Fever >100.4 F Digoxin (Digoxin) 0.125 mg PO 1400 MISSY Gabapentin (Neurontin) 300 mg PO DAILY [facility] PRN Reason: Protocol Sodium Chloride (Sodium Chloride 0.45%) 1,000 mls @ 75 mls/hr IV .[id number] [facility] Last Admin: 01/29/18 19:45 Dose: 75 mls/hr Metronidazole (Flagyl) 250 mg in 50 mls @ 100 mls/hr IV Q8 [facility] PRN Reason: Protocol Stop: 02/03/18 22:01 Ceftriaxone Sodium (Rocephin 1 Gram Ivpb) 1 gm in 100 mls @ 100 mls/hr IVPB DAILY [facility] PRN Reason: Protocol Insulin Human Regular (Humulin R Med) 0 units SC ACHS [facility] PRN Reason: Protocol Metoprolol Tartrate (Lopressor) 25 mg PO BID [facility] Last Admin: 01/29/18 19:42 Dose: 25 mg Ondansetron HCl (Zofran Inj) 4 mg IVP Q6H PRN PRN Reason: Nausea/Vomiting Pantoprazole Sodium (Protonix Inj) 40 mg IVP DAILY [facility] Results - Vital Signs Recent Vital Signs: Last Vital Signs Temp 97.7 F 01/29/18 20:53 Pulse 64 01/29/18 20:53 Resp 19 01/29/18 20:53 BP 161/84 H 01/29/18 20:53 Pulse Ox 95 01/29/18 20:53 - Labs Result Diagrams: 01/29/18 12:29 01/29/18 12:29 <Bharat Yadav - Last Filed: 01/30/18 09:01> Meds - Medications Medications: Current Medications Acetaminophen (Tylenol 325mg Tab) 650 mg PO Q6H PRN PRN Reason: Fever >100.4 F Digoxin (Digoxin) 0.125 mg PO 1400 MISSY Gabapentin (Neurontin) 300 mg PO DAILY [facility] PRN Reason: Protocol Sodium Chloride (Sodium Chloride 0.45%) 1,000 mls @ 75 mls/hr IV .[id number] [facility] Last Admin: 01/29/18 19:45 Dose: 75 mls/hr Metronidazole (Flagyl) 250 mg in 50 mls @ 100 mls/hr IV Q8 [facility] PRN Reason: Protocol Stop: 02/03/18 22:01 Last Admin: 01/30/18 05:05 Dose: 100 mls/hr Ceftriaxone Sodium (Rocephin 1 Gram Ivpb) 1 gm in 100 mls @ 100 mls/hr IVPB DAILY [facility] PRN Reason: Protocol Insulin Human Regular (Humulin R Med) 0 units SC ACHS [facility] PRN Reason: Protocol Last Admin: 01/30/18 08:21 Dose: Not Given Metoprolol Tartrate (Lopressor) 25 mg PO BID [facility] Last Admin: 01/29/18 19:42 Dose: 25 mg Ondansetron HCl (Zofran Inj) 4 mg IVP Q6H PRN PRN Reason: Nausea/Vomiting Pantoprazole Sodium (Protonix Inj) 40 mg IVP DAILY [facility] Results - Vital Signs Recent Vital Signs: Last Vital Signs Temp 98.1 F 01/30/18 06:00 Pulse 54 L 01/30/18 06:00 Resp 16 01/30/18 06:00 BP 138/80 01/30/18 06:00 Pulse Ox 100 01/30/18 06:00 - Labs Result Diagrams: 01/30/18 06:00 01/29/18 22:28 Labs: Laboratory Results - last 24 hr 01/29/18 01/29/18 01/30/18 21:56 22:28 00:54 WBC RBC Hgb Hct MCV MCH MCHC RDW Plt Count MPV Gran % Lymph % (Auto) [place] % (Auto) Eos % (Auto) Baso % (Auto) Gran # Lymph # (Auto) [place] # (Auto) Eos # (Auto) Baso # (Auto) PT INR APTT Sodium 139 Potassium 4.7 Chloride 101 Carbon Dioxide 25 Anion Gap 17 BUN 17 Creatinine 1.0 Est GFR ( Amer) > 60 Est GFR (Non-Af Amer) > 60 POC Glucose (mg/dL) 174 H 112 H Random Glucose 165 H Calcium 9.1 Total Bilirubin 0.8 AST 44 ALT 26 Alkaline Phosphatase 64 Total Protein 7.2 Albumin 3.6 Globulin 3.6 Albumin/Globulin Ratio 1.0 L Amylase Lipase 78 Stool Occult Blood 01/30/18 01/30/18 01/30/18 05:20 06:00 06:00 WBC 6.4 RBC 4.82 Hgb 10.4 L Hct 33.9 L MCV 70.3 L MCH 21.6 L MCHC 30.7 L RDW 17.9 H Plt Count 279 MPV 10.6 Gran % 65.7 Lymph % (Auto) 17.7 L [place] % (Auto) 15.8 H Eos % (Auto) 0.6 L Baso % (Auto) 0.2 Gran # 4.20 Lymph # (Auto) 1.1 L [place] # (Auto) 1.0 H Eos # (Auto) 0.0 Baso # (Auto) 0.01 PT INR APTT Sodium Potassium Chloride Carbon Dioxide Anion Gap BUN Creatinine Est GFR ( Amer) Est GFR (Non-Af Amer) POC Glucose (mg/dL) Random Glucose Calcium Total Bilirubin AST ALT Alkaline Phosphatase Total Protein Albumin Globulin Albumin/Globulin Ratio Amylase 67 Lipase Stool Occult Blood Negative 01/30/18 01/30/18 06:00 08:15 WBC RBC Hgb Hct MCV MCH MCHC RDW Plt Count MPV Gran % Lymph % (Auto) [place] % (Auto) Eos % (Auto) Baso % (Auto) Gran # Lymph # (Auto) [place] # (Auto) Eos # (Auto) Baso # (Auto) PT 18.8 H INR 1.62 H APTT 31.1 Sodium Potassium Chloride Carbon Dioxide Anion Gap BUN Creatinine Est GFR ( Amer) Est GFR (Non-Af Amer) POC Glucose (mg/dL) 137 H Random Glucose Calcium Total Bilirubin AST ALT Alkaline Phosphatase Total Protein Albumin Globulin Albumin/Globulin Ratio Amylase Lipase Stool Occult Blood Assessment & Plan - Assessment and Plan (Free Text) Assessment: DX Colitis(LPAIN)/No GB SX/No Surgery contemplated This consult done under my supervision Sammi Yadav MD FACS
[2018-01-29] MEDS: metroNIDAZOLE IV 250mg/50 ml 250 MG/50 ML BAG IV SCH (22:37)
[2018-01-29] MEDS: Insulin Reg-MEDIUM-Coverage SC SCH (22:39)
[2018-01-29 22:43] LABS: ALBUMIN 3.6 g/dL (3.0-4.8); ALT/SGPT 26 U/L (7-56); AST/SGOT 44 U/L (17-59); BLOOD UREA NITROGEN 17 mg/dL (7-21); CALCIUM 9.1 mg/dL (8.4-10.5); GFR AFRICAN-AMERICAN > 60; GFR NON-AFRICAN AMERICAN > 60; LIPASE 78 U/L (23-300)
[2018-01-30] MEDS: metroNIDAZOLE IV 250mg/50 ml 250 MG/50 ML BAG IV SCH ×3 (05:05→21:41)
[2018-01-30 06:52] LABS: BASO # 0.01 K/mm3 (0.0-2.0); BASO % 0.2 % (0.0-3.0); EOS % 0.6 % (1.5-5.0); GRAN # 4.2 (1.4-6.5); GRAN % 65.7 % (50.0-68.0); HEMOGLOBIN 10.4 g/dL (14.0-18.0); LYMPH # 1.1 (1.2-3.4); LYMPH % 17.7 % (22.0-35.0); MEAN CELL VOLUME 70.3 fl (80.0-105.0); MEAN CORPUSCULAR HEMOGLOBIN 21.6 pg (25.0-35.0); MEAN CORPUSCULAR HGB CONC 30.7 g/dl (31.0-37.0); MEAN PLATELET VOLUME 10.6 fl (7.0-11.0); MONO % 15.8 % (1.0-6.0); RBC 4.82 10^6/uL (3.5-6.1); RED CELL DISTRIBUTION WIDTH 17.9 % (11.5-14.5); WHITE BLOOD COUNT 6.4 10^3/ul (4.5-11.0)
[2018-01-30 06:57] LABS: INR 1.62 (0.93-1.08); PARTIAL THROMBOPLASTIN TIME 31.1 Seconds (25.1-36.5); PROTHROMBIN TIME 18.8 SECONDS (9.4-12.5)
--- NOTE | 2018-01-30 08:20 | HP ---
HISTORY OF PRESENT ILLNESS: The patient is 67 years old, known to me from previous admission. Came to emergency room because of retrosternal chest discomfort, also is having epigastric discomfort radiating towards his back, it has been going on since yesterday. Denies any hemoptysis. No history of hematemesis. No fever. No cough. No congestion. No nausea or vomiting. The patient recently had episode of upper GI bleed. At that point, he was found to have partial esophageal tear, underwent thoracotomy. Has been on high-dose PPI since then, but this pain started since yesterday, so he came to emergency room for evaluation. PAST MEDICAL HISTORY: Significant for, 1. Coronary artery disease, status post multiple angioplasties. 2. Hypertension. 3. [id number] diabetes. 4. Hyperlipidemia. 5. History of chronic obstructive pulmonary disease. 6. Status post pacemaker placement. ALLERGY: HE IS NOT ALLERGIC TO ANY MEDICATION. MEDICATIONS AT HOME: He is on Protonix 40 daily, metoprolol 25 twice a day, glipizide 10 mg twice a day, gabapentin 300 daily, Lasix 40 daily, digoxin 0.125, Plavix 75 daily, Lipitor 40 mg daily, aspirin 81 daily. SOCIAL HISTORY: He is . Lives with his . History of smoking in the remote past. No history of alcohol abuse. GENERAL: He is awake, alert, oriented, communicative. VITAL SIGNS: He is afebrile, pulse 54, respirations 17, blood pressure 142/71. LUNGS: Bilateral fair airflow. No rhonchi or crackle. HEART: S1 and S2 audible. ABDOMEN: Soft. Nontender. No rebound. No guarding. NEUROLOGICAL: He is awake and alert, able to communicate. LABORATORY EXAM: WBC is 5.6, hemoglobin 10, hematocrit 33, platelet 224. PT 17.8, INR 1.55. Chemistry: Sodium 139, potassium 5.1, chloride 101, CO2 of 27, BUN 17, creatinine 1, blood sugar of 126, troponin is 0.02. X-ray chest is improvement in basal infiltrate and atelectasis. CT scan of the abdomen and pelvis was done that shows cholelithiasis, stable left renal cyst, segmental colitis affecting majority of the ascending colon and segment of hepatic flexure. No abscess or free fluid seen. ASSESSMENT: 1. Epigastric abdominal pain. CT scan suggestive of colitis. 2. History of peptic ulcer disease. 3. History of esophageal tear found by esophagogastroduodenoscopy. 4. Coronary artery disease, status post multiple angioplasty. 5. Hypertension. 6. Ycg-jhelcno-scrypunch diabetes. PLAN: I will start the patient on IV fluid. Clear liquid diet will be started. Start on IV antibiotic. Resume his medication. Dr. Corrales will be consulted. Carlos Tsai MD
[2018-01-30] MEDS: Insulin Reg-MEDIUM-Coverage SC SCH ×4 (08:21→21:16)
--- NOTE | 2018-01-30 08:21 | CP.PCM.CON ---
<Shahla Schaffer - Last Filed: 01/30/18 10:23> History of Present Illness - History of Present Illness History of Present Illness: GI Consult Note for Eva Cordoba PGY2 This is a 67yo male with past medical history of CAD w/ pacerm HTN, NIDDM, COPD , PUD, GI bleed secondary to esophageal ulcer who came to ED for abdominal pain x 2 days. Patient reports the pain is in his epigastric region and radiates to the L and R side of his abdomen. He also states he has been having multiple watery bowel movements without blood and are not dark in color. He denies any change in diet or medications or sick contacts. As per nursing staff, the stool is more pasty in consistency than watery. Patient denies chest pain, shortness of breath, nausea/vomiting/diarrhea, fever/chills, numbness/tingling, dysuria/ hematuria. Patient had EGD in 11/21 and 11/25/17 for his GI bleed. Patient was found to have esophageal ulcer that was injected as well as gastric ulcers and chronic duodenitis. Past medical history: CAD, HTN, NIDDM, COPD, pacemaker, PUD Past surgical history: multiple angioplasty, pacer Home meds: Reviewed as per MAR Allergies: NKDA Social history: Former smoker, denies EtOH or drug use. Lives with family Family history: Non-contributory Cardio: Dr. Sheikh Review of Systems - Review of Systems All systems: reviewed and no additional remarkable complaints except Review of Systems: 12 point ROS reviewed as per HPI and is otherwise negative. Past Patient History - Infectious Disease Hx of Infectious Diseases: None - Tetanus Immunizations Tetanus Immunization: Unknown - Past Social History Smoking Status: Former Smoker - CARDIAC Hx Cardiac Disorders: Yes (s/p stents) Hx Angina: Yes Hx Congestive Heart Failure: Yes Hx Hypercholesterolemia: Yes Hx Hypertension: Yes Hx Pacemaker: Yes (2012) Hx Peripheral Edema: No - PULMONARY Hx Respiratory Disorders: Yes Hx Asthma: No Hx Bronchitis: No Hx Chronic Obstructive Pulmonary Disease (COPD): Yes Hx Emphysema: No Hx Respiratory Aspiration: No Hx Respiratory Tract Infection: No Hx Sleep Apnea: No Hx Tuberculosis: No - NEUROLOGICAL Hx Alzheimer's Disease: No HX Cerebrovascular Accident: No Hx Dementia: No Hx Dizziness: No Hx Meningitis: No Hx Migraine: No Hx Parkinson's Disease: No Hx Seizures: No Hx Transient Ischemic Attacks (TIA): No - HEENT Hx HEENT Problems: Yes ([employer] [place] to lt) Hx Blind: No Hx Deafness: No Hx Difficulty Chewing: No Hx Epistaxis: No Hx Glaucoma: No Hx Macular Degeneration: No - RENAL Hx Dialysis: No Hx Kidney Stones: No Hx Neurogenic Bladder: No Hx Pyelonephritis: No Hx Renal (Kidney) Cancer: No Hx Renal Failure: No Other/Comment: Renal Insuficiency - ENDOCRINE/METABOLIC Hx Endocrine Disorders: No Hx Adrenal Cancer: No Hx Diabetes Insipidus: No Hx Diabetes Mellitus Type 1: No Hx Diabetes Mellitus Type 2: Yes Hx Hyperthyroidism: No Hx Hypothyroidism: No Hx Systemic Lupus Erythematosus: No - HEMATOLOGICAL/ONCOLOGICAL Hx AIDS: No Hx Anemia: Yes (TRANSFUSIONS) Hx Cancer: No Hx Chemotherapy: No Hx Cirrhosis: No Hx Hemophilia: No Hx Hepatitis A: No Hx Hepatitis B: No Hx Hepatitis C: No Hx Shingles: No Hx Sickle Cell Disease: No Hx Unexplained Bleeding: No - INTEGUMENTARY Hx Dermatological Problems: No Hx Basil Cell: No Hx Eczema: No Hx Melanoma: No Hx Psoriasis: No Hx Squamous Cell: No - MUSCULOSKELETAL/RHEUMATOLOGICAL Hx Musculoskeletal Disorders: Yes Hx Arthritis: No Hx Back Pain: No Hx Degenerative Joint Disease: No Hx Falls: Yes Hx Fractures: No Hx Gout: No Hx Herniated Disk: No Hx Myasthenia Gravis: No Hx Osteoarthritis: No Hx Osteomyelitis: No Hx Osteoporosis: No Hx Rhabdomyolysis: No Hx Spinal Stenosis: No Hx Unsteady Gait: Yes (rolling walker) Other/Comment: FALLS - GASTROINTESTINAL Other/Comment: GI Bleed - GENITOURINARY/GYNECOLOGICAL Hx Genitourinary Disorders: No - PSYCHIATRIC Hx Psychophysiologic Disorder: No Hx Emotional Abuse: No Hx Physical Abuse: No Hx Substance Use: No - SURGICAL HISTORY Hx Surgeries: Yes Hx Cardiac Catheterization: Yes Hx Coronary Stent: Yes (X5) Other/Comment: pacemaker 2013 - ANESTHESIA Hx Anesthesia Reactions: No Hx Malignant Hyperthermia: No Meds Allergies/Adverse Reactions: Allergies Allergy/AdvReac Type Severity Reaction Status Date / Time No Known Allergies Allergy Verified 01/29/18 11:54 - Medications Medications: Current Medications Acetaminophen (Tylenol 325mg Tab) 650 mg PO Q6H PRN PRN Reason: Fever >100.4 F Digoxin (Digoxin) 0.125 mg PO 1400 [facility] Gabapentin (Neurontin) 300 mg PO DAILY [facility] PRN Reason: Protocol Sodium Chloride (Sodium Chloride 0.45%) 1,000 mls @ 75 mls/hr IV .[id number] [facility] Last Admin: 01/29/18 19:45 Dose: 75 mls/hr Metronidazole (Flagyl) 250 mg in 50 mls @ 100 mls/hr IV Q8 [facility] PRN Reason: Protocol Stop: 02/03/18 22:01 Last Admin: 01/30/18 05:05 Dose: 100 mls/hr Ceftriaxone Sodium (Rocephin 1 Gram Ivpb) 1 gm in 100 mls @ 100 mls/hr IVPB DAILY [facility] PRN Reason: Protocol Insulin Human Regular (Humulin R Med) 0 units SC ACHS [facility] PRN Reason: Protocol Last Admin: 01/29/18 22:39 Dose: Not Given Metoprolol Tartrate (Lopressor) 25 mg PO BID [facility] Last Admin: 01/29/18 19:42 Dose: 25 mg Ondansetron HCl (Zofran Inj) 4 mg IVP Q6H PRN PRN Reason: Nausea/Vomiting Pantoprazole Sodium (Protonix Inj) 40 mg IVP DAILY [facility] Physical Exam - Constitutional Appears: No Acute Distress - Head Exam Head Exam: ATRAUMATIC, NORMAL INSPECTION, NORMOCEPHALIC - Eye Exam Eye Exam: Normal appearance, PERRL Pupil Exam: NORMAL ACCOMODATION - ENT Exam ENT Exam: Mucous Membranes Moist - Respiratory Exam Respiratory Exam: Clear to Auscultation Bilateral, NORMAL BREATHING PATTERN. absent: Rales, Rhonchi, Wheezes - Cardiovascular Exam Cardiovascular Exam: REGULAR RHYTHM, +S1, +S2. absent: Gallop, Rubs, Systolic Murmur - GI/Abdominal Exam GI & Abdominal Exam: Normal Bowel Sounds, Soft, Tenderness (epigastric ). absent: Guarding, Rebound, Rigid - Extremities Exam Extremities exam: Positive for: pedal edema. Negative for: calf tenderness - Neurological Exam Neurological exam: Alert, CN II-XII Intact, Normal Gait, Oriented x3 - Psychiatric Exam Psychiatric exam: Normal Affect, Normal Mood - Skin Skin Exam: Dry, Warm Results - Vital Signs Recent Vital Signs: Last Vital Signs Temp 98.1 F 01/30/18 06:00 Pulse 54 L 01/30/18 06:00 Resp 16 01/30/18 06:00 BP 138/80 01/30/18 06:00 Pulse Ox 100 01/30/18 06:00 - Labs Result Diagrams: 01/30/18 06:00 01/29/18 22:28 Labs: Laboratory Results - last 24 hr 01/29/18 01/29/18 01/30/18 21:56 22:28 00:54 WBC RBC Hgb Hct MCV MCH MCHC RDW Plt Count MPV Gran % Lymph % (Auto) Miller % (Auto) Eos % (Auto) Baso % (Auto) Gran # Lymph # (Auto) Miller # (Auto) Eos # (Auto) Baso # (Auto) PT INR APTT Sodium 139 Potassium 4.7 Chloride 101 Carbon Dioxide 25 Anion Gap 17 BUN 17 Creatinine 1.0 Est GFR ( Amer) > 60 Est GFR (Non-Af Amer) > 60 POC Glucose (mg/dL) 174 H 112 H Random Glucose 165 H Calcium 9.1 Total Bilirubin 0.8 AST 44 ALT 26 Alkaline Phosphatase 64 Total Protein 7.2 Albumin 3.6 Globulin 3.6 Albumin/Globulin Ratio 1.0 L Amylase Lipase 78 Stool Occult Blood 01/30/18 01/30/18 01/30/18 05:20 06:00 06:00 WBC 6.4 RBC 4.82 Hgb 10.4 L Hct 33.9 L MCV 70.3 L MCH 21.6 L MCHC 30.7 L RDW 17.9 H Plt Count 279 MPV 10.6 Gran % 65.7 Lymph % (Auto) 17.7 L Miller % (Auto) 15.8 H Eos % (Auto) 0.6 L Baso % (Auto) 0.2 Gran # 4.20 Lymph # (Auto) 1.1 L Miller # (Auto) 1.0 H Eos # (Auto) 0.0 Baso # (Auto) 0.01 PT INR APTT Sodium Potassium Chloride Carbon Dioxide Anion Gap BUN Creatinine Est GFR ( Amer) Est GFR (Non-Af Amer) POC Glucose (mg/dL) Random Glucose Calcium Total Bilirubin AST ALT Alkaline Phosphatase Total Protein Albumin Globulin Albumin/Globulin Ratio Amylase 67 Lipase Stool Occult Blood Negative 01/30/18 01/30/18 06:00 08:15 WBC RBC Hgb Hct MCV MCH MCHC RDW Plt Count MPV Gran % Lymph % (Auto) Miller % (Auto) Eos % (Auto) Baso % (Auto) Gran # Lymph # (Auto) Miller # (Auto) Eos # (Auto) Baso # (Auto) PT 18.8 H INR 1.62 H APTT 31.1 Sodium Potassium Chloride Carbon Dioxide Anion Gap BUN Creatinine Est GFR ( Amer) Est GFR (Non-Af Amer) POC Glucose (mg/dL) 137 H Random Glucose Calcium Total Bilirubin AST ALT Alkaline Phosphatase Total Protein Albumin Globulin Albumin/Globulin Ratio Amylase Lipase Stool Occult Blood Assessment & Plan - Assessment and Plan (Free Text) Assessment: This is a 67yo male with past medical history of CAD w/ pacemaker, HTN, NIDDM, COPD, PUD who was admitted for 1. Abdominal pain - secondary to colitis v. cholecystitis v. ischemia 2. Hx of GI bleed secondary to peptic ulcer disease - Last EGD in November 2017 showed non-bleed esophageal ulcer, gastric ulcers, chronic duodenitis, chronic gastritis 3. Anemia (Iron deficiency) - Hgb is stable. Patient is on Plavix 4. CAD 5. HTN 6. NIDDM Plan: CT A/P reviewed. Abdominal ultrasound duplex showed 0-49% stenosis of SMA, and celiac artery. Consider IR consult for possible ischemia since patient has history of CAD. Abdominal ultrasound done which showed CBD of 5.2mm. Continue PPI and clear liquid diet. Stool studies are pending including C.diff. Patient is on Rocephin and Flagyl. Patient is afebrile without leukocytosis. Procal is pending. Will obtain iron studies for anemia. Case seen, discussed and reviewed with Dr. Corrales. Eva Schaffer PGY2 - Date & Time Date: 01/30/18 Time: 07:00 <Katie Corrales V - Last Filed: 01/30/18 23:39> Meds - Medications Medications: Current Medications Acetaminophen (Tylenol 325mg Tab) 650 mg PO Q6H PRN PRN Reason: Fever >100.4 F Digoxin (Digoxin) 0.125 mg PO 1400 [facility] Last Admin: 01/30/18 14:04 Dose: 0.125 mg Gabapentin (Neurontin) 300 mg PO DAILY [facility] PRN Reason: Protocol Last Admin: 01/30/18 10:29 Dose: 300 mg Sodium Chloride (Sodium Chloride 0.45%) 1,000 mls @ 75 mls/hr IV .[id number] [facility] Last Admin: 01/30/18 14:04 Dose: 75 mls/hr Metronidazole (Flagyl) 250 mg in 50 mls @ 100 mls/hr IV Q8 [facility] PRN Reason: Protocol Stop: 02/03/18 22:01 Last Admin: 01/30/18 21:41 Dose: 100 mls/hr Ceftriaxone Sodium (Rocephin 1 Gram Ivpb) 1 gm in 100 mls @ 100 mls/hr IVPB DAILY [facility] PRN Reason: Protocol Last Admin: 01/30/18 10:29 Dose: 100 mls/hr Insulin Human Regular (Humulin R Med) 0 units SC ACHS [facility] PRN Reason: Protocol Last Admin: 01/30/18 21:16 Dose: Not Given Metoprolol Tartrate (Lopressor) 25 mg PO BID [facility] Last Admin: 01/30/18 17:13 Dose: 25 mg Ondansetron HCl (Zofran Inj) 4 mg IVP Q6H PRN PRN Reason: Nausea/Vomiting Pantoprazole Sodium (Protonix Inj) 40 mg IVP DAILY [facility] Last Admin: 01/30/18 10:29 Dose: 40 mg Results - Vital Signs Recent Vital Signs: Last Vital Signs Temp 97.1 F L 01/30/18 18:00 Pulse 61 01/30/18 18:00 Resp 20 01/30/18 18:00 BP 130/64 01/30/18 18:00 Pulse Ox 100 01/30/18 18:00 - Labs Result Diagrams: 01/30/18 06:00 01/30/18 06:00 Labs: Laboratory Results - last 24 hr 01/30/18 01/30/18 01/30/18 00:54 05:20 06:00 WBC 6.4 RBC 4.82 Hgb 10.4 L Hct 33.9 L MCV 70.3 L MCH 21.6 L MCHC 30.7 L RDW 17.9 H Plt Count 279 MPV 10.6 Gran % 65.7 Lymph % (Auto) 17.7 L Miller % (Auto) 15.8 H Eos % (Auto) 0.6 L Baso % (Auto) 0.2 Gran # 4.20 Lymph # (Auto) 1.1 L Miller # (Auto) 1.0 H Eos # (Auto) 0.0 Baso # (Auto) 0.01 PT INR APTT Sodium Potassium Chloride Carbon Dioxide Anion Gap BUN Creatinine Est GFR ( Amer) Est GFR (Non-Af Amer) POC Glucose (mg/dL) 112 H Random Glucose Calcium Phosphorus Magnesium Iron TIBC % Saturation Ferritin Total Bilirubin AST ALT Alkaline Phosphatase Total Protein Albumin Globulin Albumin/Globulin Ratio Amylase Procalcitonin Stool Occult Blood Negative 01/30/18 01/30/18 01/30/18 06:00 06:00 06:00 WBC RBC Hgb Hct MCV MCH MCHC RDW Plt Count MPV Gran % Lymph % (Auto) Miller % (Auto) Eos % (Auto) Baso % (Auto) Gran # Lymph # (Auto) Miller # (Auto) Eos # (Auto) Baso # (Auto) PT 18.8 H INR 1.62 H APTT 31.1 Sodium Potassium Chloride Carbon Dioxide Anion Gap BUN Creatinine Est GFR ( Amer) Est GFR (Non-Af Amer) POC Glucose (mg/dL) Random Glucose Calcium Phosphorus Magnesium Iron TIBC % Saturation Ferritin Total Bilirubin AST ALT Alkaline Phosphatase Total Protein Albumin Globulin Albumin/Globulin Ratio Amylase 67 Procalcitonin 0.05 L Stool Occult Blood 01/30/18 01/30/18 01/30/18 06:00 06:00 08:15 WBC RBC Hgb Hct MCV MCH MCHC RDW Plt Count MPV Gran % Lymph % (Auto) Miller % (Auto) Eos % (Auto) Baso % (Auto) Gran # Lymph # (Auto) Miller # (Auto) Eos # (Auto) Baso # (Auto) PT INR APTT Sodium 138 Potassium 5.0 Chloride 101 Carbon Dioxide 23 Anion Gap 19 BUN 18 Creatinine 1.0 Est GFR ( Amer) > 60 Est GFR (Non-Af Amer) > 60 POC Glucose (mg/dL) 137 H Random Glucose 137 H Calcium 9.4 Phosphorus 3.7 Magnesium 1.9 Iron TIBC % Saturation Ferritin 9.7 Total Bilirubin 0.6 AST 56 ALT 21 Alkaline Phosphatase 70 Total Protein 7.6 Albumin 4.0 Globulin 3.6 Albumin/Globulin Ratio 1.1 Amylase Procalcitonin Stool Occult Blood 01/30/18 01/30/18 01/30/18 10:00 11:37 15:54 WBC RBC Hgb Hct MCV MCH MCHC RDW Plt Count MPV Gran % Lymph % (Auto) Miller % (Auto) Eos % (Auto) Baso % (Auto) Gran # Lymph # (Auto) Miller # (Auto) Eos # (Auto) Baso # (Auto) PT INR APTT Sodium Potassium Chloride Carbon Dioxide Anion Gap BUN Creatinine Est GFR ( Amer) Est GFR (Non-Af Amer) POC Glucose (mg/dL) 149 H 160 H Random Glucose Calcium Phosphorus Magnesium Iron 23 L TIBC 433 % Saturation 5 L Ferritin Total Bilirubin AST ALT Alkaline Phosphatase Total Protein Albumin Globulin Albumin/Globulin Ratio Amylase Procalcitonin Stool Occult Blood 01/30/18 21:00 WBC RBC Hgb Hct MCV MCH MCHC RDW Plt Count MPV Gran % Lymph % (Auto) Miller % (Auto) Eos % (Auto) Baso % (Auto) Gran # Lymph # (Auto) Miller # (Auto) Eos # (Auto) Baso # (Auto) PT INR APTT Sodium Potassium Chloride Carbon Dioxide Anion Gap BUN Creatinine Est GFR ( Amer) Est GFR (Non-Af Amer) POC Glucose (mg/dL) 187 H Random Glucose Calcium Phosphorus Magnesium Iron TIBC % Saturation Ferritin Total Bilirubin AST ALT Alkaline Phosphatase Total Protein Albumin Globulin Albumin/Globulin Ratio Amylase Procalcitonin Stool Occult Blood Attending/Attestation - Attestation I have personally seen and examined this patient.: Yes I have fully participated in the care of the patient.: Yes I have reviewed all pertinent clinical information: Yes Notes (Text): This is an addendum to GI consult report dictated by the Phlebotomist Supervisor/Instructor.The patient was seen and examined earlier. Medical records, lab studies, imagings were reviewed. Last 24 hours events reviewed. Agreed with the above treatment plan as outlined in Phlebotomist Supervisor/Instructor 's notes the with the addition of the following this patient was admitted with the abdominal pain and diarrhea CT showed a right-sided colitis Significant history of lewis on examination abdomen sofderness present in tmen and epigastric area CT scan reviewed Abdominal Doppler requested -reviewed Significant narrowing of the SMA and celiac Rule out ischemic colitis Request MR angiogram Will discuss with the Dr. Tsai regarding vascular consult history of esophageal ulceration would schedule for repeat EGD On aspirin and Plavix continue h/o recent PCI 01/30/18 23:32
--- NOTE | 2018-01-30 10:11 | US ---
PROCEDURE: Duplex ultrasound of the mesenteric arteries. HISTORY: Abdominal pain. Evaluate for mesenteric ischemia. PHYSICIAN(S): Olvin Li MD. TECHNIQUE: Duplex sonography with color-flow Doppler was used to evaluate limited segments of the abdominal aorta and proximal segments of the mesenteric arteries. FINDINGS: Visualization of the origin of the celiac axis and SMA is adequate. The peak systolic velocity in the proximal celiac axis is 92cm/sec. This is consistent with a 0-49 percentstenosis of the proximal celiac axis. The peak systolic velocity in the proximal SMA is 173cm/sec. This is consistent with a 0 to 49% proximal SMA stenosis. The SIDNEY was not visualized and evaluated. IMPRESSION: 1. 0-49 percent proximal celiac axis stenosis. 2. 0 to 49% proximal SMA stenosis. 3. The SIDNEY was not visualized.
[2018-01-30 10:23] LABS: IRON 23 ug/dL (45-180)
[2018-01-30] MEDS: cefTRIAXone 1 gm 1 GM/100 ML BAG IVPB SCH (10:29)
[2018-01-30 10:30] LABS: ALB/GLOB RATIO 1.1 (1.1-1.8); ALT/SGPT 21 U/L (7-56); AST/SGOT 56 U/L (17-59); BLOOD UREA NITROGEN 18 mg/dL (7-21); CALCIUM 9.4 mg/dL (8.4-10.5); GFR AFRICAN-AMERICAN > 60; GFR NON-AFRICAN AMERICAN > 60
[2018-01-30 10:32] LABS: % IRON SATURATION 5 % (20-55); TOTAL IRON BINDING CAPACITY 433 ug/dL (261-462)
--- NOTE | 2018-01-30 10:40 | US ---
HISTORY: r/p cholecystitis COMPARISON: None. TECHNIQUE: Sonographic evaluation of the abdomen. FINDINGS: LIVER: Measures 18 cm. Heterogeneous echogenicity of the liver parenchyma. No mass. No intrahepatic bile duct dilatation. GALLBLADDER: Gallstones. COMMON BILE DUCT: Measures mm. No stones. No dilatation. PANCREAS: Unremarkable as visualized. No mass. No ductal dilatation. RIGHT KIDNEY: Measures cm. Normal echogenicity. No calculus, mass, or hydronephrosis. LEFT KIDNEY: Measures cm. Normal echogenicity. No calculus, mass, or hydronephrosis. SPLEEN: Normal in size and contour. No mass. AORTA: No aneurysmal dilatation. IVC: Unremarkable. OTHER FINDINGS: Perihepatic and perisplenic fluid. IMPRESSION: Perihepatic and perisplenic fluid. Heterogeneous liver. Cholelithiasis.
[2018-01-30] MEDS: Digoxin 125 mcg (0.125 mg) Tab PO SCH (14:04)
[2018-01-30] MEDS: Sodium Chloride 0.45% 1,000 ML IV SCH ×2 (14:04→21:00)
--- NOTE | 2018-01-30 19:25 | PN ---
DATE: 01/30/2018 SUBJECTIVE: The patient is 67 years old, seen and examined. Denies any chest pain. His belly pain is much better. He states he is hungry. OBJECTIVE: VITAL SIGNS: He is afebrile, pulse 64, respirations 16, and blood pressure 138/80. LUNGS: Bilateral good airflow. No rhonchi or crackle. HEART: S1 and S2 audible. ABDOMEN: Soft, slight epigastric discomfort. No rebound. No guarding. NEUROLOGICAL: He is awake, alert, oriented, and communicative. LABORATORY EXAM: WBC is 6.4, hemoglobin 10.4, hematocrit 33.9, and platelet 279. PT 18.8 and INR 1.62. Chemistry: Sodium 138, potassium 5, chloride 101, CO2 of 23. BUN 18, creatinine 1. Blood sugar 149. Stool for Hemoccult is negative. Stool for C. diff negative. Stool for ova and parasites is also negative. ASSESSMENT: 1. Transverse colitis. 2. Status post esophageal tear. 3. Anemia. 4. Coronary artery disease, status post multiple angioplasty. 5. Hypertension. 6. [id number] diabetes. 7. Cholelithiasis. PLAN: We will continue the patient on IV fluid. We will continue on clear liquids. He is currently on IV antibiotics. Abdominal Doppler is unremarkable. We will start the patient on liquid diet and advance as tolerated. We will follow up this patient in the a.m. Carlos Tsai MD
[2018-01-31] MEDS: Sodium Chloride 0.45% 1,000 ML IV SCH (03:22)
[2018-01-31] MEDS: metroNIDAZOLE IV 250mg/50 ml 250 MG/50 ML BAG IV SCH ×3 (05:42→21:55)
[2018-01-31 06:37] LABS: HEMOGLOBIN 10.6 g/dL (14.0-18.0); MEAN CELL VOLUME 70.2 fl (80.0-105.0); MEAN CORPUSCULAR HEMOGLOBIN 21.4 pg (25.0-35.0); MEAN CORPUSCULAR HGB CONC 30.5 g/dl (31.0-37.0); MEAN PLATELET VOLUME 10.6 fl (7.0-11.0); RBC 4.96 10^6/uL (3.5-6.1); WHITE BLOOD COUNT 6.9 10^3/ul (4.5-11.0)
[2018-01-31 06:45] LABS: B-TYPE NATRIURETIC PEPTIDE 5710 pg/mL (0-450)
--- NOTE | 2018-01-31 06:45 | CP.PCM.PN ---
Subjective - Date & Time of Evaluation Date of Evaluation: 01/31/18 Time of Evaluation: 06:44 - Subjective Subjective: Patient was seen at bedside because he was complaining of sob even though his pulse ox was 96% on 2L/min. Has no other complaints. Denies any chest pain, sob , nausea, sweating, palpitation. Medical record was reviewed. 67 year old male was admitted with retrosternal chest discomfort. Has PMH of HTN, NIDDM, HLD, COPD, PPM,PUD, esophageal ulcer, GI bleeding, multiple angioplasties. Former smoker. On lasix at home. Objective - Vital Signs/Intake and Output Vital Signs (last 24 hours): Temp Pulse Resp BP Pulse Ox 97.1 F L 61 20 136/69 100 01/30/18 18:00 01/30/18 18:00 01/30/18 18:00 01/31/18 06:36 01/30/18 18:00 Intake and Output: 01/30/18 01/31/18 18:59 06:59 Intake Total 540 Balance 540 - Medications Medications: Current Medications Acetaminophen (Tylenol 325mg Tab) 650 mg PO Q6H PRN PRN Reason: Fever >100.4 F Digoxin (Digoxin) 0.125 mg PO 1400 [facility] Last Admin: 01/30/18 14:04 Dose: 0.125 mg Gabapentin (Neurontin) 300 mg PO DAILY [facility] PRN Reason: Protocol Last Admin: 01/30/18 10:29 Dose: 300 mg Sodium Chloride (Sodium Chloride 0.45%) 1,000 mls @ 75 mls/hr IV .[id number] [facility] Last Admin: 01/31/18 03:22 Dose: 75 mls/hr Metronidazole (Flagyl) 250 mg in 50 mls @ 100 mls/hr IV Q8 [facility] PRN Reason: Protocol Stop: 02/03/18 22:01 Last Admin: 01/31/18 05:42 Dose: 100 mls/hr Ceftriaxone Sodium (Rocephin 1 Gram Ivpb) 1 gm in 100 mls @ 100 mls/hr IVPB DAILY [facility] PRN Reason: Protocol Last Admin: 01/30/18 10:29 Dose: 100 mls/hr Insulin Human Regular (Humulin R Med) 0 units SC ACHS [facility] PRN Reason: Protocol Last Admin: 06/15/18 21:16 Dose: Not Given Metoprolol Tartrate (Lopressor) 25 mg PO BID [facility] Last Admin: 01/30/18 17:13 Dose: 25 mg Ondansetron HCl (Zofran Inj) 4 mg IVP Q6H PRN PRN Reason: Nausea/Vomiting Pantoprazole Sodium (Protonix Inj) 40 mg IVP DAILY [facility] Last Admin: 01/30/18 10:29 Dose: 40 mg - Labs Labs: 01/31/18 05:30 01/30/18 06:00 PT 18.8 SECONDS (9.4-12.5) H 01/30/18 06:00 INR 1.62 (0.93-1.08) H 01/30/18 06:00 APTT 31.1 Seconds (25.1-36.5) 01/30/18 06:00 Micro Results 01/30/18 05:20 Stool Stool Culture - Preliminary [employer]ACTOSE [employer]ATOR, SUB SELENITE BROTH. 01/30/18 05:20 Stool Ova and Parasite Concentrate Exam - Final 01/30/18 05:20 Stool C. difficile Antigen & Toxin A,B (M - Final Most Recent Lab Values WBC 6.9 10^3/ul (4.5-11.0) 01/31/18 05:30 RBC 4.96 10^6/uL (3.5-6.1) 01/31/18 05:30 Hgb 10.6 g/dL (14.0-18.0) L 01/31/18 05:30 Hct 34.8 % (42.0-52.0) L 01/31/18 05:30 MCV 70.2 fl (80.0-105.0) L 01/31/18 05:30 MCH 21.4 pg (25.0-35.0) L 01/31/18 05:30 MCHC 30.5 g/dl (31.0-37.0) L 01/31/18 05:30 RDW 18.0 % (11.5-14.5) H 01/31/18 05:30 Plt Count 271 10^3/uL (120.0-450.0) 01/31/18 05:30 MPV 10.6 fl (7.0-11.0) 01/31/18 05:30 Gran % 65.7 % (50.0-68.0) 01/30/18 06:00 Lymph % (Auto) 17.7 % (22.0-35.0) L 01/30/18 06:00 Mcnairy % (Auto) 15.8 % (1.0-6.0) H 01/30/18 06:00 Eos % (Auto) 0.6 % (1.5-5.0) L 01/30/18 06:00 Baso % (Auto) 0.2 % (0.0-3.0) 01/30/18 06:00 Gran # 4.20 (1.4-6.5) 01/30/18 06:00 Lymph # (Auto) 1.1 (1.2-3.4) L 01/30/18 06:00 Mcnairy # (Auto) 1.0 (0.1-0.6) H 01/30/18 06:00 Eos # (Auto) 0.0 (0.0-0.7) 01/30/18 06:00 Baso # (Auto) 0.01 K/mm3 (0.0-2.0) 01/30/18 06:00 PT 18.8 SECONDS (9.4-12.5) H 01/30/18 06:00 INR 1.62 (0.93-1.08) H 01/30/18 06:00 APTT 31.1 Seconds (25.1-36.5) 01/30/18 06:00 Sodium 137 mmol/L (132-148) 01/31/18 05:30 Potassium 4.4 mmol/L (3.6-5.0) 01/31/18 05:30 Chloride 102 mmol/L (98-107) 01/31/18 05:30 Carbon Dioxide 23 mmol/L (21-33) 01/31/18 05:30 Anion Gap 16 (10-20) 01/31/18 05:30 BUN 15 mg/dL (7-21) 01/31/18 05:30 Creatinine 0.9 mg/dl (0.8-1.5) 01/31/18 05:30 Est GFR ( Amer) > 60 01/31/18 05:30 Est GFR (Non-Af Amer) > 60 01/31/18 05:30 POC Glucose (mg/dL) 90 mg/dL (65-110) 01/31/18 21:43 Random Glucose 110 mg/dL (70-110) 01/31/18 05:30 Calcium 9.2 mg/dL (8.4-10.5) 01/31/18 05:30 Phosphorus 3.0 mg/dL (2.5-4.5) 01/31/18 05:30 Magnesium 2.0 mg/dL (1.7-2.2) 01/31/18 05:30 Iron 23 ug/dL (45-180) L 01/30/18 10:00 TIBC 433 ug/dL (261-462) 01/30/18 10:00 % Saturation 5 % (20-55) L 01/30/18 10:00 Ferritin 9.7 ng/mL 01/30/18 06:00 Total Bilirubin 0.7 mg/dL (0.2-1.3) 01/31/18 05:30 AST 50 U/L (17-59) 01/31/18 05:30 ALT 34 U/L (7-56) 01/31/18 05:30 Alkaline Phosphatase 68 U/L (38-126) 01/31/18 05:30 Lactate Dehydrogenase 418 U/L (333-699) 01/29/18 12:29 Total Creatine Kinase 62 U/L (35-230) 01/29/18 12:29 Troponin I 0.02 ng/mL D 01/29/18 12:29 NT-Pro-B Natriuret Pep 5710 pg/mL (0-450) H 01/31/18 05:30 Total Protein 7.4 g/dL (5.8-8.3) 01/31/18 05:30 Albumin 3.8 g/dL (3.0-4.8) 01/31/18 05:30 Globulin 3.6 gm/dL 01/31/18 05:30 Albumin/Globulin Ratio 1.1 (1.1-1.8) 01/31/18 05:30 Amylase 67 U/L (35-125) 01/30/18 06:00 Lipase 78 U/L (23-300) 01/29/18 22:28 Procalcitonin 0.05 NG/ML (0.19-0.49) L 01/30/18 06:00 Stool Occult Blood Negative (NEGATIVE) 01/30/18 05:20 Blood Type Cancelled 01/29/18 14:40 Antibody Screen Cancelled 01/29/18 14:40 BBK History Checked Cancelled 01/29/18 14:40 - Constitutional Appears: Well, No Acute Distress - Head Exam Head Exam: ATRAUMATIC, NORMAL INSPECTION, NORMOCEPHALIC - Eye Exam Eye Exam: Normal appearance - ENT Exam ENT Exam: Normal External Ear Exam - Neck Exam Neck Exam: Normal Inspection - Respiratory Exam Respiratory Exam: Rales, NORMAL BREATHING PATTERN - Cardiovascular Exam Cardiovascular Exam: absent: JVD Additional comments: B/L basal. - GI/Abdominal Exam GI & Abdominal Exam: absent: Distended - Rectal Exam Rectal Exam: Deferred - Exam Additional comments: Deferred. - Back Exam Back Exam: NORMAL INSPECTION - Neurological Exam Neurological Exam: Alert, Awake, Oriented x3 - Psychiatric Exam Psychiatric exam: Normal Affect, Normal Mood - Skin Skin Exam: Normal Color Assessment and Plan - Assessment and Plan (Free Text) Assessment: CHF. HTN. NIDDM. HLD. COPD. S/P PPM. PUD. Plan: Lasix 40 mg IV x 1. BNPx1. Continue present managment.
[2018-01-31 06:52] LABS: ALB/GLOB RATIO 1.1 (1.1-1.8); ALBUMIN 3.8 g/dL (3.0-4.8); ALT/SGPT 34 U/L (7-56); AST/SGOT 50 U/L (17-59); BLOOD UREA NITROGEN 15 mg/dL (7-21); CALCIUM 9.2 mg/dL (8.4-10.5); GFR AFRICAN-AMERICAN > 60; GFR NON-AFRICAN AMERICAN > 60
[2018-01-31] MEDS: Insulin Reg-MEDIUM-Coverage SC SCH ×4 (07:30→21:54)
[2018-01-31] MEDS: cefTRIAXone 1 gm 1 GM/100 ML BAG IVPB SCH (10:26)
--- NOTE | 2018-01-31 10:33 | CP.PCM.PN ---
Subjective - Date & Time of Evaluation Date of Evaluation: 01/31/18 Time of Evaluation: 07:30 - Subjective Subjective: General Surgery Pt Seen and examined. Continues to have non bloody diarrhea. L sided pain improving but still present. No other complaints at this time. Objective - Vital Signs/Intake and Output Vital Signs (last 24 hours): Temp Pulse Resp BP Pulse Ox 97.6 F 50 L 20 136/69 96 01/31/18 07:42 01/31/18 07:42 01/31/18 07:42 01/31/18 07:42 01/31/18 07:42 Intake and Output: 01/31/18 01/31/18 06:59 18:59 Intake Total 540 Balance 540 - Medications Medications: Current Medications Acetaminophen (Tylenol 325mg Tab) 650 mg PO Q6H PRN PRN Reason: Fever >100.4 F Digoxin (Digoxin) 0.125 mg PO 1400 [facility] Last Admin: 01/30/18 14:04 Dose: 0.125 mg Gabapentin (Neurontin) 300 mg PO DAILY [facility] PRN Reason: Protocol Last Admin: 01/30/18 10:29 Dose: 300 mg Sodium Chloride (Sodium Chloride 0.45%) 1,000 mls @ 75 mls/hr IV .[id number] [facility] Last Admin: 01/31/18 03:22 Dose: 75 mls/hr Metronidazole (Flagyl) 250 mg in 50 mls @ 100 mls/hr IV Q8 [facility] PRN Reason: Protocol Stop: 02/03/18 22:01 Last Admin: 01/31/18 05:42 Dose: 100 mls/hr Ceftriaxone Sodium (Rocephin 1 Gram Ivpb) 1 gm in 100 mls @ 100 mls/hr IVPB DAILY [facility] PRN Reason: Protocol Last Admin: 01/30/18 10:29 Dose: 100 mls/hr Insulin Human Regular (Humulin R Med) 0 units SC ACHS [facility] PRN Reason: Protocol Last Admin: 01/30/18 21:16 Dose: Not Given Metoprolol Tartrate (Lopressor) 25 mg PO BID [facility] Last Admin: 01/30/18 17:13 Dose: 25 mg Ondansetron HCl (Zofran Inj) 4 mg IVP Q6H PRN PRN Reason: Nausea/Vomiting Pantoprazole Sodium (Protonix Inj) 40 mg IVP DAILY [facility] Last Admin: 01/30/18 10:29 Dose: 40 mg - Labs Labs: 01/31/18 05:30 01/31/18 05:30 PT 18.8 SECONDS (9.4-12.5) H 01/30/18 06:00 INR 1.62 (0.93-1.08) H 01/30/18 06:00 APTT 31.1 Seconds (25.1-36.5) 01/30/18 06:00 - Constitutional Appears: Non-toxic, No Acute Distress - Head Exam Head Exam: ATRAUMATIC, NORMOCEPHALIC - Eye Exam Eye Exam: EOMI. absent: Scleral icterus - Respiratory Exam Respiratory Exam: NORMAL BREATHING PATTERN. absent: Respiratory Distress - GI/Abdominal Exam GI & Abdominal Exam: Soft, Tenderness (mild LUQ pain). absent: Distended, Firm , Guarding, Rigid - Extremities Exam Extremities Exam: absent: Calf Tenderness, Pedal Edema - Neurological Exam Neurological Exam: Alert, Awake, Oriented x3 - Skin Skin Exam: Dry, Warm Assessment and Plan - Assessment and Plan (Free Text) Assessment: 67M with colitis Plan: -Continue IV antibiotics -F/u stool studies -Can follow up as outpatient to pursue possibility of GB removal -No surgical intervention planned at this time D/W Dr. Leif Houston PGY4
--- NOTE | 2018-01-31 11:41 | PN ---
DATE: 01/31/2018 SUBJECTIVE: Mr. Rueda is a 67-year-old male admitted to the hospital with epigastric pain. He was found to have esophageal tear and he also has a history of gastric ulcer. EGD done, did not show bleed. He had recent episode of GI bleed. He underwent thoracotomy. He has been on PPI since then. Hemoglobin and hematocrit have been stable now. He has severe iron deficiency. PAST MEDICAL HISTORY: Coronary artery disease, diabetes mellitus type 2, COPD, status post pacemaker placement, angioplasties. ALLERGIES: NO KNOWN DRUG ALLERGIES. HOME MEDICATIONS: Protonix, metoprolol, gabapentin, Lasix, Plavix 75 mg daily, Lipitor 40 daily, aspirin 81 mg daily. PERSONAL HISTORY: History of heavy smoking in remote past. No history of alcohol abuse. SOCIAL HISTORY: Lives at home. . REVIEW OF SYSTEMS: As per HPI. Rest of 12-point review of systems reviewed negative. Was evaluated by house staff in the night for epigastric pain. PHYSICAL EXAMINATION: GENERAL: Awake, alert, oriented. VITAL SIGNS: Afebrile, temperature 98.7; heart rate 80 per minute; respiratory rate 16 per minute; blood pressure 140/70. HEENT: Pallor positive. NECK: No lymphadenopathy. CHEST: Air entry present and equal bilaterally. No added sounds. CARDIOVASCULAR: S1 and S2 normal. No murmur. No gallop. ABDOMEN: Soft, nontender. No hepatosplenomegaly. EXTREMITIES: No edema. LABORATORY DATA: White count 6.9, hemoglobin 10.6, hematocrit 34.8, platelet 271. Sodium 137, potassium 4.1. Iron 23, iron saturation 5%. Creatinine 0.9. ASSESSMENT: 1. Status post esophageal tear. 2. History of gastrointestinal bleeding. 3. Diabetes mellitus type 2. 4. Severe iron-deficiency anemia. PLAN: Diet will be advanced. He was on clear liquid. We will continue clear liquid for now. Currently on IV antibiotics, ceftriaxone, we will continue that. Gabapentin 300 mg daily we will continue. IV Flagyl to be continued. Zofran p.r.n., Protonix, IV fluid at 70 mL an hour. He has severe iron deficiency. He will need continuation of IV iron as outpatient upon discharge from the hospital. Hemoglobin and hematocrit stable now at 10.6. No evidence of bleeding. Platelet count stable. Renal function stable. Tanisha Azul MD [facility] # [id number]
--- NOTE | 2018-01-31 11:43 | CP.PCM.PCO ---
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
[2018-01-31] MEDS: Digoxin 125 mcg (0.125 mg) Tab PO SCH (14:56)
[2018-01-31] MEDS ORDERED: Lidocaine 5% Patch TD ONE (20:15)
--- NOTE | 2018-02-01 02:40 | CP.PCM.PN ---
Subjective - Date & Time of Evaluation Date of Evaluation: 02/01/18 Time of Evaluation: 02:39 - Subjective Subjective: S:draft Complained of low back pain. rx, Lidoderm patch 5% x 1. See my next note. Objective - Vital Signs/Intake and Output Vital Signs (last 24 hours): Temp Pulse Resp BP Pulse Ox 97.6 F 57 L 19 124/59 L 100 01/31/18 18:00 01/31/18 18:00 01/31/18 18:00 01/31/18 18:00 01/31/18 18:00 Intake and Output: 01/31/18 02/01/18 18:59 06:59 Intake Total 960 Balance 960 - Medications Medications: Current Medications Acetaminophen (Tylenol 325mg Tab) 650 mg PO Q6H PRN PRN Reason: Fever >100.4 F Digoxin (Digoxin) 0.125 mg PO 1400 [facility] Last Admin: 01/31/18 14:56 Dose: 0.125 mg Gabapentin (Neurontin) 300 mg PO DAILY [facility] PRN Reason: Protocol Last Admin: 01/31/18 10:24 Dose: 300 mg Sodium Chloride (Sodium Chloride 0.45%) 1,000 mls @ 75 mls/hr IV .[id number] [facility] Last Admin: 01/31/18 03:22 Dose: 75 mls/hr Metronidazole (Flagyl) 250 mg in 50 mls @ 100 mls/hr IV Q8 [facility] PRN Reason: Protocol Stop: 02/03/18 22:01 Last Admin: 01/31/18 21:55 Dose: 100 mls/hr Ceftriaxone Sodium (Rocephin 1 Gram Ivpb) 1 gm in 100 mls @ 100 mls/hr IVPB DAILY [facility] PRN Reason: Protocol Last Admin: 01/31/18 10:26 Dose: 100 mls/hr Insulin Human Regular (Humulin R Med) 0 units SC ACHS [facility] PRN Reason: Protocol Last Admin: 01/31/18 21:54 Dose: Not Given Metoprolol Tartrate (Lopressor) 25 mg PO BID [facility] Last Admin: 01/31/18 17:47 Dose: 25 mg Ondansetron HCl (Zofran Inj) 4 mg IVP Q6H PRN PRN Reason: Nausea/Vomiting Pantoprazole Sodium (Protonix Inj) 40 mg IVP DAILY [facility] Last Admin: 01/31/18 10:26 Dose: 40 mg - Labs Labs: 01/31/18 05:30 01/31/18 05:30 PT 18.8 SECONDS (9.4-12.5) H 01/30/18 06:00 INR 1.62 (0.93-1.08) H 01/30/18 06:00 APTT 31.1 Seconds (25.1-36.5) 01/30/18 06:00
--- NOTE | 2018-02-01 02:52 | CP.PCM.PN ---
Subjective - Date & Time of Evaluation Date of Evaluation: 02/01/18 Time of Evaluation: 02:50 - Subjective Subjective: S:Lidoderm patch was requested for back pain. He complains of low back pain. Has no other complaints. Medical record was reviewed. O: Last Vital Signs 3 Temp 97.6 F 01/31/18 18:00 Pulse 57 L 01/31/18 18:00 Resp 19 01/31/18 18:00 BP 124/59 L 01/31/18 18:00 Pulse Ox 100 01/31/18 18:00 Awake, alert, not in distress. LUNGS: Normal breathing pattern. Spine: No localized tenderness noted. A: Low back pain. P: Lidoder patch x 1. Objective - Vital Signs/Intake and Output Vital Signs (last 24 hours): Temp Pulse Resp BP Pulse Ox 97.6 F 57 L 19 124/59 L 100 01/31/18 18:00 01/31/18 18:00 01/31/18 18:00 01/31/18 18:00 01/31/18 18:00 Intake and Output: 01/31/18 02/01/18 18:59 06:59 Intake Total 960 Balance 960 - Medications Medications: Current Medications Acetaminophen (Tylenol 325mg Tab) 650 mg PO Q6H PRN PRN Reason: Fever >100.4 F Digoxin (Digoxin) 0.125 mg PO 1400 [facility] Last Admin: 01/31/18 14:56 Dose: 0.125 mg Gabapentin (Neurontin) 300 mg PO DAILY [facility] PRN Reason: Protocol Last Admin: 01/31/18 10:24 Dose: 300 mg Sodium Chloride (Sodium Chloride 0.45%) 1,000 mls @ 75 mls/hr IV .[id number] [facility] Last Admin: 01/31/18 03:22 Dose: 75 mls/hr Metronidazole (Flagyl) 250 mg in 50 mls @ 100 mls/hr IV Q8 [facility] PRN Reason: Protocol Stop: 02/03/18 22:01 Last Admin: 01/31/18 21:55 Dose: 100 mls/hr Ceftriaxone Sodium (Rocephin 1 Gram Ivpb) 1 gm in 100 mls @ 100 mls/hr IVPB DAILY [facility] PRN Reason: Protocol Last Admin: 01/31/18 10:26 Dose: 100 mls/hr Insulin Human Regular (Humulin R Med) 0 units SC ACHS [facility] PRN Reason: Protocol Last Admin: 01/31/18 21:54 Dose: Not Given Metoprolol Tartrate (Lopressor) 25 mg PO BID [facility] Last Admin: 01/31/18 17:47 Dose: 25 mg Ondansetron HCl (Zofran Inj) 4 mg IVP Q6H PRN PRN Reason: Nausea/Vomiting Pantoprazole Sodium (Protonix Inj) 40 mg IVP DAILY [facility] Last Admin: 01/31/18 10:26 Dose: 40 mg - Labs Labs: 01/31/18 05:30 01/31/18 05:30 PT 18.8 SECONDS (9.4-12.5) H 01/30/18 06:00 INR 1.62 (0.93-1.08) H 01/30/18 06:00 APTT 31.1 Seconds (25.1-36.5) 01/30/18 06:00
[2018-02-01] MEDS: Sodium Chloride 0.45% 1,000 ML IV SCH (06:02)
[2018-02-01] MEDS: Insulin Reg-MEDIUM-Coverage SC SCH ×4 (07:30→22:15)
--- NOTE | 2018-02-01 09:19 | CP.PCM.PN ---
<Alin Houston - Last Filed: 02/01/18 09:16> Subjective - Date & Time of Evaluation Date of Evaluation: 02/01/18 Time of Evaluation: 07:20 - Subjective Subjective: General Surgery Pt Seen and examined. Continues to have non bloody diarrhea, described as "water -like". Denies any abd pain at this time. No other complaints at this time. Objective - Vital Signs/Intake and Output Vital Signs (last 24 hours): Temp Pulse Resp BP Pulse Ox 98 F 54 L 19 146/72 100 02/01/18 07:50 02/01/18 07:50 02/01/18 07:50 02/01/18 07:50 02/01/18 07:50 Intake and Output: 02/01/18 02/01/18 06:59 18:59 Intake Total 2039 Balance 2039 - Medications Medications: Current Medications Acetaminophen (Tylenol 325mg Tab) 650 mg PO Q6H PRN PRN Reason: Fever >100.4 F Digoxin (Digoxin) 0.125 mg PO 1400 [facility] Last Admin: 01/31/18 14:56 Dose: 0.125 mg Gabapentin (Neurontin) 300 mg PO DAILY [facility] PRN Reason: Protocol Last Admin: 01/31/18 10:24 Dose: 300 mg Sodium Chloride (Sodium Chloride 0.45%) 1,000 mls @ 75 mls/hr IV .[id number] [facility] Last Admin: 02/01/18 06:02 Dose: 75 mls/hr Metronidazole (Flagyl) 250 mg in 50 mls @ 100 mls/hr IV Q8 [facility] PRN Reason: Protocol Stop: 02/03/18 22:01 Last Admin: 01/31/18 21:55 Dose: 100 mls/hr Ceftriaxone Sodium (Rocephin 1 Gram Ivpb) 1 gm in 100 mls @ 100 mls/hr IVPB DAILY [facility] PRN Reason: Protocol Last Admin: 01/31/18 10:26 Dose: 100 mls/hr Insulin Human Regular (Humulin R Med) 0 units SC ACHS [facility] PRN Reason: Protocol Last Admin: 01/31/18 21:54 Dose: Not Given Metoprolol Tartrate (Lopressor) 25 mg PO BID [facility] Last Admin: 01/31/18 17:47 Dose: 25 mg Ondansetron HCl (Zofran Inj) 4 mg IVP Q6H PRN PRN Reason: Nausea/Vomiting Pantoprazole Sodium (Protonix Inj) 40 mg IVP DAILY [facility] Last Admin: 01/31/18 10:26 Dose: 40 mg - Labs Labs: 01/31/18 05:30 01/31/18 05:30 PT 18.8 SECONDS (9.4-12.5) H 01/30/18 06:00 INR 1.62 (0.93-1.08) H 01/30/18 06:00 APTT 31.1 Seconds (25.1-36.5) 01/30/18 06:00 - Constitutional Appears: Non-toxic, No Acute Distress - Head Exam Head Exam: ATRAUMATIC, NORMOCEPHALIC - Eye Exam Eye Exam: EOMI - Respiratory Exam Respiratory Exam: NORMAL BREATHING PATTERN. absent: Respiratory Distress - GI/Abdominal Exam GI & Abdominal Exam: Soft. absent: Distended, Firm, Guarding, Rigid, Tenderness - Neurological Exam Neurological Exam: Alert, Awake - Skin Skin Exam: Dry, Warm Assessment and Plan - Assessment and Plan (Free Text) Assessment: 67M with colitis Plan: -Continue IV antibiotics -F/u stool studies -Can follow up as outpatient to pursue possibility of GB removal -No surgical intervention planned at this time PGY4 <Bharat Yadav - Last Filed: 02/01/18 12:46> Objective - Vital Signs/Intake and Output Vital Signs (last 24 hours): Temp Pulse Resp BP Pulse Ox 98 F 59 L 19 146/72 100 02/01/18 07:50 02/01/18 09:40 02/01/18 07:50 02/01/18 09:40 02/01/18 07:50 Intake and Output: 02/01/18 02/01/18 06:59 18:59 Intake Total 0 Balance 2040 - Medications Medications: Current Medications Acetaminophen (Tylenol 325mg Tab) 650 mg PO Q6H PRN PRN Reason: Fever >100.4 F Bismuth Subsalicylate (Pepto-Bismol) 262 mg PO BID [facility] Digoxin (Digoxin) 0.125 mg PO 1400 [facility] Last Admin: 01/31/18 14:56 Dose: 0.125 mg Gabapentin (Neurontin) 300 mg PO DAILY [facility] PRN Reason: Protocol Last Admin: 02/01/18 09:40 Dose: 300 mg Metronidazole (Flagyl) 250 mg in 50 mls @ 100 mls/hr IV Q8 [facility] PRN Reason: Protocol Stop: 02/03/18 22:01 Last Admin: 01/31/18 21:55 Dose: 100 mls/hr Ceftriaxone Sodium (Rocephin 1 Gram Ivpb) 1 gm in 100 mls @ 100 mls/hr IVPB DAILY [facility] PRN Reason: Protocol Last Admin: 02/01/18 09:41 Dose: 100 mls/hr Insulin Human Regular (Humulin R Med) 0 units SC ACHS [facility] PRN Reason: Protocol Last Admin: 02/01/18 07:30 Dose: Not Given Lidocaine (Lidoderm) 1 ea TD DAILY [facility] Metoprolol Tartrate (Lopressor) 25 mg PO BID [facility] Last Admin: 02/01/18 09:40 Dose: 25 mg Ondansetron HCl (Zofran Inj) 4 mg IVP Q6H PRN PRN Reason: Nausea/Vomiting Pantoprazole Sodium (Protonix Inj) 40 mg IVP DAILY [facility] Last Admin: 02/01/18 09:40 Dose: 40 mg - Labs Labs: 01/31/18 05:30 01/31/18 05:30 PT 18.8 SECONDS (9.4-12.5) H 01/30/18 06:00 INR 1.62 (0.93-1.08) H 01/30/18 06:00 APTT 31.1 Seconds (25.1-36.5) 01/30/18 06:00 Assessment and Plan - Assessment and Plan (Free Text) Plan: 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
[2018-02-01] MEDS: cefTRIAXone 1 gm 1 GM/100 ML BAG IVPB SCH (09:41)
[2018-02-01] MEDS: Lidocaine 5% Patch TD SCH (11:45)
[2018-02-01] MEDS ORDERED: Bismuth Subsalicylate 262 mg/15 ml Sus (240 ml) PO ONE (11:57)
[2018-02-01] MEDS: Bismuth Subsalicylate 262 mg/15 ml Sus (240 ml) PO SCH ×2 (12:00→17:42)
[2018-02-01] MEDS: metroNIDAZOLE IV 250mg/50 ml 250 MG/50 ML BAG IV SCH ×2 (15:16→21:26)
[2018-02-01] MEDS: Digoxin 125 mcg (0.125 mg) Tab PO SCH (15:18)
--- NOTE | 2018-02-01 18:36 | PN ---
DATE: 02/01/2018 SUBJECTIVE: This patient is now tolerating the diet. The diarrhea has improved. PHYSICAL EXAMINATION: VITAL SIGNS: Temperature is 98, blood pressure is 146/72, respirations 19, pulse 54, O2 saturation 100% on 2 L nasal cannula. HEENT: Atraumatic, anicteric. NECK: Supple. HEART: S1 and S2 heard. LUNGS: Bilateral air entry present. ABDOMEN: Soft. No tenderness. EXTREMITIES: No cyanosis. No clubbing. LABORATORY DATA: Hemoglobin 10.6, hematocrit 34.8, WBC 6.9, and platelets 271. These are the labs done yesterday. There were no labs available today. IMPRESSION: This 67-year-old patient with a coronary artery disease, status post percutaneous coronary intervention, stent placement, was hospitalized in November with massive gastrointestinal bleeding, found to have an esophageal mucosal tear. The patient had injection sclerotherapy, had an EP injection with good control. The patient did have a thoracotomy at that time. No esophageal tear noticed. It was only mucosal tear causing the bleeding. The patient was managed conservatively, received nearly 6 units of transfusion and 1 unit of platelets. The patient was subsequently sent home Hb remains stable. .Now admitted with abdominal pain, diarrhea. 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 Clinically suggestive of ischemic colitis. continue IV antibiotics MRA could not be done due to sp PPM RECOMMENDATIONS 1. To continue the antibiotics. 2, The patient may benefit from vascular consult [facility] case Management DATA SPECIALIST regarding the plan. Katie Corrales MD P[facility]
--- NOTE | 2018-02-01 19:15 | PN ---
DATE: 02/01/2018 SUBJECTIVE: He is comfortable in bed, in no acute distress. Hemoglobin and hematocrit stable. He is tolerating liquid diet. His diet will be advanced today to soft diet. No nausea, no vomiting, no abdominal pain. He has severe iron deficiency anemia; hemoglobin and hematocrit stable. REVIEW OF SYSTEMS: As per HPI. Rest of 12-point review of systems is reviewed and negative. PHYSICAL EXAMINATION: GENERAL: Comfortable in bed, in no acute distress. VITAL SIGNS: Temperature 98.7, heart rate 80 per minute, respiratory rate 15 per minute, blood pressure 130/70. HEENT: Pallor positive. NECK: No lymphadenopathy. CHEST: Air entry present equal and bilateral. No added sounds. CARDIOVASCULAR: S1 and S2 normal. No murmur. No gallop. ABDOMEN: Soft, nontender. No hepatosplenomegaly. EXTREMITIES: No edema. LABORATORY DATA: Reviewed. MEDICATIONS: Reviewed. ASSESSMENT: 1. Status post esophageal tear, status post thoracotomy. 2. History of gastrointestinal bleeding. 3. Severe iron deficiency anemia. 4. Diabetes mellitus type 2. PLAN: Hemoglobin and hematocrit stable. He is currently on IV fluids. Diet will be advanced further today to soft diet. He tolerated liquid very well. Currently on IV antibiotics, will continue with that. Surgery, Dr. Yadav, following. Renal function is stable. Bedside physical therapy to continue. Tanisha Azul MD
[2018-02-01] MEDS ORDERED: Lidocaine 5% Patch TD ONE (20:15)
--- NOTE | 2018-02-01 22:48 | CP.PCM.PN ---
Subjective - Date & Time of Evaluation Date of Evaluation: 01/31/18 Time of Evaluation: 15:30 - Subjective Subjective: still has some loose bowel on full liquid diet no bleeding P no vomiting Objective - Vital Signs/Intake and Output Vital Signs (last 24 hours): Temp Pulse Resp BP Pulse Ox 97.6 F 57 L 19 124/59 L 100 01/31/18 18:00 01/31/18 18:00 01/31/18 18:00 01/31/18 18:00 01/31/18 18:00 Intake and Output: 01/31/18 02/01/18 18:59 06:59 Intake Total 960 Balance 960 - Medications Medications: Current Medications Acetaminophen (Tylenol 325mg Tab) 650 mg PO Q6H PRN PRN Reason: Fever >100.4 F Digoxin (Digoxin) 0.125 mg PO 1400 [facility] Last Admin: 01/31/18 14:56 Dose: 0.125 mg Gabapentin (Neurontin) 300 mg PO DAILY [facility] PRN Reason: Protocol Last Admin: 01/31/18 10:24 Dose: 300 mg Sodium Chloride (Sodium Chloride 0.45%) 1,000 mls @ 75 mls/hr IV .[id number] [facility] Last Admin: 01/31/18 03:22 Dose: 75 mls/hr Metronidazole (Flagyl) 250 mg in 50 mls @ 100 mls/hr IV Q8 [facility] PRN Reason: Protocol Stop: 02/03/18 22:01 Last Admin: 01/31/18 21:55 Dose: 100 mls/hr Ceftriaxone Sodium (Rocephin 1 Gram Ivpb) 1 gm in 100 mls @ 100 mls/hr IVPB DAILY [facility] PRN Reason: Protocol Last Admin: 01/31/18 10:26 Dose: 100 mls/hr Insulin Human Regular (Humulin R Med) 0 units SC ACHS [facility] PRN Reason: Protocol Last Admin: 01/31/18 21:54 Dose: Not Given Metoprolol Tartrate (Lopressor) 25 mg PO BID [facility] Last Admin: 01/31/18 17:47 Dose: 25 mg Ondansetron HCl (Zofran Inj) 4 mg IVP Q6H PRN PRN Reason: Nausea/Vomiting Pantoprazole Sodium (Protonix Inj) 40 mg IVP DAILY [facility] Last Admin: 01/31/18 10:26 Dose: 40 mg - Labs Labs: 01/31/18 05:30 01/31/18 05:30 PT 18.8 SECONDS (9.4-12.5) H 01/30/18 06:00 INR 1.62 (0.93-1.08) H 01/30/18 06:00 APTT 31.1 Seconds (25.1-36.5) 01/30/18 06:00 - Head Exam Head Exam: ATRAUMATIC, NORMOCEPHALIC - Eye Exam Eye Exam: EOMI, PERRL - ENT Exam ENT Exam: Mucous Membranes Moist, Normal Oropharynx - Neck Exam Neck Exam: Normal Inspection. absent: Lymphadenopathy - Respiratory Exam Respiratory Exam: NORMAL BREATHING PATTERN. absent: Rales, Rhonchi - Cardiovascular Exam Cardiovascular Exam: REGULAR RHYTHM, +S1, +S2. absent: Diastolic murmur - GI/Abdominal Exam GI & Abdominal Exam: Soft. absent: Tenderness - Extremities Exam Extremities Exam: Full ROM. absent: Calf Tenderness - Neurological Exam Neurological Exam: Alert, Awake, Oriented x3 Assessment and Plan - Assessment and Plan (Free Text) Assessment: right-sided colitis. 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 Continue the antibiotics 2. Vascular consult 3. advance diet cautiously 4. Repeat EGD 5. Continue PPI 6. Follow-up hemoglobin
[2018-02-02] MEDS: metroNIDAZOLE IV 250mg/50 ml 250 MG/50 ML BAG IV SCH ×3 (05:27→21:10)
--- NOTE | 2018-02-02 06:39 | CP.PCM.PN ---
Objective - Vital Signs/Intake and Output Vital Signs (last 24 hours): Temp Pulse Resp BP Pulse Ox 97.8 F 58 L 18 147/79 100 02/02/18 06:00 02/02/18 06:00 02/02/18 06:00 02/02/18 06:00 02/02/18 06:00 Intake and Output: 02/01/18 02/02/18 18:59 06:59 Intake Total 840 Balance 840 - Medications Medications: Current Medications Acetaminophen (Tylenol 325mg Tab) 650 mg PO Q6H PRN PRN Reason: Fever >100.4 F Last Admin: 02/01/18 21:41 Dose: 650 mg Bismuth Subsalicylate (Pepto-Bismol) 262 mg PO BID [facility] Last Admin: 02/01/18 17:42 Dose: 262 mg Digoxin (Digoxin) 0.125 mg PO 1400 [facility] Last Admin: 02/01/18 15:18 Dose: 0.125 mg Gabapentin (Neurontin) 300 mg PO DAILY [facility] PRN Reason: Protocol Last Admin: 02/01/18 09:40 Dose: 300 mg Metronidazole (Flagyl) 250 mg in 50 mls @ 100 mls/hr IV Q8 [facility] PRN Reason: Protocol Stop: 02/03/18 22:01 Last Admin: 02/02/18 05:27 Dose: 100 mls/hr Ceftriaxone Sodium (Rocephin 1 Gram Ivpb) 1 gm in 100 mls @ 100 mls/hr IVPB DAILY [facility] PRN Reason: Protocol Last Admin: 02/01/18 09:41 Dose: 100 mls/hr Insulin Human Regular (Humulin R Med) 0 units SC ACHS [facility] PRN Reason: Protocol Last Admin: 02/01/18 22:15 Dose: Not Given Lidocaine (Lidoderm) 1 ea TD DAILY [facility] Last Admin: 02/01/18 11:45 Dose: 1 ea Metoprolol Tartrate (Lopressor) 25 mg PO BID [facility] Last Admin: 02/01/18 17:43 Dose: 25 mg Morphine Sulfate (Morphine) 2 mg IVP Q6H PRN PRN Reason: back pain Ondansetron HCl (Zofran Inj) 4 mg IVP Q6H PRN PRN Reason: Nausea/Vomiting Pantoprazole Sodium (Protonix Inj) 40 mg IVP DAILY [facility] Last Admin: 02/01/18 09:40 Dose: 40 mg - Labs Labs: 01/31/18 05:30 01/31/18 05:30 PT 18.8 SECONDS (9.4-12.5) H 01/30/18 06:00 INR 1.62 (0.93-1.08) H 01/30/18 06:00 APTT 31.1 Seconds (25.1-36.5) 01/30/18 06:00
[2018-02-02] MEDS: Insulin Reg-MEDIUM-Coverage SC SCH ×3 (07:48→22:00)
[2018-02-02] MEDS: Morphine 2 mg/ml ISec IVP PRN ×2 (08:16→21:11)
--- NOTE | 2018-02-02 08:24 | CP.PCM.PN ---
Subjective - Date & Time of Evaluation Date of Evaluation: 02/02/18 Time of Evaluation: 08:49 - Subjective Subjective: General Surgey Note for Dr. Yadav Patient seen and examined at bedside. No acute event overnight. Patient still complains of abdominal pain but states it is the same as before. He reports that diarrhea has resolved. Patient is tolerating diet and passing gas. He has no other complaints at this time. Objective - Vital Signs/Intake and Output Vital Signs (last 24 hours): Temp Pulse Resp BP Pulse Ox 97.8 F 58 L 18 147/79 100 02/02/18 06:00 02/02/18 06:00 02/02/18 06:00 02/02/18 06:00 02/02/18 06:00 Intake and Output: 02/02/18 02/02/18 06:59 18:59 Intake Total 240 Balance 240 - Medications Medications: Current Medications Acetaminophen (Tylenol 325mg Tab) 650 mg PO Q6H PRN PRN Reason: Fever >100.4 F Last Admin: 02/01/18 21:41 Dose: 650 mg Bismuth Subsalicylate (Pepto-Bismol) 262 mg PO BID [facility] Last Admin: 02/01/18 17:42 Dose: 262 mg Digoxin (Digoxin) 0.125 mg PO 1400 [facility] Last Admin: 02/01/18 15:18 Dose: 0.125 mg Gabapentin (Neurontin) 300 mg PO DAILY [facility] PRN Reason: Protocol Last Admin: 02/01/18 09:40 Dose: 300 mg Metronidazole (Flagyl) 250 mg in 50 mls @ 100 mls/hr IV Q8 [facility] PRN Reason: Protocol Stop: 02/03/18 22:01 Last Admin: 02/02/18 05:27 Dose: 100 mls/hr Ceftriaxone Sodium (Rocephin 1 Gram Ivpb) 1 gm in 100 mls @ 100 mls/hr IVPB DAILY [facility] PRN Reason: Protocol Last Admin: 02/01/18 09:41 Dose: 100 mls/hr Insulin Human Regular (Humulin R Med) 0 units SC ACHS [facility] PRN Reason: Protocol Last Admin: 02/02/18 07:48 Dose: Not Given Lidocaine (Lidoderm) 1 ea TD DAILY [facility] Last Admin: 02/01/18 11:45 Dose: 1 ea Metoprolol Tartrate (Lopressor) 25 mg PO BID [facility] Last Admin: 02/01/18 17:43 Dose: 25 mg Morphine Sulfate (Morphine) 2 mg IVP Q6H PRN PRN Reason: back pain Last Admin: 02/02/18 08:16 Dose: 2 mg Ondansetron HCl (Zofran Inj) 4 mg IVP Q6H PRN PRN Reason: Nausea/Vomiting Pantoprazole Sodium (Protonix Inj) 40 mg IVP DAILY [facility] Last Admin: 02/01/18 09:40 Dose: 40 mg - Labs Labs: 01/31/18 05:30 01/31/18 05:30 PT 18.8 SECONDS (9.4-12.5) H 01/30/18 06:00 INR 1.62 (0.93-1.08) H 01/30/18 06:00 APTT 31.1 Seconds (25.1-36.5) 01/30/18 06:00 - Additional Findings Additional findings: Appears: Non-toxic, No Acute Distress - Head Exam Head Exam: ATRAUMATIC, NORMOCEPHALIC - Eye Exam Eye Exam: EOMI - Respiratory Exam Respiratory Exam: NORMAL BREATHING PATTERN. absent: Respiratory Distress - GI/Abdominal Exam GI & Abdominal Exam: Soft. absent: Distended, Firm, Guarding, Rigid, Tenderness - Neurological Exam Neurological Exam: Alert, Awake - Skin Skin Exam: Dry, Warm Assessment and Plan - Assessment and Plan (Free Text) Assessment: 67M with colitis Plan: -Continue IV antibiotics -F/u stool studies -No surgical intervention planned at this time -Discussed with Dr. Leif La PGY1
--- NOTE | 2018-02-02 09:06 | PN ---
DATE: 01/31/2018 SUBJECTIVE: This patient was seen and evaluated earlier today. Patient is on a full liquid diet. PHYSICAL EXAMINATION: VITAL SIGNS: Temperature is 97.6, pulse 57, blood pressure 124/59, respiration is 19. HEENT: Atraumatic, anicteric. NECK: Supple. HEART: S1 and S2 heard. LUNGS: Bilateral air entry present. ABDOMEN: Soft. There is no mass palpable. There is mild tenderness present on the right side . There is no rebound or guarding. EXTREMITIES: No cyanosis. No clubbing. edema is present. LABORATORY DATA: Hemoglobin 10.3, hematocrit 34.8, WBC 6.9, platelets 271. Chemistry: LFTs are essentially unremarkable. . The CT scan of the abdomen and pelvis done showed mainly ascending colon. This is also extending colon. Gallstones. . IMPRESSION: This is a 67-year-old patient who was recently in the hospital with gastrointestinal bleeding, esophageal ulceration, coronary artery disease status post percutaneous coronary intervention anemia, coronary artery disease. rule out ischemic colitis. Patient did have an abdominal Doppler done, which showed significantly reduced superior mesenteric artery and celiac less than 50%. Narrowing noticed. Would recommend MRI of the abdomen done with and without contrast and we will consider . Patient has esophageal ulceration. Repeat endoscopy done 11/25/2017, showed healed ulceration. noticed. Katie Corrales MD
[2018-02-02] MEDS: Lidocaine 5% Patch TD SCH (09:11)
[2018-02-02] MEDS: cefTRIAXone 1 gm 1 GM/100 ML BAG IVPB SCH (09:11)
[2018-02-02] MEDS: Bismuth Subsalicylate 262 mg/15 ml Sus (240 ml) PO SCH ×2 (09:54→17:16)
--- NOTE | 2018-02-02 10:00 | CP.PCM.PN ---
<Shahla Schaffer - Last Filed: 02/02/18 09:54> Subjective - Date & Time of Evaluation Date of Evaluation: 02/02/18 Time of Evaluation: 07:00 - Subjective Subjective: GI Progress Note for Eva Cordoba PGY2 Patient seen and examined at bedside. As per nursing staff, there were acute overnight events. Patient reports feeling much better today. He denies abdominal pain, chest pain, shortness of breath, nausea/vomiting/diarrhea, fever /chills, dysuria/hematuria, numbness or tingling. Objective - Vital Signs/Intake and Output Vital Signs (last 24 hours): Temp Pulse Resp BP Pulse Ox 97.8 F 62 18 147/79 100 02/02/18 06:00 02/02/18 09:12 02/02/18 06:00 02/02/18 09:12 02/02/18 06:00 Intake and Output: 02/02/18 02/02/18 06:59 18:59 Intake Total 240 Balance 240 - Medications Medications: Current Medications Acetaminophen (Tylenol 325mg Tab) 650 mg PO Q6H PRN PRN Reason: Fever >100.4 F Last Admin: 02/01/18 21:41 Dose: 650 mg Bismuth Subsalicylate (Pepto-Bismol) 262 mg PO BID [facility] Last Admin: 02/01/18 17:42 Dose: 262 mg Digoxin (Digoxin) 0.125 mg PO 1400 [facility] Last Admin: 02/01/18 15:18 Dose: 0.125 mg Gabapentin (Neurontin) 300 mg PO DAILY [facility] PRN Reason: Protocol Last Admin: 02/02/18 09:11 Dose: 300 mg Metronidazole (Flagyl) 250 mg in 50 mls @ 100 mls/hr IV Q8 [facility] PRN Reason: Protocol Stop: 02/03/18 22:01 Last Admin: 02/02/18 05:27 Dose: 100 mls/hr Ceftriaxone Sodium (Rocephin 1 Gram Ivpb) 1 gm in 100 mls @ 100 mls/hr IVPB DAILY [facility] PRN Reason: Protocol Stop: 02/03/18 10:59 Last Admin: 02/02/18 09:11 Dose: 100 mls/hr Insulin Human Regular (Humulin R Med) 0 units SC ACHS [facility] PRN Reason: Protocol Last Admin: 02/02/18 07:48 Dose: Not Given Lidocaine (Lidoderm) 1 ea TD DAILY [facility] Last Admin: 02/02/18 09:11 Dose: 1 ea Metoprolol Tartrate (Lopressor) 25 mg PO BID [facility] Last Admin: 02/02/18 09:12 Dose: 25 mg Morphine Sulfate (Morphine) 2 mg IVP Q6H PRN PRN Reason: back pain Last Admin: 02/02/18 08:16 Dose: 2 mg Ondansetron HCl (Zofran Inj) 4 mg IVP Q6H PRN PRN Reason: Nausea/Vomiting Pantoprazole Sodium (Protonix Inj) 40 mg IVP DAILY [facility] Last Admin: 02/02/18 09:12 Dose: 40 mg - Labs Labs: 01/31/18 05:30 01/31/18 05:30 PT 18.8 SECONDS (9.4-12.5) H 01/30/18 06:00 INR 1.62 (0.93-1.08) H 01/30/18 06:00 APTT 31.1 Seconds (25.1-36.5) 01/30/18 06:00 - Constitutional Appears: No Acute Distress - Head Exam Head Exam: ATRAUMATIC, NORMAL INSPECTION, NORMOCEPHALIC - Eye Exam Eye Exam: Normal appearance Pupil Exam: NORMAL ACCOMODATION - ENT Exam ENT Exam: Mucous Membranes Moist - Respiratory Exam Respiratory Exam: Clear to Ausculation Bilateral, NORMAL BREATHING PATTERN. absent: Rales, Rhonchi, Wheezes - Cardiovascular Exam Cardiovascular Exam: REGULAR RHYTHM, +S1, +S2. absent: Gallop, Rubs, Murmur - GI/Abdominal Exam GI & Abdominal Exam: Soft, Normal Bowel Sounds. absent: Rigid, Tenderness, Mass , Rebound - Extremities Exam Extremities Exam: Pedal Edema - Neurological Exam Neurological Exam: Alert, Awake, CN II-XII Intact, Oriented x3 - Psychiatric Exam Psychiatric exam: Normal Affect, Normal Mood - Skin Skin Exam: Dry, Warm Assessment and Plan - Assessment and Plan (Free Text) Assessment: This is a 67yo male with past medical history of CAD w/ pacemaker, HTN, NIDDM, COPD, PUD who was admitted for 1. Abdominal pain - secondary to colitis v. ischemia 2. Hx of GI bleed secondary to peptic ulcer disease w/ esophageal tear - Last EGD in November 2017 showed non-bleed esophageal ulcer, gastric ulcers, chronic duodenitis, chronic gastritis 3. Anemia (Iron deficiency) - Hgb is stable. Patient is on Plavix 4. CAD 5. HTN 6. NIDDM Plan: Plan is for EGD tomorrow. Patient will be NPO after midnight. Will get IR consult to rule out ischemia. Patient unable to get MRA because he has pacemaker. Continue IV antibiotics. surgery is on consult. Recommendations appreciated. Continue PPI. Case seen, discussed and reviewed with Dr. Corrales. Eva Schaffer PGY2 <Katie Corrales V - Last Filed: 02/02/18 19:23> Objective - Vital Signs/Intake and Output Vital Signs (last 24 hours): Temp Pulse Resp BP Pulse Ox 98 F 53 L 18 126/68 99 02/02/18 18:16 02/02/18 18:16 02/02/18 18:16 02/02/18 18:16 02/02/18 18:16 Intake and Output: 02/02/18 02/03/18 18:59 06:59 Intake Total 540 Balance 540 - Medications Medications: Current Medications Acetaminophen (Tylenol 325mg Tab) 650 mg PO Q6H PRN PRN Reason: Fever >100.4 F Last Admin: 02/01/18 21:41 Dose: 650 mg Bismuth Subsalicylate (Pepto-Bismol) 262 mg PO BID [facility] Last Admin: 02/02/18 17:16 Dose: 262 mg Digoxin (Digoxin) 0.125 mg PO 1400 [facility] Last Admin: 02/02/18 13:53 Dose: 0.125 mg Gabapentin (Neurontin) 300 mg PO DAILY [facility] PRN Reason: Protocol Last Admin: 02/02/18 09:11 Dose: 300 mg Metronidazole (Flagyl) 250 mg in 50 mls @ 100 mls/hr IV Q8 [facility] PRN Reason: Protocol Stop: 02/03/18 22:01 Last Admin: 02/02/18 14:42 Dose: 100 mls/hr Ceftriaxone Sodium (Rocephin 1 Gram Ivpb) 1 gm in 100 mls @ 100 mls/hr IVPB DAILY [facility] PRN Reason: Protocol Stop: 02/03/18 10:59 Last Admin: 02/02/18 09:11 Dose: 100 mls/hr Insulin Human Regular (Humulin R Med) 0 units SC ACHS [facility] PRN Reason: Protocol Last Admin: 02/02/18 12:23 Dose: 1 unit Lidocaine (Lidoderm) 1 ea TD DAILY [facility] Last Admin: 02/02/18 09:11 Dose: 1 ea Metoprolol Tartrate (Lopressor) 25 mg PO BID [facility] Last Admin: 02/02/18 17:16 Dose: 25 mg Morphine Sulfate (Morphine) 2 mg IVP Q6H PRN PRN Reason: back pain Last Admin: 02/02/18 08:16 Dose: 2 mg Ondansetron HCl (Zofran Inj) 4 mg IVP Q6H PRN PRN Reason: Nausea/Vomiting Pantoprazole Sodium (Protonix Inj) 40 mg IVP DAILY [facility] Last Admin: 02/02/18 09:12 Dose: 40 mg - Labs Labs: 01/31/18 05:30 01/31/18 05:30 PT 18.8 SECONDS (9.4-12.5) H 01/30/18 06:00 INR 1.62 (0.93-1.08) H 01/30/18 06:00 APTT 31.1 Seconds (25.1-36.5) 01/30/18 06:00 Attending/Attestation - Attestation I have personally seen and examined this patient.: Yes I have fully participated in the care of the patient.: Yes I have reviewed all pertinent clinical information, including history, physical exam and plan: Yes Notes (Text): This is an addendum to GI progress report dictated by the Harness Fitter.The patient was seen and examined earlier. Medical records, lab studies, imagings were reviewed. Last 24 hours events reviewed. Agreed with the above treatment plan as outlined in Harness Fitter 's notes the with the addition of the following Vascular consult by Dr. Olvin Li was reviewed. Clinically patient is impro No significant tenderness on the right side 04/04 19:21
--- NOTE | 2018-02-02 11:58 | PN ---
DATE: 02/02/2018 TIME: 11:50 a.m. SUBJECTIVE: This is a 67-year-old gentleman with coronary artery disease, who was admitted with abdominal pain. I reviewed his Duplex imaging and CT scan of the abdomen/pelvis with IV contrast. Both studies showed no evidence of significant occlusive disease involving the mesenteric arteries. I will defer to GI at this point. A mesenteric arteriogram would be of low yield but could visualize small vessel disease or subtle abnormalities. If the patient's clinical presentation is strongly suggestive of mesenteric ischemia or if there is evidence of ischemia on endoscopy, an angiogram can be performed. Please let me know. Olvin Li MD MTDD
[2018-02-02] MEDS: Digoxin 125 mcg (0.125 mg) Tab PO SCH (13:53)
[2018-02-02 13:55] VITALS: PULSE 64
--- NOTE | 2018-02-02 15:58 | PN ---
DATE: 02/02/2018 SUBJECTIVE: The patient is a 67-year-old, seen and examined, sitting in a chair. He states his belly pain is much better, complaining of back pain. Diet was advanced, he seems to be tolerating. No diarrhea. PHYSICAL EXAMINATION: VITAL SIGNS: The patient is afebrile, pulse 58, respirations 18, blood pressure 147/79. LUNGS: Bilateral good air flow. No rhonchi or crackles. HEART: S1, S2 audible. ABDOMEN: Soft, nontender. No rebound. No guarding. NEUROLOGIC: The patient is awake, alert, oriented, communicative, ambulatory. LABORATORY DATA: WBC 6.9, hemoglobin 10.6, hematocrit 34.8, platelet of 271. Chemistry: Blood sugar is 190. Stool for Hemoccult is negative. His ova and parasites and C. diff are negative. ASSESSMENT: 1. Transverse colitis. 2. History of esophageal tear on previous admission. 3. Yls-rddinzp-zkrwgdhwg diabetes. 4. Coronary artery disease. 5. Status post pacemaker placement. 6. 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 PLAN: We will continue the patient on IV fluids. He is on antibiotics. We will monitor his blood sugar. He is on metronidazole and Levaquin. The patient is scheduled to have endoscopy done tomorrow. Currently, he is on a diabetic soft diet. Carlos Tsai MD
--- NOTE | 2018-02-02 16:56 | CP.PCM.PN ---
Subjective - Date & Time of Evaluation Date of Evaluation: 02/02/18 Time of Evaluation: 10:00 - Subjective Subjective: Diarrhea(Non bloody) Objective - Vital Signs/Intake and Output Vital Signs (last 24 hours): Temp Pulse Resp BP Pulse Ox 97.8 F 62 18 147/79 100 02/02/18 06:00 02/02/18 09:12 02/02/18 06:00 02/02/18 09:12 02/02/18 06:00 Intake and Output: 02/02/18 02/02/18 06:59 18:59 Intake Total 240 540 Balance 240 540 - Medications Medications: Current Medications Acetaminophen (Tylenol 325mg Tab) 650 mg PO Q6H PRN PRN Reason: Fever >100.4 F Last Admin: 02/01/18 21:41 Dose: 650 mg Bismuth Subsalicylate (Pepto-Bismol) 262 mg PO BID [facility] Last Admin: 02/02/18 09:54 Dose: 262 mg Digoxin (Digoxin) 0.125 mg PO 1400 [facility] Last Admin: 02/02/18 13:53 Dose: 0.125 mg Gabapentin (Neurontin) 300 mg PO DAILY [facility] PRN Reason: Protocol Last Admin: 02/02/18 09:11 Dose: 300 mg Metronidazole (Flagyl) 250 mg in 50 mls @ 100 mls/hr IV Q8 [facility] PRN Reason: Protocol Stop: 02/03/18 22:01 Last Admin: 02/02/18 14:42 Dose: 100 mls/hr Ceftriaxone Sodium (Rocephin 1 Gram Ivpb) 1 gm in 100 mls @ 100 mls/hr IVPB DAILY [facility] PRN Reason: Protocol Stop: 02/03/18 10:59 Last Admin: 02/02/18 09:11 Dose: 100 mls/hr Insulin Human Regular (Humulin R Med) 0 units SC ACHS [facility] PRN Reason: Protocol Last Admin: 02/02/18 12:23 Dose: 1 unit Lidocaine (Lidoderm) 1 ea TD DAILY [facility] Last Admin: 02/02/18 09:11 Dose: 1 ea Metoprolol Tartrate (Lopressor) 25 mg PO BID [facility] Last Admin: 02/02/18 09:12 Dose: 25 mg Morphine Sulfate (Morphine) 2 mg IVP Q6H PRN PRN Reason: back pain Last Admin: 02/02/18 08:16 Dose: 2 mg Ondansetron HCl (Zofran Inj) 4 mg IVP Q6H PRN PRN Reason: Nausea/Vomiting Pantoprazole Sodium (Protonix Inj) 40 mg IVP DAILY [facility] Last Admin: 02/02/18 09:12 Dose: 40 mg - Labs Labs: 01/31/18 05:30 01/31/18 05:30 PT 18.8 SECONDS (9.4-12.5) H 01/30/18 06:00 INR 1.62 (0.93-1.08) H 01/30/18 06:00 APTT 31.1 Seconds (25.1-36.5) 01/30/18 06:00 Assessment and Plan - Assessment and Plan (Free Text) 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
[2018-02-03] MEDS: metroNIDAZOLE IV 250mg/50 ml 250 MG/50 ML BAG IV SCH ×2 (05:42→14:13)
[2018-02-03 06:37] LABS: HEMOGLOBIN 10.3 g/dL (14.0-18.0); MEAN CELL VOLUME 70.8 fl (80.0-105.0); MEAN CORPUSCULAR HEMOGLOBIN 21.5 pg (25.0-35.0); MEAN CORPUSCULAR HGB CONC 30.4 g/dl (31.0-37.0); MEAN PLATELET VOLUME 10.2 fl (7.0-11.0); RBC 4.79 10^6/uL (3.5-6.1); RED CELL DISTRIBUTION WIDTH 19.7 % (11.5-14.5); WHITE BLOOD COUNT 5.6 10^3/ul (4.5-11.0)
[2018-02-03 07:04] LABS: BLOOD UREA NITROGEN 12 mg/dL (7-21); GFR AFRICAN-AMERICAN > 60; GFR NON-AFRICAN AMERICAN > 60
[2018-02-03] MEDS: Insulin Reg-MEDIUM-Coverage SC SCH ×2 (08:59→11:58)
[2018-02-03] MEDS: Lidocaine 5% Patch TD SCH (09:01)
[2018-02-03] MEDS: Bismuth Subsalicylate 262 mg/15 ml Sus (240 ml) PO SCH (09:05)
[2018-02-03] MEDS: cefTRIAXone 1 gm 1 GM/100 ML BAG IVPB SCH (09:06)
[2018-02-03 12:15] VITALS: TEMP 97.8; O2SAT 100
[2018-02-03] MEDS ORDERED: Sodium Chloride 0.9% 1,000 ML IV SCH (12:45)
[2018-02-03] MEDS ORDERED: Propofol 10 mg/ml Inj (20 ML) ONE (12:45)
[2018-02-03] MEDS ORDERED: Etomidate 20 mg/10ml Inj IV ONE (13:20)
[2018-02-03 13:29] VITALS: RESP 16
[2018-02-03 13:34] VITALS: BP 164/77; PULSE 58
--- NOTE | 2018-02-04 16:11 | DS ---
HOSPITAL COURSE: Patient is 67 years old who was admitted with abdominal pain. He was found to have epigastric and right upper quadrant pain. CT scan done on 01/29/2018 showed cholelithiasis, segmental colitis affecting ascending colon and segments of the hepatic flexure. The patient was admitted and started on IV fluid. Initial impression was C. diff colitis, but stool for C. diff was negative and differential was ischemic colitis since patient has cardiomyopathy with history of diabetes and coronary artery disease. So, patient remained on IV fluid, IV antibiotic, was evaluated by GI, had an endoscopy done. He had repeat endoscopy done that showed healing of his ulceration. Otherwise, his endoscopy was unremarkable. PHYSICAL EXAMINATION: GENERAL: He is awake, alert, oriented, communicative. VITAL SIGNS: He is afebrile, pulse 50, respirations 16, blood pressure /77. LUNGS: Bilateral fair airflow. No rhonchi or crackle. HEART: S1, S2 audible. No murmur. ABDOMEN: Soft, nontender. No rebound, no guarding. NEUROLOGICAL: Patient is awake, alert, oriented, communicative. EXTREMITIES: Bilateral legs, no edema. LABORATORY EXAMINATION: WBC of 5.6, hemoglobin 10.3, hematocrit 33.9, platelet of 240. Chemistry: Sodium 139, potassium 4.2, chloride 106, CO2 of 22, BUN 12, creatinine 0.8, blood sugar of 116. ASSESSMENT: 1. Ascending and transverse colitis, probably ischemic. 2. Coronary artery disease status post angioplasty. 3. Hypertension. 4. Hyperlipidemia. 5. [id number] diabetes. 6. Diabetic neuropathy. 7. Chronic degenerative disk disease. PLAN: We will discharge the patient on Cipro 500 twice a day. He will resume his Plavix, aspirin, and he will monitor his blood sugar. He will follow up in the office in 2 weeks. Carlos Tsai MD
== END 2018-02-03 16:20 | disposition home or self-care (01) | DRG 392 ==
LOC: ED 10:14 → ERH 18:14 → 3RNO 20:33
PROVIDERS: ADMIT Internal Medicine; ATTEND Internal Medicine
PROC: 0DJ08ZZ Inspection of Upper Intestinal Tract, Via Natural or Artificial Opening Endoscopic (ICD-10-PCS; principal; 2018-02-03 11:45)
DX: K52.9 Noninfective gastroenteritis and colitis, unspecified (principal); K80.10 Calculus of gallbladder with chronic cholecystitis without obstruction; K22.10 Ulcer of esophagus without bleeding; I77.4 Celiac artery compression syndrome; K55.1 Chronic vascular disorders of intestine; I11.0 Hypertensive heart disease with heart failure; I50.9 Heart failure, unspecified; K29.80 Duodenitis without bleeding; K25.9 Gastric ulcer, unspecified as acute or chronic, without hemorrhage or perforation; D50.9 Iron deficiency anemia, unspecified; E78.00 Pure hypercholesterolemia, unspecified; E78.5 Hyperlipidemia, unspecified; J44.9 Chronic obstructive pulmonary disease, unspecified; I25.10 Atherosclerotic heart disease of native coronary artery without angina pectoris; N28.1 Cyst of kidney, acquired; M54.5 Low back pain; E11.9 Type 2 diabetes mellitus without complications; I25.2 Old myocardial infarction; Z79.02 Long term (current) use of antithrombotics/antiplatelets; Z79.82 Long term (current) use of aspirin; Z79.84 Long term (current) use of oral hypoglycemic drugs; Z95.0 Presence of cardiac pacemaker; Z95.5 Presence of coronary angioplasty implant and graft; Z87.11 Personal history of peptic ulcer disease; Z87.891 Personal history of nicotine dependence

== ENCOUNTER 2018-06-25 09:47 | Day surgery (SDC) | payer MEDICARE, MEDICAID ==
[2018-01-29 12:10] VITALS: BMI 26.6
[2018-06-25 10:55] LABS: EOS # 0.1 (0.0-0.7); EOS % 2.3 % (1.5-5.0); GRAN # 2.41 (1.4-6.5); GRAN % 54.7 % (50.0-68.0); HEMOGLOBIN 11.9 g/dL (14.0-18.0); LYMPH # 1.3 (1.2-3.4); LYMPH % 28.9 % (22.0-35.0); MEAN CELL VOLUME 89.4 fl (80.0-105.0); MEAN CORPUSCULAR HEMOGLOBIN 29.2 pg (25.0-35.0); MEAN CORPUSCULAR HGB CONC 32.7 g/dl (31.0-37.0); MEAN PLATELET VOLUME 10.1 fl (7.0-11.0); MONO # 0.6 (0.1-0.6); MONO % 14.1 % (1.0-6.0); RBC 4.07 10^6/uL (3.5-6.1); RED CELL DISTRIBUTION WIDTH 16.1 % (11.5-14.5); WHITE BLOOD COUNT 4.4 10^3/uL (4.5-11.0)
[2018-06-25 11:03] LABS: BLOOD UREA NITROGEN 36 mg/dL (7-21); CALCIUM 9.9 mg/dL (8.4-10.5); GFR NON-AFRICAN AMERICAN 50
[2018-06-25] MEDS ORDERED: Lidocaine 2% Inj (20ml) ONE (11:03)
[2018-06-25 11:04] LABS: INR 1.3; PARTIAL THROMBOPLASTIN TIME 29.1 Seconds (25.1-36.5)
[2018-06-25] MEDS ORDERED: Iodixanol 320 MG/ML 100 ML BOTTLE IV ONE (11:04)
[2018-06-25] MEDS ORDERED: Nitroglycerin 50mg in D5W 50 MG/250 ML BOTTLE IV ONE (11:04)
[2018-06-25] MEDS ORDERED: Iodixanol 320 MG/ML 200 ML BOTTLE IV ONE (11:04)
[2018-06-25] MEDS ORDERED: Midazolam 2 MG/2 ML VIAL ONE ×2 (11:37→11:58)
[2018-06-25] MEDS ORDERED: Oxycodone/Acetaminophen 5/325 mg Tab PO PRN (12:55)
[2018-06-25] MEDS ORDERED: Sodium Chloride 0.45% 1,000 ML IV SCH (13:00)
[2018-06-25 14:34] VITALS: RESP 18; TEMP 97.4
[2018-06-25 14:45] VITALS: O2SAT 97
[2018-06-25 16:50] VITALS: BP 109/58; PULSE 52
--- NOTE | 2018-06-25 20:53 | VASCULAR ---
Date of service: 06/25/2018 PROCEDURE: 1. Abdominal aortogram and bilateral lower extremity runoff. HISTORY: Severe peripheral vascular disease. Ischemic rest pain left foot. Diabetes. PHYSICIAN(S): Olvin Li M.D. TECHNIQUE: The relative risks and indications of the procedure were explained to the patient and his and consent obtained. The patient was hydrated prior to the procedure and the appropriate labs drawn. The patient was placed supine on the arteriogram table and the right groin prepped and draped in the usual sterile fashion. Conscious sedation and monitoring were provided throughout the procedure by a nurse. Via a right common femoral artery approach, a 5 Finnish sheath was placed in the right groin. Through the sheath and over a guidewire, a 5 Finnish flush catheter was placed in the abdominal aorta at the level of the renal arteries and a PA DSA abdominal aortogram performed. The catheter was pulled down to the aortic bifurcation and bilateral oblique DSA pelvic arteriograms performed. Overlapping bilateral lower extremity DSA arteriograms were obtained from the inguinal ligaments to the ankles. A 0.035 angled Glidewire was advanced over the bifurcation and placed in the distal left SFA. A 7 Finnish 65 cm destination sheath was placed in the mid left SFA. Heparin 5000 units IV and nitroglycerin in 250 mcg aliquots were given. The critical disease in the terminal left popliteal artery and tibioperoneal trunk was crossed easily with a 0.035 angled glidewire and 5 Finnish catheter.. Exchange was made for a 0.014 support guidewire in the left posterior tibial artery. [place] atherectomy of the distal left popliteal artery and proximal left posterior tibial artery was performed with an S catheter. Approximately 4 passes were performed. The distal left popliteal artery and proximal left posterior tibial artery were dilated with a 3.5 mm balloon. There is a tapered appearance to the distal left popliteal artery and proximal left peroneal artery. 0.014 body wires were placed in the left peroneal and posterior tibial arteries. Kissing balloon angioplasty of the distal left popliteal artery and proximal left posterior tibial and peroneal arteries were performed with 3 mm x 8 cm balloons. An excellent angiographic result was obtained. Completion angiograms were performed. The sheath was removed hemostasis obtained with a Perclose device. The patient tolerated the procedure well. FINDINGS: There are single renal arteries bilaterally which are widely patent and normal in appearance. The nephrograms are symmetric in appearance. The infrarenal abdominal aorta is widely patent without a radiographically significant stenosis. The aortic bifurcation is widely patent. The common and external iliac arteries are normal in appearance without a significant stenosis. The internal iliac arteries are patent bilaterally. Right lower extremity: The right common femoral artery is patent. The right profunda femoral artery is patent. The right superficial femoral artery is patent with diffuse smooth atherosclerotic change.. The right popliteal artery is continuous. There is severe right trifurcation and tibial occlusive disease. The right anterior tibial and posterior tibial arteries are occluded proximally. The right peroneal artery is continuous and gives a collateral to the distal right posterior tibial artery. There may be faint opacification of the terminal right anterior tibial artery. Left lower extremity: Left common femoral artery is patent. The left profunda femoral artery is patent. The left superficial femoral artery is calcified and continuous without radiographically significant stenosis.. The left popliteal artery is patent proximally with tapered severe disease distally involving the tibioperoneal trunk and proximal tibial arteries. There is severe left trifurcation and tibial occlusive disease. The left anterior tibial artery is occluded proximally. There is 2 vessel runoff via the left posterior tibial and peroneal arteries. Severe disease of the proximal posterior tibial and peroneal arteries is noted. IMPRESSION: 1.Successful silver Hawk atherectomy and balloon angioplasty of the distal left popliteal artery. 2. Successful [place] Hawk atherectomy and balloon angioplasty of the proximal left posterior tibial artery 3. Successful left peroneal artery angioplasty
== END 2018-06-25 17:30 | disposition home or self-care (01) ==
LOC: SDSVAS 09:47
PROVIDERS: ATTEND Radiology Vascular & Interventional Radiology
DX: E11.51 Type 2 diabetes mellitus with diabetic peripheral angiopathy without gangrene (principal); J44.9 Chronic obstructive pulmonary disease, unspecified; I10 Essential (primary) hypertension; I25.10 Atherosclerotic heart disease of native coronary artery without angina pectoris; E78.5 Hyperlipidemia, unspecified; Z87.891 Personal history of nicotine dependence
CPT/HCPCS: 36415; 37225; 37229; 37232; 75625; 75716; 80048; 85025; 85610; 85730; 99152; 99153; C1714; C1725 ×3; C1760 ×2; C1769 ×4; C1887 ×2; C1894; J1644 ×2; J2250; J2405; J3010; J7030; Q9966; Q9967

== ENCOUNTER 2018-10-20 15:39 | Outpatient (CLI) | payer MEDICARE, MEDICAID | END 2018-10-20 15:40 | disposition home or self-care (01) | LOC: CARDIO 15:39 ==